=== PATIENT | male | born 1955 | race Caucasian/White ===

== ENCOUNTER 2017-05-16 11:43 | Emergency (ER) | payer MEDICARE, MEDICAID ==
[~2017-05-16] VITALS: Ht 182.9 cm; Wt 77.1 kg
[2017-05-16 12:18] VITALS: BP 145/91
[2017-05-16] MEDS ORDERED: LIDOCAINE 1%/EPI 1:100,000 20 ML VIAL. INJ ONE (12:45)
[2017-05-16] MEDS ORDERED: LIDOCAINE/EPI/TETRACAINE TOPICAL GEL 3 ML. TP ONE (12:45)
[2017-05-16] MEDS ORDERED: HYDROcodone/APAP 5/325MG 1 TAB TABLET PO ONE (14:15)
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
[2017-05-16] MEDS ORDERED: AMOX1TAB61 PO (14:38)
== END 2017-05-16 15:08 | disposition home or self-care (01) ==
LOC: ER 11:43
DX: S01.81XA Laceration without foreign body of other part of head, initial encounter (principal); S01.511A Laceration without foreign body of lip, initial encounter; S01.532A Puncture wound without foreign body of oral cavity, initial encounter; I10 Essential (primary) hypertension; E78.00 Pure hypercholesterolemia, unspecified; W54.0XXA Bitten by dog, initial encounter; Y93.89 Activity, other specified; Y92.89 Other specified places as the place of occurrence of the external cause; Y99.8 Other external cause status
CPT/HCPCS: 12014; 40650; J3490; 99285-25

== ENCOUNTER 2017-05-20 14:46 | Emergency (ER) | payer MEDICARE, MEDICAID ==
[~2017-05-20 14:46] MED LIST: AMOX1TAB61 PO
[2017-05-20 14:52] VITALS: BP 132/78
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
== END 2017-05-20 15:39 | disposition home or self-care (01) ==
LOC: ER 14:46
DX: S01.81XD Laceration without foreign body of other part of head, subsequent encounter (principal); S01.511D Laceration without foreign body of lip, subsequent encounter; I10 Essential (primary) hypertension; E78.00 Pure hypercholesterolemia, unspecified; W54.0XXD Bitten by dog, subsequent encounter
CPT/HCPCS: 99281

== ENCOUNTER 2017-05-23 12:12 | Emergency (ER) | payer MEDICARE, MEDICAID ==
[2017-05-23 13:20] VITALS: BP 115/73
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
== END 2017-05-23 13:57 | disposition home or self-care (01) ==
LOC: ER 12:12
DX: S01.81XD Laceration without foreign body of other part of head, subsequent encounter (principal); S01.511D Laceration without foreign body of lip, subsequent encounter; I10 Essential (primary) hypertension; E78.00 Pure hypercholesterolemia, unspecified; X58.XXXD Exposure to other specified factors, subsequent encounter; Y99.8 Other external cause status; Y92.89 Other specified places as the place of occurrence of the external cause
CPT/HCPCS: 99281

== ENCOUNTER 2021-05-26 17:53 | Inpatient (IN) | payer MEDICARE, MEDICAID ==
[~2021-05-26] VITALS: Ht 182.9 cm; Wt 59.7 kg
[2021-05-26] MEDS ORDERED: IV NORMAL SALINE 1000ML BAG 1,000 ML IV ONE ×2 (18:00→18:45)
[2021-05-26] MEDS ORDERED: ALBUTEROL SULFATE 2.5 MG/3 ML NEBU. NEB ONE (18:30)
[2021-05-26] MEDS ORDERED: methylPREDNISolone SOD SUCC PF 125 MG/2 ML VIAL. IV ONE (18:30)
[2021-05-26 18:44] LABS: BASE EXCESS COOX 5 mmol/L (-3-3); HCO3 COOX 28 mmol/L (21-28); METHEMOGLOBIN 0.3 % (0.0-1.9); OXYHEMOGLOBIN 84.7 %; PCO2 COOX 35 mmHg (35-46); PO2 COOX 51 mmHg (65-108); SAT O2 COOX 87 % (92-99)
[2021-05-26 18:44] LABS: BASO % 0 % (0-3); EOS # 0.1 x10^3/uL (0.0-0.7); EOS % 0 % (0-3); HEMATOCRIT 35.6 % (39.0-53.0); HEMOGLOBIN 12.3 g/dL (13.0-17.5); LYMPH # 0.3 x10^3/uL (1.0-4.8); LYMPH % 2 % (24-48); MEAN CORPUSCULAR HEMOGLOBIN 32 pg (25-35); MEAN CORPUSCULAR HGB CONC 35 g/dL (31-37); MEAN CORPUSCULAR VOLUME 92 fL (79-100); MONO % 0 % (0-9); NEUT # 14.5 x10^3/uL (1.8-7.7); NEUT % 97 % (31-73); PLATELET COUNT 247 x10^3/uL (140-400); RED BLOOD COUNT 3.86 x10^6/uL (4.30-5.70); RED CELL DISTRIBUTION WIDTH 14.2 % (11.5-14.5); WHITE BLOOD COUNT 14.9 x10^3/uL (4.0-11.0)
[2021-05-26] MEDS ORDERED: PIPERACILLIN/TAZOBACTAM 3.375 GM in IV NORMAL SALINE 50ML 50 ML IV ONE (18:45)
--- NOTE | 2021-05-26 18:49 | PHYS DOC ---
Past Medical History Past Medical History: High Cholesterol, Hypertension, Seizure Past Surgical History: Other Additional Past Surgical Histo: LEFT HAND CARPEL TUNNEL, AAA REPAIR Smoking Status: Former Smoker Alcohol Use: None Drug Use: None General Adult EDM: Chief Complaint: FLU SYMPTOM HPI: HPI: Patient is a 65 year old male who presents with 1 week of loss of taste, shortness of air, dizziness, cough, diarrhea. He states about a week ago he fell and was not seen in the hospital for this. He has a right shoulder bruise but no deformity. He states he is very dizzy. Patient appears very frail and disheveled. He states he does not remember last time he took a shower. He is living with a roommate who has been diagnosed with Covid for about 2 weeks now. Patient has a history of AAA, high cholesterol, hypertension, seizure, former smoker. Review of Systems: Review of Systems: Constitutional: + fever or chills. [] Eyes: Denies change in visual acuity. [] HENT: Denies nasal congestion or sore throat. [] Respiratory: + cough or +shortness of breath. [] Cardiovascular: Denies chest pain or edema. [] GI: Denies abdominal pain, nausea, vomiting, bloody stools or+diarrhea. [] : Denies dysuria. [] Musculoskeletal: Denies back pain or joint pain. +Generalized fatigue [] Integument: Denies rash. [] Neurologic: Denies headache, focal weakness or sensory changes. +Dizziness [] Endocrine: Denies polyuria or polydipsia. [] Lymphatic: Denies swollen glands. [] Psychiatric: Denies depression or anxiety. [] Heart Score: C/O Chest Pain: No HEART Score for Chest Pain: HEART Score for Chest Pain Response (Comments) Value History Slighlty/Non-Suspicious 0 ECG Nonspecific Repolarizatio 1 Age > 65 2 Risk Factors 1 or 2 Risk Factors 1 Troponin < Normal Limit 0 Total 4 Risk Factors: Risk Factors: DM, Current or recent (<one month) smoker, HTN, HLP, family history of CAD, obesity. Risk Scores: Score 0 - 3: 2.5% MACE over next 6 weeks - Discharge Home Score 4 - 6: 20.3% MACE over next 6 weeks - Admit for Clinical Observation Score 7 - 10: 72.7% MACE over next 6 weeks - Early Invasive Strategies Current Medications: Current Medications Medications (Trade) Dose Ordered Sig/Natacha Start Time Stop Time Status Last Admin Dose Admin Albuterol Sulfate (Ventolin Neb Soln) 2.5 mg 1X ONCE 05/26/21 18:30 05/26/21 18:31 UNV Methylprednisolone Sodium Succinate (SOLU-Medrol 125MG VIAL) 80 mg 1X ONCE 05/26/21 18:30 05/26/21 18:31 UNV Sodium Chloride 1,000 ml @ 1,000 mls/hr 1X ONCE 05/26/21 18:00 05/26/21 18:59 UNV Allergies: Allergies: Allergies Coded Allergies Type Severity Reaction Last Updated Verified No Known Drug Allergies 05/16/17 No Physical Exam: PE: Constitutional: Well developed, well nourished, no acute distress, non-toxic appearance. [] HENT: Normocephalic, atraumatic, bilateral external ears normal, oropharynx moist, no oral exudates, nose normal. [] Eyes: PERRLA, EOMI, conjunctiva normal, no discharge. [] Neck: Normal range of motion, no tenderness, supple, no stridor. [] Cardiovascular:Heart rate regular tachycardia rhythm, no murmur [] Lungs & Thorax: Bilateral breath sounds diminished to auscultation [] Abdomen: Bowel sounds normal, soft, no tenderness, no masses, no pulsatile masses. [] Skin: Warm, dry, no erythema, no rash. [] Back: No tenderness, no CVA tenderness. [] Extremities: No tenderness, no cyanosis, no clubbing, ROM intact, no edema. [] Neurologic: Alert and oriented X 3, normal motor function, normal sensory function, no focal deficits noted. [] Psychologic: Affect normal, judgement normal, mood normal. [] EKG: EK and read by Dr. Stone as sinus tachycardia and no STEMI. [address] Stone as afib and no STEMI Radiology/Procedures: Radiology/Procedures: [] Impression: [facility] [address] [place], [place] [id number] IMAGING REPORT Signed PATIENT: TOYA VARGAS ACCOUNT: [id number] : 1955 LOCATION: ER AGE: 65 SEX: M EXAM STATUS: REG ER ORD. PHYSICIAN: ALONSO RUST APRN REASON: cough PROCEDURE: PORTABLE CHEST 1V EXAMINATION: XR CHEST 1V CLINICAL HISTORY: Cough, hypoxia EXAM DATE/TIME: 05/26/2021 6:11 PM COMPARISON: None FINDINGS: Lines, Tubes, and Devices: None. Cardiomediastinal Silhouette: Narrowed cardiomediastinal Silhouette with aortic atherosclerotic calcification. Lungs and Pleura: Relative paucity of bronchovascular markings in the mid to upper lung zones with coarse interstitial prominence in the lower lung zones, compatible with COPD/emphysema. Increased interstitial and possible alveolar opacities in the right lower lung zone compared to the left. No evidence of pleural effusion or pneumothorax. Bones and Soft Tissues: Degenerative changes of the thoracic spine. Probable calcified joint bodies projected over the left shoulder. Partially visualized degenerative and/or posttraumatic changes in the right shoulder. IMPRESSION: Chronic changes consistent with COPD/emphysema with asymmetrically prominent interstitial and alveolar opacities in the right lower lung zones, possibly infectious. Correlate clinically. Electronically signed by: Adam Martin DO (05/26/2021 8:03 PM) [facility] DICTATED and SIGNED BY: ADAM MARTIN DO DATE: 05/26/[id number] 0 [facility] [address] [place] [address] IMAGING REPORT Signed PATIENT: TOYA VARGAS ACCOUNT: [id number] : 1955 LOCATION: ER AGE: 65 SEX: M EXAM STATUS: REG ER ORD. PHYSICIAN: ALONSO RUST APRN REASON: hypoxia PROCEDURE: CT CHEST ABDOMEN PELVIS WO Study: CT chest, abdomen and pelvis without contrast INDICATION: Hypoxia. COMPARISON: None. TECHNIQUE: Helical CT imaging performed of the chest, abdomen and pelvis performed without the use of intravenous contrast. Coronal and sagittal reformats were obtained. One or more of the following individualized dose reduction techniques were utilized for this examination: 1. Automated exposure control 2. Adjustment of the mA and/or kV according to patient size 3. Use of iterative reconstruction technique. FINDINGS: Inherently limited study without the use of intravenous contrast. CT Chest: Extensive calcific atherosclerosis to include severe trivessel coronary artery involvement. No aortic aneurysm. Enlarged subcarinal lymph node measuring 1.6 cm short axis. Mildly prominent precarinal lymph node at 1 cm short axis. Severe emphysema. Consolidative opacities mainly at the lower half of the right lung. Less pronounced peripheral opacities on the left lower lobe and a bandlike opacity along the anterior margin of the left major fissure. No axillary adenopathy. Cachectic body habitus. 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 Osteopenia. Advanced discogenic arthrosis at C6-C7 with an incomplet michael characterized disc osteophyte complex with presumed severe neural foraminal stenosis on the right. A few small areas of sclerosis along the vertebral bodies most of which are associated with Schmorl's nodes. CT Abdomen/Pelvis: Multiple hypoattenuating foci scattered throughout the liver which are incompletely characterized. A lobulated cystic focus at the periphery of the rig ht hepatic lobe measuring up to 4.2 cm appears to be septated. No CT manifestations of acute cholecystitis. No overt intrahepatic ductal dilatation. Poorly evaluated pancreas without regional inflammation. Splenic granulomas. The spleen is within normal limits for size. Atrophic adrenal glands without a well delineated mass. No hydronephrosis. Normal bladder wall thickness. Mild enlargement of the prostate. Incompletely assessed gastrointestinal tract without positive oral contrast. The stomach is particularly poorly evaluated due to underdistention. No pathologic dilatation of small bowel. No readily apparent abnormality of the colon. The appendix is difficult to delineate. Tortuous abdominal aorta with aneurysmal dilatation status post infrarenal aortobiiliac endograft repair. Also aneurysmal is the left common iliac artery and proximal left internal iliac artery. The stented aneurysm sac measures up to 5 cm. The aneurysm above the stent measures up to 4.4 x 4.8 cm. The left common iliac artery aneurysm measures up to 4.9 x 4.3 cm which is only partially stented. Background extensive calcific atherosclerosis. Incomplete assessment for stenoses without contrast. No definitive lymphadenopathy by size criteria. No free fluid or pneumoperitoneum. Osteopenia. Probable lumbar Schmorl's nodes. Discogenic arthrosis, endplate sclerosis and cystic change. Degenerative grade 1 anterolisthesis of L5 on S1. Mild stepwise retrolisthesis from L2-L3 through L4-L5. Severe osseous neural foraminal stenosis bilaterally at L5-S1. Lumbar dextroscoliosis with the apex at L3-L4. IMPRESSION: CT Chest: 1. Extensive consolidative opacities mainly at the lower half of the right lung and to a much lesser extent at the far peripheral aspect of the left lower lobe. Background severe emphysema. The imaging appearance is most typical of multifocal pneumonia which could be in part from aspiration given distribution. There are also a few prominent mediastinal lymph nodes which are indeterminate but could be reactive. Follow-up is recommended to confirm resolution. 2. Chronic findings to include extensive calcific atherosclerosis with severe trivessel coronary artery involvement and markedly severe arthrosis of both shoulders. CT Abdomen/Pelvis: 1. Taking into consideration the absence of contrast, no acute abnormality seen throughout the abdomen or pelvis. 2. Numerous incompletely characterized cystic foci scattered throughout the liver the largest within the right hepatic lobe measuring up to 4.2 cm which may be thinly septated. Obtainment of outside imaging would be useful to confirm stability. If none are available, eventual ultrasound follow-up is recommended. 3. Status post infrarenal aortobiiliac endograft repair in the setting of fusiform aneurysmal dilatation of the abdominal aorta in addition to the left common iliac artery. Maximum aneurysm measurements described in the body the report. No findings of rupture. 4. Additional chronic observations described above. Electronically signed by: BEBE WILLIAMSON MD (05/26/2021 9:26 PM) [facility] DICTATED and SIGNED BY: BEBE WILLIAMSON MD DATE: 05/26/21 [id number] [facility] [address] [place] [address] IMAGING REPORT Signed PATIENT: TOYA VARGAS ACCOUNT: [id number] : 1955 LOCATION: ER AGE: 65 SEX: M EXAM STATUS: REG ER ORD. PHYSICIAN: ALONSO RUST APRN REASON: dizziness fall PROCEDURE: CT HEAD AND CERVICAL SPINE WO EXAMINATION: CT HEAD AND C-SPINE WO CLINICAL HISTORY: Dizziness, fall one week ago TECHNIQUE: Serial axial images without IV contrast were obtained from the vertex to the foramen magnum. CT of the cervical spine without IV contrast. Spiral, high resolution axial images were obtained from the skull base to the cervicothoracic junction with sagittal and coronal planar reconstructions. CT Dose Reduction Employed: One or more of the following individualized dose reduction techniques were utilized for this examination: 1. Automated exposure control 2. Adjustment of the mA and/or kV according to patient size 3. Use of iterative reconstruction technique. COMPARISON: None FINDINGS: BRAIN: Acute Change: No evidence of an acute contusion or other acute parenchymal process. Hemorrhage: No evidence of acute parenchymal intracranial hemorrhage. Mass Lesion/Mass Effect: Subtle increased attenuation overlying the right cerebral hemisphere suspicious for a subacute subdural hematoma measuring up to 4 mm in maximum thickness. No associated midline shift. No evidence of intracranial mass or significant mass effect. Chronic Change: Scattered patchy foci of hypoattenuation in the supratentorial white matter, nonspecific but likely represents mild microvascular ischemia. Atherosclerotic calcification of the bilateral carotid siphons. Parenchyma: Mild generalized volume loss. Ventricles: Ventricles within normal limits for age. Paranasal Sinuses and Skull Base: Mild ethmoid secretions. No evidence of acute calvarial fracture. C-SPINE: Alignment: Normal anatomic alignment. Osseous Structures: No evidence of acute fracture. Grade 1 C3-4 anterolisthesis. Deformity of the left lateral mass of C3, possibly related to remote trauma. Degenerative Changes: Moderate to severe multilevel degenerative disc disease. Moderate to severe multilevel neural foraminal narrowing. Mild to moderate multilevel osseous spinal stenosis. Multilevel facet arthropathy. Cervical Soft Tissues: No prevertebral soft tissue swelling. Vascular calcifications. IMPRESSION: BRAIN: Findings suspicious for a small subacute right subdural hematoma. No associated midline shift or significant mass effect. C-SPINE: No evidence of acute osseous abnormality involving the cervical spine. Moderate to severe multilevel degenerative findings as described. Findings discussed with ALONSO RUST APRN at 05/26/2021 9:21 PM. Electronically signed by: Adam Martin DO (05/26/2021 9:26 PM) [facility] DICTATED and SIGNED BY: ADAM MARTIN DO DATE: 05/26/21 [id number] Course & Med Decision Making: Course & Med Decision Making Pertinent Labs and Imaging studies reviewed. (See chart for details) COVID-19 CRITERIA: The patient was evaluated during the global COVID-19 pandemic, and that diagnosis was suspected/considered upon their initial presentation. Their evaluation, treatment and testing was consistent with current guidelines for patients who present with complaints or symptoms that may be related to COVID-19. See HPI. Skin is warm, dry, skin mottled. Hands are cold. Alert and oriented x4. Does speak in full clear sentences. Does have a very large bruise to his right shoulder from a fall that he was not seen for about a week ago. States he is very dizzy and cannot ambulate. Patient is hypotensive. Patient ta chycardic. He is hypoxic and on 4 L of oxygen at 86%. After 800 mL fluid from EMS patient's blood pressure is up in the 90s. He does not wear oxygen daily. Lungs are very diminished throughout. Blood pressures dropped back down in the 70s. ABG shows hypoxia. We are waiting on BiPAP until we get his blood pressure up more. I have asked the patient if he wants CPR and to be intubated if his heart would stop and he states yes. I have ordered Zosyn. I have ordered 2 L of normal saline to be pressured in. 2014: Patient is currently getting his third liter of normal saline. On 4 L he is sitting at 87%. Blood pressures staying in the high 90s. I waiting for nephrology to call me back to get the okay for pressors. He is in kidney failure. Have called Dr. Martínez for admission. I have started Zosyn. We did send a sputum sample. 2037: I have spoken to Dr. Cohen who stated to keep giving him fluids and watch his urine output. Patient does have a Pena catheter in. Patient's blood pressure at this time is 111/59. Pressors have not been started at this time. He is 92% on 4 L. I have consulted with my ER physician Dr. Stone on this patient and care plan. I have asked for a central line but Dr Stone states one is not needed at this time. I have spoken to Dr Ryder concerning this patient. She states to continue with Solumedrol 80mg Q8H. 2153: Radiology called to let me know that the CT of the head shows a small subacute subdural hematoma. This is old. This likely from his fall 1 week ago. I have called Dr. Martínez to let them know. I have consulted Dr. Castro. 2227: Spoke to Deja nurse practitioner of Dr. Castro who states she will have him take a look at the skin. She states she will try ordering MRI for the morning. She states every 2 hours neuro checks. 0: Patient's blood pressure dropped into the 80s. We raised his normal saline to 250 an hour. He is put in Trendelenburg and is 1 pressure has come back up to 93/63. He is alert and oriented. His heart rate however has become irregular going from the 110's up to 145. He is 94% on [address] Stone is notified of this change in vital signs. 0000: Patient's heart rate is staying in 110's with Trendelenburg. Blood pressure is remaining stable. Will Continue to monitor. [] Dragon Disclaimer: Dragon Disclaimer: This electronic medical record was generated, in whole or in part, using a voice recognition dictation system. COVID-19 Patient Risks: Age 65 or older: Yes Sign of co-morbidity: Yes Exp to person + for COVID: Yes Exp to PUI: Yes Travel from affected area: No Lower respiratory symptoms: Yes Fever: No Other: Yes (DIARRHEA) PPE Use: Full PPE with N95 mask or PAPR: Yes Date and Time of Reassessment Date: May 26, 2021 Time: 20:25 Fluid Challenge Is the fluid challenge complet: No IBW Target Volume Used: No BMI > 30: No Vital Signs Vital Signs: Vital Signs Date Time Temp Pulse Resp B/P (MAP) Pulse Ox O2 Delivery O2 Flow Rate FiO2 05/26/21 19:13 100 19 99/55 (70) 96 Nasal Cannula 4.0 05/26/21 17:53 97.7 97.7 Temperature Source: Axillary Respirations Respiratory Effort: Non-Labored, Shortness of breath Respiratory Pattern: Tachypnea Cardiovascular Pulse Rhythm: Regular Heart: Nml S1, S2, no murmurs Lung Sounds Breath Sounds: Diminished Capillary Refil Capillary Refill: Rt Hand < 3 seconds Peripheral Pulse Pulse Location: Radial Pulse Strength: Normal (2+) Pulse Assessment Method: Monitor Integumentary Skin: Cool Skin Moisture: Dry Skin Turgor: Decreased Skin Color: pallor Fingernail Color: WNL Departure Departure Impression: Primary Impression: Septic shock Additional Impressions: Kidney failure, acute Qualified Codes: N17.9 - Acute kidney failure, unspecified Person under investigation for COVID-19 Pneumonia Qualified Codes: J18.9 - Pneumonia, unspecified organism Subacute subdural hematoma Disposition: 09 ADMITTED INPATIENT Admitting Physician: RAMA Condition: GOOD Referrals: MADHURI AREVALO (PCP) ALONSO RUST APRN May 26, 2021 18:48
[2021-05-26 18:53] LABS: CALCIUM 8.9 mg/dL (8.5-10.1); CREATININE 3.7 mg/dL (0.7-1.3); GFR 16.6; POTASSIUM 3.8 mmol/L (3.5-5.1)
[2021-05-26 18:56] LABS: MAGNESIUM 3.3 mg/dL (1.8-2.4); PHOSPHORUS 5.2 mg/dL (2.6-4.7)
[2021-05-26 18:59] LABS: ALBUMIN 1.7 g/dL (3.4-5.0); ALBUMIN/GLOBULIN RATIO 0.4 (1.0-1.7); TOTAL BILIRUBIN 0.5 mg/dL (0.2-1.0); TOTAL PROTEIN 6.2 g/dL (6.4-8.2)
[2021-05-26 19:21] LABS: % BANDS 55 % (0-9); % LYMPHS 4 % (24-48)
[2021-05-26 19:22] LABS: % MONOS 7 % (0-10); % SEGS 34 % (35-66); PLT ESTIMATE ADEQUATE (ADEQUATE); TOXIC GRANULATION SLIGHT
[2021-05-26 19:44] LABS: CALCIUM 8.2 mg/dL (8.5-10.1); CREATININE 3.5 mg/dL (0.7-1.3); GFR 17.7; POTASSIUM 4.2 mmol/L (3.5-5.1)
[2021-05-26 19:52] LABS: ALBUMIN 1.3 g/dL (3.4-5.0); ALBUMIN/GLOBULIN RATIO 0.3 (1.0-1.7); TOTAL BILIRUBIN 0.4 mg/dL (0.2-1.0); TOTAL PROTEIN 5.2 g/dL (6.4-8.2)
--- NOTE | 2021-05-26 20:06 | RAD ---
EXAMINATION: XR CHEST 1V CLINICAL HISTORY: Cough, hypoxia EXAM DATE/TIME: 05/26/2021 6:11 PM COMPARISON: None FINDINGS: Lines, Tubes, and Devices: None. Cardiomediastinal Silhouette: Narrowed cardiomediastinal Silhouette with aortic atherosclerotic calci fication. Lungs and Pleura: Relative paucity of bronchovascular markings in the mid to upper lung zones with co arse interstitial prominence in the lower lung zones, compatible with COPD/emphysema. Increased inter stitial and possible alveolar opacities in the right lower lung zone compared to the left. No evidenc e of pleural effusion or pneumothorax. Bones and Soft Tissues: Degenerative changes of the thoracic spine. Probable calcified joint bodies p rojected over the left shoulder. Partially visualized degenerative and/or posttraumatic changes in th e right shoulder. IMPRESSION: Chronic changes consistent with COPD/emphysema with asymmetrically prominent interstitial and alveola r opacities in the right lower lung zones, possibly infectious. Correlate clinically. Electronically signed by: Adam Gamez DO (05/26/2021 8:03 PM) [facility]
[2021-05-26] MEDS ORDERED: ACETAMINOPHEN 325 MG TABLET. PO PRN (20:15)
[2021-05-26 20:20] LABS: PROTHROMBIN TIME PATIENT 18.9 SEC (11.7-14.0)
[2021-05-26] MEDS: IV NORMAL SALINE 1000ML BAG 1,000 ML IV SCH (20:49)
[2021-05-26 21:01] LABS: BILIRUBIN,URINE MODERATE (NEG); CLARITY,URINE CLOUDY; COLOR,URINE AMBER; NITRITE,URINE NEGATIVE (NEG); PROTEIN,URINE 30 mg/dL (NEG-TRACE); UROBILINOGEN,URINE 0.2 mg/dL (0.2 mg/dL)
[2021-05-26 21:07] LABS: AMORPHOUS SEDIMENT,UR PRESENT /HPF; HYALINE CASTS, URINE MANY /HPF
[2021-05-26 21:11] LABS: BACTERIA,URINE 0 /HPF (0-FEW)
--- NOTE | 2021-05-26 21:11 | RAD ---
EXAMINATION: XR SHOULDER_RIGHT 2+ VIEWS CLINICAL HISTORY: FALL, BRUISING TECHNIQUE: XR SHOULDER_RIGHT 2+ VIEWS Number of Images/Views: 3 COMPARISON: None FINDINGS: Advanced glenohumeral degenerative changes. Prominent corticated ossicle along the inferior glenohume ral joint which may be related to large osteophytes, joint body, or remote posttraumatic changes. Mod erate to severe hypertrophic acromioclavicular degenerative changes with subacromial spurring. No chalo dence of acute fracture. Lobular densities project along the superior humeral head on frontal views, suggestive of rotator cuff calcific tendinosis. Apparent osseous densities projected over the subacro mial space on the scapular Y view of unclear etiology. IMPRESSION: Advanced glenohumeral and moderate to severe acromioclavicular degenerative changes. Additional nonacute findings as described. Electronically signed by: Adam Gamez DO (05/26/2021 9:09 PM) [facility]
[2021-05-26 21:12] LABS: GRANULAR CASTS,URINE FEW /HPF
--- NOTE | 2021-05-26 21:28 | RAD ---
Study: CT chest, abdomen and pelvis without contrast INDICATION: Hypoxia. COMPARISON: None. TECHNIQUE: Helical CT imaging performed of the chest, abdomen and pelvis performed without the use of intravenous contrast. Coronal and sagittal reformats were obtained. One or more of the following individualized dose reduction techniques were utilized for this examinat ion: 1. Automated exposure control 2. Adjustment of the mA and/or kV according to patient size 3. Use of iterative reconstruction technique. FINDINGS: Inherently limited study without the use of intravenous contrast. CT Chest: Extensive calcific atherosclerosis to include severe trivessel coronary artery involvement. No aortic aneurysm. Enlarged subcarinal lymph node measuring 1.6 cm short axis. Mildly prominent precarinal lymph node at 1 cm short axis. Severe emphysema. Consolidative opacities mainly at the lower half of the right lung. Less pronounced peripheral opacities on the left lower lobe and a bandlike opacity along the anterior margin of the left major fissure. No axillary adenopathy. Cachectic body habitus. 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 Osteopenia. Adv anced discogenic arthrosis at C6-C7 with an incompletely characterized disc osteophyte complex with p resumed severe neural foraminal stenosis on the right. A few small areas of sclerosis along the verte bral bodies most of which are associated with Schmorl's nodes. CT Abdomen/Pelvis: Multiple hypoattenuating foci scattered throughout the liver which are incompletely characterized. A lobulated cystic focus at the periphery of the right hepatic lobe measuring up to 4.2 cm appears to b e septated. No CT manifestations of acute cholecystitis. No overt intrahepatic ductal dilatation. Poorly evaluate d pancreas without regional inflammation. Splenic granulomas. The spleen is within normal limits for size. Atrophic adrenal glands without a well delineated mass. No hydronephrosis. Normal bladder wall thickness. Mild enlargement of the prostate. Incompletely assessed gastrointestinal tract without positive oral contrast. The stomach is particula rly poorly evaluated due to underdistention. No pathologic dilatation of small bowel. No readily appa rent abnormality of the colon. The appendix is difficult to delineate. Tortuous abdominal aorta with aneurysmal dilatation status post infrarenal aortobiiliac endograft rep air. Also aneurysmal is the left common iliac artery and proximal left internal iliac artery. The wyatt nted aneurysm sac measures up to 5 cm. The aneurysm above the stent measures up to 4.4 x 4.8 cm. The left common iliac artery aneurysm measures up to 4.9 x 4.3 cm which is only partially stented. Backgr ound extensive calcific atherosclerosis. Incomplete assessment for stenoses without contrast. No definitive lymphadenopathy by size criteria. No free fluid or pneumoperitoneum. Osteopenia. Probable lumbar Schmorl's nodes. Discogenic arthrosis, endplate sclerosis and cystic madrigal ge. Degenerative grade 1 anterolisthesis of L5 on S1. Mild stepwise retrolisthesis from L2-L3 through L4-L5. Severe osseous neural foraminal stenosis bilaterally at L5-S1. Lumbar dextroscoliosis with th e apex at L3-L4. IMPRESSION: CT Chest: 1. Extensive consolidative opacities mainly at the lower half of the right lung and to a much lesser extent at the far peripheral aspect of the left lower lobe. Background severe emphysema. The imaging appearance is most typical of multifocal pneumonia which could be in part from aspiration given dist ribution. There are also a few prominent mediastinal lymph nodes which are indeterminate but could be reactive. Follow-up is recommended to confirm resolution. 2. Chronic findings to include extensive calcific atherosclerosis with severe trivessel coronary art jose alfredo involvement and markedly severe arthrosis of both shoulders. CT Abdomen/Pelvis: 1. Taking into consideration the absence of contrast, no acute abnormality seen throughout the abdom en or pelvis. 2. Numerous incompletely characterized cystic foci scattered throughout the liver the largest within the right hepatic lobe measuring up to 4.2 cm which may be thinly septated. Obtainment of outside im aging would be useful to confirm stability. If none are available, eventual ultrasound follow-up is r ecommended. 3. Status post infrarenal aortobiiliac endograft repair in the setting of fusiform aneurysmal dilata tion of the abdominal aorta in addition to the left common iliac artery. Maximum aneurysm measurement s described in the body the report. No findings of rupture. 4. Additional chronic observations described above. Electronically signed by: BEBE WILLIAMSON MD (05/26/2021 9:26 PM) [facility]
--- NOTE | 2021-05-26 21:29 | RAD ---
EXAMINATION: CT HEAD AND C-SPINE WO CLINICAL HISTORY: Dizziness, fall one week ago TECHNIQUE: Serial axial images without IV contrast were obtained from the vertex to the foramen magnum. CT of the cervical spine without IV contrast. Spiral, high resolution axial images were obtained from the skull base to the cervicothoracic junction with sagittal and coronal planar reconstructions. CT Dose Reduction Employed: One or more of the following individualized dose reduction techniques wer e utilized for this examination: 1. Automated exposure control 2. Adjustment of the mA and/or kV ac cording to patient size 3. Use of iterative reconstruction technique. COMPARISON: None FINDINGS: BRAIN: Acute Change: No evidence of an acute contusion or other acute parenchymal process. Hemorrhage: No evidence of acute parenchymal intracranial hemorrhage. Mass Lesion/Mass Effect: Subtle increased attenuation overlying the right cerebral hemisphere suspici ous for a subacute subdural hematoma measuring up to 4 mm in maximum thickness. No associated midline shift. No evidence of intracranial mass or significant mass effect. Chronic Change: Scattered patchy foci of hypoattenuation in the supratentorial white matter, nonspeci fic but likely represents mild microvascular ischemia. Atherosclerotic calcification of the bilateral carotid siphons. Parenchyma: Mild generalized volume loss. Ventricles: Ventricles within normal limits for age. Paranasal Sinuses and Skull Base: Mild ethmoid secretions. No evidence of acute calvarial fracture. C-SPINE: Alignment: Normal anatomic alignment. Osseous Structures: No evidence of acute fracture. Grade 1 C3-4 anterolisthesis. Deformity of the lef t lateral mass of C3, possibly related to remote trauma. Degenerative Changes: Moderate to severe multilevel degenerative disc disease. Moderate to severe mul tilevel neural foraminal narrowing. Mild to moderate multilevel osseous spinal stenosis. Multilevel f acet arthropathy. Cervical Soft Tissues: No prevertebral soft tissue swelling. Vascular calcifications. IMPRESSION: BRAIN: Findings suspicious for a small subacute right subdural hematoma. No associated midline shift or sign ificant mass effect. C-SPINE: No evidence of acute osseous abnormality involving the cervical spine. Moderate to severe multilevel degenerative findings as described. Findings discussed with ALONSO RUST APRN at 05/26/2021 9:21 PM. Electronically signed by: Adam Gamez DO (05/26/2021 9:26 PM) [facility]
[2021-05-26] MEDS ORDERED: methylPREDNISolone SOD SUCC PF 40 MG/ML VIAL. IV ONE (22:00)
[2021-05-27] MEDS ORDERED: PIPERACILLIN/TAZOBACTAM 3.375 GM in IV NORMAL SALINE 50ML 50 ML IV SCH
--- NOTE | 2021-05-27 00:25 | EKG ---
[facility] [address] [place] [address] Test Date: 2021-05-26 Test Time: 18:03:03 Pat Name: TOYA VARGAS Department: Room: Gender: M [employer]: : 1955 Requested By: ALONSO RUST Order Number: [id number] Reading MD: Measurements Intervals [place] Rate: 112 P: 268 MD: 152 QRS: 71 QRSD: 92 T: 59 QT: 372 QTc: 510 Interpretive Statements SUPRAVENTRICULAR RHYTHM NO SPECIFIC ECG ABNORMALITIES RI6.02 No previous ECG available for comparison
[2021-05-27] MEDS ORDERED: PIPERACILLIN/TAZOBACTAM 2.25 GM in IV NORMAL SALINE 50ML 50 ML IV SCH (06:00)
[2021-05-27] MEDS: IV NORMAL SALINE 1000ML BAG 1,000 ML IV SCH ×2 (07:27→16:06)
[2021-05-27 08:05] LABS: BASO % 0 % (0-3); EOS % 0 % (0-3); HEMATOCRIT 30.3 % (39.0-53.0); HEMOGLOBIN 10.3 g/dL (13.0-17.5); LYMPH # 0.5 x10^3/uL (1.0-4.8); LYMPH % 4 % (24-48); MEAN CORPUSCULAR HEMOGLOBIN 32 pg (25-35); MEAN CORPUSCULAR HGB CONC 34 g/dL (31-37); MEAN CORPUSCULAR VOLUME 93 fL (79-100); MONO # 0.6 x10^3/uL (0.0-1.1); MONO % 5 % (0-9); NEUT # 10.9 x10^3/uL (1.8-7.7); NEUT % 91 % (31-73); PLATELET COUNT 197 x10^3/uL (140-400); RED BLOOD COUNT 3.25 x10^6/uL (4.30-5.70); RED CELL DISTRIBUTION WIDTH 14.3 % (11.5-14.5)
[2021-05-27 08:22] LABS: ALBUMIN/GLOBULIN RATIO 0.3 (1.0-1.7); CREATININE 1.8 mg/dL (0.7-1.3); GFR 38.1; TOTAL BILIRUBIN 0.4 mg/dL (0.2-1.0); TOTAL PROTEIN 4.7 g/dL (6.4-8.2)
--- NOTE | 2021-05-27 10:19 | RAD ---
EXAM: Head CT without contrast. HISTORY: Subdural hematoma. TECHNIQUE: Computed tomographic images of the head were obtained without contrast. *One or more of the following individualized dose reduction techniques were utilized for this examina tion: 1. Automated exposure control. 2. Adjustment of the mA and/or kV according to patient size. 3. Use of iterative reconstruction technique. COMPARISON: 05/26/2021. FINDINGS: There has been no significant change in the size of a subdural hematoma along the right cer ebral convexity. This measures approximately 8 mm in maximum thickness. There is mixed attenuation of blood products within this subdural hematoma, favoring an acute to subacute on chronic subdural mindy cat. There is slight asymmetry in the size of the left greater than right ventricles which is likely physiologic rather than due to mass effect. There is no midline shift. There is an incidental cavum septum pellucidum. There are subtle areas of hypodensity within the cerebral white matter, likely due to chronic small vessel disease. The orbits are unremarkable. The paranasal sinuses are clear. The m astoid air cells are unremarkable. There is no suspicious calvarial lesion. IMPRESSION: 1. No significant change in the size of a suspected acute to subacute subdural hematoma superimposed on a chronic subdural hematoma along the right cerebral convexity. This measures approximately 8 mm i n thickness. 2. Bilateral cerebral white matter changes, likely due to chronic small vessel disease. Electronically signed by: Arabella Ott MD (05/27/2021 10:16 AM) [facility]
--- NOTE | 2021-05-27 12:15 | NUR ---
Patient arrived to room 675 via bed from ER at around 1215. Patient A&OX4. VVS. Patient on 5L oxygen NC. The patient, TOYA VARGAS, 65 y/o, M admitted by EUGENIO ALATORRE MD, was given written information regarding hospital policies, unit procedures and contact persons. Valuables were checked and noted. Patient's sister helped with admission questions over the phone due to patient being short of breath/tired. Will continue to monitor.
--- NOTE | 2021-05-27 12:26 | PDOC2 ---
CONSULT Date of Consult Date of Consult DATE: 05/27/21 TIME: 12:04 Reason for Consult Reason for Consult: OPHELIA Identification/Chief Complaint Chief Complaint Dizziness / SOB / Diarrhea Source Source: Chart review History of Present Illness Reason for Visit: Patient is a 65 year old CM who presents with 1 week of loss of taste, sh ortness of air, dizziness, cough, diarrhea. He states about a week ago he fell and was not seen in the hospital for this. He has a right shoulder bruise but no deformity. He reported in the ER that he was very dizzy. He states he does not remember last time he took a shower. He is living with a roommate who has been diagnosed with Covid for about 2 weeks now. Patient has a history of AAA, hypertension, seizure, former smoker.Denies N/V. No F/C. No CP . Denies any urinary complaints He was hypotensive and tachycardic in the ER . Was hypoxic with O2 sats 86%. on 4 L of oxygen . I was paged by ER provider last night . After IV fluids BP improved some but dropped back down in the 70s. BP's maintained with IVF, no pressors given in the ER Currently BP improved and heart rate improved . Patient asking for water Past Medical History Past Medical History Cardiovascular: HTN, Hyperlipidemia Pulmonary: Asthma, COPD CENTRAL NERVOUS SYSTEM: Seizure Past Surgical History Past Surgical History AAA repair ) Family History Family History Diabetes Social History Social History Smoke: Quit Drugs: None Lives: Roommate Current Problem List Problem List Problems Medical Problems: (1) Kidney failure, acute Status: Acute (2) Person under investigation for COVID-19 Status: Acute (3) Pneumonia Status: Acute (4) Septic shock Status: Acute (5) Subacute subdural hematoma Status: Acute Current Medications Current Medications Current Medications Sodium Chloride 1,000 ml @ 1,000 mls/hr 1X ONCE IV Last administered on 05/26/21at 18:40; Start 05/26/21 at 18:00; Stop 05/26/21 at 18:59; Status DC Methylprednisolone Sodium Succinate (SOLU-Medrol 125MG VIAL) 80 mg 1X ONCE IV Last administered on 05/26/21at 18:42; Start 05/26/21 at 18:30; Stop 05/26/21 at 18:31; Status DC Albuterol Sulfate (Ventolin Neb Soln) 2.5 mg 1X ONCE NEB Last administered on 05/26/21at 18:30; Start 05/26/21 at 18:30; Stop 05/26/21 at 18:31; Status DC Sodium Chloride 1,000 ml @ 1,000 mls/hr 1X ONCE IV Last administered on 05/26/21at 18:45; Start 05/26/21 at 18:45; Stop 05/26/21 at 19:44; Status DC Piperacillin Sod/ Tazobactam Sod 3.375 gm/Sodium Chloride 50 ml @ 100 mls/hr 1X ONCE IV Last administered on 05/26/21at 19:12; Start 05/26/21 at 18:45; Stop 05/26/21 at 19:14; Status DC Sodium Chloride 1,000 ml @ 100 mls/hr Q10H IV Last administered on 05/27/21at 07:27; Start 05/26/21 at 20:15; Stop 05/27/21 at 20:14 Acetaminophen (Tylenol) 650 mg PRN Q4HRS PRN PO FEVER > 100.3'F; Start 05/26/21 at 20:15; Stop 05/27/21 at 20:14 Methylprednisolone Sodium Succinate (SOLU-Medrol 40MG VIAL) 80 mg Q8HRS ONCE IV Last administered on 05/26/21at 22:40; Start 05/26/21 at 22:00; Stop 05/26/21 at 22:01; Status DC Piperacillin Sod/ Tazobactam Sod 3.375 gm/Sodium Chloride 50 ml @ 100 mls/hr Q6HRS IV ; Start 05/27/21 at 00:00; Stop 05/26/21 at 22:59; Status DC Piperacillin Sod/ Tazobactam Sod 2.25 gm/Sodium Chloride 50 ml @ 100 mls/hr Q8HRS IV Last administered on 05/27/21at 05:47; Start 05/27/21 at 06:00 Active Scripts Active Augmentin 875-125 Tablet (Amoxicillin/Potassium Clav) 1 Each Tablet 1 Tab PO BID Allergies Allergies: Coded Allergies: No Known Drug Allergies (Unverified , 05/16/17) ROS Review of System As per HPi, rest of the ROS is negative Physical Exam Physical Exam General- NAD, disheveled , frail HEEN On O2 by NC, OM mildly dry Neck Supple Lungs decreased at bases CV S1S2 Abd Soft, NT Ext No LE edema. large bruise to his right shoulder from a fall about a week ago. No CVA or SP tenderness, Pena + Neuro Grossly normal Skin no rash Vital Signs Vital Signs Date Time Temp Pulse Resp B/P (MAP) Pulse Ox O2 Delivery O2 Flow Rate FiO2 05/27/21 10:54 104 103/55 (71) 95 5.0 05/27/21 07:00 17 05/27/21 05:00 Nasal Cannula 05/26/21 17:53 97.7 97.7 Assessment & Plan OPHELIA - Vasomotor/Dehydration/ Hypotension . baseline Unknown to me .Non oliguric Last night recommended IVF, Pressors if indicated and Pena for strict I/O Renal function Improving with IVF . UA unremarkable, CT scan kidneys and Bladder Unremarkable Supportive care, maintain Hydration, Strict I/O, avoid Nephrotoxins Hypokalemia- Replace K Ac Resp Failure - On o2 by NC ,with COVID PNA, probable aspiration PNA, and underlying COPD Hypotension- Improved with IVF Subacute subdural hematoma - Hx of fall CoVid 19 POsitive - exposure from his roommate Hx of HTN - Hypotensive since presentation to the ER AFIB wtih RVR; new onset Abdominal aortic aneurysm s/p endograft repair Labs Labs Laboratory Tests Test 05/26/21 18:33 05/26/21 18:35 05/26/21 18:49 05/26/21 19:30 White Blood Count 14.9 x10^3/uL (4.0-11.0) Red Blood Count 3.86 x10^6/uL (4.30-5.70) Hemoglobin 12.3 g/dL (13.0-17.5) Hematocrit 35.6 % (39.0-53.0) Mean Corpuscular Volume 92 fL (79-100) Mean Corpuscular Hemoglobin 32 pg (25-35) Mean Corpuscular Hemoglobin Concent 35 g/dL (31-37) Red Cell Distribution Width 14.2 % (11.5-14.5) Platelet Count 247 x10^3/uL (140-400) Neutrophils (%) (Auto) 97 % (31-73) Lymphocytes (%) (Auto) 2 % (24-48) Monocytes (%) (Auto) 0 % (0-9) Eosinophils (%) (Auto) 0 % (0-3) Basophils (%) (Auto) 0 % (0-3) Neutrophils # (Auto) 14.5 x10^3/uL (1.8-7.7) Lymphocytes # (Auto) 0.3 x10^3/uL (1.0-4.8) Monocytes # (Auto) 0.0 x10^3/uL (0.0-1.1) Eosinophils # (Auto) 0.1 x10^3/uL (0.0-0.7) Basophils # (Auto) 0.0 x10^3/uL (0.0-0.2) Segmented Neutrophils % 34 % (35-66) Band Neutrophils % 55 % (0-9) Lymphocytes % 4 % (24-48) Monocytes % 7 % (0-10) Toxic Granulation Slight Dohle Bodies Few Platelet Estimate Adequate (ADEQUATE) Sodium Level 129 mmol/L (136-145) 131 mmol/L (136-145) Potassium Level 3.8 mmol/L (3.5-5.1) 4.2 mmol/L (3.5-5.1) Chloride Level 89 mmol/L (98-107) 93 mmol/L (98-107) Carbon Dioxide Level 30 mmol/L (21-32) 30 mmol/L (21-32) Anion Gap 10 (6-14) 8 (6-14) Blood Urea Nitrogen 105 mg/dL (8-26) 95 mg/dL (8-26) Creatinine 3.7 mg/dL (0.7-1.3) 3.5 mg/dL (0.7-1.3) Estimated GFR (Cockcroft-Gault) 16.6 17.7 BUN/Creatinine Ratio 28 (6-20) 27 (6-20) Glucose Level 96 mg/dL (70-99) 77 mg/dL (70-99) Lactic Acid Level 3.3 mmol/L (0.4-2.0) Calcium Level 8.9 mg/dL (8.5-10.1) 8.2 mg/dL (8.5-10.1) Phosphorus Level 5.2 mg/dL (2.6-4.7) Magnesium Level 3.3 mg/dL (1.8-2.4) Total Bilirubin 0.5 mg/dL (0.2-1.0) 0.4 mg/dL (0.2-1.0) Aspartate Amino Transf (AST/SGOT) 71 U/L (15-37) 46 U/L (15-37) Alanine Aminotransferase (ALT/SGPT) 68 U/L (16-63) 48 U/L (16-63) Alkaline Phosphatase 77 U/L (46-116) 61 U/L (46-116) Troponin I Quantitative < 0.017 ng/mL (0.000-0.055) PQ-Uev-G-Type Natriuretic Peptide 1992 pg/mL (0-124) Total Protein 6.2 g/dL (6.4-8.2) 5.2 g/dL (6.4-8.2) Albumin 1.7 g/dL (3.4-5.0) 1.3 g/dL (3.4-5.0) Albumin/Globulin Ratio 0.4 (1.0-1.7) 0.3 (1.0-1.7) O2 Saturation 87 % (92-99) Arterial Blood pH 7.51 (7.35-7.45) Arterial Blood pCO2 at Patient Temp 35 mmHg (35-46) Arterial Blood pO2 at Patient Temp 51 mmHg (65-108) Arterial Blood HCO3 28 mmol/L (21-28) Arterial Blood Base Excess 5 mmol/L (-3-3) Oxyhemoglobin 84.7 % Methemoglobin 0.3 % (0.0-1.9) Carbon Monoxide, Quantitative 1.9 % (0.0-1.9) FiO2 36 SARS-CoV-2 RNA (KELLIE) Positive (Negative) SARS-CoV-2 Antigen (Rapid) Negative (NEGATIVE) Test 05/26/21 20:02 05/26/21 20:50 05/26/21 22:30 05/27/21 07:45 Prothrombin Time 18.9 SEC (11.7-14.0) Prothromb Time International Ratio 1.6 (0.8-1.1) Activated Partial Thromboplast Time 30 SEC (24-38) Urine Collection Type Unknown Urine Color Erendira Urine Clarity Cloudy Urine pH 5.0 (<5.0-8.0) Urine Specific [place] 1.020 (1.000-1.030) Urine Protein 30 mg/dL (NEG-TRACE) Urine Glucose (UA) Negative mg/dL (NEG) Urine Ketones (Stick) Negative mg/dL (NEG) Urine Blood Small (NEG) Urine Nitrite Negative (NEG) Urine Bilirubin Moderate (NEG) Urine Urobilinogen Dipstick 0.2 mg/dL (0.2 mg/dL) Urine Leukocyte Esterase Negative (NEG) Urine RBC 1-2 /HPF (0-2) Urine WBC 1-4 /HPF (0-4) Urine Transitional Epithelial Cells Few /LPF Urine Amorphous Sediment Present /HPF Urine Bacteria 0 /HPF (0-FEW) Urine Hyaline Casts Many /HPF Urine Granular Casts Few /HPF Urine Mucus Mod /LPF Lactic Acid Level 2.5 mmol/L (0.4-2.0) White Blood Count 12.0 x10^3/uL (4.0-11.0) Red Blood Count 3.25 x10^6/uL (4.30-5.70) Hemoglobin 10.3 g/dL (13.0-17.5) Hematocrit 30.3 % (39.0-53.0) Mean Corpuscular Volume 93 fL (79-100) Mean Corpuscular Hemoglobin 32 pg (25-35) Mean Corpuscular Hemoglobin Concent 34 g/dL (31-37) Red Cell Distribution Width 14.3 % (11.5-14.5) Platelet Count 197 x10^3/uL (140-400) Neutrophils (%) (Auto) 91 % (31-73) Lymphocytes (%) (Auto) 4 % (24-48) Monocytes (%) (Auto) 5 % (0-9) Eosinophils (%) (Auto) 0 % (0-3) Basophils (%) (Auto) 0 % (0-3) Neutrophils # (Auto) 10.9 x10^3/uL (1.8-7.7) Lymphocytes # (Auto) 0.5 x10^3/uL (1.0-4.8) Monocytes # (Auto) 0.6 x10^3/uL (0.0-1.1) Eosinophils # (Auto) 0.0 x10^3/uL (0.0-0.7) Basophils # (Auto) 0.0 x10^3/uL (0.0-0.2) Sodium Level 139 mmol/L (136-145) Potassium Level 3.0 mmol/L (3.5-5.1) Chloride Level 101 mmol/L (98-107) Carbon Dioxide Level 27 mmol/L (21-32) Anion Gap 11 (6-14) Blood Urea Nitrogen 72 mg/dL (8-26) Creatinine 1.8 mg/dL (0.7-1.3) Estimated GFR (Cockcroft-Gault) 38.1 BUN/Creatinine Ratio 40 (6-20) Glucose Level 65 mg/dL (70-99) Calcium Level 7.0 mg/dL (8.5-10.1) Total Bilirubin 0.4 mg/dL (0.2-1.0) Aspartate Amino Transf (AST/SGOT) 55 U/L (15-37) Alanine Aminotransferase (ALT/SGPT) 46 U/L (16-63) Alkaline Phosphatase 53 U/L (46-116) Total Protein 4.7 g/dL (6.4-8.2) Albumin 1.0 g/dL (3.4-5.0) Albumin/Globulin Ratio 0.3 (1.0-1.7) Test 05/27/21 12:00 Glucose (Fingerstick) 72 mg/dL (70-99) Laboratory Tests Test 05/26/21 18:33 05/26/21 18:35 05/26/21 18:49 05/26/21 19:30 White Blood Count 14.9 x10^3/uL (4.0-11.0) Red Blood Count 3.86 x10^6/uL (4.30-5.70) Hemoglobin 12.3 g/dL (13.0-17.5) Hematocrit 35.6 % (39.0-53.0) Mean Corpuscular Volume 92 fL (79-100) Mean Corpuscular Hemoglobin 32 pg (25-35) Mean Corpuscular Hemoglobin Concent 35 g/dL (31-37) Red Cell Distribution Width 14.2 % (11.5-14.5) Platelet Count 247 x10^3/uL (140-400) Neutrophils (%) (Auto) 97 % (31-73) Lymphocytes (%) (Auto) 2 % (24-48) Monocytes (%) (Auto) 0 % (0-9) Eosinophils (%) (Auto) 0 % (0-3) Basophils (%) (Auto) 0 % (0-3) Neutrophils # (Auto) 14.5 x10^3/uL (1.8-7.7) Lymphocytes # (Auto) 0.3 x10^3/uL (1.0-4.8) Monocytes # (Auto) 0.0 x10^3/uL (0.0-1.1) Eosinophils # (Auto) 0.1 x10^3/uL (0.0-0.7) Basophils # (Auto) 0.0 x10^3/uL (0.0-0.2) Segmented Neutrophils % 34 % (35-66) Band Neutrophils % 55 % (0-9) Lymphocytes % 4 % (24-48) Monocytes % 7 % (0-10) Toxic Granulation Slight Dohle Bodies Few Platelet Estimate Adequate (ADEQUATE) Sodium Level 129 mmol/L (136-145) 131 mmol/L (136-145) Potassium Level 3.8 mmol/L (3.5-5.1) 4.2 mmol/L (3.5-5.1) Chloride Level 89 mmol/L (98-107) 93 mmol/L (98-107) Carbon Dioxide Level 30 mmol/L (21-32) 30 mmol/L (21-32) Anion Gap 10 (6-14) 8 (6-14) Blood Urea Nitrogen 105 mg/dL (8-26) 95 mg/dL (8-26) Creatinine 3.7 mg/dL (0.7-1.3) 3.5 mg/dL (0.7-1.3) Estimated GFR (Cockcroft-Gault) 16.6 17.7 BUN/Creatinine Ratio 28 (6-20) 27 (6-20) Glucose Level 96 mg/dL (70-99) 77 mg/dL (70-99) Lactic Acid Level 3.3 mmol/L (0.4-2.0) Calcium Level 8.9 mg/dL (8.5-10.1) 8.2 mg/dL (8.5-10.1) Phosphorus Level 5.2 mg/dL (2.6-4.7) Magnesium Level 3.3 mg/dL (1.8-2.4) Total Bilirubin 0.5 mg/dL (0.2-1.0) 0.4 mg/dL (0.2-1.0) Aspartate Amino Transf (AST/SGOT) 71 U/L (15-37) 46 U/L (15-37) Alanine Aminotransferase (ALT/SGPT) 68 U/L (16-63) 48 U/L (16-63) Alkaline Phosphatase 77 U/L (46-116) 61 U/L (46-116) Troponin I Quantitative < 0.017 ng/mL (0.000-0.055) RA-Egr-M-Type Natriuretic Peptide 1992 pg/mL (0-124) Total Protein 6.2 g/dL (6.4-8.2) 5.2 g/dL (6.4-8.2) Albumin 1.7 g/dL (3.4-5.0) 1.3 g/dL (3.4-5.0) Albumin/Globulin Ratio 0.4 (1.0-1.7) 0.3 (1.0-1.7) O2 Saturation 87 % (92-99) Arterial Blood pH 7.51 (7.35-7.45) Arterial Blood pCO2 at Patient Temp 35 mmHg (35-46) Arterial Blood pO2 at Patient Temp 51 mmHg (65-108) Arterial Blood HCO3 28 mmol/L (21-28) Arterial Blood Base Excess 5 mmol/L (-3-3) Oxyhemoglobin 84.7 % Methemoglobin 0.3 % (0.0-1.9) Carbon Monoxide, Quantitative 1.9 % (0.0-1.9) FiO2 36 SARS-CoV-2 RNA (KELLIE) Positive (Negative) SARS-CoV-2 Antigen (Rapid) Negative (NEGATIVE) Test 05/26/21 20:02 05/26/21 20:50 05/26/21 22:30 05/27/21 07:45 Prothrombin Time 18.9 SEC (11.7-14.0) Prothromb Time International Ratio 1.6 (0.8-1.1) Activated Partial Thromboplast Time 30 SEC (24-38) Urine Collection Type Unknown Urine Color Erendira Urine Clarity Cloudy Urine pH 5.0 (<5.0-8.0) Urine Specific [place] 1.020 (1.000-1.030) Urine Protein 30 mg/dL (NEG-TRACE) Urine Glucose (UA) Negative mg/dL (NEG) Urine Ketones (Stick) Negative mg/dL (NEG) Urine Blood Small (NEG) Urine Nitrite Negative (NEG) Urine Bilirubin Moderate (NEG) Urine Urobilinogen Dipstick 0.2 mg/dL (0.2 mg/dL) Urine Leukocyte Esterase Negative (NEG) Urine RBC 1-2 /HPF (0-2) Urine WBC 1-4 /HPF (0-4) Urine Transitional Epithelial Cells Few /LPF Urine Amorphous Sediment Present /HPF Urine Bacteria 0 /HPF (0-FEW) Urine Hyaline Casts Many /HPF Urine Granular Casts Few /HPF Urine Mucus Mod /LPF Lactic Acid Level 2.5 mmol/L (0.4-2.0) White Blood Count 12.0 x10^3/uL (4.0-11.0) Red Blood Count 3.25 x10^6/uL (4.30-5.70) Hemoglobin 10.3 g/dL (13.0-17.5) Hematocrit 30.3 % (39.0-53.0) Mean Corpuscular Volume 93 fL (79-100) Mean Corpuscular Hemoglobin 32 pg (25-35) Mean Corpuscular Hemoglobin Concent 34 g/dL (31-37) Red Cell Distribution Width 14.3 % (11.5-14.5) Platelet Count 197 x10^3/uL (140-400) Neutrophils (%) (Auto) 91 % (31-73) Lymphocytes (%) (Auto) 4 % (24-48) Monocytes (%) (Auto) 5 % (0-9) Eosinophils (%) (Auto) 0 % (0-3) Basophils (%) (Auto) 0 % (0-3) Neutrophils # (Auto) 10.9 x10^3/uL (1.8-7.7) Lymphocytes # (Auto) 0.5 x10^3/uL (1.0-4.8) Monocytes # (Auto) 0.6 x10^3/uL (0.0-1.1) Eosinophils # (Auto) 0.0 x10^3/uL (0.0-0.7) Basophils # (Auto) 0.0 x10^3/uL (0.0-0.2) Sodium Level 139 mmol/L (136-145) Potassium Level 3.0 mmol/L (3.5-5.1) Chloride Level 101 mmol/L (98-107) Carbon Dioxide Level 27 mmol/L (21-32) Anion Gap 11 (6-14) Blood Urea Nitrogen 72 mg/dL (8-26) Creatinine 1.8 mg/dL (0.7-1.3) Estimated GFR (Cockcroft-Gault) 38.1 BUN/Creatinine Ratio 40 (6-20) Glucose Level 65 mg/dL (70-99) Calcium Level 7.0 mg/dL (8.5-10.1) Total Bilirubin 0.4 mg/dL (0.2-1.0) Aspartate Amino Transf (AST/SGOT) 55 U/L (15-37) Alanine Aminotransferase (ALT/SGPT) 46 U/L (16-63) Alkaline Phosphatase 53 U/L (46-116) Total Protein 4.7 g/dL (6.4-8.2) Albumin 1.0 g/dL (3.4-5.0) Albumin/Globulin Ratio 0.3 (1.0-1.7) Test 05/27/21 12:00 Glucose (Fingerstick) 72 mg/dL (70-99) Review All relevant outside records, renal labs, imaging studies, telemetry/EKG's were reviewed. Images Images EXAMINATION: XR CHEST 1V Lines, Tubes, and Devices: None. Cardiomediastinal Silhouette: Narrowed cardiomediastinal Silhouette with aortic atherosclerotic calcification. Lungs and Pleura: Relative paucity of bronchovascular markings in the mid to upper lung zones with coarse interstitial prominence in the lower lung zones, compatible with COPD/emphysema. Increased interstitial and possible alveolar opacities in the right lower lung zone compared to the left. No evidence of pleural effusion or pneumothorax. Bones and Soft Tissues: Degenerative changes of the thoracic spine. Probable calcified joint bodies projected over the left shoulder. Partially visualized degenerative and/or posttraumatic changes in the right shoulder. IMPRESSION: Chronic changes consistent with COPD/emphysema with asymmetrically prominent interstitial and alveolar opacities in the right lower lung zones, possibly infectious. Correlate clinically. -- PROCEDURE: CT CHEST ABDOMEN PELVIS WO CT Chest: Extensive calcific atherosclerosis to include severe trivessel coronary artery involvement. No aortic aneurysm. Severe emphysema. Consolidative opacities mainly at the lower half of the right lung. Less pronounced peripheral opacities on the left lower lobe and a bandlike opacity along the anterior margin of the left major fissure. No axillary adenopathy. Cachectic body habitus. 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 Osteopenia. Advanced discogenic arthrosis at C6-C7 with an incompletely characterized disc osteophyte complex with presumed severe neural foraminal stenosis on the right. A few small areas of sclerosis along the vertebral bodies most of which are associated with Schmorl's nodes. CT Abdomen/Pelvis: Multiple hypoattenuating foci scattered throughout the liver which are incompletely characterized. A lobulated cystic focus at the periphery of the right hepatic lobe measuring up to 4.2 cm appears to be septated. No CT manifestations of acute cholecystitis. No overt intrahepatic ductal dilatation. Poorly evaluated pancreas without regional inflammation. Splenic granulomas. The spleen is within normal limits for size. Atrophic adrenal glands without a well delineated mass. No hydronephrosis. Normal bladder wall thickness. Mild enlargement of the prostate. Incompletely assessed gastrointestinal tract without positive oral contrast. The stomach is particularly poorly evaluated due to underdistention. No pathologic dilatation of small bowel. No readily apparent abnormality of the colon. The appendix is difficult to delineate. Tortuous abdominal aorta with aneurysmal dilatation status post infrarenal aortobiiliac endograft repair. Also aneurysmal is the left common iliac artery and proximal left internal iliac artery. The stented aneurysm sac measures up to 5 cm. The aneurysm above the stent measures up to 4.4 x 4.8 cm. The left common iliac artery aneurysm measures up to 4.9 x 4.3 cm which is only partially stented. Background extensive calcific atherosclerosis. Incomplete assessment for stenoses without contrast. No definitive lymphadenopathy by size criteria. No free fluid or pneumoperitoneum. Osteopenia. Probable lumbar Schmorl's nodes. Discogenic arthrosis, endplate sclerosis and cystic change. Degenerative grade 1 anterolisthesis of L5 on S1. Mild stepwise retrolisthesis from L2-L3 through L4-L5. Severe osseous neural foraminal stenosis bilaterally at L5-S1. Lumbar dextroscoliosis with the apex at L3-L4. IMPRESSION: CT Chest: 1. Extensive consolidative opacities mainly at the lower half of the right lung and to a much lesser extent at the far peripheral aspect of the left lower lobe. Background severe emphysema. The imaging appearance is most typical of multifocal pneumonia which could be in part from aspiration given distribution. There are also a few prominent mediastinal lymph nodes which are indeterminate but could be reactive. Follow-up is recommended to confirm resolution. 2. Chronic findings to include extensive calcific atherosclerosis with severe trivessel coronary artery involvement and markedly severe arthrosis of both shoulders. CT Abdomen/Pelvis: 1. Taking into consideration the absence of contrast, no acute abnormality seen throughout the abdomen or pelvis. 2. Numerous incompletely characterized cystic foci scattered throughout the liver the largest within the right hepatic lobe measuring up to 4.2 cm which may be thinly septated. Obtainment of outside imaging would be useful to confirm stability. If none are available, eventual ultrasound follow-up is recommended. 3. Status post infrarenal aortobiiliac endograft repair in the setting of fusiform aneurysmal dilatation of the abdominal aorta in addition to the left common iliac artery. Maximum aneurysm measurements described in the body the report. No findings of rupture. 4. Additional chronic observations described above. PROCEDURE: CT HEAD AND CERVICAL SPINE WO IMPRESSION: BRAIN: Findings suspicious for a small subacute right subdural hematoma. No associated midline shift or significant mass effect. C-SPINE: No evidence of acute osseous abnormality involving the cervical spine. Moderate to severe multilevel degenerative findings as described. SIERRA ARAMBULA MD May 27, 2021 12:26
[2021-05-27 12:30] VITALS: BP 135/78
[2021-05-27] MEDS ORDERED: guaiFENesin/CODEINE 100mg/10mg 5 ML LIQUID PO PRN (13:15)
--- NOTE | 2021-05-27 13:16 | HP ---
ADMIT DATE: 05/27/2021 CHIEF COMPLAINT: Weakness, mental status change, flu symptoms. HISTORY OF PRESENT ILLNESS: The patient is a pleasant 65-year-old male who presented to the ER with 1 week of loss of taste, shortness of breath, dizziness, cough, diarrhea, weakness and mental status change. Clinically, he appears to be septic. We were concerned he might have COVID-19. We did check him for COVID-19. He is positive. I discussed the case with ER physician. We are going to admit the patient and consult Nephrology and give him COVID protocol (it should be noted that he had a bump in his creatinine to 3.5. PAST MEDICAL HISTORY: Hyperlipidemia, hypertension, seizures, left carpal tunnel surgery, AAA repair, previous tobacco abuse. ALLERGIES: None. FAMILY HISTORY: Diabetes. SOCIAL HISTORY: Does not drink. He quit smoking. No drugs. MEDICATIONS: Reviewed, please refer to the MRAD. REVIEW OF SYSTEMS: GENERAL: He complains of weakness. SKIN: No bruising, hair changes or rashes. EYES: No blurred, double or loss of vision. NOSE AND THROAT: No history of nosebleeds, hoarseness or sore throat. HEART: No history of palpitations, chest pain or shortness of breath on exertion. LUNGS: Denies cough, hemoptysis, wheezing or shortness of breath. GASTROINTESTINAL: Denies changes in appetite, nausea, vomiting, diarrhea or constipation. GENITOURINARY: No history of frequency, urgency, hesitancy or nocturia. NEUROLOGIC: He complains of weakness. PSYCHIATRIC: He complains of confusion. ENDOCRINE: No history of heat or cold intolerance, polyuria or polydipsia. EXTREMITIES: Denies muscle weakness, joint pain, pain on walking or stiffness. PHYSICAL EXAMINATION: VITALS: Within normal limits and are stable. GENERAL: Pleasantly confused and very weak. He is in reverse Trendelenburg, but we were able to get him back to a level position and keep his blood pressure up. Current blood pressure is 135/78. HEENT: Normal cephalic atraumatic, external auditory canals are patent. EYES: Extraocular muscles are intact, pupils are equally round and reactive to light and accommodation. MUSCULOSKELETAL: Well developed, well nourished, good range of motion. ENDOCRINE: No thyromegaly was palpated. LYMPHATICS: No cervical chain or axillary nodes were noted. HEMATOPOIETIC: No bruising. NECK: Supple, no JVD, no thyromegaly was noted. LUNGS: Clear to auscultation in all lung cason without rhonchi or wheezing. HEART: RRR, S1, S2 present. Peripheral pulses intact, no obvious murmurs were noted. ABDOMEN: Soft, nontender. Positive bowel sounds no organomegaly, normal bowel sounds. EXTREMITIES: Without any cyanosis, clubbing, or edema. Pedal pulses intact, Homans sign is negative. NEUROLOGIC: Pleasantly confused and very weak. PSYCHIATRIC: Pleasantly confused and very weak. SKIN: No ulcerations or rashes, good skin turgor, no jaundice. VASCULAR: Good capillary refill, neurovascular bundle appears to be intact. LABORATORY DATA: Electrolytes: Sodium 131, potassium 4.2, chloride 93, bicarbonate 30, BUN 95, creatinine 3.5, glucose 77. White count 14, hemoglobin 12, platelets 247. ASSESSMENT AND PLAN: COVID-19 with sepsis and renal failure, leukocytosis, hyponatremia, azotemia. The patient has been admitted. We will start COVID protocol including remdesivir, steroids, broad spectrum antibiotics, doxycycline, vitamins and minerals, albuterol, oxygen, codeine cough syrup and aspirin and DVT prophylaxis. Home medications. Full code. Consult Nephrology. IV fluids. Prognosis is guarded. CC time 31 minutes. ZAHRA/DANIELA DR: ZAHRA/mel TID: [id number]
[2021-05-27] MEDS ORDERED: BUTA1CAP57 PO (13:41)
[2021-05-27] MEDS ORDERED: LISI10TA16 PO (13:41)
[2021-05-27] MEDS ORDERED: HYDR12.575 PO (13:41)
[2021-05-27] MEDS ORDERED: PHEN200C3 PO (13:41)
[2021-05-27] MEDS ORDERED: PRAV80TA2 PO (13:41)
--- NOTE | 2021-05-27 13:46 | CONS ---
DATE OF CONSULTATION: 05/27/2021 REASON FOR CONSULTATION: Subdural hematoma. HISTORY OF PRESENT ILLNESS: The patient is a pleasant 65-year-old man who presented to the Emergency Room with one-week history of loss of taste, shortness of breath, dizziness, cough, diarrhea, weakness and mental status change. He was confirmed to have COVID-19 and there is also a history of a fall. PAST MEDICAL HISTORY: Hyperlipidemia, hypertension, seizures, left carpal tunnel surgery, abdominal aortic aneurysm repair. ALLERGIES: None. FAMILY HISTORY: Diabetes. SOCIAL HISTORY: Does not drink. He quit smoking. No drugs. MEDICATIONS: Reviewed and listed on the MRAD. REVIEW OF SYSTEMS: Other than outlined above is negative. PHYSICAL EXAMINATION: GENERAL: He is awake, alert, oriented. HEENT: Normocephalic, atraumatic. Eyes: Extraocular motor function was intact. Pupils were equally round and reactive to light and accommodation. NEUROLOGIC: Motor exam: Strength was 5/5 in upper and lower extremities bilaterally. Sensory testing is intact to light touch in upper and lower extremities bilaterally. He has hypoactive reflexes. DIAGNOSTIC DATA: I reviewed the CT scan of the head x 2, one at time of admission, the second done this morning. On that study, there was a subdural hematoma, which is on the right side over the parietal occipital region. There is no significant shift. It measured at maximum diameter of about 8 mm. It appears chronic to subacute. IMPRESSION AND PLAN: Stable subdural hematoma. The patient is awake and alert. There is no shift. There is no plan for any type of surgical intervention. He will need a followup CT scan at the end of this week or early next week. I appreciate you asking us to see him. MARITZA DR: Fanny TID: [id number] DUY
[2021-05-27] MEDS ORDERED: REMDESIVIR LOAD in IV NORMAL SALINE 250ML TV IV ONE (14:00)
--- NOTE | 2021-05-27 14:10 | PDOC ---
PULMONARY PROGRESS NOTES DATE: 05/27/21 TIME: 14:09 Vitals Vital Signs Date Time Temp Pulse Resp B/P (MAP) Pulse Ox O2 Delivery O2 Flow Rate FiO2 05/27/21 12:30 99.4 104 18 135/78 (97) 91 Nasal Cannula 5.0 99.4 Skin: Cool Labs Laboratory Tests Test 05/26/21 18:33 05/26/21 18:35 05/26/21 18:49 05/26/21 19:30 White Blood Count 14.9 x10^3/uL (4.0-11.0) Red Blood Count 3.86 x10^6/uL (4.30-5.70) Hemoglobin 12.3 g/dL (13.0-17.5) Hematocrit 35.6 % (39.0-53.0) Mean Corpuscular Volume 92 fL (79-100) Mean Corpuscular Hemoglobin 32 pg (25-35) Mean Corpuscular Hemoglobin Concent 35 g/dL (31-37) Red Cell Distribution Width 14.2 % (11.5-14.5) Platelet Count 247 x10^3/uL (140-400) Neutrophils (%) (Auto) 97 % (31-73) Lymphocytes (%) (Auto) 2 % (24-48) Monocytes (%) (Auto) 0 % (0-9) Eosinophils (%) (Auto) 0 % (0-3) Basophils (%) (Auto) 0 % (0-3) Neutrophils # (Auto) 14.5 x10^3/uL (1.8-7.7) Lymphocytes # (Auto) 0.3 x10^3/uL (1.0-4.8) Monocytes # (Auto) 0.0 x10^3/uL (0.0-1.1) Eosinophils # (Auto) 0.1 x10^3/uL (0.0-0.7) Basophils # (Auto) 0.0 x10^3/uL (0.0-0.2) Segmented Neutrophils % 34 % (35-66) Band Neutrophils % 55 % (0-9) Lymphocytes % 4 % (24-48) Monocytes % 7 % (0-10) Toxic Granulation Slight Dohle Bodies Few Platelet Estimate Adequate (ADEQUATE) Sodium Level 129 mmol/L (136-145) 131 mmol/L (136-145) Potassium Level 3.8 mmol/L (3.5-5.1) 4.2 mmol/L (3.5-5.1) Chloride Level 89 mmol/L (98-107) 93 mmol/L (98-107) Carbon Dioxide Level 30 mmol/L (21-32) 30 mmol/L (21-32) Anion Gap 10 (6-14) 8 (6-14) Blood Urea Nitrogen 105 mg/dL (8-26) 95 mg/dL (8-26) Creatinine 3.7 mg/dL (0.7-1.3) 3.5 mg/dL (0.7-1.3) Estimated GFR (Cockcroft-Gault) 16.6 17.7 BUN/Creatinine Ratio 28 (6-20) 27 (6-20) Glucose Level 96 mg/dL (70-99) 77 mg/dL (70-99) Lactic Acid Level 3.3 mmol/L (0.4-2.0) Calcium Level 8.9 mg/dL (8.5-10.1) 8.2 mg/dL (8.5-10.1) Phosphorus Level 5.2 mg/dL (2.6-4.7) Magnesium Level 3.3 mg/dL (1.8-2.4) Total Bilirubin 0.5 mg/dL (0.2-1.0) 0.4 mg/dL (0.2-1.0) Aspartate Amino Transf (AST/SGOT) 71 U/L (15-37) 46 U/L (15-37) Alanine Aminotransferase (ALT/SGPT) 68 U/L (16-63) 48 U/L (16-63) Alkaline Phosphatase 77 U/L (46-116) 61 U/L (46-116) Troponin I Quantitative < 0.017 ng/mL (0.000-0.055) KF-Gfq-G-Type Natriuretic Peptide 1992 pg/mL (0-124) Total Protein 6.2 g/dL (6.4-8.2) 5.2 g/dL (6.4-8.2) Albumin 1.7 g/dL (3.4-5.0) 1.3 g/dL (3.4-5.0) Albumin/Globulin Ratio 0.4 (1.0-1.7) 0.3 (1.0-1.7) O2 Saturation 87 % (92-99) Arterial Blood pH 7.51 (7.35-7.45) Arterial Blood pCO2 at Patient Temp 35 mmHg (35-46) Arterial Blood pO2 at Patient Temp 51 mmHg (65-108) Arterial Blood HCO3 28 mmol/L (21-28) Arterial Blood Base Excess 5 mmol/L (-3-3) Oxyhemoglobin 84.7 % Methemoglobin 0.3 % (0.0-1.9) Carbon Monoxide, Quantitative 1.9 % (0.0-1.9) FiO2 36 SARS-CoV-2 RNA (KELLIE) Positive (Negative) SARS-CoV-2 Antigen (Rapid) Negative (NEGATIVE) Test 05/26/21 20:02 05/26/21 20:50 05/26/21 22:30 05/27/21 07:45 Prothrombin Time 18.9 SEC (11.7-14.0) Prothromb Time International Ratio 1.6 (0.8-1.1) Activated Partial Thromboplast Time 30 SEC (24-38) Urine Collection Type Unknown Urine Color Erendira Urine Clarity Cloudy Urine pH 5.0 (<5.0-8.0) Urine Specific [place] 1.020 (1.000-1.030) Urine Protein 30 mg/dL (NEG-TRACE) Urine Glucose (UA) Negative mg/dL (NEG) Urine Ketones (Stick) Negative mg/dL (NEG) Urine Blood Small (NEG) Urine Nitrite Negative (NEG) Urine Bilirubin Moderate (NEG) Urine Urobilinogen Dipstick 0.2 mg/dL (0.2 mg/dL) Urine Leukocyte Esterase Negative (NEG) Urine RBC 1-2 /HPF (0-2) Urine WBC 1-4 /HPF (0-4) Urine Transitional Epithelial Cells Few /LPF Urine Amorphous Sediment Present /HPF Urine Bacteria 0 /HPF (0-FEW) Urine Hyaline Casts Many /HPF Urine Granular Casts Few /HPF Urine Mucus Mod /LPF Lactic Acid Level 2.5 mmol/L (0.4-2.0) White Blood Count 12.0 x10^3/uL (4.0-11.0) Red Blood Count 3.25 x10^6/uL (4.30-5.70) Hemoglobin 10.3 g/dL (13.0-17.5) Hematocrit 30.3 % (39.0-53.0) Mean Corpuscular Volume 93 fL (79-100) Mean Corpuscular Hemoglobin 32 pg (25-35) Mean Corpuscular Hemoglobin Concent 34 g/dL (31-37) Red Cell Distribution Width 14.3 % (11.5-14.5) Platelet Count 197 x10^3/uL (140-400) Neutrophils (%) (Auto) 91 % (31-73) Lymphocytes (%) (Auto) 4 % (24-48) Monocytes (%) (Auto) 5 % (0-9) Eosinophils (%) (Auto) 0 % (0-3) Basophils (%) (Auto) 0 % (0-3) Neutrophils # (Auto) 10.9 x10^3/uL (1.8-7.7) Lymphocytes # (Auto) 0.5 x10^3/uL (1.0-4.8) Monocytes # (Auto) 0.6 x10^3/uL (0.0-1.1) Eosinophils # (Auto) 0.0 x10^3/uL (0.0-0.7) Basophils # (Auto) 0.0 x10^3/uL (0.0-0.2) Sodium Level 139 mmol/L (136-145) Potassium Level 3.0 mmol/L (3.5-5.1) Chloride Level 101 mmol/L (98-107) Carbon Dioxide Level 27 mmol/L (21-32) Anion Gap 11 (6-14) Blood Urea Nitrogen 72 mg/dL (8-26) Creatinine 1.8 mg/dL (0.7-1.3) Estimated GFR (Cockcroft-Gault) 38.1 BUN/Creatinine Ratio 40 (6-20) Glucose Level 65 mg/dL (70-99) Calcium Level 7.0 mg/dL (8.5-10.1) Total Bilirubin 0.4 mg/dL (0.2-1.0) Aspartate Amino Transf (AST/SGOT) 55 U/L (15-37) Alanine Aminotransferase (ALT/SGPT) 46 U/L (16-63) Alkaline Phosphatase 53 U/L (46-116) Total Protein 4.7 g/dL (6.4-8.2) Albumin 1.0 g/dL (3.4-5.0) Albumin/Globulin Ratio 0.3 (1.0-1.7) Test 05/27/21 12:00 Glucose (Fingerstick) 72 mg/dL (70-99) Laboratory Tests Test 05/26/21 18:33 05/26/21 18:35 05/26/21 18:49 05/26/21 19:30 White Blood Count 14.9 x10^3/uL (4.0-11.0) Red Blood Count 3.86 x10^6/uL (4.30-5.70) Hemoglobin 12.3 g/dL (13.0-17.5) Hematocrit 35.6 % (39.0-53.0) Mean Corpuscular Volume 92 fL (79-100) Mean Corpuscular Hemoglobin 32 pg (25-35) Mean Corpuscular Hemoglobin Concent 35 g/dL (31-37) Red Cell Distribution Width 14.2 % (11.5-14.5) Platelet Count 247 x10^3/uL (140-400) Neutrophils (%) (Auto) 97 % (31-73) Lymphocytes (%) (Auto) 2 % (24-48) Monocytes (%) (Auto) 0 % (0-9) Eosinophils (%) (Auto) 0 % (0-3) Basophils (%) (Auto) 0 % (0-3) Neutrophils # (Auto) 14.5 x10^3/uL (1.8-7.7) Lymphocytes # (Auto) 0.3 x10^3/uL (1.0-4.8) Monocytes # (Auto) 0.0 x10^3/uL (0.0-1.1) Eosinophils # (Auto) 0.1 x10^3/uL (0.0-0.7) Basophils # (Auto) 0.0 x10^3/uL (0.0-0.2) Segmented Neutrophils % 34 % (35-66) Band Neutrophils % 55 % (0-9) Lymphocytes % 4 % (24-48) Monocytes % 7 % (0-10) Toxic Granulation Slight Dohle Bodies Few Platelet Estimate Adequate (ADEQUATE) Sodium Level 129 mmol/L (136-145) 131 mmol/L (136-145) Potassium Level 3.8 mmol/L (3.5-5.1) 4.2 mmol/L (3.5-5.1) Chloride Level 89 mmol/L (98-107) 93 mmol/L (98-107) Carbon Dioxide Level 30 mmol/L (21-32) 30 mmol/L (21-32) Anion Gap 10 (6-14) 8 (6-14) Blood Urea Nitrogen 105 mg/dL (8-26) 95 mg/dL (8-26) Creatinine 3.7 mg/dL (0.7-1.3) 3.5 mg/dL (0.7-1.3) Estimated GFR (Cockcroft-Gault) 16.6 17.7 BUN/Creatinine Ratio 28 (6-20) 27 (6-20) Glucose Level 96 mg/dL (70-99) 77 mg/dL (70-99) Lactic Acid Level 3.3 mmol/L (0.4-2.0) Calcium Level 8.9 mg/dL (8.5-10.1) 8.2 mg/dL (8.5-10.1) Phosphorus Level 5.2 mg/dL (2.6-4.7) Magnesium Level 3.3 mg/dL (1.8-2.4) Total Bilirubin 0.5 mg/dL (0.2-1.0) 0.4 mg/dL (0.2-1.0) Aspartate Amino Transf (AST/SGOT) 71 U/L (15-37) 46 U/L (15-37) Alanine Aminotransferase (ALT/SGPT) 68 U/L (16-63) 48 U/L (16-63) Alkaline Phosphatase 77 U/L (46-116) 61 U/L (46-116) Troponin I Quantitative < 0.017 ng/mL (0.000-0.055) UW-Min-Q-Type Natriuretic Peptide 1992 pg/mL (0-124) Total Protein 6.2 g/dL (6.4-8.2) 5.2 g/dL (6.4-8.2) Albumin 1.7 g/dL (3.4-5.0) 1.3 g/dL (3.4-5.0) Albumin/Globulin Ratio 0.4 (1.0-1.7) 0.3 (1.0-1.7) O2 Saturation 87 % (92-99) Arterial Blood pH 7.51 (7.35-7.45) Arterial Blood pCO2 at Patient Temp 35 mmHg (35-46) Arterial Blood pO2 at Patient Temp 51 mmHg (65-108) Arterial Blood HCO3 28 mmol/L (21-28) Arterial Blood Base Excess 5 mmol/L (-3-3) Oxyhemoglobin 84.7 % Methemoglobin 0.3 % (0.0-1.9) Carbon Monoxide, Quantitative 1.9 % (0.0-1.9) FiO2 36 SARS-CoV-2 RNA (KELLIE) Positive (Negative) SARS-CoV-2 Antigen (Rapid) Negative (NEGATIVE) Test 05/26/21 20:02 05/26/21 20:50 05/26/21 22:30 05/27/21 07:45 Prothrombin Time 18.9 SEC (11.7-14.0) Prothromb Time International Ratio 1.6 (0.8-1.1) Activated Partial Thromboplast Time 30 SEC (24-38) Urine Collection Type Unknown Urine Color Erendira Urine Clarity Cloudy Urine pH 5.0 (<5.0-8.0) Urine Specific [place] 1.020 (1.000-1.030) Urine Protein 30 mg/dL (NEG-TRACE) Urine Glucose (UA) Negative mg/dL (NEG) Urine Ketones (Stick) Negative mg/dL (NEG) Urine Blood Small (NEG) Urine Nitrite Negative (NEG) Urine Bilirubin Moderate (NEG) Urine Urobilinogen Dipstick 0.2 mg/dL (0.2 mg/dL) Urine Leukocyte Esterase Negative (NEG) Urine RBC 1-2 /HPF (0-2) Urine WBC 1-4 /HPF (0-4) Urine Transitional Epithelial Cells Few /LPF Urine Amorphous Sediment Present /HPF Urine Bacteria 0 /HPF (0-FEW) Urine Hyaline Casts Many /HPF Urine Granular Casts Few /HPF Urine Mucus Mod /LPF Lactic Acid Level 2.5 mmol/L (0.4-2.0) White Blood Count 12.0 x10^3/uL (4.0-11.0) Red Blood Count 3.25 x10^6/uL (4.30-5.70) Hemoglobin 10.3 g/dL (13.0-17.5) Hematocrit 30.3 % (39.0-53.0) Mean Corpuscular Volume 93 fL (79-100) Mean Corpuscular Hemoglobin 32 pg (25-35) Mean Corpuscular Hemoglobin Concent 34 g/dL (31-37) Red Cell Distribution Width 14.3 % (11.5-14.5) Platelet Count 197 x10^3/uL (140-400) Neutrophils (%) (Auto) 91 % (31-73) Lymphocytes (%) (Auto) 4 % (24-48) Monocytes (%) (Auto) 5 % (0-9) Eosinophils (%) (Auto) 0 % (0-3) Basophils (%) (Auto) 0 % (0-3) Neutrophils # (Auto) 10.9 x10^3/uL (1.8-7.7) Lymphocytes # (Auto) 0.5 x10^3/uL (1.0-4.8) Monocytes # (Auto) 0.6 x10^3/uL (0.0-1.1) Eosinophils # (Auto) 0.0 x10^3/uL (0.0-0.7) Basophils # (Auto) 0.0 x10^3/uL (0.0-0.2) Sodium Level 139 mmol/L (136-145) Potassium Level 3.0 mmol/L (3.5-5.1) Chloride Level 101 mmol/L (98-107) Carbon Dioxide Level 27 mmol/L (21-32) Anion Gap 11 (6-14) Blood Urea Nitrogen 72 mg/dL (8-26) Creatinine 1.8 mg/dL (0.7-1.3) Estimated GFR (Cockcroft-Gault) 38.1 BUN/Creatinine Ratio 40 (6-20) Glucose Level 65 mg/dL (70-99) Calcium Level 7.0 mg/dL (8.5-10.1) Total Bilirubin 0.4 mg/dL (0.2-1.0) Aspartate Amino Transf (AST/SGOT) 55 U/L (15-37) Alanine Aminotransferase (ALT/SGPT) 46 U/L (16-63) Alkaline Phosphatase 53 U/L (46-116) Total Protein 4.7 g/dL (6.4-8.2) Albumin 1.0 g/dL (3.4-5.0) Albumin/Globulin Ratio 0.3 (1.0-1.7) Test 05/27/21 12:00 Glucose (Fingerstick) 72 mg/dL (70-99) Medications Active Scripts Medications Dose Route/Sig Max Daily Dose Days Date Category Lisinopril 10 Mg Tablet 1 Tab PO DAILY 05/27/21 Reported Hydrochlorothiazide Capsule (Hydrochlorothiazide) 12.5 Mg Capsule 25 Mg PO DAILY 05/27/21 Reported Pravastatin Sodium 80 Mg Tablet 1 Tab PO QHS 05/27/21 Reported Phenytoin Sodium Extended 200 Mg Capsule 2 Cap PO BID 30 05/27/21 Reported Uexysw-Bpmefdnx-Qldr 50-300-40 (Butalb/Acetaminophen/Caffeine) 1 Each Capsule 1 Each PO PRN QID PRN 05/27/21 Reported Augmentin 875-125 Tablet (Amoxicillin/Potassium Clav) 1 Each Tablet 1 Tab PO BID 05/16/17 Rx Impression . Full note dictated Acute hypoxemic respiratory failure multifactorial COVID-19 viral pneumonia Aspiration pneumonia Subdural hematoma Recent fall See orders MARGARET LEDEZMA MD May 27, 2021 14:10
[2021-05-27] MEDS: cefTRIAXone IV Push 1 GM VIAL. IVP SCH (14:22)
[2021-05-27 15:00] VITALS: BP 139/70
[2021-05-27] MEDS ORDERED: POTASSIUM CHLORIDE 20 MEQ TABLET.ER. PO ONE (15:15)
[2021-05-27] MEDS: DOXYCYCLINE HYCLATE 100 MG in IV DEXTROSE 5% 100ML 100 ML IV SCH ×2 (16:07→21:16)
[2021-05-27 19:29] VITALS: BP 126/69
[2021-05-27] MEDS ORDERED: AMOXICILLIN/K CLAV 875/125MG TABLET. PO SCH (21:00)
[2021-05-27] MEDS: ATORVASTATIN CALCIUM 20 MG TABLET PO SCH (21:15)
[2021-05-27] MEDS: PHENYTOIN SODIUM EXTENDED 100 MG CAPSULE PO SCH (21:15)
[2021-05-27] MEDS: methylPREDNISolone SOD SUCC PF 40 MG/ML VIAL. IV SCH (21:15)
[2021-05-27 22:52] VITALS: BP 129/65
[2021-05-28 02:40] VITALS: BP 125/68
[2021-05-28 07:00] VITALS: BP 152/67
[2021-05-28] MEDS: ASPIRIN CHEWABLE 81 MG TABLET. PO SCH (07:56)
[2021-05-28] MEDS: LACTOBACILLUS RHAMNOSUS GG 1 CAPSULE. PO SCH ×2 (07:56→20:24)
[2021-05-28] MEDS: hydroCHLOROthiazide 12.5 MG CAPSULE PO SCH (07:56)
[2021-05-28] MEDS: PHENYTOIN SODIUM EXTENDED 100 MG CAPSULE PO SCH ×2 (07:57→20:24)
[2021-05-28] MEDS: MULTIVITAMIN with MINERAL TABLET. PO SCH (07:57)
[2021-05-28] MEDS: LISINOPRIL 10 MG TABLET PO SCH (07:58)
[2021-05-28] MEDS: methylPREDNISolone SOD SUCC PF 40 MG/ML VIAL. IV SCH ×2 (07:58→20:24)
[2021-05-28] MEDS: DOXYCYCLINE HYCLATE 100 MG in IV DEXTROSE 5% 100ML 100 ML IV SCH ×2 (08:00→20:23)
[2021-05-28] MEDS ORDERED: MORPHINE SULFATE 2 MG/ML INJ. IVP PRN (08:30)
[2021-05-28] MEDS ORDERED: LABETALOL 20 MG/4 ML DISP.SYRIN. IVP ONE (08:30)
[2021-05-28] MEDS ORDERED: METOPROLOL IV PUSH 5 MG/5 ML VIAL. IVP ONE (08:45)
--- NOTE | 2021-05-28 08:45 | NUR ---
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 Dr. Lee notified. Cardiology consulted. IV metoprolol & PO metoprolol administered per cardiology. Will continue to monitor.
--- NOTE | 2021-05-28 08:57 | PDOC2 ---
LOW ALMANZA DRAWER WAXER 05/28/21 0857: CARDIAC CONSULT DATE OF CONSULT Date of Consult DATE: 05/28/21 TIME: 08:39 REASON FOR CONSULT Reason for Consult: AFIB REFERRING PHYSICIAN Referring Physician: Dr. Lee SOURCE Source: Chart review, Patient HISTORY OF PRESENT ILLNESS HISTORY OF PRESENT ILLNESS This is a 65 yo male who presented secondary to shortness of breath, dizziness, cough, and diarrhea. Is limited historian. Has eyes closed and does not offer conversation. Reports symptoms began last week. Roomate tested + for COVID 2 weeks ago. Patient tested positive for COVID here. Had a fall last week. Has had difficulty ambulating due to dizziness. CT head noted with subdural hematoma. Patient went into AFIB with RVR this morning, which prompted this consult. Denies any cardiac history of history of AFIB/arrhythmias. No chest pain, palpitations. PAST MEDICAL HISTORY Cardiovascular: HTN, Hyperlipidemia Pulmonary: Asthma, COPD CENTRAL NERVOUS SYSTEM: Seizure PAST SURGICAL HISTORY Past Surgical History: Other (AAA repair ) FAMILY HISTORY Family History: Heart Disease (father ) SOCIAL HISTORY Smoke: Quit ALCOHOL: none Drugs: None Lives: Roommate CURRENT MEDICATIONS CURRENT MEDICATIONS Current Medications Medications (Trade) Dose Ordered Sig/Natacha Route PRN Reason Start Time Stop Time Status Last Admin Dose Admin Remdesivir 200 mg/ Sodium Chloride 210 ml @ 210 mls/hr 1X ONCE IV 05/27/21 14:00 05/27/21 14:59 DC 05/27/21 14:24 Doxycycline Hyclate 100 mg/ Dextrose 100 ml @ 50 mls/hr Q12HR IV 05/27/21 14:00 05/28/21 08:00 Aspirin (Aspirin Chewable) 81 mg [id number] PO 05/28/21 08:00 05/28/21 07:56 Methylprednisolone Sodium Succinate (SOLU-Medrol 40MG VIAL) 40 mg BID IV 05/27/21 21:00 05/28/21 07:58 Multivitamins (Thera M Plus) 1 tab DAILY PO 05/28/21 09:00 05/28/21 07:57 Ceftriaxone Sodium (Rocephin) 1 gm Q24H IVP 05/27/21 14:00 05/27/21 14:22 Hydrochlorothiazide (Microzide) 25 mg DAILY PO 05/28/21 09:00 05/28/21 07:56 Lisinopril (Prinivil) 10 mg DAILY PO 05/28/21 09:00 05/28/21 07:58 Phenytoin Sodium (Dilantin) 400 mg BID PO 05/27/21 21:00 05/28/21 07:57 Atorvastatin Calcium (Lipitor) 20 mg QHS PO 05/27/21 21:00 05/27/21 21:15 Potassium Chloride (Klor-Con) 40 meq 1X ONCE PO 05/27/21 15:15 05/27/21 15:16 DC 05/27/21 16:06 Lactobacillus Rhamnosus (Culturelle) 1 cap BID PO 05/28/21 09:00 05/28/21 07:56 ALLERGIES ALLERGIES: Coded Allergies: No Known Drug Allergies (Unverified , 05/16/17) ROS Review of System 14 point ROS conducted with pertinent positives noted above in HPI PHYSICAL EXAM General: Alert, Oriented X3, Cooperative, No acute distress HEENT: Atraumatic Lungs: Other (on NC) Abdomen: Soft Extremities: No edema Skin: Other (right shoulder ecchymosis ) Neuro: Normal speech, Sensation intact Psych/Mental Status: Mental status NL, Other (flat affect ) MUSCULOSKELETAL: Osteoarthritic changes both hands VITALS/I&O VITALS/I&O: Vital Signs Date Time Temp Pulse Resp B/P (MAP) Pulse Ox O2 Delivery O2 Flow Rate FiO2 05/28/21 07:58 106 152/67 05/28/21 07:00 97.2 18 97 Nasal Cannula 10.0 97.2 I & O 05/27/21 05/27/21 05/28/21 15:00 23:00 07:00 Intake Total 60 ml 0 ml Output Total 1500 ml Balance 60 ml -1500 ml LABS Lab: Laboratory Tests Test 05/27/21 12:00 Glucose (Fingerstick) 72 mg/dL (70-99) ASSESSMENT/PLAN ASSESSMENT/PLAN 1. Acute respiratory failure secondary; multifactorial with COVID PNA, probable aspiration PNA, and underlying COPD 2. Leukocytosis, lactic acidosis 3. AFIB wtih RVR; new onset in setting of above 4. OPHELIA; improving s/p IVFs 5. Traumatic fall lat week with SDH; repeat CT head stable 6. Hypertension; controlled 7. Hyperlipidemia 8. Hypokalemia; replace 9. Coagulopathy 10. Abdominal aortic aneurysm s/p endograft repair 11. Metabolic encephalopathy Recommendations Metoprolol IVP x1 now Start oral metoprolol for rate control TSH Replace K. Check Mg and replace as warranted No AC or ASA with SDH Outpatient echo when recovered from COVID Ongoing lung optimization, treatment of COVID Supportive care EL OSPINA MD 05/28/21 1726: CARDIAC CONSULT ASSESSMENT/PLAN ASSESSMENT/PLAN Patient seen and evaluated. I agree with our nurse practitioners assessment and plan. Acute respiratory failure secondary; multifactorial with COVID PNA, probable aspiration PNA, and underlying COPD. Continue present treatment. Followed by pulmonary. AFIB wtih RVR; new onset in setting of above. Rate control with beta-blockers. Future echo as per Covid guidelines. OPHELIA; improving s/p IVFs Traumatic fall lat week with SDH; repeat CT head stable Hypertension; controlled Hyperlipidemia Hypokalemia; replacing Abdominal aortic aneurysm s/p endograft repair Metabolic encephalopathy LOW ALMANZA APRN May 28, 2021 08:57 EL OSPINA MD May 28, 2021 17:26
--- NOTE | 2021-05-28 09:04 | PDOC ---
PULMONARY PROGRESS NOTES DATE: 05/28/21 TIME: 09:04 Subjective Patient with no significant respiratory distress, Vitals Vital Signs Date Time Temp Pulse Resp B/P (MAP) Pulse Ox O2 Delivery O2 Flow Rate FiO2 05/28/21 08:38 106 152/67 05/28/21 08:38 Nasal Cannula 10.0 05/28/21 07:00 97.2 18 97 97.2 ROS: No Nausea, No Chest Pain, No Abdominal Pain, No Increase Cough Lungs: Crackles Cardiovascular: S1, S2 Abdomen: Soft Neuro Exam: Alert Extremities: No Edema Skin: Warm, Cool Labs Laboratory Tests Test 05/26/21 18:33 05/26/21 18:35 05/26/21 18:49 05/26/21 19:30 White Blood Count 14.9 x10^3/uL (4.0-11.0) Red Blood Count 3.86 x10^6/uL (4.30-5.70) Hemoglobin 12.3 g/dL (13.0-17.5) Hematocrit 35.6 % (39.0-53.0) Mean Corpuscular Volume 92 fL (79-100) Mean Corpuscular Hemoglobin 32 pg (25-35) Mean Corpuscular Hemoglobin Concent 35 g/dL (31-37) Red Cell Distribution Width 14.2 % (11.5-14.5) Platelet Count 247 x10^3/uL (140-400) Neutrophils (%) (Auto) 97 % (31-73) Lymphocytes (%) (Auto) 2 % (24-48) Monocytes (%) (Auto) 0 % (0-9) Eosinophils (%) (Auto) 0 % (0-3) Basophils (%) (Auto) 0 % (0-3) Neutrophils # (Auto) 14.5 x10^3/uL (1.8-7.7) Lymphocytes # (Auto) 0.3 x10^3/uL (1.0-4.8) Monocytes # (Auto) 0.0 x10^3/uL (0.0-1.1) Eosinophils # (Auto) 0.1 x10^3/uL (0.0-0.7) Basophils # (Auto) 0.0 x10^3/uL (0.0-0.2) Segmented Neutrophils % 34 % (35-66) Band Neutrophils % 55 % (0-9) Lymphocytes % 4 % (24-48) Monocytes % 7 % (0-10) Toxic Granulation Slight Dohle Bodies Few Platelet Estimate Adequate (ADEQUATE) Sodium Level 129 mmol/L (136-145) 131 mmol/L (136-145) Potassium Level 3.8 mmol/L (3.5-5.1) 4.2 mmol/L (3.5-5.1) Chloride Level 89 mmol/L (98-107) 93 mmol/L (98-107) Carbon Dioxide Level 30 mmol/L (21-32) 30 mmol/L (21-32) Anion Gap 10 (6-14) 8 (6-14) Blood Urea Nitrogen 105 mg/dL (8-26) 95 mg/dL (8-26) Creatinine 3.7 mg/dL (0.7-1.3) 3.5 mg/dL (0.7-1.3) Estimated GFR (Cockcroft-Gault) 16.6 17.7 BUN/Creatinine Ratio 28 (6-20) 27 (6-20) Glucose Level 96 mg/dL (70-99) 77 mg/dL (70-99) Lactic Acid Level 3.3 mmol/L (0.4-2.0) Calcium Level 8.9 mg/dL (8.5-10.1) 8.2 mg/dL (8.5-10.1) Phosphorus Level 5.2 mg/dL (2.6-4.7) Magnesium Level 3.3 mg/dL (1.8-2.4) Total Bilirubin 0.5 mg/dL (0.2-1.0) 0.4 mg/dL (0.2-1.0) Aspartate Amino Transf (AST/SGOT) 71 U/L (15-37) 46 U/L (15-37) Alanine Aminotransferase (ALT/SGPT) 68 U/L (16-63) 48 U/L (16-63) Alkaline Phosphatase 77 U/L (46-116) 61 U/L (46-116) Troponin I Quantitative < 0.017 ng/mL (0.000-0.055) AW-Ssq-B-Type Natriuretic Peptide 1992 pg/mL (0-124) Total Protein 6.2 g/dL (6.4-8.2) 5.2 g/dL (6.4-8.2) Albumin 1.7 g/dL (3.4-5.0) 1.3 g/dL (3.4-5.0) Albumin/Globulin Ratio 0.4 (1.0-1.7) 0.3 (1.0-1.7) O2 Saturation 87 % (92-99) Arterial Blood pH 7.51 (7.35-7.45) Arterial Blood pCO2 at Patient Temp 35 mmHg (35-46) Arterial Blood pO2 at Patient Temp 51 mmHg (65-108) Arterial Blood HCO3 28 mmol/L (21-28) Arterial Blood Base Excess 5 mmol/L (-3-3) Oxyhemoglobin 84.7 % Methemoglobin 0.3 % (0.0-1.9) Carbon Monoxide, Quantitative 1.9 % (0.0-1.9) FiO2 36 SARS-CoV-2 RNA (KELLIE) Positive (Negative) SARS-CoV-2 Antigen (Rapid) Negative (NEGATIVE) Test 05/26/21 20:02 05/26/21 20:50 05/26/21 22:30 05/27/21 07:45 Prothrombin Time 18.9 SEC (11.7-14.0) Prothromb Time International Ratio 1.6 (0.8-1.1) Activated Partial Thromboplast Time 30 SEC (24-38) Urine Collection Type Unknown Urine Color Erendira Urine Clarity Cloudy Urine pH 5.0 (<5.0-8.0) Urine Specific [place] 1.020 (1.000-1.030) Urine Protein 30 mg/dL (NEG-TRACE) Urine Glucose (UA) Negative mg/dL (NEG) Urine Ketones (Stick) Negative mg/dL (NEG) Urine Blood Small (NEG) Urine Nitrite Negative (NEG) Urine Bilirubin Moderate (NEG) Urine Urobilinogen Dipstick 0.2 mg/dL (0.2 mg/dL) Urine Leukocyte Esterase Negative (NEG) Urine RBC 1-2 /HPF (0-2) Urine WBC 1-4 /HPF (0-4) Urine Transitional Epithelial Cells Few /LPF Urine Amorphous Sediment Present /HPF Urine Bacteria 0 /HPF (0-FEW) Urine Hyaline Casts Many /HPF Urine Granular Casts Few /HPF Urine Mucus Mod /LPF Lactic Acid Level 2.5 mmol/L (0.4-2.0) White Blood Count 12.0 x10^3/uL (4.0-11.0) Red Blood Count 3.25 x10^6/uL (4.30-5.70) Hemoglobin 10.3 g/dL (13.0-17.5) Hematocrit 30.3 % (39.0-53.0) Mean Corpuscular Volume 93 fL (79-100) Mean Corpuscular Hemoglobin 32 pg (25-35) Mean Corpuscular Hemoglobin Concent 34 g/dL (31-37) Red Cell Distribution Width 14.3 % (11.5-14.5) Platelet Count 197 x10^3/uL (140-400) Neutrophils (%) (Auto) 91 % (31-73) Lymphocytes (%) (Auto) 4 % (24-48) Monocytes (%) (Auto) 5 % (0-9) Eosinophils (%) (Auto) 0 % (0-3) Basophils (%) (Auto) 0 % (0-3) Neutrophils # (Auto) 10.9 x10^3/uL (1.8-7.7) Lymphocytes # (Auto) 0.5 x10^3/uL (1.0-4.8) Monocytes # (Auto) 0.6 x10^3/uL (0.0-1.1) Eosinophils # (Auto) 0.0 x10^3/uL (0.0-0.7) Basophils # (Auto) 0.0 x10^3/uL (0.0-0.2) Sodium Level 139 mmol/L (136-145) Potassium Level 3.0 mmol/L (3.5-5.1) Chloride Level 101 mmol/L (98-107) Carbon Dioxide Level 27 mmol/L (21-32) Anion Gap 11 (6-14) Blood Urea Nitrogen 72 mg/dL (8-26) Creatinine 1.8 mg/dL (0.7-1.3) Estimated GFR (Cockcroft-Gault) 38.1 BUN/Creatinine Ratio 40 (6-20) Glucose Level 65 mg/dL (70-99) Calcium Level 7.0 mg/dL (8.5-10.1) Total Bilirubin 0.4 mg/dL (0.2-1.0) Aspartate Amino Transf (AST/SGOT) 55 U/L (15-37) Alanine Aminotransferase (ALT/SGPT) 46 U/L (16-63) Alkaline Phosphatase 53 U/L (46-116) Total Protein 4.7 g/dL (6.4-8.2) Albumin 1.0 g/dL (3.4-5.0) Albumin/Globulin Ratio 0.3 (1.0-1.7) Test 05/27/21 12:00 Glucose (Fingerstick) 72 mg/dL (70-99) Laboratory Tests Test 05/27/21 12:00 Glucose (Fingerstick) 72 mg/dL (70-99) Medications Active Scripts Medications Dose Route/Sig Max Daily Dose Days Date Category Lisinopril 10 Mg Tablet 1 Tab PO DAILY 05/27/21 Reported Hydrochlorothiazide Capsule (Hydrochlorothiazide) 12.5 Mg Capsule 25 Mg PO DAILY 05/27/21 Reported Pravastatin Sodium 80 Mg Tablet 1 Tab PO QHS 05/27/21 Reported Phenytoin Sodium Extended 200 Mg Capsule 2 Cap PO BID 30 05/27/21 Reported Ywojss-Qzbaliyf-Gesi 50-300-40 (Butalb/Acetaminophen/Caffeine) 1 Each Capsule 1 Each PO PRN QID PRN 05/27/21 Reported Augmentin 875-125 Tablet (Amoxicillin/Potassium Clav) 1 Each Tablet 1 Tab PO BID 05/16/17 Rx Impression . IMPRESSION: 1. Acute hypoxemic respiratory failure, multifactorial. 2. COVID-19 viral pneumonia. 3. Subdural hematoma. 4. Recent fall. 5. CT chest revealing evidence of extensive consolidation opacities, mainly in the lower half of the right lung. 6. Possible aspiration pneumonia. 7. Acute exacerbation of chronic obstructive pulmonary disease. 8. History of AAA repair. 9. Acute renal failure. 10. Leukocytosis. Plan . Updated 05/28 Continue current support Oxygen supplementation requirements have decreased, good sign new, Antibiotics Follow neurosurgery input Steroids IV fluids Follow neuro PLAN: 1. We will continue support with oxygen supplementation. 2. Remdesivir. 3. Steroids. 4. Empiric antibiotics. 5. Follow up with neurosurgery input. 6. Consult nephrology, already performed. 7. IV fluids. 8. Hold off on anticoagulation. 9. Sequential compressive devices for DVT prophylaxis. MARGARET LEDEZMA MD May 28, 2021 09:04
[2021-05-28] MEDS: METOPROLOL TART IMMED RELEASE 25 MG TABLET. PO SCH ×2 (09:41→20:23)
[2021-05-28 09:55] LABS: MAGNESIUM 1.7 mg/dL (1.8-2.4)
[2021-05-28 10:02] LABS: CHOLESTEROL/HDL RATIO 4.4
[2021-05-28 10:36] LABS: CALCIUM 8.1 mg/dL (8.5-10.1); CREATININE 0.9 mg/dL (0.7-1.3); GFR 84.7
--- NOTE | 2021-05-28 10:52 | PDOC ---
DATE OF SERVICE DATE: 05/28/21 TIME: 10:49 SUBJECTIVE ROS On o2 10 lts by [place] OBJECTIVE Vital Signs Vital Signs Date Time Temp Pulse Resp B/P (MAP) Pulse Ox O2 Delivery O2 Flow Rate FiO2 05/28/21 09:41 106 152/67 05/28/21 08:38 Nasal Cannula 10.0 05/28/21 07:00 97.2 18 97 97.2 I & 0 Intake and Output 05/28/21 07:00 Intake Total 60 ml Output Total 1500 ml Balance -1440 ml Intake Oral 60 ml Output Urine Total 1500 ml # Bowel Movements 1 PHYSICAL EXAM Physical Exam General- NAD, disheveled , frail HEEN On O2 by [place], OM mildly dry Neck Supple Lungs decreased at bases CV S1S2 Abd Soft, NT Ext No LE edema. large bruise to his right shoulder from a fall about a week ago. No CVA or SP tenderness, Epna + Neuro Grossly normal Skin no rash DIAGNOSIS/ASSESSMENT Assessment & Plan OPHELIA - Vasomotor/Dehydration/ Hypotension Non oliguric, Resolved Renal function Improving with IVF . UA unremarkable, CT scan kidneys and Bladder Unremarkable Supportive care, maintain Hydration, Strict I/O, avoid Nephrotoxins Hypokalemia- Replace K HypoMg - replace HypoNatremia - Mild , if persistent hold HCTZ Ac Resp Failure - On o2 by [place] Pneumonia Hypotension- Improved with IVF Subacute subdural hematoma CoVid 19 POsitive - exposure from his roommate Hx of HTN - Hypotensive since presentation to the ER COMMENT/RELEVANT DATA Meds Current Medications Medications (Trade) Dose Ordered Sig/Natacha Start Time Stop Time Status Last Admin Dose Admin Acetaminophen (Tylenol) 650 mg PRN Q4HRS PRN 05/26/21 20:15 05/27/21 20:14 DC 05/27/21 16:07 650 MG Acetaminophen/ Butalbital/ Caffeine (Fioricet) 1 tab PRN Q6HRS PRN 05/27/21 15:00 Albuterol Sulfate (Ventolin Neb Soln) 2.5 mg 1X ONCE 05/26/21 18:30 05/26/21 18:31 DC 05/26/21 18:30 2.5 MG Amoxicillin/ Clavulanate Potassium (Augmentin 875/ 125mg) 1 tab BID 05/27/21 21:00 UNV Aspirin (Aspirin Chewable) 81 mg DAILYWBKFT 05/28/21 08:00 05/28/21 07:56 81 MG Atorvastatin Calcium (Lipitor) 20 mg QHS 05/27/21 21:00 05/27/21 21:15 20 MG Ceftriaxone Sodium (Rocephin) 1 gm Q24H 05/27/21 14:00 05/27/21 14:22 1 GM Doxycycline Hyclate 100 mg/ Dextrose 100 ml @ 50 mls/hr Q12HR 05/27/21 14:00 05/28/21 08:00 50 MLS/HR Guaifenesin/ Codeine Phosphate (Robitussin Ac) 5 ml PRN Q6HRS PRN 05/27/21 13:15 Hydrochlorothiazide (Microzide) 25 mg DAILY 05/28/21 09:00 05/28/21 07:56 25 MG Labetalol HCl (Normodyne Iv Push) 5 mg 1X ONCE 05/28/21 08:30 05/28/21 08:33 DC Lactobacillus Rhamnosus (Culturelle) 1 cap BID 05/28/21 09:00 05/28/21 07:56 1 CAP Lisinopril (Prinivil) 10 mg DAILY 05/28/21 09:00 05/28/21 07:58 10 MG Methylprednisolone Sodium Succinate (SOLU-Medrol 40MG VIAL) 40 mg BID 05/27/21 21:00 05/28/21 07:58 40 MG Methylprednisolone Sodium Succinate (SOLU-Medrol 125MG VIAL) 80 mg 1X ONCE 05/26/21 18:30 05/26/21 18:31 DC 05/26/21 18:42 80 MG Metoprolol Tartrate (Lopressor Vial) 5 mg 1X ONCE 05/28/21 08:45 05/28/21 08:48 DC 05/28/21 08:38 5 MG Metoprolol Tartrate (Lopressor) 25 mg BID 05/28/21 09:00 05/28/21 09:41 25 MG Morphine Sulfate (Morphine Sulfate) 2 mg PRN Q2HR PRN 05/28/21 08:30 05/28/21 08:38 2 MG Multivitamins (Thera M Plus) 1 tab DAILY 05/28/21 09:00 05/28/21 07:57 1 TAB Phenytoin Sodium (Dilantin) 400 mg BID 05/27/21 21:00 05/28/21 07:57 400 MG Piperacillin Sod/ Tazobactam Sod 2.25 gm/Sodium Chloride 50 ml @ 100 mls/hr Q8HRS 05/27/21 06:00 05/27/21 13:13 DC 05/27/21 05:47 100 MLS/HR Piperacillin Sod/ Tazobactam Sod 3.375 gm/Sodium Chloride 50 ml @ 100 mls/hr Q6HRS 05/27/21 00:00 05/26/21 22:59 DC Potassium Chloride (Klor-Con) 40 meq 1X ONCE 05/27/21 15:15 05/27/21 15:16 DC 05/27/21 16:06 40 MEQ Remdesivir 100 mg/ Sodium Chloride 230 ml @ 460 mls/hr Q24H 05/28/21 14:00 05/31/21 14:29 Remdesivir 200 mg/ Sodium Chloride 210 ml @ 210 mls/hr 1X ONCE 05/27/21 14:00 05/27/21 14:59 DC 05/27/21 14:24 210 MLS/HR Sodium Chloride 1,000 ml @ 100 mls/hr Q10H 05/26/21 20:15 05/27/21 20:14 DC 05/27/21 16:06 100 MLS/HR Lab Laboratory Tests Test 05/27/21 12:00 05/28/21 09:05 Glucose (Fingerstick) 72 mg/dL (70-99) Sodium Level 133 mmol/L (136-145) Potassium Level 3.0 mmol/L (3.5-5.1) Chloride Level 95 mmol/L (98-107) Carbon Dioxide Level 29 mmol/L (21-32) Anion Gap 9 (6-14) Blood Urea Nitrogen 42 mg/dL (8-26) Creatinine 0.9 mg/dL (0.7-1.3) Estimated GFR (Cockcroft-Gault) 84.7 Glucose Level 124 mg/dL (70-99) Calcium Level 8.1 mg/dL (8.5-10.1) Magnesium Level 1.7 mg/dL (1.8-2.4) Triglycerides Level 80 mg/dL (0-150) Cholesterol Level 70 mg/dL (0-200) LDL Cholesterol, Calculated 38 mg/dL (0-100) VLDL Cholesterol, Calculated 16 mg/dL (0-40) Non-HDL Cholesterol Calculated 54 mg/dL (0-129) HDL Cholesterol 16 mg/dL (40-60) Cholesterol/HDL Ratio 4.4 Thyroid Stimulating Hormone (TSH) 2.697 uIU/mL (0.358-3.74) Results All relevant outside records, renal labs, imaging studies, telemetry/EKG's were reviewed. Justicifation of Admission Dx: Justifications for Admission: Justification of Admission Dx: Yes Acute Renal Failure: 3-Fold Rise in Serum SIERRA Clemens MD May 28, 2021 10:52
[2021-05-28 10:56] VITALS: BP 119/61
[2021-05-28] MEDS ORDERED: POTASSIUM CHLORIDE 20 MEQ TABLET.ER. PO ONE ×2 (11:15→14:15)
[2021-05-28] MEDS ORDERED: MAGNESIUM SULFATE 2GM 50 ML IV ONE (12:00)
--- NOTE | 2021-05-28 12:22 | NUR ---
SS following for discharge planning. SS reviewed pt chart and discussed with pt RN. Pt is from home and is currently requiring oxygen at ten liters nasal canula. Pt has no home oxygen. COVID19 positive. Pt on IV Rocephin, IV Doxycycline, IV Remdesivir, and IV Solu-Medrol. SS will continue to follow for discharge planning.
--- NOTE | 2021-05-28 12:42 | PDOC ---
[employer] PROGRESS NOTE Date of Service DOS: DATE: 05/28/21 TIME: 12:28 Chief Complaint Chief Complaint Weakness Mental status change Flu symptoms Hyperlipidemia Hypertension Seizures Left carpal tunnel surgery AAA repair Previous tobacco abuse. History of Present Illness History of Present Illness 05/28/2021 Patient seen and examined. Discussed with RN. Chart reviewed. Patient is weak but responsive. Resting, NAD. Patient has a bruise on the right shoulder. Currently receiving doxycycline. Patient is on 10L oxygen via [place] (humidified). Developed Afib with RVR. Vitals/I&O Vitals/I&O: Vital Signs Date Time Temp Pulse Resp B/P (MAP) Pulse Ox O2 Delivery O2 Flow Rate FiO2 05/28/21 10:56 97.2 108 18 119/61 (80) 91 Nasal Cannula 10.0 97.2 I & O 05/27/21 05/27/21 05/28/21 15:00 23:00 07:00 Intake Total 60 ml 0 ml Output Total 1500 ml Balance 60 ml -1500 ml Physical Exam General: Oriented X3, Cooperative, No acute distress Abdomen: Soft Extremities: No edema Skin: Other (right shoulder ecchymosis, lesion on the center of chest.) Labs Labs: Laboratory Tests Test 05/28/21 09:05 Sodium Level 133 mmol/L (136-145) Potassium Level 3.0 mmol/L (3.5-5.1) Chloride Level 95 mmol/L (98-107) Carbon Dioxide Level 29 mmol/L (21-32) Anion Gap 9 (6-14) Blood Urea Nitrogen 42 mg/dL (8-26) Creatinine 0.9 mg/dL (0.7-1.3) Estimated GFR (Cockcroft-Gault) 84.7 Glucose Level 124 mg/dL (70-99) Calcium Level 8.1 mg/dL (8.5-10.1) Magnesium Level 1.7 mg/dL (1.8-2.4) Triglycerides Level 80 mg/dL (0-150) Cholesterol Level 70 mg/dL (0-200) LDL Cholesterol, Calculated 38 mg/dL (0-100) VLDL Cholesterol, Calculated 16 mg/dL (0-40) Non-HDL Cholesterol Calculated 54 mg/dL (0-129) HDL Cholesterol 16 mg/dL (40-60) Cholesterol/HDL Ratio 4.4 Thyroid Stimulating Hormone (TSH) 2.697 uIU/mL (0.358-3.74) Assessment and Plan Assessmemt and Plan Problems Medical Problems: (1) Kidney failure, acute Status: Acute (2) Person under investigation for COVID-19 Status: Acute (3) Pneumonia Status: Acute (4) Septic shock Status: Acute (5) Subacute subdural hematoma Status: Acute Weakness Mental status change Flu symptoms Hyperlipidemia Hypertension Seizures Left carpal tunnel surgery AAA repair Previous tobacco abuse. Plan: Covid protocol Ordered 1 dose of IV metoprolol pvc monitor O2 [place] Consult cardiology Home meds DVT prophylaxis Full code. Comment Review of Relevant I have reviewed the following items farhat (where applicable) has been applied. Medications: Current Medications Medications (Trade) Dose Ordered Sig/Natacha Route PRN Reason Start Time Stop Time Status Last Admin Dose Admin Remdesivir 200 mg/ Sodium Chloride 210 ml @ 210 mls/hr 1X ONCE IV 05/27/21 14:00 05/27/21 14:59 DC 05/27/21 14:24 Doxycycline Hyclate 100 mg/ Dextrose 100 ml @ 50 mls/hr Q12HR IV 05/27/21 14:00 05/28/21 08:00 Aspirin (Aspirin Chewable) 81 mg DAILYWBKFT PO 05/28/21 08:00 05/28/21 07:56 Methylprednisolone Sodium Succinate (SOLU-Medrol 40MG VIAL) 40 mg BID IV 05/27/21 21:00 05/28/21 07:58 Multivitamins (Thera M Plus) 1 tab DAILY PO 05/28/21 09:00 05/28/21 07:57 Ceftriaxone Sodium (Rocephin) 1 gm Q24H IVP 05/27/21 14:00 05/27/21 14:22 Hydrochlorothiazide (Microzide) 25 mg DAILY PO 05/28/21 09:00 05/28/21 07:56 Lisinopril (Prinivil) 10 mg DAILY PO 05/28/21 09:00 05/28/21 07:58 Phenytoin Sodium (Dilantin) 400 mg BID PO 05/27/21 21:00 05/28/21 07:57 Atorvastatin Calcium (Lipitor) 20 mg QHS PO 05/27/21 21:00 05/27/21 21:15 Potassium Chloride (Klor-Con) 40 meq 1X ONCE PO 05/27/21 15:15 05/27/21 15:16 DC 05/27/21 16:06 Lactobacillus Rhamnosus (Culturelle) 1 cap BID PO 05/28/21 09:00 05/28/21 07:56 Morphine Sulfate (Morphine Sulfate) 2 mg PRN Q2HR PRN IVP PAIN 05/28/21 08:30 05/28/21 08:38 Metoprolol Tartrate (Lopressor Vial) 5 mg 1X ONCE IVP 05/28/21 08:45 05/28/21 08:48 DC 05/28/21 08:38 Metoprolol Tartrate (Lopressor) 25 mg BID PO 05/28/21 09:00 05/28/21 09:41 Potassium Chloride (Klor-Con) 40 meq 1X ONCE PO 05/28/21 11:15 05/28/21 11:16 DC 05/28/21 11:32 Magnesium Sulfate 50 ml @ 25 mls/hr 1X ONCE IV 05/28/21 12:00 05/28/21 13:59 05/28/21 11:34 Justifications for Admission Other Justification CLAYTON PHILIP III DO May 28, 2021 12:42
--- NOTE | 2021-05-28 13:59 | CONS ---
DATE OF CONSULTATION: 05/27/2021 ATTENDING PHYSICIAN: Terrell Lee DO CONSULTING PHYSICIAN: Arthur Anderson MD REASON FOR CONSULTATION: The patient is seen in pulmonary consultation at the request of Dr. Lee for positive SARS-CoV-2. Arterial blood gas revealing a PaO2 of 51 on 36% FiO2. HISTORY OF PRESENT ILLNESS: The patient is a 65-year-old that presented with a history of 1 week loss of taste, shortness of breath, dizziness, cough, diarrhea. He also states a week ago he fell, was not seen at any hospital. He comes in today with right shoulder bruise, he felt slightly dizzy. He was evaluated and found to have COVID-19 positivity. He was also hypoxic. He lives with a roommate. He has been diagnosed with COVID-19. He also had some imaging studies of the head, which revealed subdural hematoma. Neurosurgery has been consulted. No surgery is planned at this time. CT angiogram revealed extensive consolidation, opacities in both lungs. There is background of severe emphysema. PAST MEDICAL HISTORY: Remarkable for hyperlipidemia, hypertension, seizure disorder. PAST SURGICAL HISTORY: AAA repair. ALLERGIES: No known drug allergies. REVIEW OF SYSTEMS: As indicated above, otherwise other systems were reviewed and negative. CURRENT MEDICATIONS: List was reviewed. PHYSICAL EXAMINATION: GENERAL: The patient was in no respiratory distress. He was on 5 liters of oxygen supplementation. He appeared to be disheveled and malnourished. LUNGS: Clear. No wheezes. CARDIOVASCULAR: Regular rate and rhythm with S1, S2, no S3. ABDOMEN: Soft. EXTREMITIES: No clubbing, cyanosis, minimal edema. LABORATORY DATA: Reviewed. Arterial blood gas; pH of 7.51, pCO2 of 35, pO2 of 51. White count was elevated. Electrolytes were deranged. BUN and creatinine are elevated. Serology for SARS-CoV-2 was positive. INR was 1.6. CT head revealed subdural hematoma. IMPRESSION: 1. Acute hypoxemic respiratory failure, multifactorial. 2. COVID-19 viral pneumonia. 3. Subdural hematoma. 4. Recent fall. 5. CT chest revealing evidence of extensive consolidation opacities, mainly in the lower half of the right lung. 6. Possible aspiration pneumonia. 7. Acute exacerbation of chronic obstructive pulmonary disease. 8. History of AAA repair. 9. Acute renal failure. 10. Leukocytosis. PLAN: 1. We will continue support with oxygen supplementation. 2. Remdesivir. 3. Steroids. 4. Empiric antibiotics. 5. Follow up with neurosurgery input. 6. Consult nephrology, already performed. 7. IV fluids. 8. Hold off on anticoagulation. 9. Sequential compressive devices for DVT prophylaxis. 10. Acute exacerbation. 11. Hypoxemic respiratory failure, multifactorial. 12. COVID-19 viral pneumonia. 13. Aspiration ____. 14. Subdural hematoma. 15. Recent fall. 16. See orders. 17. The patient continues to require 100% FiO2, 40 liters of flow. 18. ____. 19. ____. PEEWEE/ZULEIKA DR: Geetha TID: [id number]
[2021-05-28 15:00] VITALS: BP 136/77
[2021-05-28] MEDS: cefTRIAXone IV Push 1 GM VIAL. IVP SCH (15:01)
[2021-05-28] MEDS: REMDESIVIR 100mg in NORMAL SALINE 250ML X 4 DAYS IV SCH (15:03)
[2021-05-28] MEDS: ACETAMINOPHEN 325 MG TABLET. PO PRN (15:46)
[2021-05-28 19:00] VITALS: BP 119/70
[2021-05-28] MEDS: ATORVASTATIN CALCIUM 20 MG TABLET PO SCH (20:23)
[2021-05-28 23:20] VITALS: BP 126/60
[2021-05-29 02:40] VITALS: BP 132/88
[2021-05-29 04:48] LABS: CALCIUM 8.7 mg/dL (8.5-10.1); CREATININE 0.7 mg/dL (0.7-1.3); GFR 113.2; MAGNESIUM 1.5 mg/dL (1.8-2.4); POTASSIUM 3.7 mmol/L (3.5-5.1)
[2021-05-29 07:00] VITALS: BP 148/70
--- NOTE | 2021-05-29 08:38 | PDOC ---
[employer] PROGRESS NOTE Date of Service DOS: DATE: 05/29/21 TIME: 08:35 Chief Complaint Chief Complaint Weakness Mental status change Flu symptoms Hyperlipidemia Hypertension Seizures Left carpal tunnel surgery AAA repair Previous tobacco abuse. History of Present Illness History of Present Illness 05/29/2021 Patient seen and examined. Chart reviewed. Discussed with RN. Patient is awake and making eye contact. Bruise on the right shoulder is still present. Currently receiving doxycycline. Patient is back on 5L oxygen via [place]. 05/28/2021 Patient seen and examined. Discussed with RN. Chart reviewed. Patient is weak but responsive. Resting, NAD. Patient has a bruise on the right shoulder. Currently receiving doxycycline. Patient is on 10L oxygen via [place] (humidified). Developed Afib with RVR. Vitals/I&O Vitals/I&O: Vital Signs Date Time Temp Pulse Resp B/P (MAP) Pulse Ox O2 Delivery O2 Flow Rate FiO2 05/29/21 07:00 96.4 98 18 148/70 (96) 91 Nasal Cannula 5.0 96.4 I & O 05/28/21 05/28/21 05/29/21 15:00 23:00 07:00 Intake Total 200 ml 420 ml 300 ml Output Total 2200 ml Balance 200 ml 420 ml -1900 ml Physical Exam General: Oriented X3, Cooperative, No acute distress Lungs: Crackles Abdomen: Soft Extremities: No edema Skin: Other (right shoulder ecchymosis, lesion on the center of chest.) Labs Labs: Laboratory Tests Test 05/28/21 09:05 05/29/21 04:10 Sodium Level 133 mmol/L (136-145) 135 mmol/L (136-145) Potassium Level 3.0 mmol/L (3.5-5.1) 3.7 mmol/L (3.5-5.1) Chloride Level 95 mmol/L (98-107) 98 mmol/L (98-107) Carbon Dioxide Level 29 mmol/L (21-32) 29 mmol/L (21-32) Anion Gap 9 (6-14) 8 (6-14) Blood Urea Nitrogen 42 mg/dL (8-26) 30 mg/dL (8-26) Creatinine 0.9 mg/dL (0.7-1.3) 0.7 mg/dL (0.7-1.3) Estimated GFR (Cockcroft-Gault) 84.7 113.2 Glucose Level 124 mg/dL (70-99) 100 mg/dL (70-99) Calcium Level 8.1 mg/dL (8.5-10.1) 8.7 mg/dL (8.5-10.1) Magnesium Level 1.7 mg/dL (1.8-2.4) 1.5 mg/dL (1.8-2.4) Triglycerides Level 80 mg/dL (0-150) Cholesterol Level 70 mg/dL (0-200) LDL Cholesterol, Calculated 38 mg/dL (0-100) VLDL Cholesterol, Calculated 16 mg/dL (0-40) Non-HDL Cholesterol Calculated 54 mg/dL (0-129) HDL Cholesterol 16 mg/dL (40-60) Cholesterol/HDL Ratio 4.4 Thyroid Stimulating Hormone (TSH) 2.697 uIU/mL (0.358-3.74) Assessment and Plan Assessmemt and Plan Problems Medical Problems: (1) Kidney failure, acute Status: Acute (2) Person under investigation for COVID-19 Status: Acute (3) Pneumonia Status: Acute (4) Septic shock Status: Acute (5) Subacute subdural hematoma Status: Acute Weakness Mental status change Flu symptoms Hyperlipidemia Hypertension Seizures Left carpal tunnel surgery AAA repair Previous tobacco abuse. 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 Comment Review of Relevant I have reviewed the following items farhat (where applicable) has been applied. Medications: Current Medications Medications (Trade) Dose Ordered Sig/Natacha Route PRN Reason Start Time Stop Time Status Last Admin Dose Admin Remdesivir 100 mg/ Sodium Chloride 230 ml @ 460 mls/hr Q24H IV 05/28/21 14:00 05/31/21 14:29 05/28/21 15:03 Multivitamins (Thera M Plus) 1 tab DAILY PO 05/28/21 09:00 05/28/21 07:57 Hydrochlorothiazide (Microzide) 25 mg DAILY PO 05/28/21 09:00 05/28/21 07:56 Lisinopril (Prinivil) 10 mg DAILY PO 05/28/21 09:00 05/28/21 07:58 Lactobacillus Rhamnosus (Culturelle) 1 cap BID PO 05/28/21 09:00 05/28/21 20:24 Metoprolol Tartrate (Lopressor Vial) 5 mg 1X ONCE IVP 05/28/21 08:45 05/28/21 08:48 DC 05/28/21 08:38 Metoprolol Tartrate (Lopressor) 25 mg BID PO 05/28/21 09:00 05/28/21 20:23 Acetaminophen (Tylenol) 650 mg PRN Q6HRS PRN PO MILD PAIN / TEMP > 100.3'F 05/28/21 11:00 05/28/21 15:46 Potassium Chloride (Klor-Con) 40 meq 1X ONCE PO 05/28/21 11:15 05/28/21 11:16 DC 05/28/21 11:32 Potassium Chloride (Klor-Con) 40 meq 1X ONCE PO 05/28/21 14:15 05/28/21 14:16 DC 05/28/21 14:59 Magnesium Sulfate 50 ml @ 25 mls/hr 1X ONCE IV 05/28/21 12:00 05/28/21 13:59 DC 05/28/21 11:34 Justifications for Admission Other Justification CLAYTON PHILIP III DO May 29, 2021 08:38
[2021-05-29] MEDS ORDERED: MAGNESIUM SULFATE 2GM 50 ML IV ONE ×2 (08:45→09:30)
--- NOTE | 2021-05-29 08:48 | PDOC ---
CARDIO Progress Notes Date and Time Date of Service 05/29/21 Time of Evaluation 1115 Subjective Subjective: No Chest Pain, No shortness of breath Vitals Vitals Vital Signs Date Time Temp Pulse Resp B/P (MAP) Pulse Ox O2 Delivery O2 Flow Rate FiO2 05/29/21 07:00 96.4 98 18 148/70 (96) 91 Nasal Cannula 5.0 96.4 Weight Weight [ ] Input and Output Intake and Output Intake and Output 05/29/21 07:00 Intake Total 920 ml Output Total 2200 ml Balance -1280 ml Intake Oral 920 ml Output Urine Total 2200 ml # Bowel Movements 2 Laboratory Labs Laboratory Tests Test 05/28/21 09:05 05/29/21 04:10 Sodium Level 133 mmol/L (136-145) 135 mmol/L (136-145) Potassium Level 3.0 mmol/L (3.5-5.1) 3.7 mmol/L (3.5-5.1) Chloride Level 95 mmol/L (98-107) 98 mmol/L (98-107) Carbon Dioxide Level 29 mmol/L (21-32) 29 mmol/L (21-32) Anion Gap 9 (6-14) 8 (6-14) Blood Urea Nitrogen 42 mg/dL (8-26) 30 mg/dL (8-26) Creatinine 0.9 mg/dL (0.7-1.3) 0.7 mg/dL (0.7-1.3) Estimated GFR (Cockcroft-Gault) 84.7 113.2 Glucose Level 124 mg/dL (70-99) 100 mg/dL (70-99) Calcium Level 8.1 mg/dL (8.5-10.1) 8.7 mg/dL (8.5-10.1) Magnesium Level 1.7 mg/dL (1.8-2.4) 1.5 mg/dL (1.8-2.4) Triglycerides Level 80 mg/dL (0-150) Cholesterol Level 70 mg/dL (0-200) LDL Cholesterol, Calculated 38 mg/dL (0-100) VLDL Cholesterol, Calculated 16 mg/dL (0-40) Non-HDL Cholesterol Calculated 54 mg/dL (0-129) HDL Cholesterol 16 mg/dL (40-60) Cholesterol/HDL Ratio 4.4 Thyroid Stimulating Hormone (TSH) 2.697 uIU/mL (0.358-3.74) Microbiology Micro Microbiology 05/26/21 Blood Culture - Preliminary, Resulted NO GROWTH AFTER 2 DAYS 05/26/21 Gram Stain Evaluation - Final, Resulted 05/26/21 Respiratory Culture - Preliminary, Resulted Physical Exam HEENT: Neck Supple W Full Motion Chest: Symmetric LUNGS: Other (on NC) Heart: RRR Abdomen: Soft N/T Extremities: No Edema Neurology: alert, follow commands Assessment Assessment 1. Acute respiratory failure secondary; multifactorial with COVID PNA, probable aspiration PNA, and underlying COPD 2. Leukocytosis, lactic acidosis 3. AFIB wtih RVR; new onset in setting of above. converted back to SR 4. OPHELIA; improving s/p IVFs 5. Traumatic fall lat week with SDH; repeat CT head stable 6. Hypertension; controlled 7. Hyperlipidemia 8. Hypomagnesemia 9. Coagulopathy 10. Abdominal aortic aneurysm s/p endograft repair 11. Metabolic encephalopathy Recommendations Metoprolol for rate control; will increase for better control Replace Mg No AC or ASA with SDH Outpatient echo when recovered from COVID Ongoing lung optimization, treatment of COVID Supportive care Justicifation of Admission Dx: Justifications for Admission: Justification of Admission Dx: Yes Acute Renal Failure: 3-Fold Rise in Serum Crea LOW ALMANZA APRN May 29, 2021 08:48
[2021-05-29] MEDS: DOXYCYCLINE HYCLATE 100 MG in IV DEXTROSE 5% 100ML 100 ML IV SCH ×2 (09:18→20:41)
[2021-05-29] MEDS: PHENYTOIN SODIUM EXTENDED 100 MG CAPSULE PO SCH ×2 (09:18→20:41)
[2021-05-29] MEDS: METOPROLOL TART IMMED RELEASE 25 MG TABLET. PO SCH (09:19)
[2021-05-29] MEDS: hydroCHLOROthiazide 12.5 MG CAPSULE PO SCH (09:19)
[2021-05-29] MEDS: LACTOBACILLUS RHAMNOSUS GG 1 CAPSULE. PO SCH ×2 (09:19→20:40)
[2021-05-29] MEDS: ASPIRIN CHEWABLE 81 MG TABLET. PO SCH (09:19)
[2021-05-29] MEDS: LISINOPRIL 10 MG TABLET PO SCH (09:20)
[2021-05-29] MEDS: MULTIVITAMIN with MINERAL TABLET. PO SCH (09:20)
[2021-05-29] MEDS: methylPREDNISolone SOD SUCC PF 40 MG/ML VIAL. IV SCH ×2 (09:20→20:40)
--- NOTE | 2021-05-29 10:06 | PDOC ---
DATE OF SERVICE DATE: 05/29/21 TIME: 10:06 SUBJECTIVE ROS On o2 5 lts by [place] Stable OBJECTIVE Vital Signs Vital Signs Date Time Temp Pulse Resp B/P (MAP) Pulse Ox O2 Delivery O2 Flow Rate FiO2 05/29/21 09:20 98 148/70 05/29/21 07:00 96.4 18 91 Nasal Cannula 5.0 96.4 I & 0 Intake and Output 05/29/21 07:00 Intake Total 920 ml Output Total 2200 ml Balance -1280 ml Intake Oral 920 ml Output Urine Total 2200 ml # Bowel Movements 2 PHYSICAL EXAM Physical Exam General- NAD, disheveled , frail HEEN On O2 by NC, OM mildly dry Neck Supple Lungs decreased at bases CV S1S2 Abd Soft, NT Ext No LE edema. large bruise to his right shoulder from a fall about a week ago. No CVA or SP tenderness, Pena + Neuro Grossly normal Skin no rash DIAGNOSIS/ASSESSMENT Assessment & Plan OPHELIA - Vasomotor/Dehydration/ Hypotension Non oliguric, Resolved with IVF . UA unremarkable, CT scan kidneys and Bladder Unremarkable Supportive care, maintain Hydration, Strict I/O, avoid Nephrotoxins Hypokalemia- resolved HypoMg - replace as needed HypoNatremia - Mild improving , if persistent hold HCTZ Ac Resp Failure - oxygen supplementation, Remdesivir, Steroids, Empiric antibiotics. Hypotension- Improved with IVF Subacute subdural hematoma No intervention per NS CoVid 19 POsitive - exposure from his roommate Hx of HTN - Hypotensive since presentation to the ER COMMENT/RELEVANT DATA Meds Current Medications Medications (Trade) Dose Ordered Sig/Natacha Start Time Stop Time Status Last Admin Dose Admin Acetaminophen (Tylenol) 650 mg PRN Q6HRS PRN 05/28/21 11:00 05/28/21 15:46 650 MG Acetaminophen/ Butalbital/ Caffeine (Fioricet) 1 tab PRN Q6HRS PRN 05/27/21 15:00 Albuterol Sulfate (Ventolin Neb Soln) 2.5 mg 1X ONCE 05/26/21 18:30 05/26/21 18:31 DC 05/26/21 18:30 2.5 MG Amoxicillin/ Clavulanate Potassium (Augmentin 875/ 125mg) 1 tab BID 05/27/21 21:00 UNV Aspirin (Aspirin Chewable) 81 mg DAILYWBKFT 05/28/21 08:00 05/29/21 09:19 81 MG Atorvastatin Calcium (Lipitor) 20 mg QHS 05/27/21 21:00 05/28/21 20:23 20 MG Ceftriaxone Sodium (Rocephin) 1 gm Q24H 05/27/21 14:00 05/28/21 15:01 1 GM Doxycycline Hyclate 100 mg/ Dextrose 100 ml @ 50 mls/hr Q12HR 05/27/21 14:00 05/29/21 09:18 50 MLS/HR Guaifenesin/ Codeine Phosphate (Robitussin Ac) 5 ml PRN Q6HRS PRN 05/27/21 13:15 Hydrochlorothiazide (Microzide) 25 mg DAILY 05/28/21 09:00 05/29/21 09:19 25 MG Labetalol HCl (Normodyne Iv Push) 5 mg 1X ONCE 05/28/21 08:30 05/28/21 08:33 DC Lactobacillus Rhamnosus (Culturelle) 1 cap BID 05/28/21 09:00 05/29/21 09:19 1 CAP Lisinopril (Prinivil) 10 mg DAILY 05/28/21 09:00 05/29/21 09:20 10 MG Magnesium Sulfate 50 ml @ 25 mls/hr 1X ONCE 05/29/21 09:30 05/29/21 11:29 05/29/21 09:17 25 MLS/HR Methylprednisolone Sodium Succinate (SOLU-Medrol 40MG VIAL) 40 mg BID 05/27/21 21:00 05/29/21 09:20 40 MG Methylprednisolone Sodium Succinate (SOLU-Medrol 125MG VIAL) 80 mg 1X ONCE 05/26/21 18:30 05/26/21 18:31 DC 05/26/21 18:42 80 MG Metoprolol Tartrate (Lopressor Vial) 5 mg 1X ONCE 05/28/21 08:45 05/28/21 08:48 DC 05/28/21 08:38 5 MG Metoprolol Tartrate (Lopressor) 25 mg BID 05/28/21 09:00 05/29/21 09:19 25 MG Morphine Sulfate (Morphine Sulfate) 2 mg PRN Q2HR PRN 05/28/21 08:30 05/28/21 08:38 2 MG Multivitamins (Thera M Plus) 1 tab DAILY 05/28/21 09:00 05/29/21 09:20 1 TAB Phenytoin Sodium (Dilantin) 400 mg BID 05/27/21 21:00 05/29/21 09:18 400 MG Piperacillin Sod/ Tazobactam Sod 2.25 gm/Sodium Chloride 50 ml @ 100 mls/hr Q8HRS 05/27/21 06:00 05/27/21 13:13 DC 05/27/21 05:47 100 MLS/HR Piperacillin Sod/ Tazobactam Sod 3.375 gm/Sodium Chloride 50 ml @ 100 mls/hr Q6HRS 05/27/21 00:00 05/26/21 22:59 DC Potassium Chloride (Klor-Con) 40 meq 1X ONCE 05/28/21 14:15 05/28/21 14:16 DC 05/28/21 14:59 40 MEQ Remdesivir 100 mg/ Sodium Chloride 230 ml @ 460 mls/hr Q24H 05/28/21 14:00 05/31/21 14:29 05/28/21 15:03 460 MLS/HR Remdesivir 200 mg/ Sodium Chloride 210 ml @ 210 mls/hr 1X ONCE 05/27/21 14:00 05/27/21 14:59 DC 05/27/21 14:24 210 MLS/HR Sodium Chloride 1,000 ml @ 100 mls/hr Q10H 05/26/21 20:15 05/27/21 20:14 DC 05/27/21 16:06 100 MLS/HR Lab Laboratory Tests Test 05/29/21 04:10 Sodium Level 135 mmol/L (136-145) Potassium Level 3.7 mmol/L (3.5-5.1) Chloride Level 98 mmol/L (98-107) Carbon Dioxide Level 29 mmol/L (21-32) Anion Gap 8 (6-14) Blood Urea Nitrogen 30 mg/dL (8-26) Creatinine 0.7 mg/dL (0.7-1.3) Estimated GFR (Cockcroft-Gault) 113.2 Glucose Level 100 mg/dL (70-99) Calcium Level 8.7 mg/dL (8.5-10.1) Magnesium Level 1.5 mg/dL (1.8-2.4) Results All relevant outside records, renal labs, imaging studies, telemetry/EKG's were reviewed. Justicifation of Admission Dx: Justifications for Admission: Justification of Admission Dx: Yes Acute Renal Failure: 3-Fold Rise in Serum Crea SIERRA ARAMBULA MD May 29, 2021 10:06
[2021-05-29 11:00] VITALS: BP 133/70
[2021-05-29] MEDS: cefTRIAXone IV Push 1 GM VIAL. IVP SCH (14:14)
[2021-05-29] MEDS: REMDESIVIR 100mg in NORMAL SALINE 250ML X 4 DAYS IV SCH (14:14)
[2021-05-29] MEDS: ACETAMINOPHEN 325 MG TABLET. PO PRN (14:25)
[2021-05-29] MEDS ORDERED: METOPROLOL TART IMMED RELEASE 25 MG TABLET. PO ONE (14:30)
[2021-05-29 15:00] VITALS: BP 140/75
--- NOTE | 2021-05-29 15:03 | PDOC ---
PULMONARY PROGRESS NOTES DATE: 05/29/21 TIME: 15:02 Subjective Patient with mild headache, now more short of air. No chest pain up Vitals Vital Signs Date Time Temp Pulse Resp B/P (MAP) Pulse Ox O2 Delivery O2 Flow Rate FiO2 05/29/21 14:14 103 133/70 05/29/21 11:00 97.1 16 93 Nasal Cannula 5.0 97.1 ROS: No Nausea, No Chest Pain, No Abdominal Pain, No Increase Cough Lungs: Crackles Cardiovascular: S1, S2 Abdomen: Soft Neuro Exam: Alert Extremities: No Edema Skin: Warm, Cool Labs Laboratory Tests Test 05/28/21 09:05 05/29/21 04:10 Sodium Level 133 mmol/L (136-145) 135 mmol/L (136-145) Potassium Level 3.0 mmol/L (3.5-5.1) 3.7 mmol/L (3.5-5.1) Chloride Level 95 mmol/L (98-107) 98 mmol/L (98-107) Carbon Dioxide Level 29 mmol/L (21-32) 29 mmol/L (21-32) Anion Gap 9 (6-14) 8 (6-14) Blood Urea Nitrogen 42 mg/dL (8-26) 30 mg/dL (8-26) Creatinine 0.9 mg/dL (0.7-1.3) 0.7 mg/dL (0.7-1.3) Estimated GFR (Cockcroft-Gault) 84.7 113.2 Glucose Level 124 mg/dL (70-99) 100 mg/dL (70-99) Calcium Level 8.1 mg/dL (8.5-10.1) 8.7 mg/dL (8.5-10.1) Magnesium Level 1.7 mg/dL (1.8-2.4) 1.5 mg/dL (1.8-2.4) Triglycerides Level 80 mg/dL (0-150) Cholesterol Level 70 mg/dL (0-200) LDL Cholesterol, Calculated 38 mg/dL (0-100) VLDL Cholesterol, Calculated 16 mg/dL (0-40) Non-HDL Cholesterol Calculated 54 mg/dL (0-129) HDL Cholesterol 16 mg/dL (40-60) Cholesterol/HDL Ratio 4.4 Thyroid Stimulating Hormone (TSH) 2.697 uIU/mL (0.358-3.74) Laboratory Tests Test 05/29/21 04:10 Sodium Level 135 mmol/L (136-145) Potassium Level 3.7 mmol/L (3.5-5.1) Chloride Level 98 mmol/L (98-107) Carbon Dioxide Level 29 mmol/L (21-32) Anion Gap 8 (6-14) Blood Urea Nitrogen 30 mg/dL (8-26) Creatinine 0.7 mg/dL (0.7-1.3) Estimated GFR (Cockcroft-Gault) 113.2 Glucose Level 100 mg/dL (70-99) Calcium Level 8.7 mg/dL (8.5-10.1) Magnesium Level 1.5 mg/dL (1.8-2.4) Medications Active Scripts Medications Dose Route/Sig Max Daily Dose Days Date Category Lisinopril 10 Mg Tablet 1 Tab PO DAILY 05/27/21 Reported Hydrochlorothiazide Capsule (Hydrochlorothiazide) 12.5 Mg Capsule 25 Mg PO DAILY 05/27/21 Reported Pravastatin Sodium 80 Mg Tablet 1 Tab PO QHS 05/27/21 Reported Phenytoin Sodium Extended 200 Mg Capsule 2 Cap PO BID 30 05/27/21 Reported Wqswba-Fqmwkjko-Cmbd 50-300-40 (Butalb/Acetaminophen/Caffeine) 1 Each Capsule 1 Each PO PRN QID PRN 05/27/21 Reported Augmentin 875-125 Tablet (Amoxicillin/Potassium Clav) 1 Each Tablet 1 Tab PO BID 05/16/17 Rx Impression . IMPRESSION: 1. Acute hypoxemic respiratory failure, multifactorial. 2. COVID-19 viral pneumonia. 3. Subdural hematoma. 4. Recent fall. 5. CT chest revealing evidence of extensive consolidation opacities, mainly in the lower half of the right lung. 6. Possible aspiration pneumonia. 7. Acute exacerbation of chronic obstructive pulmonary disease. 8. History of AAA repair. 9. Acute renal failure. 10. Leukocytosis. Plan . Updated 05/29 Continue current support As needed Tylenol for headaches Repeat CT chest from 920 no significant change Follow n neurosurgery input Steroids Antibiotics Updated 05/28 Continue current support Oxygen supplementation requirements have decreased, good sign new, Antibiotics Follow neurosurgery input Steroids IV fluids Follow neuro MARGARET LEDEZMA MD May 29, 2021 15:03
[2021-05-29 19:00] VITALS: BP 106/60
[2021-05-29] MEDS: ATORVASTATIN CALCIUM 20 MG TABLET PO SCH (20:40)
[2021-05-29] MEDS: METOPROLOL TART IMMED RELEASE 50 MG TABLET. PO SCH (20:40)
[2021-05-29 22:40] VITALS: BP 126/80
[2021-05-30 02:53] VITALS: BP 128/69
[2021-05-30 04:36] LABS: CALCIUM 8.4 mg/dL (8.5-10.1); CREATININE 0.7 mg/dL (0.7-1.3); GFR 113.2; POTASSIUM 3.2 mmol/L (3.5-5.1)
[2021-05-30 07:00] VITALS: BP 141/72
--- NOTE | 2021-05-30 08:35 | PDOC ---
PULMONARY PROGRESS NOTES DATE: 05/30/21 TIME: 08:35 Subjective Patient not more short of air. Headache is better Vitals Vital Signs Date Time Temp Pulse Resp B/P (MAP) Pulse Ox O2 Delivery O2 Flow Rate FiO2 05/30/21 07:00 97.6 95 18 141/72 (95) 96 Nasal Cannula 5.0 97.6 ROS: No Nausea, No Chest Pain, No Abdominal Pain, No Increase Cough Lungs: Crackles Cardiovascular: S1, S2 Abdomen: Soft Neuro Exam: Alert Extremities: No Edema Skin: Warm, Cool Labs Laboratory Tests Test 05/28/21 09:05 05/29/21 04:10 05/30/21 04:00 Sodium Level 133 mmol/L (136-145) 135 mmol/L (136-145) 131 mmol/L (136-145) Potassium Level 3.0 mmol/L (3.5-5.1) 3.7 mmol/L (3.5-5.1) 3.2 mmol/L (3.5-5.1) Chloride Level 95 mmol/L (98-107) 98 mmol/L (98-107) 95 mmol/L (98-107) Carbon Dioxide Level 29 mmol/L (21-32) 29 mmol/L (21-32) 33 mmol/L (21-32) Anion Gap 9 (6-14) 8 (6-14) 3 (6-14) Blood Urea Nitrogen 42 mg/dL (8-26) 30 mg/dL (8-26) 22 mg/dL (8-26) Creatinine 0.9 mg/dL (0.7-1.3) 0.7 mg/dL (0.7-1.3) 0.7 mg/dL (0.7-1.3) Estimated GFR (Cockcroft-Gault) 84.7 113.2 113.2 Glucose Level 124 mg/dL (70-99) 100 mg/dL (70-99) 95 mg/dL (70-99) Calcium Level 8.1 mg/dL (8.5-10.1) 8.7 mg/dL (8.5-10.1) 8.4 mg/dL (8.5-10.1) Magnesium Level 1.7 mg/dL (1.8-2.4) 1.5 mg/dL (1.8-2.4) Triglycerides Level 80 mg/dL (0-150) Cholesterol Level 70 mg/dL (0-200) LDL Cholesterol, Calculated 38 mg/dL (0-100) VLDL Cholesterol, Calculated 16 mg/dL (0-40) Non-HDL Cholesterol Calculated 54 mg/dL (0-129) HDL Cholesterol 16 mg/dL (40-60) Cholesterol/HDL Ratio 4.4 Thyroid Stimulating Hormone (TSH) 2.697 uIU/mL (0.358-3.74) Laboratory Tests Test 05/30/21 04:00 Sodium Level 131 mmol/L (136-145) Potassium Level 3.2 mmol/L (3.5-5.1) Chloride Level 95 mmol/L (98-107) Carbon Dioxide Level 33 mmol/L (21-32) Anion Gap 3 (6-14) Blood Urea Nitrogen 22 mg/dL (8-26) Creatinine 0.7 mg/dL (0.7-1.3) Estimated GFR (Cockcroft-Gault) 113.2 Glucose Level 95 mg/dL (70-99) Calcium Level 8.4 mg/dL (8.5-10.1) Medications Active Scripts Medications Dose Route/Sig Max Daily Dose Days Date Category Lisinopril 10 Mg Tablet 1 Tab PO DAILY 05/27/21 Reported Hydrochlorothiazide Capsule (Hydrochlorothiazide) 12.5 Mg Capsule 25 Mg PO DAILY 05/27/21 Reported Pravastatin Sodium 80 Mg Tablet 1 Tab PO QHS 05/27/21 Reported Phenytoin Sodium Extended 200 Mg Capsule 2 Cap PO BID 30 05/27/21 Reported Eycomw-Jwjrwfix-Gsyh 50-300-40 (Butalb/Acetaminophen/Caffeine) 1 Each Capsule 1 Each PO PRN QID PRN 05/27/21 Reported Augmentin 875-125 Tablet (Amoxicillin/Potassium Clav) 1 Each Tablet 1 Tab PO BID 05/16/17 Rx Impression . IMPRESSION: 1. Acute hypoxemic respiratory failure, multifactorial. 2. COVID-19 viral pneumonia. 3. Subdural hematoma. 4. Recent fall. 5. CT chest revealing evidence of extensive consolidation opacities, mainly in the lower half of the right lung. 6. Possible aspiration pneumonia. 7. Acute exacerbation of chronic obstructive pulmonary disease. 8. History of AAA repair. 9. Acute renal failure. 10. Leukocytosis. Plan . Updated 923 Patient continues to slowly improve Continue oxygen supplementation Follow neurosurgery input Steroids Updated 05/29 Continue current support As needed Tylenol for headaches Repeat CT chest from 920 no significant change Follow n neurosurgery input Steroids Antibiotics Updated 05/28 Continue current support Oxygen supplementation requirements have decreased, good sign new, Antibiotics Follow neurosurgery input Steroids IV fluids Follow neuro MARGARET LEDEZMA MD May 30, 2021 08:35
[2021-05-30] MEDS: DOXYCYCLINE HYCLATE 100 MG in IV DEXTROSE 5% 100ML 100 ML IV SCH ×2 (09:45→22:32)
[2021-05-30] MEDS: LACTOBACILLUS RHAMNOSUS GG 1 CAPSULE. PO SCH ×2 (09:46→22:28)
[2021-05-30] MEDS: ASPIRIN CHEWABLE 81 MG TABLET. PO SCH (09:46)
[2021-05-30] MEDS: LISINOPRIL 10 MG TABLET PO SCH (09:46)
[2021-05-30] MEDS: METOPROLOL TART IMMED RELEASE 50 MG TABLET. PO SCH ×2 (09:46→22:28)
[2021-05-30] MEDS: PHENYTOIN SODIUM EXTENDED 100 MG CAPSULE PO SCH ×2 (09:47→22:27)
[2021-05-30] MEDS: MULTIVITAMIN with MINERAL TABLET. PO SCH (09:47)
[2021-05-30] MEDS: hydroCHLOROthiazide 12.5 MG CAPSULE PO SCH (09:47)
[2021-05-30 10:42] VITALS: BP 138/70
--- NOTE | 2021-05-30 11:07 | PDOC ---
DATE OF SERVICE DATE: 05/30/21 TIME: 11:02 SUBJECTIVE ROS On o2 5 lts by [place] Stable OBJECTIVE Vital Signs Vital Signs Date Time Temp Pulse Resp B/P (MAP) Pulse Ox O2 Delivery O2 Flow Rate FiO2 05/30/21 10:42 97.6 105 20 138/70 (92) 96 Nasal Cannula 5.0 97.6 I & 0 Intake and Output 05/30/21 07:00 Intake Total 2560 ml Output Total 3700 ml Balance -1140 ml Intake Oral 2560 ml Output Urine Total 3700 ml PHYSICAL EXAM Physical Exam General- NAD, disheveled , frail HEEN On O2 by [place], OM mildly dry Neck Supple Lungs decreased at bases CV S1S2 Abd Soft, NT Ext No LE edema. large bruise to his right shoulder from a fall about a week ago. No CVA or SP tenderness, Pena + Neuro Grossly normal Skin no rash DIAGNOSIS/ASSESSMENT Assessment & Plan OPHELIA - Vasomotor/Dehydration/ Hypotension Non oliguric, Resolved with IVF . UA unremarkable, CT scan kidneys and Bladder Unremarkable Supportive care, maintain Hydration, Strict I/O, avoid Nephrotoxins Hypokalemia- Replace IV HypoMg - replace IV HypoNatremia was improving , lower today , hold HCTZ Ac Resp Failure - oxygen supplementation, Remdesivir, Steroids, Empiric antibiotics. Hypotension- Improved with IVF Subacute subdural hematoma No intervention per NS CoVid 19 POsitive - exposure from his roommate Hx of HTN - Hypotensive since presentation to the ER COMMENT/RELEVANT DATA Meds Current Medications Medications (Trade) Dose Ordered Sig/Natacha Start Time Stop Time Status Last Admin Dose Admin Acetaminophen (Tylenol) 650 mg PRN Q6HRS PRN 05/28/21 11:00 05/29/21 14:25 650 MG Acetaminophen/ Butalbital/ Caffeine (Fioricet) 1 tab PRN Q6HRS PRN 05/27/21 15:00 Albuterol Sulfate (Ventolin Neb Soln) 2.5 mg 1X ONCE 05/26/21 18:30 05/26/21 18:31 DC 05/26/21 18:30 2.5 MG Amoxicillin/ Clavulanate Potassium (Augmentin 875/ 125mg) 1 tab BID 05/27/21 21:00 UNV Aspirin (Aspirin Chewable) 81 mg DAILYWBKFT 05/28/21 08:00 05/30/21 09:46 81 MG Atorvastatin Calcium (Lipitor) 20 mg QHS 05/27/21 21:00 05/29/21 20:40 20 MG Ceftriaxone Sodium (Rocephin) 1 gm Q24H 05/27/21 14:00 05/29/21 14:14 1 GM Doxycycline Hyclate 100 mg/ Dextrose 100 ml @ 50 mls/hr Q12HR 05/27/21 14:00 05/30/21 09:45 50 MLS/HR Guaifenesin/ Codeine Phosphate (Robitussin Ac) 5 ml PRN Q6HRS PRN 05/27/21 13:15 Hydrochlorothiazide (Microzide) 25 mg DAILY 05/28/21 09:00 05/30/21 09:47 25 MG Labetalol HCl (Normodyne Iv Push) 5 mg 1X ONCE 05/28/21 08:30 05/28/21 08:33 DC Lactobacillus Rhamnosus (Culturelle) 1 cap BID 05/28/21 09:00 05/30/21 09:46 1 CAP Lisinopril (Prinivil) 10 mg DAILY 05/28/21 09:00 05/30/21 09:46 10 MG Magnesium Sulfate 50 ml @ 25 mls/hr 1X ONCE 05/29/21 09:30 05/29/21 11:29 DC 05/29/21 09:17 25 MLS/HR Methylprednisolone Sodium Succinate (SOLU-Medrol 40MG VIAL) 40 mg BID 05/27/21 21:00 05/29/21 20:40 40 MG Methylprednisolone Sodium Succinate (SOLU-Medrol 125MG VIAL) 80 mg 1X ONCE 05/26/21 18:30 05/26/21 18:31 DC 05/26/21 18:42 80 MG Metoprolol Tartrate (Lopressor Vial) 5 mg 1X ONCE 05/28/21 08:45 05/28/21 08:48 DC 05/28/21 08:38 5 MG Metoprolol Tartrate (Lopressor) 25 mg 1X ONCE 05/29/21 14:30 05/29/21 14:31 DC 05/29/21 14:14 25 MG Morphine Sulfate (Morphine Sulfate) 2 mg PRN Q2HR PRN 05/28/21 08:30 05/28/21 08:38 2 MG Multivitamins (Thera M Plus) 1 tab DAILY 05/28/21 09:00 05/30/21 09:47 1 TAB Phenytoin Sodium (Dilantin) 400 mg BID 05/27/21 21:00 05/30/21 09:47 400 MG Piperacillin Sod/ Tazobactam Sod 2.25 gm/Sodium Chloride 50 ml @ 100 mls/hr Q8HRS 05/27/21 06:00 05/27/21 13:13 DC 05/27/21 05:47 100 MLS/HR Piperacillin Sod/ Tazobactam Sod 3.375 gm/Sodium Chloride 50 ml @ 100 mls/hr Q6HRS 05/27/21 00:00 05/26/21 22:59 DC Potassium Chloride (Klor-Con) 40 meq 1X ONCE 05/28/21 14:15 05/28/21 14:16 DC 05/28/21 14:59 40 MEQ Remdesivir 100 mg/ Sodium Chloride 230 ml @ 460 mls/hr Q24H 05/28/21 14:00 05/31/21 14:29 05/29/21 14:14 460 MLS/HR Remdesivir 200 mg/ Sodium Chloride 210 ml @ 210 mls/hr 1X ONCE 05/27/21 14:00 05/27/21 14:59 DC 05/27/21 14:24 210 MLS/HR Sodium Chloride 1,000 ml @ 100 mls/hr Q10H 05/26/21 20:15 05/27/21 20:14 DC 05/27/21 16:06 100 MLS/HR Lab Laboratory Tests Test 05/30/21 04:00 Sodium Level 131 mmol/L (136-145) Potassium Level 3.2 mmol/L (3.5-5.1) Chloride Level 95 mmol/L (98-107) Carbon Dioxide Level 33 mmol/L (21-32) Anion Gap 3 (6-14) Blood Urea Nitrogen 22 mg/dL (8-26) Creatinine 0.7 mg/dL (0.7-1.3) Estimated GFR (Cockcroft-Gault) 113.2 Glucose Level 95 mg/dL (70-99) Calcium Level 8.4 mg/dL (8.5-10.1) Magnesium Level 1.3 mg/dL (1.8-2.4) Results All relevant outside records, renal labs, imaging studies, telemetry/EKG's were reviewed. Justicifation of Admission Dx: Justifications for Admission: Justification of Admission Dx: Yes Acute Renal Failure: 3-Fold Rise in Serum Crea SIERRA ARAMBULA MD May 30, 2021 11:07
--- NOTE | 2021-05-30 11:08 | PDOC ---
CARDIO Progress Notes Date and Time Date of Service 05/30/21 Time of Evaluation 1108 Subjective Subjective: No Chest Pain, No shortness of breath, No Palpitations, Other (feels tired, weak ) Vitals Vitals Vital Signs Date Time Temp Pulse Resp B/P (MAP) Pulse Ox O2 Delivery O2 Flow Rate FiO2 05/30/21 10:42 97.6 105 20 138/70 (92) 96 Nasal Cannula 5.0 97.6 Weight Weight [ ] Input and Output Intake and Output Intake and Output 05/30/21 07:00 Intake Total 2560 ml Output Total 3700 ml Balance -1140 ml Intake Oral 2560 ml Output Urine Total 3700 ml Laboratory Labs Laboratory Tests Test 05/30/21 04:00 Sodium Level 131 mmol/L (136-145) Potassium Level 3.2 mmol/L (3.5-5.1) Chloride Level 95 mmol/L (98-107) Carbon Dioxide Level 33 mmol/L (21-32) Anion Gap 3 (6-14) Blood Urea Nitrogen 22 mg/dL (8-26) Creatinine 0.7 mg/dL (0.7-1.3) Estimated GFR (Cockcroft-Gault) 113.2 Glucose Level 95 mg/dL (70-99) Calcium Level 8.4 mg/dL (8.5-10.1) Magnesium Level 1.3 mg/dL (1.8-2.4) Microbiology Micro Microbiology 05/26/21 Blood Culture - Preliminary, Resulted NO GROWTH AFTER 3 DAYS 05/26/21 Gram Stain Evaluation - Final, Complete 05/26/21 Respiratory Culture - Final, Complete 05/26/21 Antimicrobic Susceptibility - Final, Complete Physical Exam HEENT: Neck Supple W Full Motion Chest: Symmetric LUNGS: Other (on NC) Heart: RRR (SR) Abdomen: Soft N/T Extremities: No Edema Neurology: alert, oriented, follow commands Assessment Assessment 1. Acute respiratory failure secondary; multifactorial with COVID PNA, probable aspiration PNA, and underlying COPD 2. Leukocytosis, lactic acidosis 3. AFIB wtih RVR; new onset in setting of above. converted back to SR and is maintaining 4. OPHELIA; improving s/p IVFs 5. Traumatic fall lat week with SDH; repeat CT head stable 6. Hypertension; controlled 7. Hyperlipidemia; LDL 38 8. Hypomagnesemia hypokalemia 9. Coagulopathy 10. Abdominal aortic aneurysm s/p endograft repair 11. Metabolic encephalopathy Recommendations Continue Metoprolol for rate control Replace electrolytes as warranted No AC or ASA with SDH Would recommend ASA when okay from a neurosurgery standpoint Outpatient echo when recovered from COVID Ongoing lung optimization, treatment of COVID Outpatient event monitor to guide therapy Supportive care Follow up in our office with Dr. Sanchez has been arranged. Justicifation of Admission Dx: Justifications for Admission: Justification of Admission Dx: Yes Acute Renal Failure: 3-Fold Rise in Serum Crea LOW ALMANZA APRN May 30, 2021 11:08
[2021-05-30] MEDS ORDERED: POTASSIUM CHLORIDE 10MEQ 100 ML IV SCH (11:30)
[2021-05-30] MEDS ORDERED: MAGNESIUM SULFATE 2GM 50 ML IV ONE ×3 (11:30→12:15)
[2021-05-30] MEDS: methylPREDNISolone SOD SUCC PF 40 MG/ML VIAL. IV SCH ×2 (11:45→22:29)
--- NOTE | 2021-05-30 12:11 | PDOC ---
[employer] PROGRESS NOTE Date of Service DOS: DATE: 05/30/21 TIME: 12:02 Chief Complaint Chief Complaint Weakness Mental status change Flu symptoms Hyperlipidemia Hypertension Seizures Left carpal tunnel surgery AAA repair Previous tobacco abuse. History of Present Illness History of Present Illness 05/30/2021 Patient seen and examined. Discussed with RN. Chart Reviewed. Patient is resting with NAD. Has Pena bedside drainage. Bruise on the right shoulder. Currently on 5L oxygen via NC. 05/29/2021 Patient seen and examined. Chart reviewed. Discussed with RN. Patient is awake and making eye contact. Bruise on the right shoulder is still present. Currently receiving doxycycline. Patient is back on 5L oxygen via NC. 05/28/2021 Patient seen and examined. Discussed with RN. Chart reviewed. Patient is weak but responsive. Resting, NAD. Patient has a bruise on the right shoulder. Currently receiving doxycycline. Patient is on 10L oxygen via NC (humidified). Developed Afib with RVR. Vitals/I&O Vitals/I&O: Vital Signs Date Time Temp Pulse Resp B/P (MAP) Pulse Ox O2 Delivery O2 Flow Rate FiO2 05/30/21 10:42 97.6 105 20 138/70 (92) 96 Nasal Cannula 5.0 97.6 I & O 05/29/21 05/29/21 05/30/21 15:00 23:00 07:00 Intake Total 700 ml 310 ml 1550 ml Output Total 1300 ml 2400 ml Balance 700 ml -990 ml -850 ml Physical Exam General: Oriented X3, Cooperative, No acute distress Lungs: Crackles Abdomen: Soft Extremities: No edema Skin: Other (right shoulder ecchymosis, lesion on the center of chest.) Labs Labs: Laboratory Tests Test 05/30/21 04:00 Sodium Level 131 mmol/L (136-145) Potassium Level 3.2 mmol/L (3.5-5.1) Chloride Level 95 mmol/L (98-107) Carbon Dioxide Level 33 mmol/L (21-32) Anion Gap 3 (6-14) Blood Urea Nitrogen 22 mg/dL (8-26) Creatinine 0.7 mg/dL (0.7-1.3) Estimated GFR (Cockcroft-Gault) 113.2 Glucose Level 95 mg/dL (70-99) Calcium Level 8.4 mg/dL (8.5-10.1) Magnesium Level 1.3 mg/dL (1.8-2.4) Assessment and Plan Assessmemt and Plan Problems Medical Problems: (1) Kidney failure, acute Status: Acute (2) Person under investigation for COVID-19 Status: Acute (3) Pneumonia Status: Acute (4) Septic shock Status: Acute (5) Subacute subdural hematoma Status: Acute Weakness Mental status change Flu symptoms Hyperlipidemia Hypertension Seizures Left carpal tunnel surgery AAA repair Previous tobacco abuse. Plan: Covid protocol (Redemsivir, solumedrol, multi-vitamin, antibiotics, albuterol, O2, codeine cough syrup, aspirin) senior attorney Ordered two doses of 2mg of MgSO4 Trend labs Encourage PO intake DVT prophylaxis Full Code Appreciate subspecialty input (Neurology, Renal, Pulmonary, Cardiology) Comment Review of Relevant I have reviewed the following items farhat (where applicable) has been applied. Medications: Current Medications Medications (Trade) Dose Ordered Sig/Natacha Route PRN Reason Start Time Stop Time Status Last Admin Dose Admin Metoprolol Tartrate (Lopressor) 50 mg BID PO 05/29/21 21:00 05/30/21 09:46 Metoprolol Tartrate (Lopressor) 25 mg 1X ONCE PO 05/29/21 14:30 05/29/21 14:31 DC 05/29/21 14:14 Magnesium Sulfate 50 ml @ 25 mls/hr 1X ONCE IV 05/30/21 11:30 05/30/21 13:29 05/30/21 11:44 Potassium Chloride/Water 100 ml @ 100 mls/hr Q1H IV 05/30/21 11:30 05/30/21 15:29 05/30/21 11:45 Justifications for Admission Other Justification CLAYTON PHILIP III DO May 30, 2021 12:11
[2021-05-30] MEDS ORDERED: MAGNESIUM SULFATE 4GM 100 ML IV ONE (12:30)
--- NOTE | 2021-05-30 12:47 | PDOC ---
Provider Note Date of Service: DATE: 05/30/21 TIME: 12:46 Provider Note OK for patient to dc to rehab from Neurosurgery standpoint will arrange for CT head next week and follow up as OP call with questions Justifications for Admission Other Justification VICKI PEARSON MD May 30, 2021 12:47
[2021-05-30] MEDS ORDERED: POTASSIUM CHLORIDE 20 MEQ TABLET.ER. PO ONE ×2 (13:45→17:00)
[2021-05-30 15:03] VITALS: BP 123/59
--- NOTE | 2021-05-30 16:14 | NUR ---
SS following up with discharge planning. SS reviewed pt chart and discussed with pt RN. Pt is currently requiring oxygen at five liters nasal canula. Pt has no home oxygen. COVID19 positive. Pt on IV Rocephin, IV Doxycycline, IV Remdesivir, and IV Solu-Medrol. PT/OT ordered. Acute rehabilitation recommended. Pt requesting retirement unit with no preference of company. [facility] reported that they have closed there COVID19 unit as of today. [facility] still taking COVID19 admissions. SS phoned and faxed referral to [facility], ; fax [phone]. Pt agreeable. Pt's RN notified. SS will continue to follow for discharge planning.
[2021-05-30] MEDS: cefTRIAXone IV Push 1 GM VIAL. IVP SCH (17:00)
[2021-05-30] MEDS: REMDESIVIR 100mg in NORMAL SALINE 250ML X 4 DAYS IV SCH (17:00)
[2021-05-30 19:00] VITALS: BP 116/57
[2021-05-30] MEDS: ACETAMINOPHEN 325 MG TABLET. PO PRN (22:28)
[2021-05-30] MEDS: ATORVASTATIN CALCIUM 20 MG TABLET PO SCH (22:28)
[2021-05-30 22:56] VITALS: BP 90/55
[2021-05-31 03:00] VITALS: BP 94/57
[2021-05-31 05:44] LABS: BASO % 0 % (0-3); EOS % 0 % (0-3); HEMATOCRIT 32.2 % (39.0-53.0); HEMOGLOBIN 10.9 g/dL (13.0-17.5); LYMPH % 11 % (24-48); MEAN CORPUSCULAR HEMOGLOBIN 32 pg (25-35); MEAN CORPUSCULAR HGB CONC 34 g/dL (31-37); MEAN CORPUSCULAR VOLUME 93 fL (79-100); MONO # 0.8 x10^3/uL (0.0-1.1); MONO % 8 % (0-9); NEUT # 7.9 x10^3/uL (1.8-7.7); NEUT % 81 % (31-73); PLATELET COUNT 140 x10^3/uL (140-400); RED BLOOD COUNT 3.47 x10^6/uL (4.30-5.70); RED CELL DISTRIBUTION WIDTH 14.6 % (11.5-14.5); WHITE BLOOD COUNT 9.8 x10^3/uL (4.0-11.0)
[2021-05-31 05:48] LABS: CALCIUM 8.4 mg/dL (8.5-10.1); CREATININE 0.7 mg/dL (0.7-1.3); GFR 113.2; MAGNESIUM 1.6 mg/dL (1.8-2.4); POTASSIUM 3.8 mmol/L (3.5-5.1)
[2021-05-31 07:45] VITALS: BP 108/64
--- NOTE | 2021-05-31 08:55 | PDOC ---
PULMONARY PROGRESS NOTES DATE: 05/31/21 TIME: 08:55 Subjective Patient more awake alert not more short of air Vitals Vital Signs Date Time Temp Pulse Resp B/P (MAP) Pulse Ox O2 Delivery O2 Flow Rate FiO2 05/31/21 07:45 98.0 91 16 108/64 (79) 90 Nasal Cannula 5.0 98.0 ROS: No Nausea, No Chest Pain, No Abdominal Pain, No Increase Cough Lungs: Crackles Cardiovascular: S1, S2 Abdomen: Soft Neuro Exam: Alert Extremities: No Edema Skin: Warm, Cool Labs Laboratory Tests Test 05/30/21 04:00 05/31/21 04:45 05/31/21 07:52 Sodium Level 131 mmol/L (136-145) 132 mmol/L (136-145) Potassium Level 3.2 mmol/L (3.5-5.1) 3.8 mmol/L (3.5-5.1) Chloride Level 95 mmol/L (98-107) 97 mmol/L (98-107) Carbon Dioxide Level 33 mmol/L (21-32) 30 mmol/L (21-32) Anion Gap 3 (6-14) 5 (6-14) Blood Urea Nitrogen 22 mg/dL (8-26) 21 mg/dL (8-26) Creatinine 0.7 mg/dL (0.7-1.3) 0.7 mg/dL (0.7-1.3) Estimated GFR (Cockcroft-Gault) 113.2 113.2 Glucose Level 95 mg/dL (70-99) 92 mg/dL (70-99) Calcium Level 8.4 mg/dL (8.5-10.1) 8.4 mg/dL (8.5-10.1) Magnesium Level 1.3 mg/dL (1.8-2.4) 1.6 mg/dL (1.8-2.4) White Blood Count 9.8 x10^3/uL (4.0-11.0) Red Blood Count 3.47 x10^6/uL (4.30-5.70) Hemoglobin 10.9 g/dL (13.0-17.5) Hematocrit 32.2 % (39.0-53.0) Mean Corpuscular Volume 93 fL (79-100) Mean Corpuscular Hemoglobin 32 pg (25-35) Mean Corpuscular Hemoglobin Concent 34 g/dL (31-37) Red Cell Distribution Width 14.6 % (11.5-14.5) Platelet Count 140 x10^3/uL (140-400) Neutrophils (%) (Auto) 81 % (31-73) Lymphocytes (%) (Auto) 11 % (24-48) Monocytes (%) (Auto) 8 % (0-9) Eosinophils (%) (Auto) 0 % (0-3) Basophils (%) (Auto) 0 % (0-3) Neutrophils # (Auto) 7.9 x10^3/uL (1.8-7.7) Lymphocytes # (Auto) 1.0 x10^3/uL (1.0-4.8) Monocytes # (Auto) 0.8 x10^3/uL (0.0-1.1) Eosinophils # (Auto) 0.0 x10^3/uL (0.0-0.7) Basophils # (Auto) 0.0 x10^3/uL (0.0-0.2) Glucose (Fingerstick) 80 mg/dL (70-99) Laboratory Tests Test 05/31/21 04:45 05/31/21 07:52 White Blood Count 9.8 x10^3/uL (4.0-11.0) Red Blood Count 3.47 x10^6/uL (4.30-5.70) Hemoglobin 10.9 g/dL (13.0-17.5) Hematocrit 32.2 % (39.0-53.0) Mean Corpuscular Volume 93 fL (79-100) Mean Corpuscular Hemoglobin 32 pg (25-35) Mean Corpuscular Hemoglobin Concent 34 g/dL (31-37) Red Cell Distribution Width 14.6 % (11.5-14.5) Platelet Count 140 x10^3/uL (140-400) Neutrophils (%) (Auto) 81 % (31-73) Lymphocytes (%) (Auto) 11 % (24-48) Monocytes (%) (Auto) 8 % (0-9) Eosinophils (%) (Auto) 0 % (0-3) Basophils (%) (Auto) 0 % (0-3) Neutrophils # (Auto) 7.9 x10^3/uL (1.8-7.7) Lymphocytes # (Auto) 1.0 x10^3/uL (1.0-4.8) Monocytes # (Auto) 0.8 x10^3/uL (0.0-1.1) Eosinophils # (Auto) 0.0 x10^3/uL (0.0-0.7) Basophils # (Auto) 0.0 x10^3/uL (0.0-0.2) Sodium Level 132 mmol/L (136-145) Potassium Level 3.8 mmol/L (3.5-5.1) Chloride Level 97 mmol/L (98-107) Carbon Dioxide Level 30 mmol/L (21-32) Anion Gap 5 (6-14) Blood Urea Nitrogen 21 mg/dL (8-26) Creatinine 0.7 mg/dL (0.7-1.3) Estimated GFR (Cockcroft-Gault) 113.2 Glucose Level 92 mg/dL (70-99) Calcium Level 8.4 mg/dL (8.5-10.1) Magnesium Level 1.6 mg/dL (1.8-2.4) Glucose (Fingerstick) 80 mg/dL (70-99) Medications Active Scripts Medications Dose Route/Sig Max Daily Dose Days Date Category Lisinopril 10 Mg Tablet 1 Tab PO DAILY 05/27/21 Reported Hydrochlorothiazide Capsule (Hydrochlorothiazide) 12.5 Mg Capsule 25 Mg PO DAILY 05/27/21 Reported Pravastatin Sodium 80 Mg Tablet 1 Tab PO QHS 05/27/21 Reported Phenytoin Sodium Extended 200 Mg Capsule 2 Cap PO BID 30 05/27/21 Reported [id number] 50-300-40 (Butalb/Acetaminophen/Caffeine) 1 Each Capsule 1 Each PO PRN QID PRN 05/27/21 Reported Augmentin 875-125 Tablet (Amoxicillin/Potassium Clav) 1 Each Tablet 1 Tab PO BID 05/16/17 Rx Impression . IMPRESSION: 1. Acute hypoxemic respiratory failure, multifactorial. 2. COVID-19 viral pneumonia. 3. Subdural hematoma. 4. Recent fall. 5. CT chest revealing evidence of extensive consolidation opacities, mainly in the lower half of the right lung. 6. Possible aspiration pneumonia. 7. Acute exacerbation of chronic obstructive pulmonary disease. 8. History of AAA repair. 9. Acute renal failure. 10. Leukocytosis. Plan . Updated 05/31 KATHE Pena Discussed with RN Continue oxygen supplementation Subdural hematoma per neurosurgery updated 923 Patient continues to slowly improve Continue oxygen supplementation Follow neurosurgery input Steroids MARGARET LEDZEMA MD May 31, 2021 08:55
[2021-05-31] MEDS: ASPIRIN CHEWABLE 81 MG TABLET. PO SCH (09:22)
[2021-05-31] MEDS: PHENYTOIN SODIUM EXTENDED 100 MG CAPSULE PO SCH ×2 (09:23→19:57)
[2021-05-31] MEDS: methylPREDNISolone SOD SUCC PF 40 MG/ML VIAL. IV SCH ×2 (09:23→19:56)
[2021-05-31] MEDS: LACTOBACILLUS RHAMNOSUS GG 1 CAPSULE. PO SCH ×2 (09:23→19:57)
[2021-05-31] MEDS: MULTIVITAMIN with MINERAL TABLET. PO SCH (09:23)
[2021-05-31] MEDS: METOPROLOL TART IMMED RELEASE 50 MG TABLET. PO SCH ×2 (09:24→19:57)
[2021-05-31] MEDS: LISINOPRIL 10 MG TABLET PO SCH (09:24)
[2021-05-31] MEDS: DOXYCYCLINE HYCLATE 100 MG in IV DEXTROSE 5% 100ML 100 ML IV SCH ×2 (09:25→19:58)
--- NOTE | 2021-05-31 10:32 | PDOC ---
DATE OF SERVICE DATE: 05/31/21 TIME: 10:28 SUBJECTIVE ROS No overnight concerns voiced by nursing OBJECTIVE Vital Signs Vital Signs Date Time Temp Pulse Resp B/P (MAP) Pulse Ox O2 Delivery O2 Flow Rate FiO2 05/31/21 09:24 91 108/64 05/31/21 08:00 Nasal Cannula 8.0 05/31/21 07:45 98.0 16 90 98.0 I & 0 Intake and Output 05/31/21 07:00 Intake Total 1365 ml Output Total 3600 ml Balance -2235 ml Intake Oral 1240 ml IV Total 125 ml Output Urine Total 3600 ml # Bowel Movements 3 PHYSICAL EXAM Physical Exam General- NAD, HEEN On O2 by NC, Neck Supple Lungs decreased at bases CV S1S2 Abd Soft, NT Ext No LE edema. large bruise to his right shoulder from a fall about a week ago. No CVA or SP tenderness, Pena + Neuro Grossly normal Skin no rash DIAGNOSIS/ASSESSMENT Assessment & Plan OPHELIA - Vasomotor/Dehydration/ Hypotension Non oliguric, Resolved with IVF . UA unremarkable, CT scan kidneys and Bladder Unremarkable Supportive care, maintain Hydration, Strict I/O, avoid Nephrotoxins Hypokalemia- Replaced, Normal K HypoMg - replace IV HypoNatremia was improving , lower today , held HCTZ Ac Resp Failure - oxygen supplementation, Remdesivir, Steroids, Empiric antibiotics. Hypotension- Improved with IVF Subacute subdural hematoma No intervention per NS CoVid 19 POsitive - exposure from his roommate Hx of HTN - Hypotensive since presentation to the ER COMMENT/RELEVANT DATA Meds Current Medications Medications (Trade) Dose Ordered Sig/Natacha Start Time Stop Time Status Last Admin Dose Admin Acetaminophen (Tylenol) 650 mg PRN Q6HRS PRN 05/28/21 11:00 05/30/21 22:28 650 MG Acetaminophen/ Butalbital/ Caffeine (Fioricet) 1 tab PRN Q6HRS PRN 05/27/21 15:00 Albuterol Sulfate (Ventolin Neb Soln) 2.5 mg 1X ONCE 05/26/21 18:30 05/26/21 18:31 DC 05/26/21 18:30 2.5 MG Amoxicillin/ Clavulanate Potassium (Augmentin 875/ 125mg) 1 tab BID 05/27/21 21:00 UNV Aspirin (Aspirin Chewable) 81 mg [id number] 05/28/21 08:00 05/31/21 09:22 81 MG Atorvastatin Calcium (Lipitor) 20 mg QHS 05/27/21 21:00 05/30/21 22:28 20 MG Ceftriaxone Sodium (Rocephin) 1 gm Q24H 05/27/21 14:00 05/30/21 17:00 1 GM Doxycycline Hyclate 100 mg/ Dextrose 100 ml @ 50 mls/hr Q12HR 05/27/21 14:00 05/31/21 09:25 50 MLS/HR Guaifenesin/ Codeine Phosphate (Robitussin Ac) 5 ml PRN Q6HRS PRN 05/27/21 13:15 Hydrochlorothiazide (Microzide) 25 mg DAILY 05/28/21 09:00 05/30/21 11:04 DC 05/30/21 09:47 25 MG Labetalol HCl (Normodyne Iv Push) 5 mg 1X ONCE 05/28/21 08:30 05/28/21 08:33 DC Lactobacillus Rhamnosus (Culturelle) 1 cap BID 05/28/21 09:00 05/31/21 09:23 1 CAP Lisinopril (Prinivil) 10 mg DAILY 05/28/21 09:00 05/31/21 09:24 10 MG Magnesium Sulfate 100 ml @ 25 mls/hr 1X ONCE 05/30/21 12:30 05/30/21 16:29 Cancel Methylprednisolone Sodium Succinate (SOLU-Medrol 40MG VIAL) 40 mg BID 05/27/21 21:00 05/31/21 09:23 40 MG Methylprednisolone Sodium Succinate (SOLU-Medrol 125MG VIAL) 80 mg 1X ONCE 05/26/21 18:30 05/26/21 18:31 DC 05/26/21 18:42 80 MG Metoprolol Tartrate (Lopressor Vial) 5 mg 1X ONCE 05/28/21 08:45 05/28/21 08:48 DC 05/28/21 08:38 5 MG Metoprolol Tartrate (Lopressor) 25 mg 1X ONCE 05/29/21 14:30 05/29/21 14:31 DC 05/29/21 14:14 25 MG Morphine Sulfate (Morphine Sulfate) 2 mg PRN Q2HR PRN 05/28/21 08:30 05/28/21 08:38 2 MG Multivitamins (Thera M Plus) 1 tab DAILY 05/28/21 09:00 05/31/21 09:23 1 TAB Phenytoin Sodium (Dilantin) 400 mg BID 05/27/21 21:00 05/31/21 09:23 400 MG Piperacillin Sod/ Tazobactam Sod 2.25 gm/Sodium Chloride 50 ml @ 100 mls/hr Q8HRS 05/27/21 06:00 05/27/21 13:13 DC 05/27/21 05:47 100 MLS/HR Piperacillin Sod/ Tazobactam Sod 3.375 gm/Sodium Chloride 50 ml @ 100 mls/hr Q6HRS 05/27/21 00:00 05/26/21 22:59 DC Potassium Chloride/Water 100 ml @ 100 mls/hr Q1H 05/30/21 11:30 05/30/21 14:17 DC 05/30/21 11:45 100 MLS/HR Potassium Chloride (Klor-Con) 20 meq 1X ONCE 05/30/21 17:00 05/30/21 17:01 DC 05/30/21 17:02 20 MEQ Remdesivir 100 mg/ Sodium Chloride 230 ml @ 460 mls/hr Q24H 05/28/21 14:00 05/31/21 14:29 05/30/21 17:00 460 MLS/HR Remdesivir 200 mg/ Sodium Chloride 210 ml @ 210 mls/hr 1X ONCE 05/27/21 14:00 05/27/21 14:59 DC 05/27/21 14:24 210 MLS/HR Sodium Chloride 1,000 ml @ 100 mls/hr Q10H 05/26/21 20:15 05/27/21 20:14 DC 05/27/21 16:06 100 MLS/HR Lab Laboratory Tests Test 05/31/21 04:45 05/31/21 07:52 White Blood Count 9.8 x10^3/uL (4.0-11.0) Red Blood Count 3.47 x10^6/uL (4.30-5.70) Hemoglobin 10.9 g/dL (13.0-17.5) Hematocrit 32.2 % (39.0-53.0) Mean Corpuscular Volume 93 fL (79-100) Mean Corpuscular Hemoglobin 32 pg (25-35) Mean Corpuscular Hemoglobin Concent 34 g/dL (31-37) Red Cell Distribution Width 14.6 % (11.5-14.5) Platelet Count 140 x10^3/uL (140-400) Neutrophils (%) (Auto) 81 % (31-73) Lymphocytes (%) (Auto) 11 % (24-48) Monocytes (%) (Auto) 8 % (0-9) Eosinophils (%) (Auto) 0 % (0-3) Basophils (%) (Auto) 0 % (0-3) Neutrophils # (Auto) 7.9 x10^3/uL (1.8-7.7) Lymphocytes # (Auto) 1.0 x10^3/uL (1.0-4.8) Monocytes # (Auto) 0.8 x10^3/uL (0.0-1.1) Eosinophils # (Auto) 0.0 x10^3/uL (0.0-0.7) Basophils # (Auto) 0.0 x10^3/uL (0.0-0.2) Sodium Level 132 mmol/L (136-145) Potassium Level 3.8 mmol/L (3.5-5.1) Chloride Level 97 mmol/L (98-107) Carbon Dioxide Level 30 mmol/L (21-32) Anion Gap 5 (6-14) Blood Urea Nitrogen 21 mg/dL (8-26) Creatinine 0.7 mg/dL (0.7-1.3) Estimated GFR (Cockcroft-Gault) 113.2 Glucose Level 92 mg/dL (70-99) Calcium Level 8.4 mg/dL (8.5-10.1) Magnesium Level 1.6 mg/dL (1.8-2.4) Glucose (Fingerstick) 80 mg/dL (70-99) Results All relevant outside records, renal labs, imaging studies, telemetry/EKG's were reviewed. Justicifation of Admission Dx: Justifications for Admission: Justification of Admission Dx: Yes Acute Renal Failure: 3-Fold Rise in Serum SIERRA Clemens MD May 31, 2021 10:32
[2021-05-31 11:06] VITALS: BP 105/56
[2021-05-31] MEDS ORDERED: MAGNESIUM SULFATE 2GM 50 ML IV ONE ×2 (11:30→12:45)
[2021-05-31] MEDS ORDERED: POTASSIUM CHLORIDE 20 MEQ TABLET.ER. PO ONE (11:30)
--- NOTE | 2021-05-31 12:32 | PDOC ---
[employer] PROGRESS NOTE Date of Service DOS: DATE: 05/31/21 TIME: 12:28 Chief Complaint Chief Complaint Weakness Mental status change Flu symptoms Hyperlipidemia Hypertension Seizures Left carpal tunnel surgery AAA repair Previous tobacco abuse. History of Present Illness History of Present Illness 05/31/2021 Patient seen and examined. Chart reviewed. Discussed with RN. Patient is awake with eyes open and alert. NAD. Patient is feeling a little better with more energy. Currently on 5L oxygen via NC. Bruise on the right shoulder. 05/30/2021 Patient seen and examined. Discussed with RN. Chart Reviewed. Patient is resting with NAD. Has Pena bedside drainage. Bruise on the right shoulder. Currently on 5L oxygen via NC. 05/29/2021 Patient seen and examined. Chart reviewed. Discussed with RN. Patient is awake and making eye contact. Bruise on the right shoulder is still present. Currently receiving doxycycline. Patient is back on 5L oxygen via NC. 05/28/2021 Patient seen and examined. Discussed with RN. Chart reviewed. Patient is weak but responsive. Resting, NAD. Patient has a bruise on the right shoulder. Currently receiving doxycycline. Patient is on 10L oxygen via NC (humidified). Developed Afib with RVR. Vitals/I&O Vitals/I&O: Vital Signs Date Time Temp Pulse Resp B/P (MAP) Pulse Ox O2 Delivery O2 Flow Rate FiO2 05/31/21 11:06 97.7 100 18 105/56 (72) 91 Nasal Cannula 5.0 97.7 I & O 05/30/21 05/30/21 05/31/21 15:00 23:00 07:00 Intake Total 945 ml 320 ml 100 ml Output Total 3600 ml Balance 945 ml 320 ml -3500 ml Physical Exam General: Oriented X3, Cooperative, No acute distress Lungs: Crackles Abdomen: Soft Extremities: No edema Skin: Other (right shoulder ecchymosis, lesion on the center of chest.) Labs Labs: Laboratory Tests Test 05/31/21 04:45 05/31/21 07:52 White Blood Count 9.8 x10^3/uL (4.0-11.0) Red Blood Count 3.47 x10^6/uL (4.30-5.70) Hemoglobin 10.9 g/dL (13.0-17.5) Hematocrit 32.2 % (39.0-53.0) Mean Corpuscular Volume 93 fL (79-100) Mean Corpuscular Hemoglobin 32 pg (25-35) Mean Corpuscular Hemoglobin Concent 34 g/dL (31-37) Red Cell Distribution Width 14.6 % (11.5-14.5) Platelet Count 140 x10^3/uL (140-400) Neutrophils (%) (Auto) 81 % (31-73) Lymphocytes (%) (Auto) 11 % (24-48) Monocytes (%) (Auto) 8 % (0-9) Eosinophils (%) (Auto) 0 % (0-3) Basophils (%) (Auto) 0 % (0-3) Neutrophils # (Auto) 7.9 x10^3/uL (1.8-7.7) Lymphocytes # (Auto) 1.0 x10^3/uL (1.0-4.8) Monocytes # (Auto) 0.8 x10^3/uL (0.0-1.1) Eosinophils # (Auto) 0.0 x10^3/uL (0.0-0.7) Basophils # (Auto) 0.0 x10^3/uL (0.0-0.2) Sodium Level 132 mmol/L (136-145) Potassium Level 3.8 mmol/L (3.5-5.1) Chloride Level 97 mmol/L (98-107) Carbon Dioxide Level 30 mmol/L (21-32) Anion Gap 5 (6-14) Blood Urea Nitrogen 21 mg/dL (8-26) Creatinine 0.7 mg/dL (0.7-1.3) Estimated GFR (Cockcroft-Gault) 113.2 Glucose Level 92 mg/dL (70-99) Calcium Level 8.4 mg/dL (8.5-10.1) Magnesium Level 1.6 mg/dL (1.8-2.4) Glucose (Fingerstick) 80 mg/dL (70-99) Assessment and Plan Assessmemt and Plan Problems Medical Problems: (1) Kidney failure, acute Status: Acute (2) Person under investigation for COVID-19 Status: Acute (3) Pneumonia Status: Acute (4) Septic shock Status: Acute (5) Subacute subdural hematoma Status: Acute Weakness Mental status change Flu symptoms Hyperlipidemia Hypertension Seizures Left carpal tunnel surgery AAA repair Previous tobacco abuse. Plan: Covid protocol (Redemsivir, solumedrol, multi-vitamin, antibiotics, albuterol, O2, codeine cough syrup, aspirin) library monitor Try to titrate O2 down to 2L Change to PO meds Work with PT/OT to get patient up and walking Ordered one dosage of 2mg of MgSO4 Trend labs Encourage PO intake DVT prophylaxis Full Code Probable discharge to [facility] Appreciate subspecialty input (Neurology, Renal, Pulmonary, Cardiology) Comment Review of Relevant I have reviewed the following items farhat (where applicable) has been applied. Medications: Current Medications Medications (Trade) Dose Ordered Sig/Natacha Route PRN Reason Start Time Stop Time Status Last Admin Dose Admin Potassium Chloride (Klor-Con) 40 meq 1X ONCE PO 05/30/21 13:45 05/30/21 14:20 DC 05/30/21 14:56 Potassium Chloride (Klor-Con) 20 meq 1X ONCE PO 05/30/21 17:00 05/30/21 17:01 DC 05/30/21 17:02 Potassium Chloride (Klor-Con) 20 meq 1X ONCE PO 05/31/21 11:30 05/31/21 11:31 DC 05/31/21 11:55 Magnesium Sulfate 50 ml @ 25 mls/hr 1X ONCE IV 05/31/21 11:30 05/31/21 13:29 05/31/21 11:55 Justifications for Admission Other Justification CLAYTON PHILIP III DO May 31, 2021 12:32
--- NOTE | 2021-05-31 14:21 | PDOC ---
PROGRESS NOTES Date of Service DATE: 05/31/21 TIME: 14:18 Subjective Subjective Patient seen and evaluated Objective Objective Vital Signs Date Time Temp Pulse Resp B/P (MAP) Pulse Ox O2 Delivery O2 Flow Rate FiO2 05/31/21 11:06 97.7 100 18 105/56 (72) 91 Nasal Cannula 5.0 97.7 Intake and Output 05/31/21 07:00 Intake Total 1365 ml Output Total 3600 ml Balance -2235 ml Intake Oral 1240 ml IV Total 125 ml Output Urine Total 3600 ml # Bowel Movements 3 Physical Exam Physical Exam Visual examination as per Covid guidelines. Assessment Assessment Problems Medical Problems: (1) Kidney failure, acute Status: Acute (2) Person under investigation for COVID-19 Status: Acute (3) Pneumonia Status: Acute (4) Septic shock Status: Acute (5) Subacute subdural hematoma Status: Acute Assessment Acute respiratory failure secondary; multifactorial with COVID PNA, probable aspiration PNA, and underlying COPD. Continues slow improvement. AFIB wtih RVR; new onset in setting of above. converted back to SR and is maintaining. Continue beta-blockers. Outpatient echo and follow-up. OPHELIA; improving s/p IVFs. Followed by renal. Traumatic fall lat week with SDH; repeat CT head stable. Seen by neurosurgery. Hypertension; controlled Hyperlipidemia; LDL 38 Hypomagnesemia Coagulopathy Abdominal aortic aneurysm s/p endograft repair Comment Review of Relevant I have reviewed the following items farhat (where applicable) has been applied. Labs Laboratory Tests Test 05/30/21 04:00 05/31/21 04:45 05/31/21 07:52 Sodium Level 131 mmol/L (136-145) 132 mmol/L (136-145) Potassium Level 3.2 mmol/L (3.5-5.1) 3.8 mmol/L (3.5-5.1) Chloride Level 95 mmol/L (98-107) 97 mmol/L (98-107) Carbon Dioxide Level 33 mmol/L (21-32) 30 mmol/L (21-32) Anion Gap 3 (6-14) 5 (6-14) Blood Urea Nitrogen 22 mg/dL (8-26) 21 mg/dL (8-26) Creatinine 0.7 mg/dL (0.7-1.3) 0.7 mg/dL (0.7-1.3) Estimated GFR (Cockcroft-Gault) 113.2 113.2 Glucose Level 95 mg/dL (70-99) 92 mg/dL (70-99) Calcium Level 8.4 mg/dL (8.5-10.1) 8.4 mg/dL (8.5-10.1) Magnesium Level 1.3 mg/dL (1.8-2.4) 1.6 mg/dL (1.8-2.4) White Blood Count 9.8 x10^3/uL (4.0-11.0) Red Blood Count 3.47 x10^6/uL (4.30-5.70) Hemoglobin 10.9 g/dL (13.0-17.5) Hematocrit 32.2 % (39.0-53.0) Mean Corpuscular Volume 93 fL (79-100) Mean Corpuscular Hemoglobin 32 pg (25-35) Mean Corpuscular Hemoglobin Concent 34 g/dL (31-37) Red Cell Distribution Width 14.6 % (11.5-14.5) Platelet Count 140 x10^3/uL (140-400) Neutrophils (%) (Auto) 81 % (31-73) Lymphocytes (%) (Auto) 11 % (24-48) Monocytes (%) (Auto) 8 % (0-9) Eosinophils (%) (Auto) 0 % (0-3) Basophils (%) (Auto) 0 % (0-3) Neutrophils # (Auto) 7.9 x10^3/uL (1.8-7.7) Lymphocytes # (Auto) 1.0 x10^3/uL (1.0-4.8) Monocytes # (Auto) 0.8 x10^3/uL (0.0-1.1) Eosinophils # (Auto) 0.0 x10^3/uL (0.0-0.7) Basophils # (Auto) 0.0 x10^3/uL (0.0-0.2) Glucose (Fingerstick) 80 mg/dL (70-99) Laboratory Tests Test 05/31/21 04:45 05/31/21 07:52 White Blood Count 9.8 x10^3/uL (4.0-11.0) Red Blood Count 3.47 x10^6/uL (4.30-5.70) Hemoglobin 10.9 g/dL (13.0-17.5) Hematocrit 32.2 % (39.0-53.0) Mean Corpuscular Volume 93 fL (79-100) Mean Corpuscular Hemoglobin 32 pg (25-35) Mean Corpuscular Hemoglobin Concent 34 g/dL (31-37) Red Cell Distribution Width 14.6 % (11.5-14.5) Platelet Count 140 x10^3/uL (140-400) Neutrophils (%) (Auto) 81 % (31-73) Lymphocytes (%) (Auto) 11 % (24-48) Monocytes (%) (Auto) 8 % (0-9) Eosinophils (%) (Auto) 0 % (0-3) Basophils (%) (Auto) 0 % (0-3) Neutrophils # (Auto) 7.9 x10^3/uL (1.8-7.7) Lymphocytes # (Auto) 1.0 x10^3/uL (1.0-4.8) Monocytes # (Auto) 0.8 x10^3/uL (0.0-1.1) Eosinophils # (Auto) 0.0 x10^3/uL (0.0-0.7) Basophils # (Auto) 0.0 x10^3/uL (0.0-0.2) Sodium Level 132 mmol/L (136-145) Potassium Level 3.8 mmol/L (3.5-5.1) Chloride Level 97 mmol/L (98-107) Carbon Dioxide Level 30 mmol/L (21-32) Anion Gap 5 (6-14) Blood Urea Nitrogen 21 mg/dL (8-26) Creatinine 0.7 mg/dL (0.7-1.3) Estimated GFR (Cockcroft-Gault) 113.2 Glucose Level 92 mg/dL (70-99) Calcium Level 8.4 mg/dL (8.5-10.1) Magnesium Level 1.6 mg/dL (1.8-2.4) Glucose (Fingerstick) 80 mg/dL (70-99) Microbiology 05/26/21 Blood Culture - Preliminary, Resulted NO GROWTH AFTER 4 DAYS 05/26/21 Gram Stain Evaluation - Final, Complete 05/26/21 Respiratory Culture - Final, Complete 05/26/21 Antimicrobic Susceptibility - Final, Complete Medications Current Medications Sodium Chloride 1,000 ml @ 1,000 mls/hr 1X ONCE IV Last administered on 05/26/21at 18:40; Start 05/26/21 at 18:00; Stop 05/26/21 at 18:59; Status DC Methylprednisolone Sodium Succinate (SOLU-Medrol 125MG VIAL) 80 mg 1X ONCE IV Last administered on 05/26/21at 18:42; Start 05/26/21 at 18:30; Stop 05/26/21 at 18:31; Status DC Albuterol Sulfate (Ventolin Neb Soln) 2.5 mg 1X ONCE NEB Last administered on 05/26/21at 18:30; Start 05/26/21 at 18:30; Stop 05/26/21 at 18:31; Status DC Sodium Chloride 1,000 ml @ 1,000 mls/hr 1X ONCE IV Last administered on 05/26/21at 18:45; Start 05/26/21 at 18:45; Stop 05/26/21 at 19:44; Status DC Piperacillin Sod/ Tazobactam Sod 3.375 gm/Sodium Chloride 50 ml @ 100 mls/hr 1X ONCE IV Last administered on 05/26/21at 19:12; Start 05/26/21 at 18:45; Stop 05/26/21 at 19:14; Status DC Sodium Chloride 1,000 ml @ 100 mls/hr Q10H IV Last administered on 05/27/21at 16:06; Start 05/26/21 at 20:15; Stop 05/27/21 at 20:14; Status DC Acetaminophen (Tylenol) 650 mg PRN Q4HRS PRN PO FEVER > 100.3'F Last administered on 05/27/21at 16:07; Start 05/26/21 at 20:15; Stop 05/27/21 at 20:14; Status DC Methylprednisolone Sodium Succinate (SOLU-Medrol 40MG VIAL) 80 mg Q8HRS ONCE IV Last administered on 05/26/21at 22:40; Start 05/26/21 at 22:00; Stop 05/26/21 at 22:01; Status DC Piperacillin Sod/ Tazobactam Sod 3.375 gm/Sodium Chloride 50 ml @ 100 mls/hr Q6HRS IV ; Start 05/27/21 at 00:00; Stop 05/26/21 at 22:59; Status DC Piperacillin Sod/ Tazobactam Sod 2.25 gm/Sodium Chloride 50 ml @ 100 mls/hr Q8HRS IV Last administered on 05/27/21at 05:47; Start 05/27/21 at 06:00; Stop 05/27/21 at 13:13; Status DC Remdesivir 200 mg/ Sodium Chloride 210 ml @ 210 mls/hr 1X ONCE IV Last administered on 05/27/21at 14:24; Start 05/27/21 at 14:00; Stop 05/27/21 at 14:59; Status DC Remdesivir 100 mg/ Sodium Chloride 230 ml @ 460 mls/hr Q24H IV Last administered on 05/30/21at 17:00; Start 05/28/21 at 14:00; Stop 05/31/21 at 14:29 Doxycycline Hyclate 100 mg/ Dextrose 100 ml @ 50 mls/hr Q12HR IV Last administered on 05/31/21at 09:25; Start 05/27/21 at 14:00 Aspirin (Aspirin Chewable) 81 mg [id number] PO Last administered on 05/31/21at 09:22; Start 05/28/21 at 08:00 Guaifenesin/ Codeine Phosphate (Robitussin Ac) 5 ml PRN Q6HRS PRN PO COUGH; Start 05/27/21 at 13:15 Methylprednisolone Sodium Succinate (SOLU-Medrol 40MG VIAL) 40 mg BID IV Last administered on 05/31/21at 09:23; Start 05/27/21 at 21:00 Multivitamins (Thera M Plus) 1 tab DAILY PO Last administered on 05/31/21at 09:23; Start 05/28/21 at 09:00 Ceftriaxone Sodium (Rocephin) 1 gm Q24H IVP Last administered on 05/30/21at 17:0 0; Start 05/27/21 at 14:00 Amoxicillin/ Clavulanate Potassium (Augmentin 875/ 125mg) 1 tab BID PO ; Start 05/27/21 at 21:00; Status UNV Hydrochlorothiazide (Microzide) 25 mg DAILY PO Last administered on 05/30/21at 09:47; Start 05/28/21 at 09:00; Stop 05/30/21 at 11:04; Status DC Lisinopril (Prinivil) 10 mg DAILY PO Last administered on 05/31/21at 09:24; Start 05/28/21 at 09:00 Acetaminophen/ Butalbital/ Caffeine (Fioricet) 1 tab PRN Q6HRS PRN PO MIGRAINE HEADACHE; Start 05/27/21 at 15:00 Phenytoin Sodium (Dilantin) 400 mg BID PO Last administered on 05/31/21at 09:23; Start 05/27/21 at 21:00 Atorvastatin Calcium (Lipitor) 20 mg QHS PO Last administered on 05/30/21at 22:28; Start 05/27/21 at 21:00 Potassium Chloride (Klor-Con) 40 meq 1X ONCE PO Last administered on 05/27/21at 16:06; Start 05/27/21 at 15:15; Stop 05/27/21 at 15:16; Status DC Lactobacillus Rhamnosus (Culturelle) 1 cap BID PO Last administered on 05/31/21at 09:23; Start 05/28/21 at 09:00 Labetalol HCl (Normodyne Iv Push) 5 mg 1X ONCE IVP ; Start 05/28/21 at 08:30; Stop 05/28/21 at 08:33; Status DC Morphine Sulfate (Morphine Sulfate) 2 mg PRN Q2HR PRN IVP PAIN Last administered on 05/28/21at 08:38; Start 05/28/21 at 08:30 Metoprolol Tartrate (Lopressor Vial) 5 mg 1X ONCE IVP Last administered on 05/28/21at 08:38; Start 05/28/21 at 08:45; Stop 05/28/21 at 08:48; Status DC Metoprolol Tartrate (Lopressor) 25 mg BID PO Last administered on 05/29/21at 09:19; Start 05/28/21 at 09:00; Stop 05/29/21 at 13:56; Status DC Acetaminophen (Tylenol) 650 mg PRN Q6HRS PRN PO MILD PAIN / TEMP > 100.3'F Last administered on 05/30/21at 22:28; Start 05/28/21 at 11:00 Potassium Chloride (Klor-Con) 40 meq 1X ONCE PO Last administered on 05/28/21at 11:32; Start 05/28/21 at 11:15; Stop 05/28/21 at 11:16; Status DC Potassium Chloride (Klor-Con) 40 meq 1X ONCE PO Last administered on 05/28/21at 14:59; Start 05/28/21 at 14:15; Stop 05/28/21 at 14:16; Status DC Magnesium Sulfate 50 ml @ 25 mls/hr 1X ONCE IV Last administered on 05/28/21at 11:34; Start 05/28/21 at 12:00; Stop 05/28/21 at 13:59; Status DC Magnesium Sulfate 50 ml @ 25 mls/hr 1X ONCE IV ; Start 05/29/21 at 08:45; Stop 05/29/21 at 10:44; Status UNV Magnesium Sulfate 50 ml @ 25 mls/hr 1X ONCE IV Last administered on 05/29/21at 09:17; Start 05/29/21 at 09:30; Stop 05/29/21 at 11:29; Status DC Metoprolol Tartrate (Lopressor) 50 mg BID PO Last administered on 05/31/21at 09:24; Start 05/29/21 at 21:00 Metoprolol Tartrate (Lopressor) 25 mg 1X ONCE PO Last administered on 05/29/21at 14:14; Start 05/29/21 at 14:30; Stop 05/29/21 at 14:31; Status DC Magnesium Sulfate 50 ml @ 25 mls/hr 1X ONCE IV Last administered on 05/30/21at 11:44; Start 05/30/21 at 11:30; Stop 05/30/21 at 13:29; Status DC Potassium Chloride/Water 100 ml @ 100 mls/hr Q1H IV Last administered on 05/30/21at 11:45; Start 05/30/21 at 11:30; Stop 05/30/21 at 14:17; Status DC Magnesium Sulfate 50 ml @ 25 mls/hr 1X ONCE IV ; Start 05/30/21 at 12:15; Stop 05/30/21 at 14:14; Status UNV Magnesium Sulfate 50 ml @ 25 mls/hr 1X ONCE IV ; Start 05/30/21 at 12:15; Stop 05/30/21 at 14:14; Status UNV Magnesium Sulfate 100 ml @ 25 mls/hr 1X ONCE IV ; Start 05/30/21 at 12:30; Stop 05/30/21 at 16:29; Status Cancel Potassium Chloride (Klor-Con) 40 meq 1X ONCE PO Last administered on 05/30/21at 14:56; Start 05/30/21 at 13:45; Stop 05/30/21 at 14:20; Status DC Potassium Chloride (Klor-Con) 20 meq 1X ONCE PO Last administered on 05/30/21at 17:02; Start 05/30/21 at 17:00; Stop 05/30/21 at 17:01; Status DC Potassium Chloride (Klor-Con) 20 meq 1X ONCE PO Last administered on 05/31/21at 11:55; Start 05/31/21 at 11:30; Stop 05/31/21 at 11:31; Status DC Magnesium Sulfate 50 ml @ 25 mls/hr 1X ONCE IV Last administered on 05/31/21at 11:55; Start 05/31/21 at 11:30; Stop 05/31/21 at 13:29; Status DC Magnesium Sulfate 50 ml @ 25 mls/hr 1X ONCE IV ; Start 05/31/21 at 12:45; Stop 05/31/21 at 14:44; Status UNV Active Scripts Active Reported Lisinopril 10 Mg Tablet 1 Tab PO DAILY Hydrochlorothiazide Capsule (Hydrochlorothiazide) 12.5 Mg Capsule 25 Mg PO DAILY Pravastatin Sodium 80 Mg Tablet 1 Tab PO QHS Phenytoin Sodium Extended 200 Mg Capsule 2 Cap PO BID 30 Days Xugxec-Icpysrjm-Aeni 50-300-40 (Butalb/Acetaminophen/Caffeine) 1 Each Capsule 1 Each PO PRN QID PRN Vitals/I & O Vital Sign - Last 24 Hours 05/30/21 05/30/21 05/30/21 05/30/21 15:03 19:00 20:00 22:28 Temp 96.7 98.4 96.7 98.4 Pulse 107 111 111 Resp 22 19 B/P (MAP) 123/59 (80) 116/57 (76) 116/57 Pulse Ox 90 91 O2 Delivery Nasal Cannula Nasal Cannula Nasal Cannula O2 Flow Rate 5.0 5.0 5.0 05/30/21 05/31/21 05/31/21 05/31/21 22:56 03:00 07:45 08:00 Temp 98.6 97.9 98.0 98.6 97.9 98.0 Pulse 99 97 91 Resp 16 16 16 B/P (MAP) 90/55 (67) 94/57 (69) 108/64 (79) Pulse Ox 92 92 90 O2 Delivery Nasal Cannula Nasal Cannula Nasal Cannula Nasal Cannula O2 Flow Rate 5.0 5.0 5.0 8.0 05/31/21 05/31/21 05/31/21 09:24 09:24 11:06 Temp 97.7 97.7 Pulse 91 91 100 Resp 18 B/P (MAP) 108/64 108/64 105/56 (72) Pulse Ox 91 O2 Delivery Nasal Cannula O2 Flow Rate 5.0 Intake and Output 05/30/21 05/30/21 05/31/21 15:00 23:00 07:00 Intake Total 945 ml 320 ml 100 ml Output Total 3600 ml Balance 945 ml 320 ml -3500 ml Justifications for Admission Other Justification Nutrition Consultation Dietary Evaluation: Recommendations by RD: Dietary education by RD, Increase Calorie Intake, Protein supplementation Comments: ensure enlive tid Expected Outcomes/Goals: to meet >75% est nutr needs Malnutrition Findings: Food and Nutrition Intake (Sev: <50% est energy req 5days Weight Status: Underweight EL OSPINA MD May 31, 2021 14:21
[2021-05-31] MEDS: REMDESIVIR 100mg in NORMAL SALINE 250ML X 4 DAYS IV SCH (14:52)
[2021-05-31] MEDS: cefTRIAXone IV Push 1 GM VIAL. IVP SCH (14:52)
[2021-05-31 15:00] VITALS: BP 99/62
[2021-05-31] MEDS ORDERED: MAGNESIUM SULFATE 2GM 50 ML IV PRN (17:15)
[2021-05-31 19:45] VITALS: BP 124/62
[2021-05-31] MEDS: ATORVASTATIN CALCIUM 20 MG TABLET PO SCH (19:57)
[2021-05-31 23:40] VITALS: BP 106/62
[2021-06-01 03:55] VITALS: BP 120/59
[2021-06-01 04:44] LABS: BASO % 0 % (0-3); EOS # 0.1 x10^3/uL (0.0-0.7); EOS % 1 % (0-3); HEMOGLOBIN 10.4 g/dL (13.0-17.5); LYMPH # 1.2 x10^3/uL (1.0-4.8); LYMPH % 10 % (24-48); MEAN CORPUSCULAR HEMOGLOBIN 31 pg (25-35); MEAN CORPUSCULAR HGB CONC 34 g/dL (31-37); MEAN CORPUSCULAR VOLUME 93 fL (79-100); MONO # 0.9 x10^3/uL (0.0-1.1); MONO % 8 % (0-9); NEUT # 9.3 x10^3/uL (1.8-7.7); NEUT % 81 % (31-73); PLATELET COUNT 143 x10^3/uL (140-400); RED BLOOD COUNT 3.33 x10^6/uL (4.30-5.70); RED CELL DISTRIBUTION WIDTH 14.4 % (11.5-14.5); WHITE BLOOD COUNT 11.5 x10^3/uL (4.0-11.0)
[2021-06-01 04:56] LABS: CALCIUM 7.8 mg/dL (8.5-10.1); CREATININE 0.6 mg/dL (0.7-1.3); GFR 135.2
[2021-06-01 07:03] VITALS: BP 123/62
[2021-06-01] MEDS: DOXYCYCLINE HYCLATE 100 MG in IV DEXTROSE 5% 100ML 100 ML IV SCH ×2 (09:38→19:50)
[2021-06-01] MEDS: LISINOPRIL 10 MG TABLET PO SCH (09:39)
[2021-06-01] MEDS: ASPIRIN CHEWABLE 81 MG TABLET. PO SCH (09:39)
[2021-06-01] MEDS: MULTIVITAMIN with MINERAL TABLET. PO SCH (09:39)
[2021-06-01] MEDS: LACTOBACILLUS RHAMNOSUS GG 1 CAPSULE. PO SCH ×2 (09:39→19:49)
[2021-06-01] MEDS: METOPROLOL TART IMMED RELEASE 50 MG TABLET. PO SCH ×2 (09:39→19:49)
[2021-06-01] MEDS: PHENYTOIN SODIUM EXTENDED 100 MG CAPSULE PO SCH ×2 (09:40→19:49)
[2021-06-01] MEDS: methylPREDNISolone SOD SUCC PF 40 MG/ML VIAL. IV SCH ×2 (09:40→19:49)
--- NOTE | 2021-06-01 09:41 | PDOC ---
PULMONARY PROGRESS NOTES DATE: 06/01/21 TIME: 09:34 Subjective feels better on 02 Vitals Vital Signs Date Time Temp Pulse Resp B/P (MAP) Pulse Ox O2 Delivery O2 Flow Rate FiO2 06/01/21 07:03 97.9 86 19 123/62 (82) 87 Nasal Cannula 8.0 97.9 ROS: No Increase Cough Lungs: Other (no accessory muscle use ) Cardiovascular: S1, S2 Neuro Exam: Alert Extremities: No Edema Skin: No Rashes Labs Laboratory Tests Test 05/31/21 04:45 05/31/21 07:52 06/01/21 04:30 White Blood Count 9.8 x10^3/uL (4.0-11.0) 11.5 x10^3/uL (4.0-11.0) Red Blood Count 3.47 x10^6/uL (4.30-5.70) 3.33 x10^6/uL (4.30-5.70) Hemoglobin 10.9 g/dL (13.0-17.5) 10.4 g/dL (13.0-17.5) Hematocrit 32.2 % (39.0-53.0) 31.0 % (39.0-53.0) Mean Corpuscular Volume 93 fL (79-100) 93 fL (79-100) Mean Corpuscular Hemoglobin 32 pg (25-35) 31 pg (25-35) Mean Corpuscular Hemoglobin Concent 34 g/dL (31-37) 34 g/dL (31-37) Red Cell Distribution Width 14.6 % (11.5-14.5) 14.4 % (11.5-14.5) Platelet Count 140 x10^3/uL (140-400) 143 x10^3/uL (140-400) Neutrophils (%) (Auto) 81 % (31-73) 81 % (31-73) Lymphocytes (%) (Auto) 11 % (24-48) 10 % (24-48) Monocytes (%) (Auto) 8 % (0-9) 8 % (0-9) Eosinophils (%) (Auto) 0 % (0-3) 1 % (0-3) Basophils (%) (Auto) 0 % (0-3) 0 % (0-3) Neutrophils # (Auto) 7.9 x10^3/uL (1.8-7.7) 9.3 x10^3/uL (1.8-7.7) Lymphocytes # (Auto) 1.0 x10^3/uL (1.0-4.8) 1.2 x10^3/uL (1.0-4.8) Monocytes # (Auto) 0.8 x10^3/uL (0.0-1.1) 0.9 x10^3/uL (0.0-1.1) Eosinophils # (Auto) 0.0 x10^3/uL (0.0-0.7) 0.1 x10^3/uL (0.0-0.7) Basophils # (Auto) 0.0 x10^3/uL (0.0-0.2) 0.0 x10^3/uL (0.0-0.2) Sodium Level 132 mmol/L (136-145) 132 mmol/L (136-145) Potassium Level 3.8 mmol/L (3.5-5.1) 4.0 mmol/L (3.5-5.1) Chloride Level 97 mmol/L (98-107) 98 mmol/L (98-107) Carbon Dioxide Level 30 mmol/L (21-32) 32 mmol/L (21-32) Anion Gap 5 (6-14) 2 (6-14) Blood Urea Nitrogen 21 mg/dL (8-26) 22 mg/dL (8-26) Creatinine 0.7 mg/dL (0.7-1.3) 0.6 mg/dL (0.7-1.3) Estimated GFR (Cockcroft-Gault) 113.2 135.2 Glucose Level 92 mg/dL (70-99) 90 mg/dL (70-99) Calcium Level 8.4 mg/dL (8.5-10.1) 7.8 mg/dL (8.5-10.1) Magnesium Level 1.6 mg/dL (1.8-2.4) 1.5 mg/dL (1.8-2.4) Glucose (Fingerstick) 80 mg/dL (70-99) Laboratory Tests Test 06/01/21 04:30 White Blood Count 11.5 x10^3/uL (4.0-11.0) Red Blood Count 3.33 x10^6/uL (4.30-5.70) Hemoglobin 10.4 g/dL (13.0-17.5) Hematocrit 31.0 % (39.0-53.0) Mean Corpuscular Volume 93 fL (79-100) Mean Corpuscular Hemoglobin 31 pg (25-35) Mean Corpuscular Hemoglobin Concent 34 g/dL (31-37) Red Cell Distribution Width 14.4 % (11.5-14.5) Platelet Count 143 x10^3/uL (140-400) Neutrophils (%) (Auto) 81 % (31-73) Lymphocytes (%) (Auto) 10 % (24-48) Monocytes (%) (Auto) 8 % (0-9) Eosinophils (%) (Auto) 1 % (0-3) Basophils (%) (Auto) 0 % (0-3) Neutrophils # (Auto) 9.3 x10^3/uL (1.8-7.7) Lymphocytes # (Auto) 1.2 x10^3/uL (1.0-4.8) Monocytes # (Auto) 0.9 x10^3/uL (0.0-1.1) Eosinophils # (Auto) 0.1 x10^3/uL (0.0-0.7) Basophils # (Auto) 0.0 x10^3/uL (0.0-0.2) Sodium Level 132 mmol/L (136-145) Potassium Level 4.0 mmol/L (3.5-5.1) Chloride Level 98 mmol/L (98-107) Carbon Dioxide Level 32 mmol/L (21-32) Anion Gap 2 (6-14) Blood Urea Nitrogen 22 mg/dL (8-26) Creatinine 0.6 mg/dL (0.7-1.3) Estimated GFR (Cockcroft-Gault) 135.2 Glucose Level 90 mg/dL (70-99) Calcium Level 7.8 mg/dL (8.5-10.1) Magnesium Level 1.5 mg/dL (1.8-2.4) Medications Active Scripts Medications Dose Route/Sig Max Daily Dose Days Date Category Lisinopril 10 Mg Tablet 1 Tab PO DAILY 05/27/21 Reported Hydrochlorothiazide Capsule (Hydrochlorothiazide) 12.5 Mg Capsule 25 Mg PO DAILY 05/27/21 Reported Pravastatin Sodium 80 Mg Tablet 1 Tab PO QHS 05/27/21 Reported Phenytoin Sodium Extended 200 Mg Capsule 2 Cap PO BID 30 05/27/21 Reported Okmpcm-Qqnfjbky-Ecgf 50-300-40 (Butalb/Acetaminophen/Caffeine) 1 Each Capsule 1 Each PO PRN QID PRN 05/27/21 Reported Augmentin 875-125 Tablet (Amoxicillin/Potassium Clav) 1 Each Tablet 1 Tab PO BID 05/16/17 Rx Impression . IMPRESSION: 1. Acute hypoxemic respiratory failure, multifactorial. 2. COVID-19 viral pneumonia. 3. Subdural hematoma. 4. Recent fall. 5. CT chest revealing evidence of extensive consolidation opacities, mainly in the lower half of the right lung. 6. Possible aspiration pneumonia. 7. Acute exacerbation of chronic obstructive pulmonary disease. 8. History of AAA repair. 9. Acute renal failure. 10. Leukocytosis. Plan . Updated 06/01 titrate fio2 to keep sat 90% abx solumdrol 40 bid Continue oxygen supplementation Subdural hematoma per neurosurgery Updated 05/31 KATHE Pena Discussed with RN Continue oxygen supplementation Subdural hematoma per neurosurgery updated 923 Patient continues to slowly improve Continue oxygen supplementation Follow neurosurgery input Steroids SAWYER MARTINEZ MD Jun 01, 2021 09:41
--- NOTE | 2021-06-01 10:45 | PDOC ---
[employer] PROGRESS NOTE Date of Service DOS: DATE: 06/01/21 TIME: 10:39 Chief Complaint Chief Complaint Weakness Mental status change Flu symptoms Hyperlipidemia Hypertension Seizures Left carpal tunnel surgery AAA repair Previous tobacco abuse. History of Present Illness History of Present Illness 06/01/2021 Patient seen and examined. Discussed with RN. Chart reviewed. Patient is awake with eyes open and alert. NAD. Patient is responsive and asking questions. Pena catheter has been taken out. Patient expresses feeling better and would like to go home. Patient is receiving doxycycline. FiO2 increased to 8L via NC since yesterday afternoon, previously was at 5L. Oxygen saturation at 7:00 this morning was around 87-89% on 8L NC. 05/31/2021 Patient seen and examined. Chart reviewed. Discussed with RN. Patient is awake with eyes open and alert. NAD. Patient is feeling a little better with more energy. Currently on 5L oxygen via NC. Bruise on the right shoulder. 05/30/2021 Patient seen and examined. Discussed with RN. Chart Reviewed. Patient is resting with NAD. Has Pena bedside drainage. Bruise on the right shoulder. Currently on 5L oxygen via NC. 05/29/2021 Patient seen and examined. Chart reviewed. Discussed with RN. Patient is awake and making eye contact. Bruise on the right shoulder is still present. Currently receiving doxycycline. Patient is back on 5L oxygen via NC. 05/28/2021 Patient seen and examined. Discussed with RN. Chart reviewed. Patient is weak but responsive. Resting, NAD. Patient has a bruise on the right shoulder. Currently receiving doxycycline. Patient is on 10L oxygen via NC (humidified). Developed Afib with RVR. Vitals/I&O Vitals/I&O: Vital Signs Date Time Temp Pulse Resp B/P (MAP) Pulse Ox O2 Delivery O2 Flow Rate FiO2 06/01/21 09:39 86 123/62 06/01/21 07:03 97.9 19 87 Nasal Cannula 8.0 97.9 I & O 05/31/21 05/31/21 06/01/21 15:00 23:00 07:00 Intake Total 640 ml 780 ml 300 ml Output Total 1250 ml 850 ml Balance 640 ml -470 ml -550 ml Physical Exam General: Alert, Oriented X3, Cooperative, No acute distress Heart: Normal S1, Normal S2 Lungs: Other (no accessory muscle use ) Abdomen: Soft, No tenderness Extremities: No edema Skin: Other (right shoulder ecchymosis, lesion on the center of chest.) Labs Labs: Laboratory Tests Test 06/01/21 04:30 White Blood Count 11.5 x10^3/uL (4.0-11.0) Red Blood Count 3.33 x10^6/uL (4.30-5.70) Hemoglobin 10.4 g/dL (13.0-17.5) Hematocrit 31.0 % (39.0-53.0) Mean Corpuscular Volume 93 fL (79-100) Mean Corpuscular Hemoglobin 31 pg (25-35) Mean Corpuscular Hemoglobin Concent 34 g/dL (31-37) Red Cell Distribution Width 14.4 % (11.5-14.5) Platelet Count 143 x10^3/uL (140-400) Neutrophils (%) (Auto) 81 % (31-73) Lymphocytes (%) (Auto) 10 % (24-48) Monocytes (%) (Auto) 8 % (0-9) Eosinophils (%) (Auto) 1 % (0-3) Basophils (%) (Auto) 0 % (0-3) Neutrophils # (Auto) 9.3 x10^3/uL (1.8-7.7) Lymphocytes # (Auto) 1.2 x10^3/uL (1.0-4.8) Monocytes # (Auto) 0.9 x10^3/uL (0.0-1.1) Eosinophils # (Auto) 0.1 x10^3/uL (0.0-0.7) Basophils # (Auto) 0.0 x10^3/uL (0.0-0.2) Sodium Level 132 mmol/L (136-145) Potassium Level 4.0 mmol/L (3.5-5.1) Chloride Level 98 mmol/L (98-107) Carbon Dioxide Level 32 mmol/L (21-32) Anion Gap 2 (6-14) Blood Urea Nitrogen 22 mg/dL (8-26) Creatinine 0.6 mg/dL (0.7-1.3) Estimated GFR (Cockcroft-Gault) 135.2 Glucose Level 90 mg/dL (70-99) Calcium Level 7.8 mg/dL (8.5-10.1) Magnesium Level 1.5 mg/dL (1.8-2.4) Assessment and Plan Assessmemt and Plan Problems Medical Problems: (1) Kidney failure, acute Status: Acute (2) Person under investigation for COVID-19 Status: Acute (3) Pneumonia Status: Acute (4) Septic shock Status: Acute (5) Subacute subdural hematoma Status: Acute Weakness Mental status change Flu symptoms Hyperlipidemia Hypertension Seizures Left carpal tunnel surgery AAA repair Previous tobacco abuse. Plan: Discontinued Redemsivir since patient already received 4 dosages. Covid protocol (solumedrol, multi-vitamin, antibiotics, albuterol, O2, codeine cough syrup, aspirin) court recording monitor Try to titrate O2 down to 2L Change to PO meds Work with PT/OT to get patient up and walking Ordered one dosage of 2mg IV of MgSO4 Ordered one dosage of 325mg PO of MgOxide Trend labs Encourage PO intake DVT prophylaxis Full Code [facility]able discharge to [facility] Appreciate subspecialty input (Neurology, Renal, Pulmonary, Cardiology) Comment Review of Relevant I have reviewed the following items farhat (where applicable) has been applied. Medications: Current Medications Medications (Trade) Dose Ordered Sig/Natacha Route PRN Reason Start Time Stop Time Status Last Admin Dose Admin Potassium Chloride (Klor-Con) 20 meq 1X ONCE PO 05/31/21 11:30 05/31/21 11:31 DC 05/31/21 11:55 Magnesium Sulfate 50 ml @ 25 mls/hr 1X ONCE IV 05/31/21 11:30 05/31/21 13:29 DC 05/31/21 11:55 Justifications for Admission Other Justification CLAYTON PHILIP III DO Jun 01, 2021 10:45
[2021-06-01] MEDS ORDERED: MAGNESIUM SULFATE 2GM 50 ML IV ONE (11:00)
[2021-06-01 11:30] VITALS: BP 129/63
--- NOTE | 2021-06-01 14:53 | PDOC ---
PROGRESS NOTES Date of Service DATE: 06/01/21 TIME: 14:51 Subjective Subjective Follow-up for hyponatremia patient remains in Covid isolation at this time Physical exam in patient care reviewed with patient's nurse . Full bedside exam was not performed due to COVID-19 isolation restrictions Hyponatremia appears to have been corrected for now Low magnesium: Replacement as ordered Objective Objective Vital Signs Date Time Temp Pulse Resp B/P (MAP) Pulse Ox O2 Delivery O2 Flow Rate FiO2 06/01/21 11:30 97.5 93 20 129/63 (85) 92 Nasal Cannula 8.0 97.5 Intake and Output 06/01/21 07:00 Intake Total 1720 ml Output Total 2100 ml Balance -380 ml Intake Oral 1240 ml IV Total 480 ml Output Urine Total 2100 ml # Bowel Movements 5 Assessment Assessment Problems Medical Problems: (1) Kidney failure, acute Status: Acute (2) Person under investigation for COVID-19 Status: Acute (3) Pneumonia Status: Acute (4) Septic shock Status: Acute (5) Subacute subdural hematoma Status: Acute Comment Review of Relevant I have reviewed the following items farhat (where applicable) has been applied. Labs Laboratory Tests Test 05/31/21 04:45 05/31/21 07:52 06/01/21 04:30 White Blood Count 9.8 x10^3/uL (4.0-11.0) 11.5 x10^3/uL (4.0-11.0) Red Blood Count 3.47 x10^6/uL (4.30-5.70) 3.33 x10^6/uL (4.30-5.70) Hemoglobin 10.9 g/dL (13.0-17.5) 10.4 g/dL (13.0-17.5) Hematocrit 32.2 % (39.0-53.0) 31.0 % (39.0-53.0) Mean Corpuscular Volume 93 fL (79-100) 93 fL (79-100) Mean Corpuscular Hemoglobin 32 pg (25-35) 31 pg (25-35) Mean Corpuscular Hemoglobin Concent 34 g/dL (31-37) 34 g/dL (31-37) Red Cell Distribution Width 14.6 % (11.5-14.5) 14.4 % (11.5-14.5) Platelet Count 140 x10^3/uL (140-400) 143 x10^3/uL (140-400) Neutrophils (%) (Auto) 81 % (31-73) 81 % (31-73) Lymphocytes (%) (Auto) 11 % (24-48) 10 % (24-48) Monocytes (%) (Auto) 8 % (0-9) 8 % (0-9) Eosinophils (%) (Auto) 0 % (0-3) 1 % (0-3) Basophils (%) (Auto) 0 % (0-3) 0 % (0-3) Neutrophils # (Auto) 7.9 x10^3/uL (1.8-7.7) 9.3 x10^3/uL (1.8-7.7) Lymphocytes # (Auto) 1.0 x10^3/uL (1.0-4.8) 1.2 x10^3/uL (1.0-4.8) Monocytes # (Auto) 0.8 x10^3/uL (0.0-1.1) 0.9 x10^3/uL (0.0-1.1) Eosinophils # (Auto) 0.0 x10^3/uL (0.0-0.7) 0.1 x10^3/uL (0.0-0.7) Basophils # (Auto) 0.0 x10^3/uL (0.0-0.2) 0.0 x10^3/uL (0.0-0.2) Sodium Level 132 mmol/L (136-145) 132 mmol/L (136-145) Potassium Level 3.8 mmol/L (3.5-5.1) 4.0 mmol/L (3.5-5.1) Chloride Level 97 mmol/L (98-107) 98 mmol/L (98-107) Carbon Dioxide Level 30 mmol/L (21-32) 32 mmol/L (21-32) Anion Gap 5 (6-14) 2 (6-14) Blood Urea Nitrogen 21 mg/dL (8-26) 22 mg/dL (8-26) Creatinine 0.7 mg/dL (0.7-1.3) 0.6 mg/dL (0.7-1.3) Estimated GFR (Cockcroft-Gault) 113.2 135.2 Glucose Level 92 mg/dL (70-99) 90 mg/dL (70-99) Calcium Level 8.4 mg/dL (8.5-10.1) 7.8 mg/dL (8.5-10.1) Magnesium Level 1.6 mg/dL (1.8-2.4) 1.5 mg/dL (1.8-2.4) Glucose (Fingerstick) 80 mg/dL (70-99) Laboratory Tests Test 06/01/21 04:30 White Blood Count 11.5 x10^3/uL (4.0-11.0) Red Blood Count 3.33 x10^6/uL (4.30-5.70) Hemoglobin 10.4 g/dL (13.0-17.5) Hematocrit 31.0 % (39.0-53.0) Mean Corpuscular Volume 93 fL (79-100) Mean Corpuscular Hemoglobin 31 pg (25-35) Mean Corpuscular Hemoglobin Concent 34 g/dL (31-37) Red Cell Distribution Width 14.4 % (11.5-14.5) Platelet Count 143 x10^3/uL (140-400) Neutrophils (%) (Auto) 81 % (31-73) Lymphocytes (%) (Auto) 10 % (24-48) Monocytes (%) (Auto) 8 % (0-9) Eosinophils (%) (Auto) 1 % (0-3) Basophils (%) (Auto) 0 % (0-3) Neutrophils # (Auto) 9.3 x10^3/uL (1.8-7.7) Lymphocytes # (Auto) 1.2 x10^3/uL (1.0-4.8) Monocytes # (Auto) 0.9 x10^3/uL (0.0-1.1) Eosinophils # (Auto) 0.1 x10^3/uL (0.0-0.7) Basophils # (Auto) 0.0 x10^3/uL (0.0-0.2) Sodium Level 132 mmol/L (136-145) Potassium Level 4.0 mmol/L (3.5-5.1) Chloride Level 98 mmol/L (98-107) Carbon Dioxide Level 32 mmol/L (21-32) Anion Gap 2 (6-14) Blood Urea Nitrogen 22 mg/dL (8-26) Creatinine 0.6 mg/dL (0.7-1.3) Estimated GFR (Cockcroft-Gault) 135.2 Glucose Level 90 mg/dL (70-99) Calcium Level 7.8 mg/dL (8.5-10.1) Magnesium Level 1.5 mg/dL (1.8-2.4) Microbiology 05/26/21 Blood Culture - Final, Complete NO GROWTH AFTER 5 DAYS 05/26/21 Gram Stain Evaluation - Final, Complete 05/26/21 Respiratory Culture - Final, Complete 05/26/21 Antimicrobic Susceptibility - Final, Complete Medications Current Medications Sodium Chloride 1,000 ml @ 1,000 mls/hr 1X ONCE IV Last administered on 05/26/21at 18:40; Start 05/26/21 at 18:00; Stop 05/26/21 at 18:59; Status DC Methylprednisolone Sodium Succinate (SOLU-Medrol 125MG VIAL) 80 mg 1X ONCE IV Last administered on 05/26/21at 18:42; Start 05/26/21 at 18:30; Stop 05/26/21 at 18:31; Status DC Albuterol Sulfate (Ventolin Neb Soln) 2.5 mg 1X ONCE NEB Last administered on 05/26/21at 18:30; Start 05/26/21 at 18:30; Stop 05/26/21 at 18:31; Status DC Sodium Chloride 1,000 ml @ 1,000 mls/hr 1X ONCE IV Last administered on 05/26/21at 18:45; Start 05/26/21 at 18:45; Stop 05/26/21 at 19:44; Status DC Piperacillin Sod/ Tazobactam Sod 3.375 gm/Sodium Chloride 50 ml @ 100 mls/hr 1X ONCE IV Last administered on 05/26/21at 19:12; Start 05/26/21 at 18:45; Stop 05/26/21 at 19:14; Status DC Sodium Chloride 1,000 ml @ 100 mls/hr Q10H IV Last administered on 05/27/21at 16:06; Start 05/26/21 at 20:15; Stop 05/27/21 at 20:14; Status DC Acetaminophen (Tylenol) 650 mg PRN Q4HRS PRN PO FEVER > 100.3'F Last administered on 05/27/21at 16:07; Start 05/26/21 at 20:15; Stop 05/27/21 at 20:14; Status DC Methylprednisolone Sodium Succinate (SOLU-Medrol 40MG VIAL) 80 mg Q8HRS ONCE IV Last administered on 05/26/21at 22:40; Start 05/26/21 at 22:00; Stop 05/26/21 at 22:01; Status DC Piperacillin Sod/ Tazobactam Sod 3.375 gm/Sodium Chloride 50 ml @ 100 mls/hr Q6HRS IV ; Start 05/27/21 at 00:00; Stop 05/26/21 at 22:59; Status DC Piperacillin Sod/ Tazobactam Sod 2.25 gm/Sodium Chloride 50 ml @ 100 mls/hr Q8HRS IV Last administered on 05/27/21at 05:47; Start 05/27/21 at 06:00; Stop 05/27/21 at 13:13; Status DC Remdesivir 200 mg/ Sodium Chloride 210 ml @ 210 mls/hr 1X ONCE IV Last administered on 05/27/21at 14:24; Start 05/27/21 at 14:00; Stop 05/27/21 at 14:59; Status DC Remdesivir 100 mg/ Sodium Chloride 230 ml @ 460 mls/hr Q24H IV Last administered on 05/31/21at 14:52; Start 05/28/21 at 14:00; Stop 05/31/21 at 14:29; Status DC Doxycycline Hyclate 100 mg/ Dextrose 100 ml @ 50 mls/hr Q12HR IV Last administered on 06/01/21at 09:38; Start 05/27/21 at 14:00 Aspirin (Aspirin Chewable) 81 mg DAILYWBKFT PO Last administered on 06/01/21at 09:39; Start 05/28/21 at 08:00 Guaifenesin/ Codeine Phosphate (Robitussin Ac) 5 ml PRN Q6HRS PRN PO COUGH; Start 05/27/21 at 13:15 Methylprednisolone Sodium Succinate (SOLU-Medrol 40MG VIAL) 40 mg BID IV Last administered on 06/01/21at 09:40; Start 05/27/21 at 21:00 Multivitamins (Thera M Plus) 1 tab DAILY PO Last administered on 06/01/21 09:39; Start 05/28/21 at 09:00 Ceftriaxone Sodium (Rocephin) 1 gm Q24H IVP Last administered on 05/31/21at 14:52; Start 05/27/21 at 14:00 Amoxicillin/ Clavulanate Potassium (Augmentin 875/ 125mg) 1 tab BID PO ; Start 05/27/21 at 21:00; Status UNV Hydrochlorothiazide (Microzide) 25 mg DAILY PO Last administered on 05/30/21at 09:47; Start 05/28/21 at 09:00; Stop 05/30/21 at 11:04; Status DC Lisinopril (Prinivil) 10 mg DAILY PO Last administered on 06/01/21 09:39; Start 05/28/21 at 09:00 Acetaminophen/ Butalbital/ Caffeine (Fioricet) 1 tab PRN Q6HRS PRN PO MIGRAINE HEADACHE; Start 05/27/21 at 15:00 Phenytoin Sodium (Dilantin) 400 mg BID PO Last administered on 06/01/21at 09:40; Start 05/27/21 at 21:00 Atorvastatin Calcium (Lipitor) 20 mg QHS PO Last administered on 05/31/21 19:57; Start 05/27/21 at 21:00 Potassium Chloride (Klor-Con) 40 meq 1X ONCE PO Last administered on 05/27/21at 16:06; Start 05/27/21 at 15:15; Stop 05/27/21 at 15:16; Status DC Lactobacillus Rhamnosus (Culturelle) 1 cap BID PO Last administered on 05/09 01/25at 09:39; Start 05/28/21 at 09:00 Labetalol HCl (Normodyne Iv Push) 5 mg 1X ONCE IVP ; Start 05/28/21 at 08:30; Stop 05/28/21 at 08:33; Status DC Morphine Sulfate (Morphine Sulfate) 2 mg PRN Q2HR PRN IVP PAIN Last administered on 05/28/21at 08:38; Start 05/28/21 at 08:30 Metoprolol Tartrate (Lopressor Vial) 5 mg 1X ONCE IVP Last administered on 05/28/21at 08:38; Start 05/28/21 at 08:45; Stop 05/28/21 at 08:48; Status DC Metoprolol Tartrate (Lopressor) 25 mg BID PO Last administered on 05/29/21at 09: 19; Start 05/28/21 at 09:00; Stop 05/29/21 at 13:56; Status DC Acetaminophen (Tylenol) 650 mg PRN Q6HRS PRN PO MILD PAIN / TEMP > 100.3'F Last administered on 05/30/21at 22:28; Start 05/28/21 at 11:00 Potassium Chloride (Klor-Con) 40 meq 1X ONCE PO Last administered on 05/28/21at 11:32; Start 05/28/21 at 11:15; Stop 05/28/21 at 11:16; Status DC Potassium Chloride (Klor-Con) 40 meq 1X ONCE PO Last administered on 05/28/21at 14:59; Start 05/28/21 at 14:15; Stop 05/28/21 at 14:16; Status DC Magnesium Sulfate 50 ml @ 25 mls/hr 1X ONCE IV Last administered on 05/28/21at 11:34; Start 05/28/21 at 12:00; Stop 05/28/21 at 13:59; Status DC Magnesium Sulfate 50 ml @ 25 mls/hr 1X ONCE IV ; Start 05/29/21 at 08:45; Stop 05/29/21 at 10:44; Status UNV Magnesium Sulfate 50 ml @ 25 mls/hr 1X ONCE IV Last administered on 05/29/21at 09:17; Start 05/29/21 at 09:30; Stop 05/29/21 at 11:29; Status DC Metoprolol Tartrate (Lopressor) 50 mg BID PO Last administered on 06/01/21at 09:39; Start 05/29/21 at 21:00 Metoprolol Tartrate (Lopressor) 25 mg 1X ONCE PO Last administered on 05/29/21at 14:14; Start 05/29/21 at 14:30; Stop 05/29/21 at 14:31; Status DC Magnesium Sulfate 50 ml @ 25 mls/hr 1X ONCE IV Last administered on 05/30/21at 11:44; Start 05/30/21 at 11:30; Stop 05/30/21 at 13:29; Status DC Potassium Chloride/Water 100 ml @ 100 mls/hr Q1H IV Last administered on 05/30/21at 11:45; Start 05/30/21 at 11:30; Stop 05/30/21 at 14:17; Status DC Magnesium Sulfate 50 ml @ 25 mls/hr 1X ONCE IV ; Start 05/30/21 at 12:15; Stop 05/30/21 at 14:14; Status UNV Magnesium Sulfate 50 ml @ 25 mls/hr 1X ONCE IV ; Start 05/30/21 at 12:15; Stop 05/30/21 at 14:14; Status UNV Magnesium Sulfate 100 ml @ 25 mls/hr 1X ONCE IV ; Start 05/30/21 at 12:30; Stop 05/30/21 at 16:29; Status Cancel Potassium Chloride (Klor-Con) 40 meq 1X ONCE PO Last administered on 05/30/21at 14:56; Start 05/30/21 at 13:45; Stop 05/30/21 at 14:20; Status DC Potassium Chloride (Klor-Con) 20 meq 1X ONCE PO Last administered on 05/30/21at 17:02; Start 05/30/21 at 17:00; Stop 05/30/21 at 17:01; Status DC Potassium Chloride (Klor-Con) 20 meq 1X ONCE PO Last administered on 05/31/21at 11:55; Start 05/31/21 at 11:30; Stop 05/31/21 at 11:31; Status DC Magnesium Sulfate 50 ml @ 25 mls/hr 1X ONCE IV Last administered on 05/31/21at 11:55; Start 05/31/21 at 11:30; Stop 05/31/21 at 13:29; Status DC Magnesium Sulfate 50 ml @ 25 mls/hr 1X ONCE IV ; Start 05/31/21 at 12:45; Stop 05/31/21 at 14:44; Status UNV Magnesium Sulfate 50 ml @ 25 mls/hr PRN DAILY PRN IV for Mag < 1.7 on am labs; Start 05/31/21 at 17:15 Magnesium Oxide (Magnesium Oxide) 400 mg DAILY PO ; Start 06/02/21 at 09:00 Magnesium Sulfate 50 ml @ 25 mls/hr 1X ONCE IV Last administered on 06/01/21at 12:07; Start 06/01/21 at 11:00; Stop 06/01/21 at 12:59; Status DC Active Scripts Active Reported Lisinopril 10 Mg Tablet 1 Tab PO DAILY Hydrochlorothiazide Capsule (Hydrochlorothiazide) 12.5 Mg Capsule 25 Mg PO DAILY Pravastatin Sodium 80 Mg Tablet 1 Tab PO QHS Phenytoin Sodium Extended 200 Mg Capsule 2 Cap PO BID 30 Days Fcokbd-Qmropppn-Nemz 50-300-40 (Butalb/Acetaminophen/Caffeine) 1 Each Capsule 1 Each PO PRN QID PRN Vitals/I & O Vital Sign - Last 24 Hours 05/31/21 05/31/21 05/31/21 05/31/21 15:00 19:45 19:57 20:00 Temp 97.8 98.2 97.8 98.2 Pulse 98 98 98 Resp 18 23 B/P (MAP) 99/62 (74) 124/62 (82) 99/62 Pulse Ox 91 92 O2 Delivery Nasal Cannula Nasal Cannula Nasal Cannula O2 Flow Rate 8.0 8.0 05/31/21 06/01/21 06/01/21 06/01/21 23:40 03:55 07:03 09:39 Temp 98.0 97.9 97.9 98.0 97.9 97.9 Pulse 76 80 86 86 Resp 18 21 19 B/P (MAP) 106/62 (77) 120/59 (79) 123/62 (82) 123/62 Pulse Ox 98 89 87 O2 Delivery Nasal Cannula Nasal Cannula Nasal Cannula O2 Flow Rate 8.0 8.0 06/01/21 06/01/21 09:39 11:30 Temp 97.5 97.5 Pulse 86 93 Resp 20 B/P (MAP) 123/62 129/63 (85) Pulse Ox 92 O2 Delivery Nasal Cannula O2 Flow Rate 8.0 Intake and Output 05/31/21 05/31/21 06/01/21 15:00 23:00 07:00 Intake Total 640 ml 780 ml 300 ml Output Total 1250 ml 850 ml Balance 640 ml -470 ml -550 ml Justifications for Admission Other Justification Nutrition Consultation Dietary Evaluation: Recommendations by RD: Dietary education by RD, Increase Calorie Intake, Protein supplementation Comments: ensure enlive tid Expected Outcomes/Goals: to meet >75% est nutr needs Malnutrition Findings: Food and Nutrition Intake (Sev: <50% est energy req 5days Weight Status: Underweight MENDEZ ALEXANDER MD Jun 01, 2021 14:53
[2021-06-01] MEDS ORDERED: MAGNESIUM SULFATE 2GM 50 ML IV PRN (15:00)
[2021-06-01] MEDS: cefTRIAXone IV Push 1 GM VIAL. IVP SCH (15:08)
[2021-06-01 15:19] VITALS: BP 127/73
[2021-06-01 19:00] VITALS: BP 125/59
[2021-06-01] MEDS: ATORVASTATIN CALCIUM 20 MG TABLET PO SCH (19:49)
[2021-06-01 23:00] VITALS: BP 165/120
[2021-06-02 02:43] VITALS: BP 119/89
[2021-06-02 04:50] LABS: BASO % 0 % (0-3); EOS # 0.1 x10^3/uL (0.0-0.7); EOS % 1 % (0-3); HEMOGLOBIN 10.7 g/dL (13.0-17.5); LYMPH # 1.2 x10^3/uL (1.0-4.8); LYMPH % 13 % (24-48); MEAN CORPUSCULAR HEMOGLOBIN 32 pg (25-35); MEAN CORPUSCULAR HGB CONC 35 g/dL (31-37); MEAN CORPUSCULAR VOLUME 93 fL (79-100); MONO # 0.7 x10^3/uL (0.0-1.1); MONO % 8 % (0-9); NEUT # 7.6 x10^3/uL (1.8-7.7); NEUT % 78 % (31-73); PLATELET COUNT 169 x10^3/uL (140-400); RED BLOOD COUNT 3.34 x10^6/uL (4.30-5.70); RED CELL DISTRIBUTION WIDTH 14.7 % (11.5-14.5); WHITE BLOOD COUNT 9.8 x10^3/uL (4.0-11.0)
[2021-06-02 05:15] LABS: CALCIUM 8.2 mg/dL (8.5-10.1); CREATININE 0.6 mg/dL (0.7-1.3); GFR 135.2; MAGNESIUM 1.7 mg/dL (1.8-2.4); POTASSIUM 4.2 mmol/L (3.5-5.1)
[2021-06-02 07:00] VITALS: BP 138/68
[2021-06-02] MEDS: LACTOBACILLUS RHAMNOSUS GG 1 CAPSULE. PO SCH ×2 (08:51→20:29)
[2021-06-02] MEDS: METOPROLOL TART IMMED RELEASE 50 MG TABLET. PO SCH ×2 (08:52→20:31)
[2021-06-02] MEDS: LISINOPRIL 10 MG TABLET PO SCH (08:52)
[2021-06-02] MEDS: MAGNESIUM OXIDE 400 MG TABLET PO SCH (08:52)
[2021-06-02] MEDS: PHENYTOIN SODIUM EXTENDED 100 MG CAPSULE PO SCH ×2 (08:53→20:29)
[2021-06-02] MEDS: MULTIVITAMIN with MINERAL TABLET. PO SCH (08:53)
[2021-06-02] MEDS: ASPIRIN CHEWABLE 81 MG TABLET. PO SCH (08:53)
[2021-06-02] MEDS: methylPREDNISolone SOD SUCC PF 40 MG/ML VIAL. IV SCH (08:54)
[2021-06-02] MEDS: DOXYCYCLINE HYCLATE 100 MG in IV DEXTROSE 5% 100ML 100 ML IV SCH ×2 (08:54→20:32)
--- NOTE | 2021-06-02 09:39 | PDOC ---
PULMONARY PROGRESS NOTES DATE: 06/02/21 TIME: 09:37 Subjective is weak feels better on 02 8 lpm Vitals Vital Signs Date Time Temp Pulse Resp B/P (MAP) Pulse Ox O2 Delivery O2 Flow Rate FiO2 06/02/21 08:52 86 138/68 06/02/21 07:00 97.3 22 94 Nasal Cannula 8.0 97.3 ROS: No Increase Cough Lungs: Other (no accessory muscle use ) Cardiovascular: S1, S2 Neuro Exam: Alert Extremities: No Edema Skin: No Rashes Labs Laboratory Tests Test 06/01/21 04:30 06/02/21 04:30 White Blood Count 11.5 x10^3/uL (4.0-11.0) 9.8 x10^3/uL (4.0-11.0) Red Blood Count 3.33 x10^6/uL (4.30-5.70) 3.34 x10^6/uL (4.30-5.70) Hemoglobin 10.4 g/dL (13.0-17.5) 10.7 g/dL (13.0-17.5) Hematocrit 31.0 % (39.0-53.0) 31.0 % (39.0-53.0) Mean Corpuscular Volume 93 fL (79-100) 93 fL (79-100) Mean Corpuscular Hemoglobin 31 pg (25-35) 32 pg (25-35) Mean Corpuscular Hemoglobin Concent 34 g/dL (31-37) 35 g/dL (31-37) Red Cell Distribution Width 14.4 % (11.5-14.5) 14.7 % (11.5-14.5) Platelet Count 143 x10^3/uL (140-400) 169 x10^3/uL (140-400) Neutrophils (%) (Auto) 81 % (31-73) 78 % (31-73) Lymphocytes (%) (Auto) 10 % (24-48) 13 % (24-48) Monocytes (%) (Auto) 8 % (0-9) 8 % (0-9) Eosinophils (%) (Auto) 1 % (0-3) 1 % (0-3) Basophils (%) (Auto) 0 % (0-3) 0 % (0-3) Neutrophils # (Auto) 9.3 x10^3/uL (1.8-7.7) 7.6 x10^3/uL (1.8-7.7) Lymphocytes # (Auto) 1.2 x10^3/uL (1.0-4.8) 1.2 x10^3/uL (1.0-4.8) Monocytes # (Auto) 0.9 x10^3/uL (0.0-1.1) 0.7 x10^3/uL (0.0-1.1) Eosinophils # (Auto) 0.1 x10^3/uL (0.0-0.7) 0.1 x10^3/uL (0.0-0.7) Basophils # (Auto) 0.0 x10^3/uL (0.0-0.2) 0.0 x10^3/uL (0.0-0.2) Sodium Level 132 mmol/L (136-145) 133 mmol/L (136-145) Potassium Level 4.0 mmol/L (3.5-5.1) 4.2 mmol/L (3.5-5.1) Chloride Level 98 mmol/L (98-107) 98 mmol/L (98-107) Carbon Dioxide Level 32 mmol/L (21-32) 30 mmol/L (21-32) Anion Gap 2 (6-14) 5 (6-14) Blood Urea Nitrogen 22 mg/dL (8-26) 16 mg/dL (8-26) Creatinine 0.6 mg/dL (0.7-1.3) 0.6 mg/dL (0.7-1.3) Estimated GFR (Cockcroft-Gault) 135.2 135.2 Glucose Level 90 mg/dL (70-99) 87 mg/dL (70-99) Calcium Level 7.8 mg/dL (8.5-10.1) 8.2 mg/dL (8.5-10.1) Magnesium Level 1.5 mg/dL (1.8-2.4) 1.7 mg/dL (1.8-2.4) Laboratory Tests Test 06/02/21 04:30 White Blood Count 9.8 x10^3/uL (4.0-11.0) Red Blood Count 3.34 x10^6/uL (4.30-5.70) Hemoglobin 10.7 g/dL (13.0-17.5) Hematocrit 31.0 % (39.0-53.0) Mean Corpuscular Volume 93 fL (79-100) Mean Corpuscular Hemoglobin 32 pg (25-35) Mean Corpuscular Hemoglobin Concent 35 g/dL (31-37) Red Cell Distribution Width 14.7 % (11.5-14.5) Platelet Count 169 x10^3/uL (140-400) Neutrophils (%) (Auto) 78 % (31-73) Lymphocytes (%) (Auto) 13 % (24-48) Monocytes (%) (Auto) 8 % (0-9) Eosinophils (%) (Auto) 1 % (0-3) Basophils (%) (Auto) 0 % (0-3) Neutrophils # (Auto) 7.6 x10^3/uL (1.8-7.7) Lymphocytes # (Auto) 1.2 x10^3/uL (1.0-4.8) Monocytes # (Auto) 0.7 x10^3/uL (0.0-1.1) Eosinophils # (Auto) 0.1 x10^3/uL (0.0-0.7) Basophils # (Auto) 0.0 x10^3/uL (0.0-0.2) Sodium Level 133 mmol/L (136-145) Potassium Level 4.2 mmol/L (3.5-5.1) Chloride Level 98 mmol/L (98-107) Carbon Dioxide Level 30 mmol/L (21-32) Anion Gap 5 (6-14) Blood Urea Nitrogen 16 mg/dL (8-26) Creatinine 0.6 mg/dL (0.7-1.3) Estimated GFR (Cockcroft-Gault) 135.2 Glucose Level 87 mg/dL (70-99) Calcium Level 8.2 mg/dL (8.5-10.1) Magnesium Level 1.7 mg/dL (1.8-2.4) Medications Active Scripts Medications Dose Route/Sig Max Daily Dose Days Date Category Lisinopril 10 Mg Tablet 1 Tab PO DAILY 05/27/21 Reported Hydrochlorothiazide Capsule (Hydrochlorothiazide) 12.5 Mg Capsule 25 Mg PO DAILY 05/27/21 Reported Pravastatin Sodium 80 Mg Tablet 1 Tab PO QHS 05/27/21 Reported Phenytoin Sodium Extended 200 Mg Capsule 2 Cap PO BID 30 05/27/21 Reported Fevduf-Opguasce-Hwhv 50-300-40 (Butalb/Acetaminophen/Caffeine) 1 Each Capsule 1 Each PO PRN QID PRN 05/27/21 Reported Augmentin 875-125 Tablet (Amoxicillin/Potassium Clav) 1 Each Tablet 1 Tab PO BID 05/16/17 Rx Impression . IMPRESSION: 1. Acute hypoxemic respiratory failure, multifactorial. 2. COVID-19 viral pneumonia. 3. Subdural hematoma. 4. Recent fall. 5. CT chest revealing evidence of extensive consolidation opacities, mainly in the lower half of the right lung. 6. Possible aspiration pneumonia. 7. Acute exacerbation of chronic obstructive pulmonary disease. 8. History of AAA repair. 9. Acute renal failure. 10. Leukocytosis. Plan . Updated 06/02 titrate fio2 to keep sat 90% abx change solumdrol to pred 40 daily w taper Continue oxygen supplementation Subdural hematoma per neurosurgery discussed w rt Updated 06/01 titrate fio2 to keep sat 90% abx solumdrol 40 bid Continue oxygen supplementation Subdural hematoma per neurosurgery Updated 05/31 KATHE Pena Discussed with RN Continue oxygen supplementation Subdural hematoma per neurosurgery updated 923 Patient continues to slowly improve Continue oxygen supplementation Follow neurosurgery input Steroids SAWYER MARTINEZ MD Jun 02, 2021 09:39
[2021-06-02] MEDS: ACETAMINOPHEN 325 MG TABLET. PO PRN (10:22)
[2021-06-02 10:35] VITALS: BP 109/56
--- NOTE | 2021-06-02 12:03 | PDOC ---
[facility] PROGRESS NOTE Date of Service DOS: DATE: 06/02/21 TIME: 11:56 Chief Complaint Chief Complaint Weakness Mental status change Flu symptoms Hyperlipidemia Hypertension Seizures Left carpal tunnel surgery AAA repair Previous tobacco abuse. History of Present Illness History of Present Illness 06/02/2021 Patient seen and examined. Chart reviewed. Discussed with RN. Patient is awake and alert. NAD. Patient is responsive. Patient relates that he is feeling better. Bruise on the right shoulder is still present. He said physical therapy came by and worked with him 2 days ago. He is on 8L 02 via NC with an oxygen saturation at 93% at rest, and drops down to 88-89 when talking. 06/01/2021 Patient seen and examined. Discussed with RN. Chart reviewed. Patient is awake with eyes open and alert. NAD. Patient is responsive and asking questions. Pena catheter has been taken out. Patient expresses feeling better and would like to go home. Patient is receiving doxycycline. FiO2 increased to 8L via NC since yesterday afternoon, previously was at 5L. Oxygen saturation at 7:00 this morning was around 87-89% on 8L NC. 05/31/2021 Patient seen and examined. Chart reviewed. Discussed with RN. Patient is awake with eyes open and alert. NAD. Patient is feeling a little better with more ener gy. Currently on 5L oxygen via NC. Bruise on the right shoulder. 05/30/2021 Patient seen and examined. Discussed with RN. Chart Reviewed. Patient is resting with NAD. Has Pena bedside drainage. Bruise on the right shoulder. Currently on 5L oxygen via NC. 05/29/2021 Patient seen and examined. Chart reviewed. Discussed with RN. Patient is awake and making eye contact. Bruise on the right shoulder is still present. Currently receiving doxycycline. Patient is back on 5L oxygen via NC. 05/28/2021 Patient seen and examined. Discussed with RN. Chart reviewed. Patient is weak but responsive. Resting, NAD. Patient has a bruise on the right shoulder. Currently receiving doxycycline. Patient is on 10L oxygen via NC (humidified). Developed Afib with RVR. Vitals/I&O Vitals/I&O: Vital Signs Date Time Temp Pulse Resp B/P (MAP) Pulse Ox O2 Delivery O2 Flow Rate FiO2 06/02/21 10:35 96.4 81 20 109/56 (73) 91 Nasal Cannula 8.0 96.4 I & O 06/01/21 06/01/21 06/02/21 15:00 23:00 07:00 Intake Total 900 ml 1110 ml 1100 ml Output Total 1500 ml 1500 ml 400 ml Balance -600 ml -390 ml 700 ml Physical Exam General: Alert, Oriented X3, Cooperative, No acute distress Heart: Normal S1, Normal S2 Lungs: Other (no accessory muscle use ) Abdomen: Soft, No tenderness Extremities: No edema Skin: Other (right shoulder ecchymosis, lesion on the center of chest.) Labs Labs: Laboratory Tests Test 06/02/21 04:30 White Blood Count 9.8 x10^3/uL (4.0-11.0) Red Blood Count 3.34 x10^6/uL (4.30-5.70) Hemoglobin 10.7 g/dL (13.0-17.5) Hematocrit 31.0 % (39.0-53.0) Mean Corpuscular Volume 93 fL (79-100) Mean Corpuscular Hemoglobin 32 pg (25-35) Mean Corpuscular Hemoglobin Concent 35 g/dL (31-37) Red Cell Distribution Width 14.7 % (11.5-14.5) Platelet Count 169 x10^3/uL (140-400) Neutrophils (%) (Auto) 78 % (31-73) Lymphocytes (%) (Auto) 13 % (24-48) Monocytes (%) (Auto) 8 % (0-9) Eosinophils (%) (Auto) 1 % (0-3) Basophils (%) (Auto) 0 % (0-3) Neutrophils # (Auto) 7.6 x10^3/uL (1.8-7.7) Lymphocytes # (Auto) 1.2 x10^3/uL (1.0-4.8) Monocytes # (Auto) 0.7 x10^3/uL (0.0-1.1) Eosinophils # (Auto) 0.1 x10^3/uL (0.0-0.7) Basophils # (Auto) 0.0 x10^3/uL (0.0-0.2) Sodium Level 133 mmol/L (136-145) Potassium Level 4.2 mmol/L (3.5-5.1) Chloride Level 98 mmol/L (98-107) Carbon Dioxide Level 30 mmol/L (21-32) Anion Gap 5 (6-14) Blood Urea Nitrogen 16 mg/dL (8-26) Creatinine 0.6 mg/dL (0.7-1.3) Estimated GFR (Cockcroft-Gault) 135.2 Glucose Level 87 mg/dL (70-99) Calcium Level 8.2 mg/dL (8.5-10.1) Magnesium Level 1.7 mg/dL (1.8-2.4) Assessment and Plan Assessmemt and Plan Problems Medical Problems: (1) Kidney failure, acute Status: Acute (2) Person under investigation for COVID-19 Status: Acute (3) Pneumonia Status: Acute (4) Septic shock Status: Acute (5) Subacute subdural hematoma Status: Acut COVID-19 respiratory failure Weakness Mental status change Flu symptoms Hyperlipidemia Hypertension Seizures Left carpal tunnel surgery AAA repair Previous tobacco abuse. 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 Medications: Current Medications Medications (Trade) Dose Ordered Sig/Natacha Route PRN Reason Start Time Stop Time Status Last Admin Dose Admin Magnesium Oxide (Magnesium Oxide) 400 mg DAILY PO 06/02/21 09:00 06/02/21 08:52 Justifications for Admission Other Justification CLAYTON PHILIP III DO Jun 02, 2021 12:03
[2021-06-02] MEDS ORDERED: MAGNESIUM SULFATE 2GM 50 ML IV ONE (13:00)
--- NOTE | 2021-06-02 13:28 | PDOC ---
PROGRESS NOTES Date of Service DATE: 06/02/21 TIME: 13:26 Subjective Subjective Patient seen and evaluated. Objective Objective Vital Signs Date Time Temp Pulse Resp B/P (MAP) Pulse Ox O2 Delivery O2 Flow Rate FiO2 06/02/21 10:35 96.4 81 20 109/56 (73) 91 Nasal Cannula 8.0 96.4 Intake and Output 06/02/21 07:00 Intake Total 3110 ml Output Total 3400 ml Balance -290 ml Intake Oral 3010 ml IV Total 100 ml Output Urine Total 3400 ml # Voids 1 Physical Exam Physical Exam Visual examination secondary to Covid status. Assessment Assessment Problems Medical Problems: (1) Kidney failure, acute Status: Acute (2) Person under investigation for COVID-19 Status: Acute (3) Pneumonia Status: Acute (4) Septic shock Status: Acute (5) Subacute subdural hematoma Status: Acute Acute respiratory failure; multifactorial with COVID PNA, probable aspiration PNA, and underlying COPD. Continues slow improvement. AFIB wtih RVR; new onset in setting of above. converted back to SR. Continue beta-blockers. Outpatient echo and follow-up. OPHELIA; improving s/p IVFs. Followed by renal. Traumatic fall lat week with SDH; repeat CT head stable. Seen by neurosurgery. Hypertension; controlled Hyperlipidemia; LDL 38 Hypomagnesemia. Replacing. Abdominal aortic aneurysm s/p endograft repair Comment Review of Relevant I have reviewed the following items farhat (where applicable) has been applied. Labs Laboratory Tests Test 06/01/21 04:30 06/02/21 04:30 White Blood Count 11.5 x10^3/uL (4.0-11.0) 9.8 x10^3/uL (4.0-11.0) Red Blood Count 3.33 x10^6/uL (4.30-5.70) 3.34 x10^6/uL (4.30-5.70) Hemoglobin 10.4 g/dL (13.0-17.5) 10.7 g/dL (13.0-17.5) Hematocrit 31.0 % (39.0-53.0) 31.0 % (39.0-53.0) Mean Corpuscular Volume 93 fL (79-100) 93 fL (79-100) Mean Corpuscular Hemoglobin 31 pg (25-35) 32 pg (25-35) Mean Corpuscular Hemoglobin Concent 34 g/dL (31-37) 35 g/dL (31-37) Red Cell Distribution Width 14.4 % (11.5-14.5) 14.7 % (11.5-14.5) Platelet Count 143 x10^3/uL (140-400) 169 x10^3/uL (140-400) Neutrophils (%) (Auto) 81 % (31-73) 78 % (31-73) Lymphocytes (%) (Auto) 10 % (24-48) 13 % (24-48) Monocytes (%) (Auto) 8 % (0-9) 8 % (0-9) Eosinophils (%) (Auto) 1 % (0-3) 1 % (0-3) Basophils (%) (Auto) 0 % (0-3) 0 % (0-3) Neutrophils # (Auto) 9.3 x10^3/uL (1.8-7.7) 7.6 x10^3/uL (1.8-7.7) Lymphocytes # (Auto) 1.2 x10^3/uL (1.0-4.8) 1.2 x10^3/uL (1.0-4.8) Monocytes # (Auto) 0.9 x10^3/uL (0.0-1.1) 0.7 x10^3/uL (0.0-1.1) Eosinophils # (Auto) 0.1 x10^3/uL (0.0-0.7) 0.1 x10^3/uL (0.0-0.7) Basophils # (Auto) 0.0 x10^3/uL (0.0-0.2) 0.0 x10^3/uL (0.0-0.2) Sodium Level 132 mmol/L (136-145) 133 mmol/L (136-145) Potassium Level 4.0 mmol/L (3.5-5.1) 4.2 mmol/L (3.5-5.1) Chloride Level 98 mmol/L (98-107) 98 mmol/L (98-107) Carbon Dioxide Level 32 mmol/L (21-32) 30 mmol/L (21-32) Anion Gap 2 (6-14) 5 (6-14) Blood Urea Nitrogen 22 mg/dL (8-26) 16 mg/dL (8-26) Creatinine 0.6 mg/dL (0.7-1.3) 0.6 mg/dL (0.7-1.3) Estimated GFR (Cockcroft-Gault) 135.2 135.2 Glucose Level 90 mg/dL (70-99) 87 mg/dL (70-99) Calcium Level 7.8 mg/dL (8.5-10.1) 8.2 mg/dL (8.5-10.1) Magnesium Level 1.5 mg/dL (1.8-2.4) 1.7 mg/dL (1.8-2.4) Laboratory Tests Test 06/02/21 04:30 White Blood Count 9.8 x10^3/uL (4.0-11.0) Red Blood Count 3.34 x10^6/uL (4.30-5.70) Hemoglobin 10.7 g/dL (13.0-17.5) Hematocrit 31.0 % (39.0-53.0) Mean Corpuscular Volume 93 fL (79-100) Mean Corpuscular Hemoglobin 32 pg (25-35) Mean Corpuscular Hemoglobin Concent 35 g/dL (31-37) Red Cell Distribution Width 14.7 % (11.5-14.5) Platelet Count 169 x10^3/uL (140-400) Neutrophils (%) (Auto) 78 % (31-73) Lymphocytes (%) (Auto) 13 % (24-48) Monocytes (%) (Auto) 8 % (0-9) Eosinophils (%) (Auto) 1 % (0-3) Basophils (%) (Auto) 0 % (0-3) Neutrophils # (Auto) 7.6 x10^3/uL (1.8-7.7) Lymphocytes # (Auto) 1.2 x10^3/uL (1.0-4.8) Monocytes # (Auto) 0.7 x10^3/uL (0.0-1.1) Eosinophils # (Auto) 0.1 x10^3/uL (0.0-0.7) Basophils # (Auto) 0.0 x10^3/uL (0.0-0.2) Sodium Level 133 mmol/L (136-145) Potassium Level 4.2 mmol/L (3.5-5.1) Chloride Level 98 mmol/L (98-107) Carbon Dioxide Level 30 mmol/L (21-32) Anion Gap 5 (6-14) Blood Urea Nitrogen 16 mg/dL (8-26) Creatinine 0.6 mg/dL (0.7-1.3) Estimated GFR (Cockcroft-Gault) 135.2 Glucose Level 87 mg/dL (70-99) Calcium Level 8.2 mg/dL (8.5-10.1) Magnesium Level 1.7 mg/dL (1.8-2.4) Microbiology 05/26/21 Blood Culture - Final, Complete NO GROWTH AFTER 5 DAYS 05/26/21 Gram Stain Evaluation - Final, Complete 05/26/21 Respiratory Culture - Final, Complete 05/26/21 Antimicrobic Susceptibility - Final, Complete Medications Current Medications Sodium Chloride 1,000 ml @ 1,000 mls/hr 1X ONCE IV Last administered on 05/26/21at 18:40; Start 05/26/21 at 18:00; Stop 05/26/21 at 18:59; Status DC Methylprednisolone Sodium Succinate (SOLU-Medrol 125MG VIAL) 80 mg 1X ONCE IV Last administered on 05/26/21at 18:42; Start 05/26/21 at 18:30; Stop 05/26/21 at 18:31; Status DC Albuterol Sulfate (Ventolin Neb Soln) 2.5 mg 1X ONCE NEB Last administered on 05/26/21at 18:30; Start 05/26/21 at 18:30; Stop 05/26/21 at 18:31; Status DC Sodium Chloride 1,000 ml @ 1,000 mls/hr 1X ONCE IV Last administered on 05/26/21at 18:45; Start 05/26/21 at 18:45; Stop 05/26/21 at 19:44; Status DC Piperacillin Sod/ Tazobactam Sod 3.375 gm/Sodium Chloride 50 ml @ 100 mls/hr 1X ONCE IV Last administered on 05/26/21at 19:12; Start 05/26/21 at 18:45; Stop 05/26/21 at 19:14; Status DC Sodium Chloride 1,000 ml @ 100 mls/hr Q10H IV Last administered on 05/27/21at 16:06; Start 05/26/21 at 20:15; Stop 05/27/21 at 20:14; Status DC Acetaminophen (Tylenol) 650 mg PRN Q4HRS PRN PO FEVER > 100.3'F Last administered on 05/27/21at 16:07; Start 05/26/21 at 20:15; Stop 05/27/21 at 20:14; Status DC Methylprednisolone Sodium Succinate (SOLU-Medrol 40MG VIAL) 80 mg Q8HRS ONCE IV Last administered on 05/26/21at 22:40; Start 05/26/21 at 22:00; Stop 05/26/21 at 22:01; Status DC Piperacillin Sod/ Tazobactam Sod 3.375 gm/Sodium Chloride 50 ml @ 100 mls/hr Q6HRS IV ; Start 05/27/21 at 00:00; Stop 05/26/21 at 22:59; Status DC Piperacillin Sod/ Tazobactam Sod 2.25 gm/Sodium Chloride 50 ml @ 100 mls/hr Q8HRS IV Last administered on 05/27/21at 05:47; Start 05/27/21 at 06:00; Stop 05/27/21 at 13:13; Status DC Remdesivir 200 mg/ Sodium Chloride 210 ml @ 210 mls/hr 1X ONCE IV Last administered on 05/27/21at 14:24; Start 05/27/21 at 14:00; Stop 05/27/21 at 14:59; Status DC Remdesivir 100 mg/ Sodium Chloride 230 ml @ 460 mls/hr Q24H IV Last administered on 05/31/21at 14:52; Start 05/28/21 at 14:00; Stop 05/31/21 at 14:29; Status DC Doxycycline Hyclate 100 mg/ Dextrose 100 ml @ 50 mls/hr Q12HR IV Last administered on 06/02/21at 08:54; Start 05/27/21 at 14:00 Aspirin (Aspirin Chewable) 81 mg DAILYWBKFT PO Last administered on 06/02/21at 08:53; Start 05/28/21 at 08:00 Guaifenesin/ Codeine Phosphate (Robitussin Ac) 5 ml PRN Q6HRS PRN PO COUGH; Start 05/27/21 at 13:15 Methylprednisolone Sodium Succinate (SOLU-Medrol 40MG VIAL) 40 mg BID IV Last administered on 06/02/21at 08:54; Start 05/27/21 at 21:00; Stop 06/02/21 at 09:40; Status DC Multivitamins (Thera M Plus) 1 tab DAILY PO Last administered on 06/02/21at 08:53; Start 05/28/21 at 09:00 Ceftriaxone Sodium (Rocephin) 1 gm Q24H IVP Last administered on 06/01/21at 15:08; Start 05/27/21 at 14:00 Amoxicillin/ Clavulanate Potassium (Augmentin 875/ 125mg) 1 tab BID PO ; Start 05/27/21 at 21:00; Status UNV Hydrochlorothiazide (Microzide) 25 mg DAILY PO Last administered on 05/30/21at 09:47; Start 05/28/21 at 09:00; Stop 05/30/21 at 11:04; Status DC Lisinopril (Prinivil) 10 mg DAILY PO Last administered on 06/02/21at 08:52; Start 05/28/21 at 09:00 Acetaminophen/ Butalbital/ Caffeine (Fioricet) 1 tab PRN Q6HRS PRN PO MIGRAINE HEADACHE; Start 05/27/21 at 15:00 Phenytoin Sodium (Dilantin) 400 mg BID PO Last administered on 06/02/21at 08:53; Start 05/27/21 at 21:00 Atorvastatin Calcium (Lipitor) 20 mg QHS PO Last administered on 06/01/21at 19:49; Start 05/27/21 at 21:00 Potassium Chloride (Klor-Con) 40 meq 1X ONCE PO Last administered on 05/27/21at 16:06; Start 05/27/21 at 15:15; Stop 05/27/21 at 15:16; Status DC Lactobacillus Rhamnosus (Culturelle) 1 cap BID PO Last administered on 06/02/21at 08:51; Start 05/28/21 at 09:00 Labetalol HCl (Normodyne Iv Push) 5 mg 1X ONCE IVP ; Start 05/28/21 at 08:30; Stop 05/28/21 at 08:33; Status DC Morphine Sulfate (Morphine Sulfate) 2 mg PRN Q2HR PRN IVP PAIN Last administered on 05/28/21at 08:38; Start 05/28/21 at 08:30 Metoprolol Tartrate (Lopressor Vial) 5 mg 1X ONCE IVP Last administered on 05/28/21at 08:38; Start 05/28/21 at 08:45; Stop 05/28/21 at 08:48; Status DC Metoprolol Tartrate (Lopressor) 25 mg BID PO Last administered on 05/29/21at 09:19; Start 05/28/21 at 09:00; Stop 05/29/21 at 13:56; Status DC Acetaminophen (Tylenol) 650 mg PRN Q6HRS PRN PO MILD PAIN / TEMP > 100.3'F Last administered on 06/02/21at 10:22; Start 05/28/21 at 11:00 Potassium Chloride (Klor-Con) 40 meq 1X ONCE PO Last administered on 05/28/21at 11:32; Start 05/28/21 at 11:15; Stop 05/28/21 at 11:16; Status DC Potassium Chloride (Klor-Con) 40 meq 1X ONCE PO Last administered on 05/28/21at 14:59; Start 05/28/21 at 14:15; Stop 05/28/21 at 14:16; Status DC Magnesium Sulfate 50 ml @ 25 mls/hr 1X ONCE IV Last administered on 05/28/21at 11:34; Start 05/28/21 at 12:00; Stop 05/28/21 at 13:59; Status DC Magnesium Sulfate 50 ml @ 25 mls/hr 1X ONCE IV ; Start 05/29/21 at 08:45; Stop 05/29/21 at 10:44; Status UNV Magnesium Sulfate 50 ml @ 25 mls/hr 1X ONCE IV Last administered on 05/29/21at 09:17; Start 05/29/21 at 09:30; Stop 05/29/21 at 11:29; Status DC Metoprolol Tartrate (Lopressor) 50 mg BID PO Last administered on 06/02/21at 08:52; Start 05/29/21 at 21:00 Metoprolol Tartrate (Lopressor) 25 mg 1X ONCE PO Last administered on 05/29/21at 14:14; Start 05/29/21 at 14:30; Stop 05/29/21 at 14:31; Status DC Magnesium Sulfate 50 ml @ 25 mls/hr 1X ONCE IV Last administered on 05/30/21at 11:44; Start 05/30/21 at 11:30; Stop 05/30/21 at 13:29; Status DC Potassium Chloride/Water 100 ml @ 100 mls/hr Q1H IV Last administered on 05/30/21at 11:45; Start 05/30/21 at 11:30; Stop 05/30/21 at 14:17; Status DC Magnesium Sulfate 50 ml @ 25 mls/hr 1X ONCE IV ; Start 05/30/21 at 12:15; Stop 05/30/21 at 14:14; Status UNV Magnesium Sulfate 50 ml @ 25 mls/hr 1X ONCE IV ; Start 05/30/21 at 12:15; Stop 05/30/21 at 14:14; Status UNV Magnesium Sulfate 100 ml @ 25 mls/hr 1X ONCE IV ; Start 05/30/21 at 12:30; Stop 05/30/21 at 16:29; Status Cancel Potassium Chloride (Klor-Con) 40 meq 1X ONCE PO Last administered on 05/30/21at 14:56; Start 05/30/21 at 13:45; Stop 05/30/21 at 14:20; Status DC Potassium Chloride (Klor-Con) 20 meq 1X ONCE PO Last administered on 05/30/21at 17:02; Start 05/30/21 at 17:00; Stop 05/30/21 at 17:01; Status DC Potassium Chloride (Klor-Con) 20 meq 1X ONCE PO Last administered on 05/31/21at 11:55; Start 05/31/21 at 11:30; Stop 05/31/21 at 11:31; Status DC Magnesium Sulfate 50 ml @ 25 mls/hr 1X ONCE IV Last administered on 05/31/21at 11:55; Start 05/31/21 at 11:30; Stop 05/31/21 at 13:29; Status DC Magnesium Sulfate 50 ml @ 25 mls/hr 1X ONCE IV ; Start 05/31/21 at 12:45; Stop 05/31/21 at 14:44; Status UNV Magnesium Sulfate 50 ml @ 25 mls/hr PRN DAILY PRN IV for Mag < 1.7 on am labs Last administered on 06/02/21at 11:50; Start 05/31/21 at 17:15 Magnesium Oxide (Magnesium Oxide) 400 mg DAILY PO Last administered on 06/02/21at 08:52; Start 06/02/21 at 09:00 Magnesium Sulfate 50 ml @ 25 mls/hr 1X ONCE IV Last administered on 06/01/21at 12:07; Start 06/01/21 at 11:00; Stop 06/02/21 at 12:26; Status DC Magnesium Sulfate 50 ml @ 25 mls/hr PRN DAILY PRN IV for mag < 1.7; Start 06/01/21 at 15:00 Prednisone (Prednisone) 40 mg DAILY PO ; Start 06/03/21 at 09:00 Magnesium Sulfate 50 ml @ 25 mls/hr 1X ONCE IV ; Start 06/02/21 at 13:00; Stop 06/02/21 at 14:59; Status Cancel Active Scripts Active Reported Lisinopril 10 Mg Tablet 1 Tab PO DAILY Hydrochlorothiazide Capsule (Hydrochlorothiazide) 12.5 Mg Capsule 25 Mg PO DAILY Pravastatin Sodium 80 Mg Tablet 1 Tab PO QHS Phenytoin Sodium Extended 200 Mg Capsule 2 Cap PO BID 30 Days Soqxak-Soqptvej-Tdei 50-300-40 (Butalb/Acetaminophen/Caffeine) 1 Each Capsule 1 Each PO PRN QID PRN Vitals/I & O Vital Sign - Last 24 Hours 06/01/21 06/01/21 06/01/21 06/01/21 15:19 19:00 19:49 20:00 Temp 96.5 98.1 96.5 98.1 Pulse 82 95 82 Resp 18 20 B/P (MAP) 127/73 (91) 125/59 (81) 127/73 Pulse Ox 93 93 O2 Delivery Nasal Cannula Nasal Cannula Nasal Cannula O2 Flow Rate 8.0 8.0 8.0 06/01/21 06/02/21 06/02/21 06/02/21 23:00 02:43 07:00 08:00 Temp 98.1 98.3 97.3 98.1 98.3 97.3 Pulse 75 97 86 Resp 20 19 22 B/P (MAP) 165/120 (135) 119/89 (99) 138/68 (91) Pulse Ox 93 97 94 O2 Delivery Nasal Cannula Nasal Cannula Nasal Cannula Nasal Cannula O2 Flow Rate 8.0 8.0 8.0 8.0 06/02/21 06/02/21 06/02/21 08:52 08:52 10:35 Temp 96.4 96.4 Pulse 86 86 81 Resp 20 B/P (MAP) 138/68 138/68 109/56 (73) Pulse Ox 91 O2 Delivery Nasal Cannula O2 Flow Rate 8.0 Intake and Output 06/01/21 06/01/21 06/02/21 15:00 23:00 07:00 Intake Total 900 ml 1110 ml 1100 ml Output Total 1500 ml 1500 ml 400 ml Balance -600 ml -390 ml 700 ml Justifications for Admission Other Justification Nutrition Consultation Dietary Evaluation: Recommendations by RD: Dietary education by RD, Increase Calorie Intake, Protein supplementation Comments: ensure enlive tid Expected Outcomes/Goals: to meet >75% est nutr needs Malnutrition Findings: Food and Nutrition Intake (Sev: <50% est energy req 5days Weight Status: Underweight EL OSPINA MD Jun 02, 2021 13:28
[2021-06-02] MEDS: cefTRIAXone IV Push 1 GM VIAL. IVP SCH (14:16)
[2021-06-02 15:00] VITALS: BP 108/62
[2021-06-02 19:40] VITALS: BP 110/63
[2021-06-02] MEDS: ATORVASTATIN CALCIUM 20 MG TABLET PO SCH (20:30)
[2021-06-02 23:05] VITALS: BP 94/55
[2021-06-03] MEDS: BUTALB/APAP/CAFEIN 50/325/40MG TABLET. PO PRN ×2 (02:21→20:27)
[2021-06-03 03:15] VITALS: BP 108/62
[2021-06-03 05:01] LABS: BASO # 0.1 x10^3/uL (0.0-0.2); BASO % 1 % (0-3); EOS # 0.2 x10^3/uL (0.0-0.7); EOS % 2 % (0-3); HEMATOCRIT 30.2 % (39.0-53.0); HEMOGLOBIN 10.3 g/dL (13.0-17.5); LYMPH # 1.2 x10^3/uL (1.0-4.8); LYMPH % 10 % (24-48); MEAN CORPUSCULAR HEMOGLOBIN 32 pg (25-35); MEAN CORPUSCULAR HGB CONC 34 g/dL (31-37); MEAN CORPUSCULAR VOLUME 94 fL (79-100); MONO # 0.8 x10^3/uL (0.0-1.1); MONO % 7 % (0-9); NEUT # 9.7 x10^3/uL (1.8-7.7); NEUT % 82 % (31-73); PLATELET COUNT 189 x10^3/uL (140-400); RED BLOOD COUNT 3.23 x10^6/uL (4.30-5.70); RED CELL DISTRIBUTION WIDTH 14.7 % (11.5-14.5); WHITE BLOOD COUNT 11.8 x10^3/uL (4.0-11.0)
[2021-06-03 05:14] LABS: CALCIUM 8.1 mg/dL (8.5-10.1); CREATININE 0.6 mg/dL (0.7-1.3); GFR 135.2
[2021-06-03 07:00] VITALS: BP 114/59
[2021-06-03] MEDS ORDERED: MAGNESIUM SULFATE 2GM 50 ML IV ONE (08:00)
--- NOTE | 2021-06-03 08:43 | PDOC ---
PULMONARY PROGRESS NOTES DATE: 06/03/21 TIME: 08:43 Subjective Not more short of air Vitals Vital Signs Date Time Temp Pulse Resp B/P (MAP) Pulse Ox O2 Delivery O2 Flow Rate FiO2 06/03/21 03:15 97.1 87 22 108/62 (77) 94 Nasal Cannula 8.0 97.1 ROS: No Nausea, No Chest Pain, No Abdominal Pain, No Increase Cough Lungs: Other (no accessory muscle use ) Cardiovascular: S1, S2 Neuro Exam: Alert Extremities: No Edema Skin: No Rashes Labs Laboratory Tests Test 06/02/21 04:30 06/03/21 04:40 White Blood Count 9.8 x10^3/uL (4.0-11.0) 11.8 x10^3/uL (4.0-11.0) Red Blood Count 3.34 x10^6/uL (4.30-5.70) 3.23 x10^6/uL (4.30-5.70) Hemoglobin 10.7 g/dL (13.0-17.5) 10.3 g/dL (13.0-17.5) Hematocrit 31.0 % (39.0-53.0) 30.2 % (39.0-53.0) Mean Corpuscular Volume 93 fL (79-100) 94 fL (79-100) Mean Corpuscular Hemoglobin 32 pg (25-35) 32 pg (25-35) Mean Corpuscular Hemoglobin Concent 35 g/dL (31-37) 34 g/dL (31-37) Red Cell Distribution Width 14.7 % (11.5-14.5) 14.7 % (11.5-14.5) Platelet Count 169 x10^3/uL (140-400) 189 x10^3/uL (140-400) Neutrophils (%) (Auto) 78 % (31-73) 82 % (31-73) Lymphocytes (%) (Auto) 13 % (24-48) 10 % (24-48) Monocytes (%) (Auto) 8 % (0-9) 7 % (0-9) Eosinophils (%) (Auto) 1 % (0-3) 2 % (0-3) Basophils (%) (Auto) 0 % (0-3) 1 % (0-3) Neutrophils # (Auto) 7.6 x10^3/uL (1.8-7.7) 9.7 x10^3/uL (1.8-7.7) Lymphocytes # (Auto) 1.2 x10^3/uL (1.0-4.8) 1.2 x10^3/uL (1.0-4.8) Monocytes # (Auto) 0.7 x10^3/uL (0.0-1.1) 0.8 x10^3/uL (0.0-1.1) Eosinophils # (Auto) 0.1 x10^3/uL (0.0-0.7) 0.2 x10^3/uL (0.0-0.7) Basophils # (Auto) 0.0 x10^3/uL (0.0-0.2) 0.1 x10^3/uL (0.0-0.2) Sodium Level 133 mmol/L (136-145) 132 mmol/L (136-145) Potassium Level 4.2 mmol/L (3.5-5.1) 4.0 mmol/L (3.5-5.1) Chloride Level 98 mmol/L (98-107) 98 mmol/L (98-107) Carbon Dioxide Level 30 mmol/L (21-32) 31 mmol/L (21-32) Anion Gap 5 (6-14) 3 (6-14) Blood Urea Nitrogen 16 mg/dL (8-26) 19 mg/dL (8-26) Creatinine 0.6 mg/dL (0.7-1.3) 0.6 mg/dL (0.7-1.3) Estimated GFR (Cockcroft-Gault) 135.2 135.2 Glucose Level 87 mg/dL (70-99) 87 mg/dL (70-99) Calcium Level 8.2 mg/dL (8.5-10.1) 8.1 mg/dL (8.5-10.1) Magnesium Level 1.7 mg/dL (1.8-2.4) 1.6 mg/dL (1.8-2.4) Laboratory Tests Test 06/03/21 04:40 White Blood Count 11.8 x10^3/uL (4.0-11.0) Red Blood Count 3.23 x10^6/uL (4.30-5.70) Hemoglobin 10.3 g/dL (13.0-17.5) Hematocrit 30.2 % (39.0-53.0) Mean Corpuscular Volume 94 fL (79-100) Mean Corpuscular Hemoglobin 32 pg (25-35) Mean Corpuscular Hemoglobin Concent 34 g/dL (31-37) Red Cell Distribution Width 14.7 % (11.5-14.5) Platelet Count 189 x10^3/uL (140-400) Neutrophils (%) (Auto) 82 % (31-73) Lymphocytes (%) (Auto) 10 % (24-48) Monocytes (%) (Auto) 7 % (0-9) Eosinophils (%) (Auto) 2 % (0-3) Basophils (%) (Auto) 1 % (0-3) Neutrophils # (Auto) 9.7 x10^3/uL (1.8-7.7) Lymphocytes # (Auto) 1.2 x10^3/uL (1.0-4.8) Monocytes # (Auto) 0.8 x10^3/uL (0.0-1.1) Eosinophils # (Auto) 0.2 x10^3/uL (0.0-0.7) Basophils # (Auto) 0.1 x10^3/uL (0.0-0.2) Sodium Level 132 mmol/L (136-145) Potassium Level 4.0 mmol/L (3.5-5.1) Chloride Level 98 mmol/L (98-107) Carbon Dioxide Level 31 mmol/L (21-32) Anion Gap 3 (6-14) Blood Urea Nitrogen 19 mg/dL (8-26) Creatinine 0.6 mg/dL (0.7-1.3) Estimated GFR (Cockcroft-Gault) 135.2 Glucose Level 87 mg/dL (70-99) Calcium Level 8.1 mg/dL (8.5-10.1) Magnesium Level 1.6 mg/dL (1.8-2.4) Medications Active Scripts Medications Dose Route/Sig Max Daily Dose Days Date Category Lisinopril 10 Mg Tablet 1 Tab PO DAILY 05/27/21 Reported Hydrochlorothiazide Capsule (Hydrochlorothiazide) 12.5 Mg Capsule 25 Mg PO DAILY 05/27/21 Reported Pravastatin Sodium 80 Mg Tablet 1 Tab PO QHS 05/27/21 Reported Phenytoin Sodium Extended 200 Mg Capsule 2 Cap PO BID 30 05/27/21 Reported Uhgkrs-Ssuwtgqf-Bqkd 50-300-40 (Butalb/Acetaminophen/Caffeine) 1 Each Capsule 1 Each PO PRN QID PRN 05/27/21 Reported Augmentin 875-125 Tablet (Amoxicillin/Potassium Clav) 1 Each Tablet 1 Tab PO BID 05/16/17 Rx Impression . IMPRESSION: 1. Acute hypoxemic respiratory failure, multifactorial. 2. COVID-19 viral pneumonia. 3. Subdural hematoma. 4. Recent fall. 5. CT chest revealing evidence of extensive consolidation opacities, mainly in the lower half of the right lung. 6. Possible aspiration pneumonia. 7. Acute exacerbation of chronic obstructive pulmonary disease. 8. History of AAA repair. 9. Acute renal failure. 10. Leukocytosis. Plan . Updated 05/09 27 Continue current support Solu-Medrol Oxygen supplementation Follow neuro surgery input, for subdural hematoma updated 06/02 titrate fio2 to keep sat 90% abx change solumdrol to pred 40 daily w taper Continue oxygen supplementation Subdural hematoma per neurosurgery discussed w rt Updated 06/01 titrate fio2 to keep sat 90% abx solumdrol 40 bid Continue oxygen supplementation Subdural hematoma per neurosurgery MARGARET LEDEZMA MD Jun 03, 2021 08:43
[2021-06-03] MEDS: MAGNESIUM OXIDE 400 MG TABLET PO SCH (09:48)
[2021-06-03] MEDS: PHENYTOIN SODIUM EXTENDED 100 MG CAPSULE PO SCH ×2 (09:48→20:29)
[2021-06-03] MEDS: MULTIVITAMIN with MINERAL TABLET. PO SCH (09:48)
[2021-06-03] MEDS: ASPIRIN CHEWABLE 81 MG TABLET. PO SCH (09:49)
[2021-06-03] MEDS: LACTOBACILLUS RHAMNOSUS GG 1 CAPSULE. PO SCH ×2 (09:49→20:27)
[2021-06-03] MEDS: predniSONE 20 MG TABLET PO SCH (09:49)
[2021-06-03] MEDS: LISINOPRIL 10 MG TABLET PO SCH (09:49)
[2021-06-03] MEDS: METOPROLOL TART IMMED RELEASE 50 MG TABLET. PO SCH ×2 (09:50→20:27)
[2021-06-03] MEDS: DOXYCYCLINE HYCLATE 100 MG in IV DEXTROSE 5% 100ML 100 ML IV SCH ×2 (09:50→20:31)
[2021-06-03 11:00] VITALS: BP 102/59
--- NOTE | 2021-06-03 11:22 | PDOC ---
[facility] PROGRESS NOTE Date of Service DOS: DATE: 06/03/21 TIME: 11:21 Chief Complaint Chief Complaint A/P: Acute respiratory failure with hypoxia - due to COVID 19 - oxygen supplementation, Remdesivir, Steroids, Empiric antibiotics. COVID 19 pneumonia Weakness Mental status change Flu symptoms Hyperlipidemia Hypertension - hypotensive on admit Seizures OPHELIA - Vasomotor nephropathy/Dehydration/ Hypotension Non oliguric, Resolved with IVF . UA unremarkable, CT scan kidneys and Bladder Unremarkable. Supportive care Hypokalemia- Normal K ; replace as indicated HypoMg - replace IV HypoNatremia - held HCTZ , stable , mildly low Subacute subdural hematoma No intervention per NS AFIB wtih RVR - new onset in setting of above. converted back to SR. Continue beta-blockers. Outpatient echo and follow-up. h/o Left carpal tunnel surgery h/o AAA repair Previous tobacco abuse. History of Present Illness History of Present Illness Afebrile. Seen bedside on 8 L NC O2 with O2 saturations 92% but with movement desaturates to 86%. His appetite is improved a little bit. Magnesium 1.6. NA 134. K 4. 06/02/2021 Patient seen and examined. Chart reviewed. Discussed with RN. Patient is awake and alert. NAD. Patient is responsive. Patient relates that he is feeling better. Bruise on the right shoulder is still present. He said physical therapy came by and worked with him 2 days ago. He is on 8L 02 via NC with an oxygen saturation at 93% at rest, and drops down to 88-89 when talking. 06/01/2021 Patient seen and examined. Discussed with RN. Chart reviewed. Patient is awake with eyes open and alert. NAD. Patient is responsive and asking questions. Pena catheter has been taken out. Patient expresses feeling better and would like to go home. Patient is receiving doxycycline. FiO2 increased to 8L via NC since yesterday afternoon, previously was at 5L. Oxygen saturation at 7:00 this morning was around 87-89% on 8L NC. 05/31/2021 Patient seen and examined. Chart reviewed. Discussed with RN. Patient is awake with eyes open and alert. NAD. Patient is feeling a little better with more energy. Currently on 5L oxygen via NC. Bruise on the right shoulder. 05/30/2021 Patient seen and examined. Discussed with RN. Chart Reviewed. Patient is resting with NAD. Has Pena bedside drainage. Bruise on the right shoulder. Currently on 5L oxygen via NC. 05/29/2021 Patient seen and examined. Chart reviewed. Discussed with RN. Patient is awake and making eye contact. Bruise on the right shoulder is still present. Currently receiving doxycycline. Patient is back on 5L oxygen via NC. 05/28/2021 Patient seen and examined. Discussed with RN. Chart reviewed. Patient is weak but responsive. Resting, NAD. Patient has a bruise on the right shoulder. Currently receiving doxycycline. Patient is on 10L oxygen via NC (humidified). Developed Afib with RVR. Vitals/I&O Vitals/I&O: Vital Signs Date Time Temp Pulse Resp B/P (MAP) Pulse Ox O2 Delivery O2 Flow Rate FiO2 06/03/21 09:50 90 06/03/21 07:00 96.7 18 114/59 (77) 91 Nasal Cannula 10.0 96.7 I & O 06/02/21 06/02/21 06/03/21 15:00 23:00 07:00 Intake Total 1300 ml 320 ml 100 ml Output Total 900 ml 500 ml 450 ml Balance 400 ml -180 ml -350 ml Physical Exam General: Alert, Oriented X3, Cooperative, No acute distress Heart: Normal S1, Normal S2 Lungs: Other (no accessory muscle use ) Abdomen: Soft, No tenderness Extremities: No edema Skin: Other (right shoulder ecchymosis, lesion on the center of chest.) Labs Labs: Laboratory Tests Test 06/03/21 04:40 White Blood Count 11.8 x10^3/uL (4.0-11.0) Red Blood Count 3.23 x10^6/uL (4.30-5.70) Hemoglobin 10.3 g/dL (13.0-17.5) Hematocrit 30.2 % (39.0-53.0) Mean Corpuscular Volume 94 fL (79-100) Mean Corpuscular Hemoglobin 32 pg (25-35) Mean Corpuscular Hemoglobin Concent 34 g/dL (31-37) Red Cell Distribution Width 14.7 % (11.5-14.5) Platelet Count 189 x10^3/uL (140-400) Neutrophils (%) (Auto) 82 % (31-73) Lymphocytes (%) (Auto) 10 % (24-48) Monocytes (%) (Auto) 7 % (0-9) Eosinophils (%) (Auto) 2 % (0-3) Basophils (%) (Auto) 1 % (0-3) Neutrophils # (Auto) 9.7 x10^3/uL (1.8-7.7) Lymphocytes # (Auto) 1.2 x10^3/uL (1.0-4.8) Monocytes # (Auto) 0.8 x10^3/uL (0.0-1.1) Eosinophils # (Auto) 0.2 x10^3/uL (0.0-0.7) Basophils # (Auto) 0.1 x10^3/uL (0.0-0.2) Sodium Level 132 mmol/L (136-145) Potassium Level 4.0 mmol/L (3.5-5.1) Chloride Level 98 mmol/L (98-107) Carbon Dioxide Level 31 mmol/L (21-32) Anion Gap 3 (6-14) Blood Urea Nitrogen 19 mg/dL (8-26) Creatinine 0.6 mg/dL (0.7-1.3) Estimated GFR (Cockcroft-Gault) 135.2 Glucose Level 87 mg/dL (70-99) Calcium Level 8.1 mg/dL (8.5-10.1) Magnesium Level 1.6 mg/dL (1.8-2.4) Assessment and Plan Assessmemt and Plan Problems Medical Problems: (1) Kidney failure, acute Status: Acute (2) Person under investigation for COVID-19 Status: Acute (3) Pneumonia Status: Acute (4) Septic shock Status: Acute (5) Subacute subdural hematoma Status: Acute Comment Review of Relevant I have reviewed the following items farhat (where applicable) has been applied. Medications: Current Medications Medications (Trade) Dose Ordered Sig/Natacha Route PRN Reason Start Time Stop Time Status Last Admin Dose Admin Prednisone (Prednisone) 40 mg DAILY PO 06/03/21 09:00 06/03/21 09:49 Magnesium Sulfate 50 ml @ 25 mls/hr 1X ONCE IV 06/03/21 08:00 06/03/21 09:59 DC 06/03/21 09:52 Justifications for Admission Other Justification REGAN UNGER MD Jun 03, 2021 11:22
--- NOTE | 2021-06-03 12:38 | PDOC ---
CARDIO Progress Notes Date and Time Date of Service 06/03/21 Time of Evaluation 1230 Subjective Subjective: No Chest Pain, No shortness of breath, No Palpitations, Other (wanting to go home ) Vitals Vitals Vital Signs Date Time Temp Pulse Resp B/P (MAP) Pulse Ox O2 Delivery O2 Flow Rate FiO2 06/03/21 11:00 98.6 88 18 102/59 (73) 94 Nasal Cannula 10.0 98.6 Weight Weight [ ] Input and Output Intake and Output Intake and Output 06/03/21 07:00 Intake Total 1720 ml Output Total 1850 ml Balance -130 ml Intake Oral 1720 ml Output Urine Total 1850 ml Laboratory Labs Laboratory Tests Test 06/03/21 04:40 White Blood Count 11.8 x10^3/uL (4.0-11.0) Red Blood Count 3.23 x10^6/uL (4.30-5.70) Hemoglobin 10.3 g/dL (13.0-17.5) Hematocrit 30.2 % (39.0-53.0) Mean Corpuscular Volume 94 fL (79-100) Mean Corpuscular Hemoglobin 32 pg (25-35) Mean Corpuscular Hemoglobin Concent 34 g/dL (31-37) Red Cell Distribution Width 14.7 % (11.5-14.5) Platelet Count 189 x10^3/uL (140-400) Neutrophils (%) (Auto) 82 % (31-73) Lymphocytes (%) (Auto) 10 % (24-48) Monocytes (%) (Auto) 7 % (0-9) Eosinophils (%) (Auto) 2 % (0-3) Basophils (%) (Auto) 1 % (0-3) Neutrophils # (Auto) 9.7 x10^3/uL (1.8-7.7) Lymphocytes # (Auto) 1.2 x10^3/uL (1.0-4.8) Monocytes # (Auto) 0.8 x10^3/uL (0.0-1.1) Eosinophils # (Auto) 0.2 x10^3/uL (0.0-0.7) Basophils # (Auto) 0.1 x10^3/uL (0.0-0.2) Sodium Level 132 mmol/L (136-145) Potassium Level 4.0 mmol/L (3.5-5.1) Chloride Level 98 mmol/L (98-107) Carbon Dioxide Level 31 mmol/L (21-32) Anion Gap 3 (6-14) Blood Urea Nitrogen 19 mg/dL (8-26) Creatinine 0.6 mg/dL (0.7-1.3) Estimated GFR (Cockcroft-Gault) 135.2 Glucose Level 87 mg/dL (70-99) Calcium Level 8.1 mg/dL (8.5-10.1) Magnesium Level 1.6 mg/dL (1.8-2.4) Microbiology Micro Microbiology 05/26/21 Blood Culture - Final, Complete NO GROWTH AFTER 5 DAYS 05/26/21 Gram Stain Evaluation - Final, Complete 05/26/21 Respiratory Culture - Final, Complete 05/26/21 Antimicrobic Susceptibility - Final, Complete Physical Exam HEENT: Neck Supple W Full Motion Chest: Symmetric LUNGS: Other (on NC) Heart: RRR (SR) Abdomen: Soft N/T Extremities: No Edema Neurology: alert, oriented, follow commands Assessment Assessment 1. Acute respiratory failure secondary; multifactorial with COVID PNA, probable aspiration PNA, and underlying COPD 2. Leukocytosis, lactic acidosis 3. AFIB wtih RVR; new onset in setting of above. converted back to SR and is maintaining 4. OPHELIA; improved 5. Traumatic fall lat week with SDH; repeat CT head stable 6. Hypertension; controlled 7. Hyperlipidemia; LDL 38 8. Hypomagnesemia 9. Abdominal aortic aneurysm s/p endograft repair 10. Metabolic encephalopathy; improved. Patient has poor insight into condition Recommendations Continue Metoprolol for rate control Replace electrolytes as warranted ASA for stroke prophylaxis No OAC with SDH Outpatient echo when recovered from COVID Ongoing lung optimization, treatment of COVID Outpatient event monitor to guide therapy Supportive care Follow up in our office with Dr. Sanchez has been arranged. Justicifation of Admission Dx: Justifications for Admission: Justification of Admission Dx: Yes Acute Renal Failure: 3-Fold Rise in Serum Crea LOW ALMANZA APRN Jun 03, 2021 12:38
[2021-06-03] MEDS: cefTRIAXone IV Push 1 GM VIAL. IVP SCH (13:12)
--- NOTE | 2021-06-03 14:39 | PDOC ---
DATE OF SERVICE DATE: 06/03/21 TIME: 14:37 SUBJECTIVE ROS No overnight concerns voiced by nursing OBJECTIVE Vital Signs Vital Signs Date Time Temp Pulse Resp B/P (MAP) Pulse Ox O2 Delivery O2 Flow Rate FiO2 06/03/21 11:00 98.6 88 18 102/59 (73) 94 Nasal Cannula 10.0 98.6 I & 0 Intake and Output 06/03/21 07:00 Intake Total 1720 ml Output Total 1850 ml Balance -130 ml Intake Oral 1720 ml Output Urine Total 1850 ml PHYSICAL EXAM Physical Exam General- NAD, HEEN On O2 by NC, Neck Supple Lungs decreased at bases CV S1S2 Abd Soft, NT Ext No LE edema. large bruise to his right shoulder from a fall about a week ago. No CVA or SP tenderness, Pena + Neuro Grossly normal Skin no rash DIAGNOSIS/ASSESSMENT Assessment & Plan OPHELIA - Vasomotor/Dehydration/ Hypotension Non oliguric, Resolved with IVF . UA unremarkable, CT scan kidneys and Bladder Unremarkable Supportive care, maintain Hydration, Strict I/O, avoid Nephrotoxins Hypokalemia- Normal K ; replace as indicated HypoMg - replace IV HypoNatremia held HCTZ , stable , mildly low Ac Resp Failure - oxygen supplementation, Remdesivir, Steroids, Empiric antibiotics. Hypotension- Improved with IVF Subacute subdural hematoma No intervention per NS CoVid 19 POsitive - exposure from his roommate Hx of HTN - Hypotensive since presentation to the ER Will sign off COMMENT/RELEVANT DATA Meds Current Medications Medications (Trade) Dose Ordered Sig/Natacha Start Time Stop Time Status Last Admin Dose Admin Acetaminophen (Tylenol) 650 mg PRN Q6HRS PRN 05/28/21 11:00 06/02/21 10:22 650 MG Acetaminophen/ Butalbital/ Caffeine (Fioricet) 1 tab PRN Q6HRS PRN 05/27/21 15:00 06/03/21 02:21 1 TAB Albuterol Sulfate (Ventolin Neb Soln) 2.5 mg 1X ONCE 05/26/21 18:30 05/26/21 18:31 DC 05/26/21 18:30 2.5 MG Amoxicillin/ Clavulanate Potassium (Augmentin 875/ 125mg) 1 tab BID 05/27/21 21:00 UNV Aspirin (Aspirin Chewable) 81 mg [id number] 05/28/21 08:00 06/03/21 09:49 81 MG Atorvastatin Calcium (Lipitor) 20 mg QHS 05/27/21 21:00 06/02/21 20:30 20 MG Ceftriaxone Sodium (Rocephin) 1 gm Q24H 05/27/21 14:00 06/03/21 13:12 1 GM Doxycycline Hyclate 100 mg/ Dextrose 100 ml @ 50 mls/hr Q12HR 05/27/21 14:00 06/03/21 09:50 50 MLS/HR Guaifenesin/ Codeine Phosphate (Robitussin Ac) 5 ml PRN Q6HRS PRN 05/27/21 13:15 Hydrochlorothiazide (Microzide) 25 mg DAILY 05/28/21 09:00 05/30/21 11:04 DC 05/30/21 09:47 25 MG Labetalol HCl (Normodyne Iv Push) 5 mg 1X ONCE 05/28/21 08:30 05/28/21 08:33 DC Lactobacillus Rhamnosus (Culturelle) 1 cap BID 05/28/21 09:00 06/03/21 09:49 1 CAP Lisinopril (Prinivil) 10 mg DAILY 05/28/21 09:00 06/03/21 09:49 10 MG Magnesium Oxide (Magnesium Oxide) 400 mg DAILY 06/02/21 09:00 06/03/21 09:48 400 MG Magnesium Sulfate 50 ml @ 25 mls/hr 1X ONCE 06/03/21 08:00 06/03/21 09:59 DC 06/03/21 09:52 25 MLS/HR Methylprednisolone Sodium Succinate (SOLU-Medrol 40MG VIAL) 40 mg BID 05/27/21 21:00 06/02/21 09:40 DC 06/02/21 08:54 40 MG Methylprednisolone Sodium Succinate (SOLU-Medrol 125MG VIAL) 80 mg 1X ONCE 05/26/21 18:30 05/26/21 18:31 DC 05/26/21 18:42 80 MG Metoprolol Tartrate (Lopressor Vial) 5 mg 1X ONCE 05/28/21 08:45 05/28/21 08:48 DC 05/28/21 08:38 5 MG Metoprolol Tartrate (Lopressor) 25 mg 1X ONCE 05/29/21 14:30 05/29/21 14:31 DC 05/29/21 14:14 25 MG Morphine Sulfate (Morphine Sulfate) 2 mg PRN Q2HR PRN 05/28/21 08:30 05/28/21 08:38 2 MG Multivitamins (Thera M Plus) 1 tab DAILY 05/28/21 09:00 06/03/21 09:48 1 TAB Phenytoin Sodium (Dilantin) 400 mg BID 05/27/21 21:00 06/03/21 09:48 400 MG Piperacillin Sod/ Tazobactam Sod 2.25 gm/Sodium Chloride 50 ml @ 100 mls/hr Q8HRS 05/27/21 06:00 05/27/21 13:13 DC 05/27/21 05:47 100 MLS/HR Piperacillin Sod/ Tazobactam Sod 3.375 gm/Sodium Chloride 50 ml @ 100 mls/hr Q6HRS 05/27/21 00:00 05/26/21 22:59 DC Potassium Chloride/Water 100 ml @ 100 mls/hr Q1H 05/30/21 11:30 05/30/21 14:17 DC 05/30/21 11:45 100 MLS/HR Potassium Chloride (Klor-Con) 20 meq 1X ONCE 05/31/21 11:30 05/31/21 11:31 DC 05/31/21 11:55 20 MEQ Prednisone (Prednisone) 40 mg DAILY 06/03/21 09:00 06/03/21 09:49 40 MG Remdesivir 100 mg/ Sodium Chloride 230 ml @ 460 mls/hr Q24H 05/28/21 14:00 05/31/21 14:29 DC 05/31/21 14:52 460 MLS/HR Remdesivir 200 mg/ Sodium Chloride 210 ml @ 210 mls/hr 1X ONCE 05/27/21 14:00 05/27/21 14:59 DC 05/27/21 14:24 210 MLS/HR Sodium Chloride 1,000 ml @ 100 mls/hr Q10H 05/26/21 20:15 05/27/21 20:14 DC 05/27/21 16:06 100 MLS/HR Lab Laboratory Tests Test 06/03/21 04:40 White Blood Count 11.8 x10^3/uL (4.0-11.0) Red Blood Count 3.23 x10^6/uL (4.30-5.70) Hemoglobin 10.3 g/dL (13.0-17.5) Hematocrit 30.2 % (39.0-53.0) Mean Corpuscular Volume 94 fL (79-100) Mean Corpuscular Hemoglobin 32 pg (25-35) Mean Corpuscular Hemoglobin Concent 34 g/dL (31-37) Red Cell Distribution Width 14.7 % (11.5-14.5) Platelet Count 189 x10^3/uL (140-400) Neutrophils (%) (Auto) 82 % (31-73) Lymphocytes (%) (Auto) 10 % (24-48) Monocytes (%) (Auto) 7 % (0-9) Eosinophils (%) (Auto) 2 % (0-3) Basophils (%) (Auto) 1 % (0-3) Neutrophils # (Auto) 9.7 x10^3/uL (1.8-7.7) Lymphocytes # (Auto) 1.2 x10^3/uL (1.0-4.8) Monocytes # (Auto) 0.8 x10^3/uL (0.0-1.1) Eosinophils # (Auto) 0.2 x10^3/uL (0.0-0.7) Basophils # (Auto) 0.1 x10^3/uL (0.0-0.2) Sodium Level 132 mmol/L (136-145) Potassium Level 4.0 mmol/L (3.5-5.1) Chloride Level 98 mmol/L (98-107) Carbon Dioxide Level 31 mmol/L (21-32) Anion Gap 3 (6-14) Blood Urea Nitrogen 19 mg/dL (8-26) Creatinine 0.6 mg/dL (0.7-1.3) Estimated GFR (Cockcroft-Gault) 135.2 Glucose Level 87 mg/dL (70-99) Calcium Level 8.1 mg/dL (8.5-10.1) Magnesium Level 1.6 mg/dL (1.8-2.4) Results All relevant outside records, renal labs, imaging studies, telemetry/EKG's were reviewed. Justicifation of Admission Dx: Justifications for Admission: Justification of Admission Dx: Yes Acute Renal Failure: 3-Fold Rise in Serum Crea SIERRA ARAMBULA MD Jun 03, 2021 14:39
[2021-06-03 15:00] VITALS: BP 97/55
[2021-06-03 19:00] VITALS: BP 119/61
[2021-06-03] MEDS: ATORVASTATIN CALCIUM 20 MG TABLET PO SCH (20:27)
[2021-06-03 23:00] VITALS: BP 91/58
[2021-06-04 03:00] VITALS: BP 109/60
[2021-06-04 04:00] LABS: BASO # 0.1 x10^3/uL (0.0-0.2); BASO % 1 % (0-3); EOS # 0.2 x10^3/uL (0.0-0.7); EOS % 1 % (0-3); HEMATOCRIT 31.2 % (39.0-53.0); HEMOGLOBIN 10.5 g/dL (13.0-17.5); LYMPH # 1.2 x10^3/uL (1.0-4.8); LYMPH % 11 % (24-48); MEAN CORPUSCULAR HEMOGLOBIN 31 pg (25-35); MEAN CORPUSCULAR HGB CONC 34 g/dL (31-37); MEAN CORPUSCULAR VOLUME 94 fL (79-100); MONO # 0.8 x10^3/uL (0.0-1.1); MONO % 7 % (0-9); NEUT % 80 % (31-73); PLATELET COUNT 215 x10^3/uL (140-400); RED BLOOD COUNT 3.33 x10^6/uL (4.30-5.70); RED CELL DISTRIBUTION WIDTH 15.1 % (11.5-14.5); WHITE BLOOD COUNT 11.4 x10^3/uL (4.0-11.0)
[2021-06-04 06:04] LABS: % ATYL 1 % (0-0); % BANDS 4 % (0-9); % LYMPHS 7 % (24-48); % METAS 1 % (0-0); % MONOS 7 % (0-10); % MYELOS 3 % (0-0); % SEGS 77 % (35-66); PLT ESTIMATE ADEQUATE (ADEQUATE)
--- NOTE | 2021-06-04 06:56 | PDOC ---
[employer] PROGRESS NOTE Date of Service DOS: DATE: 06/04/21 TIME: 06:55 Chief Complaint Chief Complaint A/P: Acute respiratory failure with hypoxia - due to COVID 19 - oxygen supplementation, Remdesivir, Steroids, Empiric antibiotics. COVID 19 pneumonia Weakness Mental status change Flu symptoms Hyperlipidemia Hypertension - hypotensive on admit Seizures OPHELIA - Vasomotor nephropathy/Dehydration/ Hypotension Non oliguric, Resolved with IVF . UA unremarkable, CT scan kidneys and Bladder Unremarkable. Supportive care Hypokalemia- Normal K ; replace as indicated HypoMg - replace IV HypoNatremia - held HCTZ , stable , mildly low Subacute subdural hematoma No intervention per NS AFIB wtih RVR - new onset in setting of above. converted back to SR. Continue beta-blockers. Outpatient echo and follow-up. h/o Left carpal tunnel surgery h/o AAA repair Previous tobacco abuse. History of Present Illness History of Present Illness Afebrile. On 10 L nasal cannula. O2 saturations 93%. With significant desaturations with movement. Repeat CT head unchanged from prior with neurosurgery order for repeat in 1 week. Magnesium 1.8. Still very weak. 06/03: Afebrile. Seen bedside on 8 L NC O2 with O2 saturations 92% but with movement desaturates to 86%. His appetite is improved a little bit. Magnesium 1.6. NA 134. K 4. 06/02/2021 Patient seen and examined. Chart reviewed. Discussed with RN. Patient is awake and alert. NAD. Patient is responsive. Patient relates that he is feeling better. Bruise on the right shoulder is still present. He said physical therapy came by and worked with him 2 days ago. He is on 8L 02 via NC with an oxygen saturation at 93% at rest, and drops down to 88-89 when talking. 06/01/2021 Patient seen and examined. Discussed with RN. Chart reviewed. Patient is awake with eyes open and alert. NAD. Patient is responsive and asking questions. Pena catheter has been taken out. Patient expresses feeling better and would like to go home. Patient is receiving doxycycline. FiO2 increased to 8L via NC since yesterday afternoon, previously was at 5L. Oxygen saturation at 7:00 this morning was around 87-89% on 8L NC. 05/31/2021 Patient seen and examined. Chart reviewed. Discussed with RN. Patient is awake with eyes open and alert. NAD. Patient is feeling a little better with more energy. Currently on 5L oxygen via NC. Bruise on the right shoulder. 05/30/2021 Patient seen and examined. Discussed with RN. Chart Reviewed. Patient is resting with NAD. Has Pena bedside drainage. Bruise on the right shoulder. Currently on 5L oxygen via NC. 05/29/2021 Patient seen and examined. Chart reviewed. Discussed with RN. Patient is awake and making eye contact. Bruise on the right shoulder is still present. Currently receiving doxycycline. Patient is back on 5L oxygen via NC. 05/28/2021 Patient seen and examined. Discussed with RN. Chart reviewed. Patient is weak but responsive. Resting, NAD. Patient has a bruise on the right shoulder. Currently receiving doxycycline. Patient is on 10L oxygen via NC (humidified). Developed Afib with RVR. Vitals/I&O Vitals/I&O: Vital Signs Date Time Temp Pulse Resp B/P (MAP) Pulse Ox O2 Delivery O2 Flow Rate FiO2 06/04/21 03:00 97.2 79 16 109/60 (76) 92 Nasal Cannula 10.0 97.2 I & O 06/03/21 06/03/21 06/04/21 15:00 23:00 07:00 Intake Total 280 ml 325 ml 450 ml Output Total 200 ml 600 ml Balance 80 ml 325 ml -150 ml Physical Exam General: Alert, Oriented X3, Cooperative, No acute distress Heart: Normal S1, Normal S2 Lungs: Other (no accessory muscle use ) Abdomen: Soft, No tenderness Extremities: No edema Skin: Other (right shoulder ecchymosis, lesion on the center of chest.) Labs Labs: Laboratory Tests Test 06/04/21 03:45 White Blood Count 11.4 x10^3/uL (4.0-11.0) Red Blood Count 3.33 x10^6/uL (4.30-5.70) Hemoglobin 10.5 g/dL (13.0-17.5) Hematocrit 31.2 % (39.0-53.0) Mean Corpuscular Volume 94 fL (79-100) Mean Corpuscular Hemoglobin 31 pg (25-35) Mean Corpuscular Hemoglobin Concent 34 g/dL (31-37) Red Cell Distribution Width 15.1 % (11.5-14.5) Platelet Count 215 x10^3/uL (140-400) Neutrophils (%) (Auto) 80 % (31-73) Lymphocytes (%) (Auto) 11 % (24-48) Monocytes (%) (Auto) 7 % (0-9) Eosinophils (%) (Auto) 1 % (0-3) Basophils (%) (Auto) 1 % (0-3) Neutrophils # (Auto) 9.0 x10^3/uL (1.8-7.7) Lymphocytes # (Auto) 1.2 x10^3/uL (1.0-4.8) Monocytes # (Auto) 0.8 x10^3/uL (0.0-1.1) Eosinophils # (Auto) 0.2 x10^3/uL (0.0-0.7) Basophils # (Auto) 0.1 x10^3/uL (0.0-0.2) Segmented Neutrophils % 77 % (35-66) Band Neutrophils % 4 % (0-9) Lymphocytes % 7 % (24-48) Atypical Lymphocytes % (Manual) 1 % (0-0) Monocytes % 7 % (0-10) Metamyelocytes % 1 % (0-0) Myelocytes % 3 % (0-0) Platelet Estimate Adequate (ADEQUATE) Magnesium Level 1.8 mg/dL (1.8-2.4) Assessment and Plan Assessmemt and Plan Problems Medical Problems: (1) Kidney failure, acute Status: Acute (2) Person under investigation for COVID-19 Status: Acute (3) Pneumonia Status: Acute (4) Septic shock Status: Acute (5) Subacute subdural hematoma Status: Acute Comment Review of Relevant I have reviewed the following items farhat (where applicable) has been applied. Medications: Current Medications Medications (Trade) Dose Ordered Sig/Natacha Route PRN Reason Start Time Stop Time Status Last Admin Dose Admin Prednisone (Prednisone) 40 mg DAILY PO 06/03/21 09:00 06/03/21 09:49 Magnesium Sulfate 50 ml @ 25 mls/hr 1X ONCE IV 06/03/21 08:00 06/03/21 09:59 DC 06/03/21 09:52 Justifications for Admission Other Justification REGAN UNGER MD Jun 04, 2021 06:55
[2021-06-04 07:00] VITALS: BP 96/51
[2021-06-04] MEDS: ACETAMINOPHEN 325 MG TABLET. PO PRN ×2 (07:25→20:07)
[2021-06-04] MEDS ORDERED: MAGNESIUM SULFATE 2GM 50 ML IV ONE (07:30)
[2021-06-04] MEDS: DOXYCYCLINE HYCLATE 100 MG in IV DEXTROSE 5% 100ML 100 ML IV SCH ×2 (09:01→20:10)
[2021-06-04] MEDS: PHENYTOIN SODIUM EXTENDED 100 MG CAPSULE PO SCH ×2 (09:01→20:07)
[2021-06-04] MEDS: MAGNESIUM OXIDE 400 MG TABLET PO SCH (09:01)
[2021-06-04] MEDS: LISINOPRIL 10 MG TABLET PO SCH (09:02)
[2021-06-04] MEDS: MULTIVITAMIN with MINERAL TABLET. PO SCH (09:02)
[2021-06-04] MEDS: ASPIRIN CHEWABLE 81 MG TABLET. PO SCH (09:02)
[2021-06-04] MEDS: predniSONE 20 MG TABLET PO SCH (09:02)
[2021-06-04] MEDS: LACTOBACILLUS RHAMNOSUS GG 1 CAPSULE. PO SCH ×2 (09:02→20:07)
[2021-06-04] MEDS: BUTALB/APAP/CAFEIN 50/325/40MG TABLET. PO PRN (09:03)
[2021-06-04] MEDS: METOPROLOL TART IMMED RELEASE 50 MG TABLET. PO SCH ×2 (09:04→20:08)
[2021-06-04 11:00] VITALS: BP 104/58
--- NOTE | 2021-06-04 11:19 | RAD ---
INDICATION: Reason: f/u SDH, COVID+ / Spl. Instructions: / History: . COMPARISON: May 27, 2021 TECHNIQUE: Axial CT images obtained through the head. One or more of the following individualized dose reduction techniques were utilized for this examinat ion: 1. Automated exposure control; 2. Adjustment of the mA and/or kV according to patient size; 3 . Use of iterative reconstruction technique. FINDINGS: Repeat demonstration of subdural fluid collection on the right with a portion of it appearing low den sity and a portion high density with slight decrease in the high density component. This measures up to about 8 mm in thickness. No significant midline shift. Diffuse prominence of ventricles and sulci which can be seen with age-related volume loss. Calcific atherosclerosis. Scattered foci of low density within the white matter is again seen. Debris in the bilateral external auditory canal. IMPRESSION: * Repeat demonstration of mixed density fluid within the right subdural region which could be second agustin to acute or subacute on chronic subdural hematoma with interval evolution with decrease in the hi gh density component. The overall size is not significantly changed from prior. Electronically signed by: Huseyin Batista MD (06/04/2021 11:17 AM) [id number]
--- NOTE | 2021-06-04 14:14 | PDOC ---
CARDIO Progress Notes Date and Time Date of Service 06/04/21 Time of Evaluation 1400 Subjective Subjective: No Chest Pain, No shortness of breath, No Palpitations, Other (wanting to go home ) Vitals Vitals Vital Signs Date Time Temp Pulse Resp B/P (MAP) Pulse Ox O2 Delivery O2 Flow Rate FiO2 06/04/21 11:00 95.4 76 18 104/58 (73) 95 Nasal Cannula 10.0 95.4 Weight Weight [ ] Input and Output Intake and Output Intake and Output 06/04/21 07:00 Intake Total 1055 ml Output Total 800 ml Balance 255 ml Intake Oral 1055 ml Output Urine Total 800 ml # Voids 2 # Bowel Movements 1 Laboratory Labs Laboratory Tests Test 06/04/21 03:45 White Blood Count 11.4 x10^3/uL (4.0-11.0) Red Blood Count 3.33 x10^6/uL (4.30-5.70) Hemoglobin 10.5 g/dL (13.0-17.5) Hematocrit 31.2 % (39.0-53.0) Mean Corpuscular Volume 94 fL (79-100) Mean Corpuscular Hemoglobin 31 pg (25-35) Mean Corpuscular Hemoglobin Concent 34 g/dL (31-37) Red Cell Distribution Width 15.1 % (11.5-14.5) Platelet Count 215 x10^3/uL (140-400) Neutrophils (%) (Auto) 80 % (31-73) Lymphocytes (%) (Auto) 11 % (24-48) Monocytes (%) (Auto) 7 % (0-9) Eosinophils (%) (Auto) 1 % (0-3) Basophils (%) (Auto) 1 % (0-3) Neutrophils # (Auto) 9.0 x10^3/uL (1.8-7.7) Lymphocytes # (Auto) 1.2 x10^3/uL (1.0-4.8) Monocytes # (Auto) 0.8 x10^3/uL (0.0-1.1) Eosinophils # (Auto) 0.2 x10^3/uL (0.0-0.7) Basophils # (Auto) 0.1 x10^3/uL (0.0-0.2) Segmented Neutrophils % 77 % (35-66) Band Neutrophils % 4 % (0-9) Lymphocytes % 7 % (24-48) Atypical Lymphocytes % (Manual) 1 % (0-0) Monocytes % 7 % (0-10) Metamyelocytes % 1 % (0-0) Myelocytes % 3 % (0-0) Platelet Estimate Adequate (ADEQUATE) Magnesium Level 1.8 mg/dL (1.8-2.4) Microbiology Micro Microbiology 05/26/21 Blood Culture - Final, Complete NO GROWTH AFTER 5 DAYS 05/26/21 Gram Stain Evaluation - Final, Complete 05/26/21 Respiratory Culture - Final, Complete 05/26/21 Antimicrobic Susceptibility - Final, Complete Physical Exam HEENT: Neck Supple W Full Motion Chest: Symmetric LUNGS: Other (on NC) Heart: RRR (SR) Abdomen: Soft N/T Extremities: No Edema Neurology: alert, oriented, follow commands Assessment Assessment 1. Acute respiratory failure secondary; multifactorial with COVID PNA, probable aspiration PNA, and underlying COPD 2. Leukocytosis, lactic acidosis 3. AFIB wtih RVR; new onset in setting of above. converted back to SR and is maintaining 4. OPHELIA; improved 5. Traumatic fall lat week with SDH; repeat CT head stable 6. Hypertension; controlled 7. Hyperlipidemia; LDL 38 8. Hypomagnesemia 9. Abdominal aortic aneurysm s/p endograft repair 10. Metabolic encephalopathy; improved. Patient has poor insight into condition Recommendations Continue Metoprolol for rate control Replace electrolytes as warranted ASA for stroke prophylaxis No OAC with SDH Outpatient echo when recovered from COVID Ongoing lung optimization, treatment of COVID Outpatient event monitor to guide therapy Supportive care Follow up in our office with Dr. Sanchez has been arranged. Justicifation of Admission Dx: Justifications for Admission: Justification of Admission Dx: Yes Acute Renal Failure: 3-Fold Rise in Serum Crea LOW ALMANZA APRN Jun 04, 2021 14:14
[2021-06-04] MEDS: cefTRIAXone IV Push 1 GM VIAL. IVP SCH (14:42)
[2021-06-04 15:00] VITALS: BP 94/57
--- NOTE | 2021-06-04 15:25 | PDOC ---
Provider Note Date of Service: DATE: 06/04/21 TIME: 15:24 Provider Note Reviewed follow up CT head, stable will repeat study in a week call with questions Justifications for Admission Other Justification VICKI PEARSON MD Jun 04, 2021 15:25
[2021-06-04 19:40] VITALS: BP 111/62
[2021-06-04] MEDS: ATORVASTATIN CALCIUM 20 MG TABLET PO SCH (20:07)
[2021-06-04 23:15] VITALS: BP 104/58
[2021-06-05 03:45] VITALS: BP 107/55
[2021-06-05 04:06] LABS: BASO # 0.1 x10^3/uL (0.0-0.2); BASO % 1 % (0-3); EOS # 0.1 x10^3/uL (0.0-0.7); EOS % 2 % (0-3); HEMATOCRIT 29.4 % (39.0-53.0); HEMOGLOBIN 10.2 g/dL (13.0-17.5); LYMPH # 1.4 x10^3/uL (1.0-4.8); LYMPH % 16 % (24-48); MEAN CORPUSCULAR HEMOGLOBIN 32 pg (25-35); MEAN CORPUSCULAR HGB CONC 35 g/dL (31-37); MEAN CORPUSCULAR VOLUME 93 fL (79-100); MONO # 0.7 x10^3/uL (0.0-1.1); MONO % 8 % (0-9); NEUT # 6.8 x10^3/uL (1.8-7.7); NEUT % 74 % (31-73); PLATELET COUNT 243 x10^3/uL (140-400); RED BLOOD COUNT 3.16 x10^6/uL (4.30-5.70); RED CELL DISTRIBUTION WIDTH 15.3 % (11.5-14.5); WHITE BLOOD COUNT 9.2 x10^3/uL (4.0-11.0)
[2021-06-05 04:35] LABS: CREATININE 0.7 mg/dL (0.7-1.3); GFR 113.2; POTASSIUM 4.1 mmol/L (3.5-5.1)
[2021-06-05 07:00] VITALS: BP 116/56
[2021-06-05] MEDS: LACTOBACILLUS RHAMNOSUS GG 1 CAPSULE. PO SCH ×2 (09:05→20:00)
[2021-06-05] MEDS: MAGNESIUM OXIDE 400 MG TABLET PO SCH (09:05)
[2021-06-05] MEDS: MULTIVITAMIN with MINERAL TABLET. PO SCH (09:05)
[2021-06-05] MEDS: predniSONE 20 MG TABLET PO SCH (09:05)
[2021-06-05] MEDS: ASPIRIN CHEWABLE 81 MG TABLET. PO SCH (09:05)
[2021-06-05] MEDS: ACETAMINOPHEN 325 MG TABLET. PO PRN (09:06)
[2021-06-05] MEDS: PHENYTOIN SODIUM EXTENDED 100 MG CAPSULE PO SCH ×2 (09:06→20:01)
[2021-06-05] MEDS: LISINOPRIL 10 MG TABLET PO SCH (09:06)
[2021-06-05] MEDS: METOPROLOL TART IMMED RELEASE 50 MG TABLET. PO SCH ×2 (09:06→20:00)
[2021-06-05] MEDS: DOXYCYCLINE HYCLATE 100 MG in IV DEXTROSE 5% 100ML 100 ML IV SCH (09:08)
--- NOTE | 2021-06-05 10:40 | PDOC ---
PULMONARY PROGRESS NOTES DATE: 06/05/21 TIME: 10:39 Subjective Remains on high flow cannula 10 L. Appears weak. Vitals Vital Signs Date Time Temp Pulse Resp B/P (MAP) Pulse Ox O2 Delivery O2 Flow Rate FiO2 06/05/21 09:06 86 116/56 06/05/21 07:00 97.5 20 93 Nasal Cannula 10.0 97.5 ROS: No Nausea, No Chest Pain, No Abdominal Pain, No Increase Cough Lungs: Other (no accessory muscle use ) Cardiovascular: S1, S2 Neuro Exam: Alert Extremities: No Edema Skin: No Rashes Labs Laboratory Tests Test 06/04/21 03:45 06/05/21 03:40 White Blood Count 11.4 x10^3/uL (4.0-11.0) 9.2 x10^3/uL (4.0-11.0) Red Blood Count 3.33 x10^6/uL (4.30-5.70) 3.16 x10^6/uL (4.30-5.70) Hemoglobin 10.5 g/dL (13.0-17.5) 10.2 g/dL (13.0-17.5) Hematocrit 31.2 % (39.0-53.0) 29.4 % (39.0-53.0) Mean Corpuscular Volume 94 fL (79-100) 93 fL (79-100) Mean Corpuscular Hemoglobin 31 pg (25-35) 32 pg (25-35) Mean Corpuscular Hemoglobin Concent 34 g/dL (31-37) 35 g/dL (31-37) Red Cell Distribution Width 15.1 % (11.5-14.5) 15.3 % (11.5-14.5) Platelet Count 215 x10^3/uL (140-400) 243 x10^3/uL (140-400) Neutrophils (%) (Auto) 80 % (31-73) 74 % (31-73) Lymphocytes (%) (Auto) 11 % (24-48) 16 % (24-48) Monocytes (%) (Auto) 7 % (0-9) 8 % (0-9) Eosinophils (%) (Auto) 1 % (0-3) 2 % (0-3) Basophils (%) (Auto) 1 % (0-3) 1 % (0-3) Neutrophils # (Auto) 9.0 x10^3/uL (1.8-7.7) 6.8 x10^3/uL (1.8-7.7) Lymphocytes # (Auto) 1.2 x10^3/uL (1.0-4.8) 1.4 x10^3/uL (1.0-4.8) Monocytes # (Auto) 0.8 x10^3/uL (0.0-1.1) 0.7 x10^3/uL (0.0-1.1) Eosinophils # (Auto) 0.2 x10^3/uL (0.0-0.7) 0.1 x10^3/uL (0.0-0.7) Basophils # (Auto) 0.1 x10^3/uL (0.0-0.2) 0.1 x10^3/uL (0.0-0.2) Segmented Neutrophils % 77 % (35-66) Band Neutrophils % 4 % (0-9) Lymphocytes % 7 % (24-48) Atypical Lymphocytes % (Manual) 1 % (0-0) Monocytes % 7 % (0-10) Metamyelocytes % 1 % (0-0) Myelocytes % 3 % (0-0) Platelet Estimate Adequate (ADEQUATE) Magnesium Level 1.8 mg/dL (1.8-2.4) 1.5 mg/dL (1.8-2.4) Sodium Level 133 mmol/L (136-145) Potassium Level 4.1 mmol/L (3.5-5.1) Chloride Level 99 mmol/L (98-107) Carbon Dioxide Level 32 mmol/L (21-32) Anion Gap 2 (6-14) Blood Urea Nitrogen 20 mg/dL (8-26) Creatinine 0.7 mg/dL (0.7-1.3) Estimated GFR (Cockcroft-Gault) 113.2 Glucose Level 78 mg/dL (70-99) Calcium Level 8.0 mg/dL (8.5-10.1) Laboratory Tests Test 06/05/21 03:40 White Blood Count 9.2 x10^3/uL (4.0-11.0) Red Blood Count 3.16 x10^6/uL (4.30-5.70) Hemoglobin 10.2 g/dL (13.0-17.5) Hematocrit 29.4 % (39.0-53.0) Mean Corpuscular Volume 93 fL (79-100) Mean Corpuscular Hemoglobin 32 pg (25-35) Mean Corpuscular Hemoglobin Concent 35 g/dL (31-37) Red Cell Distribution Width 15.3 % (11.5-14.5) Platelet Count 243 x10^3/uL (140-400) Neutrophils (%) (Auto) 74 % (31-73) Lymphocytes (%) (Auto) 16 % (24-48) Monocytes (%) (Auto) 8 % (0-9) Eosinophils (%) (Auto) 2 % (0-3) Basophils (%) (Auto) 1 % (0-3) Neutrophils # (Auto) 6.8 x10^3/uL (1.8-7.7) Lymphocytes # (Auto) 1.4 x10^3/uL (1.0-4.8) Monocytes # (Auto) 0.7 x10^3/uL (0.0-1.1) Eosinophils # (Auto) 0.1 x10^3/uL (0.0-0.7) Basophils # (Auto) 0.1 x10^3/uL (0.0-0.2) Sodium Level 133 mmol/L (136-145) Potassium Level 4.1 mmol/L (3.5-5.1) Chloride Level 99 mmol/L (98-107) Carbon Dioxide Level 32 mmol/L (21-32) Anion Gap 2 (6-14) Blood Urea Nitrogen 20 mg/dL (8-26) Creatinine 0.7 mg/dL (0.7-1.3) Estimated GFR (Cockcroft-Gault) 113.2 Glucose Level 78 mg/dL (70-99) Calcium Level 8.0 mg/dL (8.5-10.1) Magnesium Level 1.5 mg/dL (1.8-2.4) Medications Active Scripts Medications Dose Route/Sig Max Daily Dose Days Date Category Lisinopril 10 Mg Tablet 1 Tab PO DAILY 05/27/21 Reported Hydrochlorothiazide Capsule (Hydrochlorothiazide) 12.5 Mg Capsule 25 Mg PO DAILY 05/27/21 Reported Pravastatin Sodium 80 Mg Tablet 1 Tab PO QHS 05/27/21 Reported Phenytoin Sodium Extended 200 Mg Capsule 2 Cap PO BID 30 05/27/21 Reported Xdulxn-Embdbcff-Rnso 50-300-40 (Butalb/Acetaminophen/Caffeine) 1 Each Capsule 1 Each PO PRN QID PRN 05/27/21 Reported Augmentin 875-125 Tablet (Amoxicillin/Potassium Clav) 1 Each Tablet 1 Tab PO BID 05/16/17 Rx Impression . IMPRESSION: 1. Acute hypoxemic respiratory failure, multifactorial. 2. COVID-19 viral pneumonia. 3. Subdural hematoma. 4. Recent fall. 5. CT chest revealing evidence of extensive consolidation opacities, mainly in the lower half of the right lung. 6. Possible aspiration pneumonia. 7. Acute exacerbation of chronic obstructive pulmonary disease. 8. History of AAA repair. 9. Acute renal failure. 10. Leukocytosis. Plan . Updated 06/05/2021. Continue current support Oral prednisone with taper. Discontinue antibiotics. Oxygen supplementation Follow neuro surgery input, for subdural hematoma updated 06/02 titrate fio2 to keep sat 90% abx change solumdrol to pred 40 daily w taper Continue oxygen supplementation Subdural hematoma per neurosurgery discussed w rt Updated 06/01 titrate fio2 to keep sat 90% abx solumdrol 40 bid Continue oxygen supplementation Subdural hematoma per neurosurgery EVANS RUFFIN MD Jun 05, 2021 10:40
[2021-06-05 11:14] VITALS: BP 109/61
--- NOTE | 2021-06-05 11:15 | PDOC ---
[facility] PROGRESS NOTE Date of Service DOS: DATE: 06/05/21 TIME: 11:12 Chief Complaint Chief Complaint A/P: Acute respiratory failure with hypoxia - due to COVID 19 - oxygen supplementation, Remdesivir, Steroids, Empiric antibiotics. COVID 19 pneumonia Weakness Mental status change Flu symptoms Hyperlipidemia Hypertension - hypotensive on admit Seizures OPHELIA - Vasomotor nephropathy/Dehydration/ Hypotension Non oliguric, Resolved with IVF . UA unremarkable, CT scan kidneys and Bladder Unremarkable. Supportive care Hypokalemia- Normal K ; replace as indicated HypoMg - replace IV HypoNatremia - held HCTZ , stable , mildly low Subacute subdural hematoma No intervention per NS AFIB wtih RVR - new onset in setting of above. converted back to SR. Continue beta-blockers. Outpatient echo and follow-up. h/o Left carpal tunnel surgery h/o AAA repair Previous tobacco abuse. History of Present Illness History of Present Illness Afebrile. Still on 10 L nasal cannula with O2 saturation 93%. Desaturate significantly when get up to the commode and required assistance to commode today. He just wants to go home and see his dog. Still with cough, but non productive. WBC 9.2, NA 133, magnesium 1.5. Off antibiotics today 06/04: Afebrile. On 10 L nasal cannula. O2 saturations 93%. With significant desaturations with movement. Repeat CT head unchanged from prior with neurosurgery order for repeat in 1 week. Magnesium 1.8. Still very weak. 06/03: Afebrile. Seen bedside on 8 L NC O2 with O2 saturations 92% but with movement desaturates to 86%. His appetite is improved a little bit. Magnesium 1.6. NA 134. K 4. 06/02/2021 Patient seen and examined. Chart reviewed. Discussed with RN. Patient is awake and alert. NAD. Patient is responsive. Patient relates that he is feeling better. Bruise on the right shoulder is still present. He said physical therapy came by and worked with him 2 days ago. He is on 8L 02 via NC with an oxygen saturation at 93% at rest, and drops down to 88-89 when talking. 06/01/2021 Patient seen and examined. Discussed with RN. Chart reviewed. Patient is awake with eyes open and alert. NAD. Patient is responsive and asking questions. Pena catheter has been taken out. Patient expresses feeling better and would like to go home. Patient is receiving doxycycline. FiO2 increased to 8L via NC since yesterday afternoon, previously was at 5L. Oxygen saturation at 7:00 this morning was around 87-89% on 8L NC. 05/31/2021 Patient seen and examined. Chart reviewed. Discussed with RN. Patient is awake with eyes open and alert. NAD. Patient is feeling a little better with more energy. Currently on 5L oxygen via NC. Bruise on the right shoulder. 05/30/2021 Patient seen and examined. Discussed with RN. Chart Reviewed. Patient is resting with NAD. Has Pena bedside drainage. Bruise on the right shoulder. Currently on 5L oxygen via NC. 05/29/2021 Patient seen and examined. Chart reviewed. Discussed with RN. Patient is awake and making eye contact. Bruise on the right shoulder is still present. Currently receiving doxycycline. Patient is back on 5L oxygen via NC. 05/28/2021 Patient seen and examined. Discussed with RN. Chart reviewed. Patient is weak but responsive. Resting, NAD. Patient has a bruise on the right shoulder. Currently receiving doxycycline. Patient is on 10L oxygen via NC (humidified). Developed Afib with RVR. Vitals/I&O Vitals/I&O: Vital Signs Date Time Temp Pulse Resp B/P (MAP) Pulse Ox O2 Delivery O2 Flow Rate FiO2 06/05/21 09:06 86 116/56 06/05/21 07:00 97.5 20 93 Nasal Cannula 10.0 97.5 I & O 06/04/21 06/04/21 06/05/21 15:00 23:00 07:00 Intake Total 240 ml 100 ml 0 ml Output Total 400 ml 600 ml Balance -160 ml 100 ml -600 ml Physical Exam General: Alert, Oriented X3, Cooperative, No acute distress Heart: Normal S1, Normal S2 Lungs: Other (no accessory muscle use ) Abdomen: Soft, No tenderness Extremities: No edema Skin: Other (right shoulder ecchymosis, lesion on the center of chest.) Labs Labs: Laboratory Tests Test 06/05/21 03:40 White Blood Count 9.2 x10^3/uL (4.0-11.0) Red Blood Count 3.16 x10^6/uL (4.30-5.70) Hemoglobin 10.2 g/dL (13.0-17.5) Hematocrit 29.4 % (39.0-53.0) Mean Corpuscular Volume 93 fL (79-100) Mean Corpuscular Hemoglobin 32 pg (25-35) Mean Corpuscular Hemoglobin Concent 35 g/dL (31-37) Red Cell Distribution Width 15.3 % (11.5-14.5) Platelet Count 243 x10^3/uL (140-400) Neutrophils (%) (Auto) 74 % (31-73) Lymphocytes (%) (Auto) 16 % (24-48) Monocytes (%) (Auto) 8 % (0-9) Eosinophils (%) (Auto) 2 % (0-3) Basophils (%) (Auto) 1 % (0-3) Neutrophils # (Auto) 6.8 x10^3/uL (1.8-7.7) Lymphocytes # (Auto) 1.4 x10^3/uL (1.0-4.8) Monocytes # (Auto) 0.7 x10^3/uL (0.0-1.1) Eosinophils # (Auto) 0.1 x10^3/uL (0.0-0.7) Basophils # (Auto) 0.1 x10^3/uL (0.0-0.2) Sodium Level 133 mmol/L (136-145) Potassium Level 4.1 mmol/L (3.5-5.1) Chloride Level 99 mmol/L (98-107) Carbon Dioxide Level 32 mmol/L (21-32) Anion Gap 2 (6-14) Blood Urea Nitrogen 20 mg/dL (8-26) Creatinine 0.7 mg/dL (0.7-1.3) Estimated GFR (Cockcroft-Gault) 113.2 Glucose Level 78 mg/dL (70-99) Calcium Level 8.0 mg/dL (8.5-10.1) Magnesium Level 1.5 mg/dL (1.8-2.4) Assessment and Plan Assessmemt and Plan Problems Medical Problems: (1) Kidney failure, acute Status: Acute (2) Person under investigation for COVID-19 Status: Acute (3) Pneumonia Status: Acute (4) Septic shock Status: Acute (5) Subacute subdural hematoma Status: Acute Comment Review of Relevant I have reviewed the following items farhat (where applicable) has been applied. Justifications for Admission Other Justification REGAN UNGER MD Jun 05, 2021 11:14
--- NOTE | 2021-06-05 11:29 | PDOC ---
CARD[facility] Progress Notes Date and Time Date of Service 06/05/21 Time of Evaluation 1120 Subjective Subjective: No Chest Pain, No shortness of breath, No Palpitations, Other (not more SOA) Vitals Vitals Vital Signs Date Time Temp Pulse Resp B/P (MAP) Pulse Ox O2 Delivery O2 Flow Rate FiO2 06/05/21 11:14 97.4 88 20 109/61 (77) 97 Nasal Cannula 10.0 97.4 Weight Weight [ ] Input and Output Intake and Output Intake and Output 06/05/21 07:00 Intake Total 340 ml Output Total 1000 ml Balance -660 ml Intake Oral 340 ml Output Urine Total 1000 ml Laboratory Labs Laboratory Tests Test 06/05/21 03:40 White Blood Count 9.2 x10^3/uL (4.0-11.0) Red Blood Count 3.16 x10^6/uL (4.30-5.70) Hemoglobin 10.2 g/dL (13.0-17.5) Hematocrit 29.4 % (39.0-53.0) Mean Corpuscular Volume 93 fL (79-100) Mean Corpuscular Hemoglobin 32 pg (25-35) Mean Corpuscular Hemoglobin Concent 35 g/dL (31-37) Red Cell Distribution Width 15.3 % (11.5-14.5) Platelet Count 243 x10^3/uL (140-400) Neutrophils (%) (Auto) 74 % (31-73) Lymphocytes (%) (Auto) 16 % (24-48) Monocytes (%) (Auto) 8 % (0-9) Eosinophils (%) (Auto) 2 % (0-3) Basophils (%) (Auto) 1 % (0-3) Neutrophils # (Auto) 6.8 x10^3/uL (1.8-7.7) Lymphocytes # (Auto) 1.4 x10^3/uL (1.0-4.8) Monocytes # (Auto) 0.7 x10^3/uL (0.0-1.1) Eosinophils # (Auto) 0.1 x10^3/uL (0.0-0.7) Basophils # (Auto) 0.1 x10^3/uL (0.0-0.2) Sodium Level 133 mmol/L (136-145) Potassium Level 4.1 mmol/L (3.5-5.1) Chloride Level 99 mmol/L (98-107) Carbon Dioxide Level 32 mmol/L (21-32) Anion Gap 2 (6-14) Blood Urea Nitrogen 20 mg/dL (8-26) Creatinine 0.7 mg/dL (0.7-1.3) Estimated GFR (Cockcroft-Gault) 113.2 Glucose Level 78 mg/dL (70-99) Calcium Level 8.0 mg/dL (8.5-10.1) Magnesium Level 1.5 mg/dL (1.8-2.4) Microbiology Micro Microbiology 05/26/21 Blood Culture - Final, Complete NO GROWTH AFTER 5 DAYS 05/26/21 Gram Stain Evaluation - Final, Complete 05/26/21 Respiratory Culture - Final, Complete 05/26/21 Antimicrobic Susceptibility - Final, Complete Physical Exam HEENT: Neck Supple W Full Motion Chest: Symmetric LUNGS: Other (on 10L NC) Heart: RRR (SR) Abdomen: Soft N/T Extremities: No Edema Neurology: alert, oriented, follow commands Assessment Assessment 1. Acute respiratory failure secondary; multifactorial with COVID PNA, probable aspiration PNA, and underlying COPD 2. Leukocytosis, lactic acidosis 3. AFIB wtih RVR; new onset in setting of above. converted back to SR and is maintaining 4. OPHELIA; improved 5. Traumatic fall lat week with SDH; repeat CT head stable 6. Hypertension; controlled 7. Hyperlipidemia; LDL 38 8. Hypomagnesemia 9. Abdominal aortic aneurysm s/p endograft repair 10. Metabolic encephalopathy; improved. Patient has poor insight into condition Recommendations Continue Metoprolol for rate control Replace electrolytes as warranted ASA for stroke prophylaxis Outpatient echo when recovered from COVID Ongoing lung optimization, treatment of COVID Outpatient event monitor to guide therapy Supportive care Follow up in our office with Dr. Sanchez has been arranged. Justicifation of Admission Dx: Justifications for Admission: Justification of Admission Dx: Yes Acute Renal Failure: 3-Fold Rise in Serum Crea LOW ALMANZA APRN Jun 05, 2021 11:29
[2021-06-05] MEDS ORDERED: MAGNESIUM SULFATE 4GM 100 ML IV ONE (12:00)
[2021-06-05 15:00] VITALS: BP 93/56
[2021-06-05 19:59] VITALS: BP 91/57
[2021-06-05] MEDS: ATORVASTATIN CALCIUM 20 MG TABLET PO SCH (20:01)
[2021-06-05 23:41] VITALS: BP 101/57
[2021-06-06 02:39] VITALS: BP 106/61
[2021-06-06 04:08] LABS: BASO # 0.1 x10^3/uL (0.0-0.2); BASO % 1 % (0-3); EOS # 0.1 x10^3/uL (0.0-0.7); EOS % 1 % (0-3); HEMATOCRIT 28.8 % (39.0-53.0); LYMPH # 1.3 x10^3/uL (1.0-4.8); LYMPH % 12 % (24-48); MEAN CORPUSCULAR HEMOGLOBIN 33 pg (25-35); MEAN CORPUSCULAR HGB CONC 35 g/dL (31-37); MEAN CORPUSCULAR VOLUME 93 fL (79-100); MONO # 0.7 x10^3/uL (0.0-1.1); MONO % 7 % (0-9); NEUT # 8.1 x10^3/uL (1.8-7.7); NEUT % 79 % (31-73); PLATELET COUNT 276 x10^3/uL (140-400); RED BLOOD COUNT 3.09 x10^6/uL (4.30-5.70); RED CELL DISTRIBUTION WIDTH 15.6 % (11.5-14.5); WHITE BLOOD COUNT 10.3 x10^3/uL (4.0-11.0)
[2021-06-06 06:36] VITALS: BP 101/59
[2021-06-06] MEDS: LACTOBACILLUS RHAMNOSUS GG 1 CAPSULE. PO SCH ×2 (10:18→19:58)
[2021-06-06] MEDS: MAGNESIUM OXIDE 400 MG TABLET PO SCH (10:18)
[2021-06-06] MEDS: ASPIRIN CHEWABLE 81 MG TABLET. PO SCH (10:19)
[2021-06-06] MEDS: predniSONE 20 MG TABLET PO SCH (10:19)
[2021-06-06] MEDS: LISINOPRIL 10 MG TABLET PO SCH (10:19)
[2021-06-06] MEDS: MULTIVITAMIN with MINERAL TABLET. PO SCH (10:19)
[2021-06-06] MEDS: METOPROLOL TART IMMED RELEASE 50 MG TABLET. PO SCH ×2 (10:19→19:58)
[2021-06-06] MEDS: PHENYTOIN SODIUM EXTENDED 100 MG CAPSULE PO SCH ×2 (10:20→19:58)
[2021-06-06 10:47] VITALS: BP 112/62
--- NOTE | 2021-06-06 14:05 | PDOC ---
PULMONARY PROGRESS NOTES DATE: 06/06/21 TIME: 14:05 Subjective Remains on high flow cannula 10 L. Appears weak. Vitals Vital Signs Date Time Temp Pulse Resp B/P (MAP) Pulse Ox O2 Delivery O2 Flow Rate FiO2 06/06/21 10:47 97.9 79 16 112/62 (79) 96 Nasal Cannula 10.0 97.9 ROS: No Nausea, No Chest Pain, No Abdominal Pain, No Increase Cough Lungs: Other (no accessory muscle use ) Cardiovascular: S1, S2 Neuro Exam: Alert Extremities: No Edema Skin: No Rashes Labs Laboratory Tests Test 06/05/21 03:40 06/06/21 03:30 White Blood Count 9.2 x10^3/uL (4.0-11.0) 10.3 x10^3/uL (4.0-11.0) Red Blood Count 3.16 x10^6/uL (4.30-5.70) 3.09 x10^6/uL (4.30-5.70) Hemoglobin 10.2 g/dL (13.0-17.5) 10.0 g/dL (13.0-17.5) Hematocrit 29.4 % (39.0-53.0) 28.8 % (39.0-53.0) Mean Corpuscular Volume 93 fL (79-100) 93 fL (79-100) Mean Corpuscular Hemoglobin 32 pg (25-35) 33 pg (25-35) Mean Corpuscular Hemoglobin Concent 35 g/dL (31-37) 35 g/dL (31-37) Red Cell Distribution Width 15.3 % (11.5-14.5) 15.6 % (11.5-14.5) Platelet Count 243 x10^3/uL (140-400) 276 x10^3/uL (140-400) Neutrophils (%) (Auto) 74 % (31-73) 79 % (31-73) Lymphocytes (%) (Auto) 16 % (24-48) 12 % (24-48) Monocytes (%) (Auto) 8 % (0-9) 7 % (0-9) Eosinophils (%) (Auto) 2 % (0-3) 1 % (0-3) Basophils (%) (Auto) 1 % (0-3) 1 % (0-3) Neutrophils # (Auto) 6.8 x10^3/uL (1.8-7.7) 8.1 x10^3/uL (1.8-7.7) Lymphocytes # (Auto) 1.4 x10^3/uL (1.0-4.8) 1.3 x10^3/uL (1.0-4.8) Monocytes # (Auto) 0.7 x10^3/uL (0.0-1.1) 0.7 x10^3/uL (0.0-1.1) Eosinophils # (Auto) 0.1 x10^3/uL (0.0-0.7) 0.1 x10^3/uL (0.0-0.7) Basophils # (Auto) 0.1 x10^3/uL (0.0-0.2) 0.1 x10^3/uL (0.0-0.2) Sodium Level 133 mmol/L (136-145) Potassium Level 4.1 mmol/L (3.5-5.1) Chloride Level 99 mmol/L (98-107) Carbon Dioxide Level 32 mmol/L (21-32) Anion Gap 2 (6-14) Blood Urea Nitrogen 20 mg/dL (8-26) Creatinine 0.7 mg/dL (0.7-1.3) Estimated GFR (Cockcroft-Gault) 113.2 Glucose Level 78 mg/dL (70-99) Calcium Level 8.0 mg/dL (8.5-10.1) Magnesium Level 1.5 mg/dL (1.8-2.4) Laboratory Tests Test 06/06/21 03:30 White Blood Count 10.3 x10^3/uL (4.0-11.0) Red Blood Count 3.09 x10^6/uL (4.30-5.70) Hemoglobin 10.0 g/dL (13.0-17.5) Hematocrit 28.8 % (39.0-53.0) Mean Corpuscular Volume 93 fL (79-100) Mean Corpuscular Hemoglobin 33 pg (25-35) Mean Corpuscular Hemoglobin Concent 35 g/dL (31-37) Red Cell Distribution Width 15.6 % (11.5-14.5) Platelet Count 276 x10^3/uL (140-400) Neutrophils (%) (Auto) 79 % (31-73) Lymphocytes (%) (Auto) 12 % (24-48) Monocytes (%) (Auto) 7 % (0-9) Eosinophils (%) (Auto) 1 % (0-3) Basophils (%) (Auto) 1 % (0-3) Neutrophils # (Auto) 8.1 x10^3/uL (1.8-7.7) Lymphocytes # (Auto) 1.3 x10^3/uL (1.0-4.8) Monocytes # (Auto) 0.7 x10^3/uL (0.0-1.1) Eosinophils # (Auto) 0.1 x10^3/uL (0.0-0.7) Basophils # (Auto) 0.1 x10^3/uL (0.0-0.2) Medications Active Scripts Medications Dose Route/Sig Max Daily Dose Days Date Category Lisinopril 10 Mg Tablet 1 Tab PO DAILY 05/27/21 Reported Hydrochlorothiazide Capsule (Hydrochlorothiazide) 12.5 Mg Capsule 25 Mg PO DAILY 05/27/21 Reported Pravastatin Sodium 80 Mg Tablet 1 Tab PO QHS 05/27/21 Reported Phenytoin Sodium Extended 200 Mg Capsule 2 Cap PO BID 30 05/27/21 Reported Tjunho-Vqdicgit-Mczh 50-300-40 (Butalb/Acetaminophen/Caffeine) 1 Each Capsule 1 Each PO PRN QID PRN 05/27/21 Reported Augmentin 875-125 Tablet (Amoxicillin/Potassium Clav) 1 Each Tablet 1 Tab PO BID 05/16/17 Rx Impression . IMPRESSION: 1. Acute hypoxemic respiratory failure, multifactorial. 2. COVID-19 viral pneumonia. 3. Subdural hematoma. 4. Recent fall. 5. CT chest revealing evidence of extensive consolidation opacities, mainly in the lower half of the right lung. 6. Possible aspiration pneumonia. 7. Acute exacerbation of chronic obstructive pulmonary disease. 8. History of AAA repair. 9. Acute renal failure. 10. Leukocytosis. Plan . Updated 06/06/2021. Continue current support Oral prednisone with taper. off antibiotics. Oxygen supplementation Follow neuro surgery input, for subdural hematoma ? hospice eval d/w EVANS PETERSEN MD Jun 06, 2021 14:05
[2021-06-06 14:07] VITALS: BP 97/55
--- NOTE | 2021-06-06 15:58 | PDOC ---
[facility] PROGRESS NOTE Date of Service DOS: DATE: 06/06/21 TIME: 15:15 Chief Complaint Chief Complaint A/P: Acute respiratory failure with hypoxia - due to COVID 19 - oxygen supplementation, Remdesivir, Steroids, Empiric antibiotics. COVID 19 pneumonia Weakness Mental status change Flu symptoms Hyperlipidemia Hypertension - hypotensive on admit Seizures OPHELIA - Vasomotor nephropathy/Dehydration/ Hypotension Non oliguric, Resolved with IVF . UA unremarkable, CT scan kidneys and Bladder Unremarkable. Supportive care Hypokalemia- Normal K; replace as indicated HypoMg - replace IV HypoNatremia - held HCTZ , stable , mildly low Subacute subdural hematoma No intervention per NS AFIB wtih RVR - new onset in setting of above. converted back to SR. Continue beta-blockers. Outpatient echo and follow-up. h/o Left carpal tunnel surgery h/o AAA repair - stable. Previously repaired in [place], [place] Previous tobacco abuse. FEN - Cardiac PPX - lovenox FULL CODE DIspo - inpatient History of Present Illness History of Present Illness Afebrile. Still requiring 8 to 10 L nasal cannula O2 saturations 91 to 93%. Desaturations significant with movement. He is very frustrated asking to go home to be with his dog. He is given permission to discuss with his sister Ila who was the one who called [address] she notes that he was found covered in feces and urine crawling around trying to feed his dog also covered in fleas. He notes he wants to go home no matter what and would be interested in hospice. Ila states she would like to discuss with him. I am okay with visitors discussed with pulmonology. Would like her to wear full PPE. 06/05: Afebrile. Still on 10 L nasal cannula with O2 saturation 93%. Desaturate significantly when get up to the commode and required assistance to commode today. He just wants to go home and see his dog. Still with cough, but non productive. WBC 9.2, NA 133, magnesium 1.5. Off antibiotics today 06/04: Afebrile. On 10 L nasal cannula. O2 saturations 93%. With significant desaturations with movement. Repeat CT head unchanged from prior with neurosurgery order for repeat in 1 week. Magnesium 1.8. Still very weak. 06/03: Afebrile. Seen bedside on 8 L NC O2 with O2 saturations 92% but with movement desaturates to 86%. His appetite is improved a little bit. Magnesium 1.6. NA 134. K 4. 06/02: Patient seen and examined. Chart reviewed. Discussed with RN. Patient is awake and alert. NAD. Patient is responsive. Patient relates that he is feeling better. Bruise on the right shoulder is still present. He said physical therapy came by and worked with him 2 days ago. He is on 8L 02 via NC with an oxygen saturation at 93% at rest, and drops down to 88-89 when talking. 06/01: Patient is awake with eyes open and alert. NAD. Patient is responsive and asking questions. Pena catheter has been taken out. Patient expresses feeling better and would like to go home. Patient is receiving doxycycline. FiO2 increased to 8L via NC since yesterday afternoon, previously was at 5L. Oxygen saturation at 7:00 this morning was around 87-89% on 8L NC. 05/31: Patient is awake with eyes open and alert. NAD. Patient is feeling a little better with more energy. Currently on 5L oxygen via NC. Bruise on the right shoulder. 05/30: Patient is resting with NAD. Has Pena bedside drainage. Bruise on the right shoulder. Currently on 5L oxygen via NC. 05/29: Patient is awake and making eye contact. Bruise on the right shoulder is still present. Currently receiving doxycycline. Patient is back on 5L oxygen via NC. 05/28: Patient is weak but responsive. Resting, NAD. Currently receiving doxycycline. Patient is on 10L oxygen via NC (humidified). Developed Afib with RVR. Vitals/I&O Vitals/I&O: Vital Signs Date Time Temp Pulse Resp B/P (MAP) Pulse Ox O2 Delivery O2 Flow Rate FiO2 06/06/21 14:07 98.1 84 18 97/55 (69) 96 Nasal Cannula 10.0 98.1 I & O 06/05/21 06/05/21 06/06/21 15:00 23:00 07:00 Intake Total 1080 ml 350 ml 200 ml Output Total 275 ml 550 ml Balance 1080 ml 75 ml -350 ml Physical Exam General: Alert, Oriented X3, Cooperative, No acute distress Heart: Normal S1, Normal S2 Lungs: Other (no accessory muscle use ) Abdomen: Soft, No tenderness Extremities: No edema Skin: Other (right shoulder ecchymosis, lesion on the center of chest.) Labs Labs: Laboratory Tests Test 06/06/21 03:30 White Blood Count 10.3 x10^3/uL (4.0-11.0) Red Blood Count 3.09 x10^6/uL (4.30-5.70) Hemoglobin 10.0 g/dL (13.0-17.5) Hematocrit 28.8 % (39.0-53.0) Mean Corpuscular Volume 93 fL (79-100) Mean Corpuscular Hemoglobin 33 pg (25-35) Mean Corpuscular Hemoglobin Concent 35 g/dL (31-37) Red Cell Distribution Width 15.6 % (11.5-14.5) Platelet Count 276 x10^3/uL (140-400) Neutrophils (%) (Auto) 79 % (31-73) Lymphocytes (%) (Auto) 12 % (24-48) Monocytes (%) (Auto) 7 % (0-9) Eosinophils (%) (Auto) 1 % (0-3) Basophils (%) (Auto) 1 % (0-3) Neutrophils # (Auto) 8.1 x10^3/uL (1.8-7.7) Lymphocytes # (Auto) 1.3 x10^3/uL (1.0-4.8) Monocytes # (Auto) 0.7 x10^3/uL (0.0-1.1) Eosinophils # (Auto) 0.1 x10^3/uL (0.0-0.7) Basophils # (Auto) 0.1 x10^3/uL (0.0-0.2) Assessment and Plan Assessmemt and Plan Problems Medical Problems: (1) Kidney failure, acute Status: Acute (2) Person under investigation for COVID-19 Status: Acute (3) Pneumonia Status: Acute (4) Septic shock Status: Acute (5) Subacute subdural hematoma Status: Acute Comment Review of Relevant I have reviewed the following items farhat (where applicable) has been applied. Justifications for Admission Other Justification REGAN UNGER MD Jun 06, 2021 15:58
[2021-06-06] MEDS: ATORVASTATIN CALCIUM 20 MG TABLET PO SCH (19:58)
[2021-06-06 19:59] VITALS: BP 118/59
[2021-06-06] MEDS: KETOROLAC 30 MG/ML VIAL. IVP PRN (20:11)
[2021-06-06 23:11] VITALS: BP 91/53
[2021-06-07 02:52] VITALS: BP 100/55
[2021-06-07] MEDS: KETOROLAC 30 MG/ML VIAL. IVP PRN ×2 (03:10→23:39)
[2021-06-07 05:10] LABS: ALBUMIN 1.3 g/dL (3.4-5.0); ALBUMIN/GLOBULIN RATIO 0.3 (1.0-1.7); CALCIUM 8.4 mg/dL (8.5-10.1); CREATININE 0.6 mg/dL (0.7-1.3); GFR 135.2; MAGNESIUM 1.7 mg/dL (1.8-2.4); POTASSIUM 4.2 mmol/L (3.5-5.1); TOTAL BILIRUBIN 0.3 mg/dL (0.2-1.0); TOTAL PROTEIN 5.6 g/dL (6.4-8.2)
[2021-06-07 06:34] VITALS: BP 100/57
[2021-06-07] MEDS: ASPIRIN CHEWABLE 81 MG TABLET. PO SCH (08:34)
[2021-06-07] MEDS: MAGNESIUM OXIDE 400 MG TABLET PO SCH (08:34)
[2021-06-07] MEDS: METOPROLOL TART IMMED RELEASE 50 MG TABLET. PO SCH ×2 (08:35→19:48)
[2021-06-07] MEDS: LACTOBACILLUS RHAMNOSUS GG 1 CAPSULE. PO SCH ×2 (08:35→19:49)
[2021-06-07] MEDS: LISINOPRIL 10 MG TABLET PO SCH (08:35)
[2021-06-07] MEDS: MULTIVITAMIN with MINERAL TABLET. PO SCH (08:35)
[2021-06-07] MEDS: ACETAMINOPHEN 325 MG TABLET. PO PRN ×2 (08:35→19:49)
[2021-06-07] MEDS: predniSONE 20 MG TABLET PO SCH (08:36)
[2021-06-07] MEDS: PHENYTOIN SODIUM EXTENDED 100 MG CAPSULE PO SCH ×2 (08:47→19:49)
[2021-06-07 10:41] VITALS: BP 87/52
--- NOTE | 2021-06-07 12:06 | PDOC ---
[facility] PROGRESS NOTE Date of Service DOS: DATE: 06/07/21 TIME: 11:53 Chief Complaint Chief Complaint A/P: Acute respiratory failure with hypoxia - due to COVID 19 - oxygen supplementation, Remdesivir, Steroids, Empiric antibiotics. COVID 19 pneumonia Weakness Mental status change Flu symptoms Hyperlipidemia Hypertension - hypotensive on admit Seizures OPHELIA - Vasomotor nephropathy/Dehydration/ Hypotension Non oliguric, Resolved with IVF . UA unremarkable, CT scan kidneys and Bladder Unremarkable. Supportive care Hypokalemia- Normal K; replace as indicated HypoMg - replace IV HypoNatremia - held HCTZ , stable , mildly low Subacute subdural hematoma No intervention per NS AFIB wtih RVR - new onset in setting of above. converted back to SR. Continue beta-blockers. Outpatient echo and follow-up. h/o Left carpal tunnel surgery h/o AAA repair - stable. Previously repaired in [place], [place] Previous tobacco abuse. FEN - Cardiac PPX - lovenox FULL CODE DIspo - inpatient History of Present Illness History of Present Illness Afebrile. Still requiring 2 L nasal cannula oxygen saturations 93%. Desaturations with movement. Magnesium still low despite replacement 1.7. Discussed with sister rehab options LTACH would be more appropriate given his needs O2 monitoring daily IV infusions. 06/06: Afebrile. Still requiring 8 to 10 L nasal cannula O2 saturations 91 to 93%. Desaturations significant with movement. He is very frustrated asking to go home to be with his dog. He is given permission to discuss with his sister Ila who was the one who called [address] she notes that he was found covered in feces and urine crawling around trying to feed his dog also covered in fleas. He notes he wants to go home no matter what and would be interested in hospice. Ila states she would like to discuss with him. I am okay with visitors discussed with pulmonology. Would like her to wear full PPE. 06/05: Afebrile. Still on 10 L nasal cannula with O2 saturation 93%. Desaturate significantly when get up to the commode and required assistance to commode today. He just wants to go home and see his dog. Still with cough, but non productive. WBC 9.2, NA 133, magnesium 1.5. Off antibiotics today 06/04: Afebrile. On 10 L nasal cannula. O2 saturations 93%. With significant desaturations with movement. Repeat CT head unchanged from prior with neurosurgery order for repeat in 1 week. Magnesium 1.8. Still very weak. 06/03: Afebrile. Seen bedside on 8 L NC O2 with O2 saturations 92% but with movement desaturates to 86%. His appetite is improved a little bit. Magnesium 1.6. NA 134. K 4. 06/02: Patient seen and examined. Chart reviewed. Discussed with RN. Patient is awake and alert. NAD. Patient is responsive. Patient relates that he is feeling better. Bruise on the right shoulder is still present. He said physical therapy came by and worked with him 2 days ago. He is on 8L 02 via NC with an oxygen saturation at 93% at rest, and drops down to 88-89 when talking. 06/01: Patient is awake with eyes open and alert. NAD. Patient is responsive and asking questions. Pena catheter has been taken out. Patient expresses feeling better and would like to go home. Patient is receiving doxycycline. FiO2 increased to 8L via NC since yesterday afternoon, previously was at 5L. Oxygen saturation at 7:00 this morning was around 87-89% on 8L NC. 05/31: Patient is awake with eyes open and alert. NAD. Patient is feeling a little better with more energy. Currently on 5L oxygen via NC. Bruise on the right shoulder. 05/30: Patient is resting with NAD. Has Pena bedside drainage. Bruise on the right shoulder. Currently on 5L oxygen via NC. 05/29: Patient is awake and making eye contact. Bruise on the right shoulder is still present. Currently receiving doxycycline. Patient is back on 5L oxygen via NC. 05/28: Patient is weak but responsive. Resting, NAD. Currently receiving doxycycline. Patient is on 10L oxygen via NC (humidified). Developed Afib with RVR. Vitals/I&O Vitals/I&O: Vital Signs Date Time Temp Pulse Resp B/P (MAP) Pulse Ox O2 Delivery O2 Flow Rate FiO2 06/07/21 10:41 99.0 89 20 87/52 (64) 98 Nasal Cannula 10.0 99.0 I & O 06/06/21 06/06/21 06/07/21 15:00 23:00 07:00 Intake Total 780 ml 720 ml 300 ml Output Total 300 ml 300 ml Balance 780 ml 420 ml 0 ml Physical Exam General: Alert, Oriented X3, Cooperative, No acute distress Heart: Normal S1, Normal S2 Lungs: Other (no accessory muscle use ) Abdomen: Soft, No tenderness Extremities: No edema Skin: Other (right shoulder ecchymosis, lesion on the center of chest.) Labs Labs: Laboratory Tests Test 06/07/21 04:15 Sodium Level 132 mmol/L (136-145) Potassium Level 4.2 mmol/L (3.5-5.1) Chloride Level 96 mmol/L (98-107) Carbon Dioxide Level 32 mmol/L (21-32) Anion Gap 4 (6-14) Blood Urea Nitrogen 23 mg/dL (8-26) Creatinine 0.6 mg/dL (0.7-1.3) Estimated GFR (Cockcroft-Gault) 135.2 BUN/Creatinine Ratio 38 (6-20) Glucose Level 78 mg/dL (70-99) Calcium Level 8.4 mg/dL (8.5-10.1) Phosphorus Level 3.0 mg/dL (2.6-4.7) Magnesium Level 1.7 mg/dL (1.8-2.4) Total Bilirubin 0.3 mg/dL (0.2-1.0) Aspartate Amino Transf (AST/SGOT) 41 U/L (15-37) Alanine Aminotransferase (ALT/SGPT) 63 U/L (16-63) Alkaline Phosphatase 78 U/L (46-116) Total Protein 5.6 g/dL (6.4-8.2) Albumin 1.3 g/dL (3.4-5.0) Albumin/Globulin Ratio 0.3 (1.0-1.7) Assessment and Plan Assessmemt and Plan Problems Medical Problems: (1) Kidney failure, acute Status: Acute (2) Person under investigation for COVID-19 Status: Acute (3) Pneumonia Status: Acute (4) Septic shock Status: Acute (5) Subacute subdural hematoma Status: Acute Comment Review of Relevant I have reviewed the following items farhat (where applicable) has been applied. Justifications for Admission Other Justification REGAN UNGER MD Jun 07, 2021 12:05
[2021-06-07] MEDS ORDERED: MAGNESIUM SULFATE 2GM 50 ML IV ONE (12:30)
[2021-06-07] MEDS: AA 4.25 %/CALCIUM/LYTES/D5W 1,000 ML IV SCH (12:42)
[2021-06-07 15:13] VITALS: BP 94/61
[2021-06-07 19:45] VITALS: BP 112/56
[2021-06-07] MEDS: ATORVASTATIN CALCIUM 20 MG TABLET PO SCH (19:49)
[2021-06-07 23:34] VITALS: BP 109/60
[2021-06-08] MEDS: AA 4.25 %/CALCIUM/LYTES/D5W 1,000 ML IV SCH ×2 (01:12→14:58)
[2021-06-08 03:50] VITALS: BP 113/61
[2021-06-08 07:00] VITALS: BP 108/63
--- NOTE | 2021-06-08 07:42 | PDOC ---
[facility] PROGRESS NOTE Date of Service DOS: DATE: 06/08/21 TIME: 07:39 Chief Complaint Chief Complaint A/P: Acute respiratory failure with hypoxia - due to COVID 19 - oxygen supplementation, Remdesivir, Steroids, Empiric antibiotics. COVID 19 pneumonia Weakness Mental status change Flu symptoms Hyperlipidemia Hypertension - hypotensive on admit Seizures OPHELIA - Vasomotor nephropathy/Dehydration/ Hypotension Non oliguric, Resolved with IVF . UA unremarkable, CT scan kidneys and Bladder Unremarkable. Supportive care Hypokalemia- Normal K; replace as indicated HypoMg - replace IV HypoNatremia - held HCTZ , stable , mildly low Subacute subdural hematoma No intervention per NS AFIB wtih RVR - new onset in setting of above. converted back to SR. Continue beta-blockers. Outpatient echo and follow-up. h/o Left carpal tunnel surgery h/o AAA repair - stable. Previously repaired in [place], [place] Previous tobacco abuse. FEN - Cardiac PPX - lovenox FULL CODE DIspo - inpatient History of Present Illness History of Present Illness Afebrile. Profoundly weak. Still requiring 10 L/min nasal cannula with O2 saturations 91 to 93% with desaturations into the 80s with movement. 06/07: Afebrile. Still requiring 10 L nasal cannula oxygen saturations 93%. Desaturations with movement. Magnesium still low despite replacement 1.7. Discussed with sister rehab options LTACH would be more appropriate given his needs O2 monitoring daily IV infusions. 06/06: Afebrile. Still requiring 8 to 10 L nasal cannula O2 saturations 91 to 93%. Desaturations significant with movement. He is very frustrated asking to go home to be with his dog. He is given permission to discuss with his sister Ila who was the one who called [address] she notes that he was found covered in feces and urine crawling around trying to feed his dog also covered in fleas. He notes he wants to go home no matter what and would be interested in hospice. Ila states she would like to discuss with him. I am okay with visitors discussed with pulmonology. Would like her to wear full PPE. 06/05: Afebrile. Still on 10 L nasal cannula with O2 saturation 93%. Desaturate significantly when get up to the commode and required assistance to commode today. He just wants to go home and see his dog. Still with cough, but non productive. WBC 9.2, NA 133, magnesium 1.5. Off antibiotics today 06/04: Afebrile. On 10 L nasal cannula. O2 saturations 93%. With significant desaturations with movement. Repeat CT head unchanged from prior with neurosurgery order for repeat in 1 week. Magnesium 1.8. Still very weak. 06/03: Afebrile. Seen bedside on 8 L NC O2 with O2 saturations 92% but with movement desaturates to 86%. His appetite is improved a little bit. Magnesium 1.6. NA 134. K 4. 06/02: Patient seen and examined. Chart reviewed. Discussed with RN. Patient is awake and alert. NAD. Patient is responsive. Patient relates that he is feeling better. Bruise on the right shoulder is still present. He said physical therapy came by and worked with him 2 days ago. He is on 8L 02 via NC with an oxygen saturation at 93% at rest, and drops down to 88-89 when talking. 06/01: Patient is awake with eyes open and alert. NAD. Patient is responsive and asking questions. Pena catheter has been taken out. Patient expresses feeling better and would like to go home. Patient is receiving doxycycline. FiO2 increased to 8L via NC since yesterday afternoon, previously was at 5L. Oxygen saturation at 7:00 this morning was around 87-89% on 8L NC. 05/31: Patient is awake with eyes open and alert. NAD. Patient is feeling a little better with more energy. Currently on 5L oxygen via NC. Bruise on the right shoulder. 05/30: Patient is resting with NAD. Has Pena bedside drainage. Bruise on the right shoulder. Currently on 5L oxygen via NC. 05/29: Patient is awake and making eye contact. Bruise on the right shoulder is still present. Currently receiving doxycycline. Patient is back on 5L oxygen via NC. 05/28: Patient is weak but responsive. Resting, NAD. Currently receiving doxycycline. Patient is on 10L oxygen via NC (humidified). Developed Afib with RVR. Vitals/I&O Vitals/I&O: Vital Signs Date Time Temp Pulse Resp B/P (MAP) Pulse Ox O2 Delivery O2 Flow Rate FiO2 06/08/21 03:50 97.6 77 22 113/61 (78) 93 Nasal Cannula 8.0 97.6 I & O 06/07/21 06/07/21 06/08/21 15:00 23:00 07:00 Intake Total 480 ml 360 ml 200 ml Output Total 300 ml 700 ml 750 ml Balance 180 ml -340 ml -550 ml Physical Exam General: Alert, Oriented X3, Cooperative, No acute distress Heart: Normal S1, Normal S2 Lungs: Other (no accessory muscle use ) Abdomen: Soft, No tenderness Extremities: No edema Skin: Other (right shoulder ecchymosis, lesion on the center of chest.) Assessment and Plan Assessmemt and Plan Problems Medical Problems: (1) Kidney failure, acute Status: Acute (2) Person under investigation for COVID-19 Status: Acute (3) Pneumonia Status: Acute (4) Septic shock Status: Acute (5) Subacute subdural hematoma Status: Acute Comment Review of Relevant I have reviewed the following items farhat (where applicable) has been applied. Medications: Current Medications Medications (Trade) Dose Ordered Sig/Natacha Route PRN Reason Start Time Stop Time Status Last Admin Dose Admin Magnesium Sulfate 50 ml @ 25 mls/hr 1X ONCE IV 06/07/21 12:30 06/07/21 14:29 DC 06/07/21 12:42 Amino Acids/ Electrolytes/ Dextrose 1,000 ml @ 80 mls/hr [id number] IV 06/07/21 12:15 06/08/21 01:12 Justifications for Admission Other Justification REGAN UNGER MD Jun 08, 2021 07:42
[2021-06-08] MEDS: METOPROLOL TART IMMED RELEASE 50 MG TABLET. PO SCH ×2 (09:59→20:27)
[2021-06-08] MEDS: MULTIVITAMIN with MINERAL TABLET. PO SCH (09:59)
[2021-06-08] MEDS: predniSONE 20 MG TABLET PO SCH (09:59)
[2021-06-08] MEDS: MAGNESIUM OXIDE 400 MG TABLET PO SCH (09:59)
[2021-06-08] MEDS: LACTOBACILLUS RHAMNOSUS GG 1 CAPSULE. PO SCH ×2 (10:00→20:26)
[2021-06-08] MEDS: PHENYTOIN SODIUM EXTENDED 100 MG CAPSULE PO SCH ×2 (10:00→20:27)
[2021-06-08] MEDS: LISINOPRIL 10 MG TABLET PO SCH (10:00)
[2021-06-08] MEDS: ASPIRIN CHEWABLE 81 MG TABLET. PO SCH (10:01)
--- NOTE | 2021-06-08 10:24 | PDOC ---
PULMONARY PROGRESS NOTES DATE: 06/08/21 TIME: 10:23 Subjective Looks better. Oxygen requirement improving. Vitals Vital Signs Date Time Temp Pulse Resp B/P (MAP) Pulse Ox O2 Delivery O2 Flow Rate FiO2 06/08/21 10:00 77 113/61 06/08/21 07:55 Nasal Cannula 8.0 06/08/21 03:50 97.6 22 93 97.6 ROS: No Nausea, No Chest Pain, No Abdominal Pain, No Increase Cough Lungs: Other (no accessory muscle use ) Cardiovascular: S1, S2 Neuro Exam: Alert Extremities: No Edema Skin: No Rashes Labs Laboratory Tests Test 06/07/21 04:15 Sodium Level 132 mmol/L (136-145) Potassium Level 4.2 mmol/L (3.5-5.1) Chloride Level 96 mmol/L (98-107) Carbon Dioxide Level 32 mmol/L (21-32) Anion Gap 4 (6-14) Blood Urea Nitrogen 23 mg/dL (8-26) Creatinine 0.6 mg/dL (0.7-1.3) Estimated GFR (Cockcroft-Gault) 135.2 BUN/Creatinine Ratio 38 (6-20) Glucose Level 78 mg/dL (70-99) Calcium Level 8.4 mg/dL (8.5-10.1) Phosphorus Level 3.0 mg/dL (2.6-4.7) Magnesium Level 1.7 mg/dL (1.8-2.4) Total Bilirubin 0.3 mg/dL (0.2-1.0) Aspartate Amino Transf (AST/SGOT) 41 U/L (15-37) Alanine Aminotransferase (ALT/SGPT) 63 U/L (16-63) Alkaline Phosphatase 78 U/L (46-116) Total Protein 5.6 g/dL (6.4-8.2) Albumin 1.3 g/dL (3.4-5.0) Albumin/Globulin Ratio 0.3 (1.0-1.7) Medications Active Scripts Medications Dose Route/Sig Max Daily Dose Days Date Category Lisinopril 10 Mg Tablet 1 Tab PO DAILY 05/27/21 Reported Hydrochlorothiazide Capsule (Hydrochlorothiazide) 12.5 Mg Capsule 25 Mg PO DAILY 05/27/21 Reported Pravastatin Sodium 80 Mg Tablet 1 Tab PO QHS 9/20/21 Reported Phenytoin Sodium Extended 200 Mg Capsule 2 Cap PO BID 30 05/27/21 Reported [id number]-Qcazqtqm-Umpq 50-300-40 (Butalb/Acetaminophen/Caffeine) 1 Each Capsule 1 Each PO PRN QID PRN 05/27/21 Reported Augmentin 875-125 Tablet (Amoxicillin/Potassium Clav) 1 Each Tablet 1 Tab PO BID 05/16/17 Rx Impression . IMPRESSION: 1. Acute hypoxemic respiratory failure, multifactorial. 2. COVID-19 viral pneumonia. 3. Subdural hematoma. 4. Recent fall. 5. CT chest revealing evidence of extensive consolidation opacities, mainly in the lower half of the right lung. 6. Possible aspiration pneumonia. 7. Acute exacerbation of chronic obstructive pulmonary disease. 8. History of AAA repair. 9. Acute renal failure. 10. Leukocytosis. Plan . Clinically improving with improvement in oxygen requirement. Continue current support Oral prednisone with taper. off antibiotics. Oxygen supplementation Follow neuro surgery input, for subdural hematoma EVANS RUFFIN MD Jun 08, 2021 10:24
[2021-06-08 11:00] VITALS: BP 109/64
[2021-06-08 14:44] VITALS: BP 97/56
[2021-06-08 19:59] VITALS: BP 110/66
[2021-06-08] MEDS: ATORVASTATIN CALCIUM 20 MG TABLET PO SCH (20:26)
[2021-06-08] MEDS: ACETAMINOPHEN 325 MG TABLET. PO PRN (20:29)
[2021-06-08 22:29] VITALS: BP 128/59
[2021-06-09 02:37] VITALS: BP 105/58
[2021-06-09] MEDS: AA 4.25 %/CALCIUM/LYTES/D5W 1,000 ML IV SCH ×2 (03:36→17:50)
[2021-06-09 05:21] LABS: CALCIUM 8.4 mg/dL (8.5-10.1); CREATININE 0.6 mg/dL (0.7-1.3); GFR 135.2; MAGNESIUM 1.8 mg/dL (1.8-2.4); POTASSIUM 3.9 mmol/L (3.5-5.1)
[2021-06-09 07:00] VITALS: BP 103/60
--- NOTE | 2021-06-09 07:44 | PDOC ---
[facility] PROGRESS NOTE Date of Service DOS: DATE: 06/09/21 TIME: 07:43 Chief Complaint Chief Complaint A/P: Acute respiratory failure with hypoxia - due to COVID 19 - oxygen supplementation, Remdesivir, Steroids, Empiric antibiotics. COVID 19 pneumonia Weakness Mental status change Flu symptoms Hyperlipidemia Hypertension - hypotensive on admit Seizures OPHELIA - Vasomotor nephropathy/Dehydration/ Hypotension Non oliguric, Resolved with IVF . UA unremarkable, CT scan kidneys and Bladder Unremarkable. Supportive care Hypokalemia- Normal K; replace as indicated HypoMg - replace IV HypoNatremia - held HCTZ , stable , mildly low Subacute subdural hematoma No intervention per NS AFIB wtih RVR - new onset in setting of above. converted back to SR. Continue beta-blockers. Outpatient echo and follow-up. h/o Left carpal tunnel surgery h/o AAA repair - stable. Previously repaired in [place], [place] Previous tobacco abuse. FEN - Cardiac PPX - lovenox FULL CODE DIspo - inpatient History of Present Illness History of Present Illness T-max 100.2 F overnight. Still weak. Mag 1.8. Headache today. No confusion. He notes he did not sleep last night. Still requires 10l/min O2 to maintain sats 91%. D/w pulm 06/08: Afebrile. Profoundly weak. Still requiring 10 L/min nasal cannula with O2 saturations 91 to 93% with desaturations into the 80s with movement. 06/07: Afebrile. Still requiring 10 L nasal cannula oxygen saturations 93%. Desaturations with movement. Magnesium still low despite replacement 1.7. Discussed with sister rehab options LTACH would be more appropriate given his needs O2 monitoring daily IV infusions. 06/06: Afebrile. Still requiring 8 to 10 L nasal cannula O2 saturations 91 to 93%. Desaturations significant with movement. He is very frustrated asking to go home to be with his dog. He is given permission to discuss with his sister Ila who was the one who called [address] she notes that he was found covered in feces and urine crawling around trying to feed his dog also covered in fleas. He notes he wants to go home no matter what and would be interested in hospice. Ila states she would like to discuss with him. I am okay with visitors discussed with pulmonology. Would like her to wear full PPE. 9/29: Afebrile. Still on 10 L nasal cannula with O2 saturation 93%. Desaturate significantly when get up to the commode and required assistance to commode today. He just wants to go home and see his dog. Still with cough, but non productive. WBC 9.2, NA 133, magnesium 1.5. Off antibiotics today 06/04: Afebrile. On 10 L nasal cannula. O2 saturations 93%. With significant desaturations with movement. Repeat CT head unchanged from prior with neurosurgery order for repeat in 1 week. Magnesium 1.8. Still very weak. 06/03: Afebrile. Seen bedside on 8 L NC O2 with O2 saturations 92% but with movement desaturates to 86%. His appetite is improved a little bit. Magnesium 1.6. NA 134. K 4. 06/02: Patient seen and examined. Chart reviewed. Discussed with RN. Patient is awake and alert. NAD. Patient is responsive. Patient relates that he is feeling better. Bruise on the right shoulder is still present. He said physical therapy came by and worked with him 2 days ago. He is on 8L 02 via NC with an oxygen saturation at 93% at rest, and drops down to 88-89 when talking. 06/01: Patient is awake with eyes open and alert. NAD. Patient is responsive and asking questions. Pena catheter has been taken out. Patient expresses feeling better and would like to go home. Patient is receiving doxycycline. FiO2 increased to 8L via NC since yesterday afternoon, previously was at 5L. Oxygen saturation at 7:00 this morning was around 87-89% on 8L NC. 05/31: Patient is awake with eyes open and alert. NAD. Patient is feeling a little better with more energy. Currently on 5L oxygen via NC. Bruise on the right shoulder. 05/30: Patient is resting with NAD. Has Pena bedside drainage. Bruise on the right shoulder. Currently on 5L oxygen via NC. 05/29: Patient is awake and making eye contact. Bruise on the right shoulder is still present. Currently receiving doxycycline. Patient is back on 5L oxygen via NC. 05/28: Patient is weak but responsive. Resting, NAD. Currently receiving doxycycline. Patient is on 10L oxygen via NC (humidified). Developed Afib with RVR. Vitals/I&O Vitals/I&O: Vital Signs Date Time Temp Pulse Resp B/P (MAP) Pulse Ox O2 Delivery O2 Flow Rate FiO2 06/09/21 02:37 98.8 81 16 105/58 (74) 95 Nasal Cannula 8.0 98.8 I & O 06/08/21 06/08/21 06/09/21 15:00 23:00 07:00 Intake Total 480 ml 357 ml 300 ml Output Total 1500 ml 650 ml 1500 ml Balance -1020 ml -293 ml -1200 ml Physical Exam General: Alert, Oriented X3, Cooperative, No acute distress Heart: Normal S1, Normal S2 Lungs: Other (no accessory muscle use ) Abdomen: Soft, No tenderness Extremities: No edema Skin: Other (right shoulder ecchymosis, lesion on the center of chest.) Labs Labs: Laboratory Tests Test 06/09/21 04:30 Sodium Level 132 mmol/L (136-145) Potassium Level 3.9 mmol/L (3.5-5.1) Chloride Level 97 mmol/L (98-107) Carbon Dioxide Level 31 mmol/L (21-32) Anion Gap 4 (6-14) Blood Urea Nitrogen 21 mg/dL (8-26) Creatinine 0.6 mg/dL (0.7-1.3) Estimated GFR (Cockcroft-Gault) 135.2 Glucose Level 95 mg/dL (70-99) Calcium Level 8.4 mg/dL (8.5-10.1) Magnesium Level 1.8 mg/dL (1.8-2.4) Assessment and Plan Assessmemt and Plan Problems Medical Problems: (1) Kidney failure, acute Status: Acute (2) Person under investigation for COVID-19 Status: Acute (3) Pneumonia Status: Acute (4) Septic shock Status: Acute (5) Subacute subdural hematoma Status: Acute Comment Review of Relevant I have reviewed the following items farhat (where applicable) has been applied. Justifications for Admission Other Justification REGAN UNGER MD Jun 09, 2021 07:44
[2021-06-09] MEDS: ASPIRIN CHEWABLE 81 MG TABLET. PO SCH (08:43)
[2021-06-09] MEDS: LACTOBACILLUS RHAMNOSUS GG 1 CAPSULE. PO SCH ×2 (08:43→20:48)
[2021-06-09] MEDS: MULTIVITAMIN with MINERAL TABLET. PO SCH (08:43)
[2021-06-09] MEDS: LISINOPRIL 10 MG TABLET PO SCH (08:43)
[2021-06-09] MEDS: predniSONE 20 MG TABLET PO SCH (08:43)
[2021-06-09] MEDS: PHENYTOIN SODIUM EXTENDED 100 MG CAPSULE PO SCH ×2 (08:44→20:48)
[2021-06-09] MEDS: MAGNESIUM OXIDE 400 MG TABLET PO SCH (08:44)
[2021-06-09] MEDS: METOPROLOL TART IMMED RELEASE 50 MG TABLET. PO SCH ×2 (08:44→20:49)
[2021-06-09] MEDS ORDERED: MAGNESIUM SULFATE 2GM 50 ML IV ONE (09:00)
[2021-06-09] MEDS ORDERED: ASA/APAP/CAFFEINE 250/250/65MG TABLET. PO PRN (09:30)
--- NOTE | 2021-06-09 10:11 | RAD ---
INDICATION: Reason: Fever, hypoxia, COVID / Spl. Instructions: / History: COMPARISON: May 26, 2021 FINDINGS: Single view of chest obtained. Dense opacity is again seen at the right lung base. Mild patchy opacity at left lung base again seen. Severe lucency to the lung parenchyma most prominent in the upper lungs again seen. There are some o bliquely oriented lines along the thorax bilaterally which is most likely secondary to skin fold. Alfredito cifications adjacent to the left shoulder could be in the soft tissues or loose bodies. Stent is seen at the right upper quadrant the abdomen. IMPRESSION: * Dense opacity at the right lung base with mild patchy opacity at left lung base again seen and cou ld be from bilateral infiltrate. Follow-up could be obtained to ensure that this appropriately resolv es to exclude a persistent pulmonary mass. Similar prior on the right and similar to slightly decreas ed on the left. * Severe lucency at the lung apices which can be seen with emphysema. Electronically signed by: Huseyin Batista MD (06/09/2021 10:09 AM) [id number]
[2021-06-09 11:00] VITALS: BP 102/55
--- NOTE | 2021-06-09 11:14 | PDOC ---
PULMONARY PROGRESS NOTES DATE: 06/09/21 TIME: 11:12 Subjective Looks better. Oxygen requirement improving. Vitals Vital Signs Date Time Temp Pulse Resp B/P (MAP) Pulse Ox O2 Delivery O2 Flow Rate FiO2 06/09/21 08:44 81 105/58 06/09/21 07:00 97.7 18 90 Nasal Cannula 8.0 97.7 ROS: No Nausea, No Chest Pain, No Abdominal Pain, No Increase Cough Lungs: Other (no accessory muscle use ) Cardiovascular: S1, S2 Neuro Exam: Alert Extremities: No Edema Skin: No Rashes Labs Laboratory Tests Test 06/09/21 04:30 Sodium Level 132 mmol/L (136-145) Potassium Level 3.9 mmol/L (3.5-5.1) Chloride Level 97 mmol/L (98-107) Carbon Dioxide Level 31 mmol/L (21-32) Anion Gap 4 (6-14) Blood Urea Nitrogen 21 mg/dL (8-26) Creatinine 0.6 mg/dL (0.7-1.3) Estimated GFR (Cockcroft-Gault) 135.2 Glucose Level 95 mg/dL (70-99) Calcium Level 8.4 mg/dL (8.5-10.1) Magnesium Level 1.8 mg/dL (1.8-2.4) Laboratory Tests Test 06/09/21 04:30 Sodium Level 132 mmol/L (136-145) Potassium Level 3.9 mmol/L (3.5-5.1) Chloride Level 97 mmol/L (98-107) Carbon Dioxide Level 31 mmol/L (21-32) Anion Gap 4 (6-14) Blood Urea Nitrogen 21 mg/dL (8-26) Creatinine 0.6 mg/dL (0.7-1.3) Estimated GFR (Cockcroft-Gault) 135.2 Glucose Level 95 mg/dL (70-99) Calcium Level 8.4 mg/dL (8.5-10.1) Magnesium Level 1.8 mg/dL (1.8-2.4) Medications Active Scripts Medications Dose Route/Sig Max Daily Dose Days Date Category Lisinopril 10 Mg Tablet 1 Tab PO DAILY 05/27/21 Reported Hydrochlorothiazide Capsule (Hydrochlorothiazide) 12.5 Mg Capsule 25 Mg PO DAILY 05/27/21 Reported Pravastatin Sodium 80 Mg Tablet 1 Tab PO QHS 05/27/21 Reported Phenytoin Sodium Extended 200 Mg Capsule 2 Cap PO BID 30 05/27/21 Reported Tdiabd-Qdmpeikj-Sytq 50-300-40 (Butalb/Acetaminophen/Caffeine) 1 Each Capsule 1 Each PO PRN QID PRN 05/27/21 Reported Augmentin 875-125 Tablet (Amoxicillin/Potassium Clav) 1 Each Tablet 1 Tab PO BID 05/16/17 Rx Impression . IMPRESSION: 1. Acute hypoxemic respiratory failure, multifactorial. 2. COVID-19 viral pneumonia. 3. Subdural hematoma. 4. Recent fall. 5. CT chest revealing evidence of extensive consolidation opacities, mainly in the lower half of the right lung. 6. Possible aspiration pneumonia. 7. Acute exacerbation of chronic obstructive pulmonary disease. 8. History of AAA repair. 9. Acute renal failure. 10. Leukocytosis. Plan . Clinically improving with improvement in oxygen requirement. Continue current support Oral prednisone with taper. off antibiotics. Oxygen supplementation Follow neuro surgery input, for subdural hematoma EVANS RUFFIN MD Jun 09, 2021 11:14
[2021-06-09 15:00] VITALS: BP 105/63
[2021-06-09 19:42] VITALS: BP 149/74
[2021-06-09] MEDS: ATORVASTATIN CALCIUM 20 MG TABLET PO SCH (20:48)
[2021-06-09] MEDS ORDERED: MIRTAZAPINE 7.5 MG TABLET. PO SCH (21:00)
[2021-06-09 22:44] VITALS: BP 119/59
[2021-06-10 03:00] VITALS: BP 123/59
[2021-06-10 06:08] LABS: CALCIUM 8.6 mg/dL (8.5-10.1); CREATININE 0.6 mg/dL (0.7-1.3); GFR 135.2
[2021-06-10 07:00] VITALS: BP 93/51
[2021-06-10] MEDS: predniSONE 20 MG TABLET PO SCH (08:28)
[2021-06-10] MEDS: MAGNESIUM OXIDE 400 MG TABLET PO SCH (08:28)
[2021-06-10] MEDS: METOPROLOL TART IMMED RELEASE 50 MG TABLET. PO SCH (08:30)
[2021-06-10] MEDS: LISINOPRIL 10 MG TABLET PO SCH ×2 (08:30→08:31)
[2021-06-10] MEDS: LACTOBACILLUS RHAMNOSUS GG 1 CAPSULE. PO SCH (08:30)
[2021-06-10] MEDS: ASPIRIN CHEWABLE 81 MG TABLET. PO SCH (08:30)
[2021-06-10] MEDS: MULTIVITAMIN with MINERAL TABLET. PO SCH (08:32)
[2021-06-10] MEDS: PHENYTOIN SODIUM EXTENDED 100 MG CAPSULE PO SCH (08:44)
--- NOTE | 2021-06-10 09:24 | PDOC ---
PULMONARY PROGRESS NOTES DATE: 06/10/21 TIME: 09:24 Subjective Patient feels better, ready to discharge will transfer Vitals Vital Signs Date Time Temp Pulse Resp B/P (MAP) Pulse Ox O2 Delivery O2 Flow Rate FiO2 06/10/21 08:31 85 93/51 06/10/21 07:00 97.7 20 96 Nasal Cannula 8.0 97.7 ROS: No Nausea, No Chest Pain, No Abdominal Pain, No Increase Cough Lungs: Other (no accessory muscle use ) Cardiovascular: S1, S2 Neuro Exam: Alert Extremities: No Edema Skin: No Rashes Labs Laboratory Tests Test 06/09/21 04:30 06/10/21 04:15 Sodium Level 132 mmol/L (136-145) 133 mmol/L (136-145) Potassium Level 3.9 mmol/L (3.5-5.1) 4.0 mmol/L (3.5-5.1) Chloride Level 97 mmol/L (98-107) 98 mmol/L (98-107) Carbon Dioxide Level 31 mmol/L (21-32) 32 mmol/L (21-32) Anion Gap 4 (6-14) 3 (6-14) Blood Urea Nitrogen 21 mg/dL (8-26) 20 mg/dL (8-26) Creatinine 0.6 mg/dL (0.7-1.3) 0.6 mg/dL (0.7-1.3) Estimated GFR (Cockcroft-Gault) 135.2 135.2 Glucose Level 95 mg/dL (70-99) 72 mg/dL (70-99) Calcium Level 8.4 mg/dL (8.5-10.1) 8.6 mg/dL (8.5-10.1) Magnesium Level 1.8 mg/dL (1.8-2.4) Laboratory Tests Test 06/10/21 04:15 Sodium Level 133 mmol/L (136-145) Potassium Level 4.0 mmol/L (3.5-5.1) Chloride Level 98 mmol/L (98-107) Carbon Dioxide Level 32 mmol/L (21-32) Anion Gap 3 (6-14) Blood Urea Nitrogen 20 mg/dL (8-26) Creatinine 0.6 mg/dL (0.7-1.3) Estimated GFR (Cockcroft-Gault) 135.2 Glucose Level 72 mg/dL (70-99) Calcium Level 8.6 mg/dL (8.5-10.1) Medications Active Scripts Medications Dose Route/Sig Max Daily Dose Days Date Category Lisinopril 10 Mg Tablet 1 Tab PO DAILY 05/27/21 Reported Hydrochlorothiazide Capsule (Hydrochlorothiazide) 12.5 Mg Capsule 25 Mg PO DAILY 05/27/21 Reported Pravastatin Sodium 80 Mg Tablet 1 Tab PO QHS 05/27/21 Reported Phenytoin Sodium Extended 200 Mg Capsule 2 Cap PO BID 30 05/27/21 Reported [id number]-[id number] 50-300-40 (Butalb/Acetaminophen/Caffeine) 1 Each Capsule 1 Each PO PRN QID PRN 05/27/21 Reported Augmentin 875-125 Tablet (Amoxicillin/Potassium Clav) 1 Each Tablet 1 Tab PO BID 05/16/17 Rx Impression . IMPRESSION: 1. Acute hypoxemic respiratory failure, multifactorial. 2. COVID-19 viral pneumonia. 3. Subdural hematoma. 4. Recent fall. 5. CT chest revealing evidence of extensive consolidation opacities, mainly in the lower half of the right lung. 6. Possible aspiration pneumonia. 7. Acute exacerbation of chronic obstructive pulmonary disease. 8. History of AAA repair. 9. Acute renal failure. 10. Leukocytosis. Plan . Discussed with social service Okay to transfer Continue oxygen supplementation Follow-up with me in July or August in the office MARGARET LEDEZMA MD Jun 10, 2021 09:24
--- NOTE | 2021-06-10 10:35 | SNU/HH DC ---
DISCHARGE ORDERS DISCHARGE INFORMATION: DISCHARGE DATE: Jun 10, 2021 FINAL DIAGNOSIS Problems Medical Problems: (1) Kidney failure, acute Status: Acute (2) Person under investigation for COVID-19 Status: Acute (3) Pneumonia Status: Acute (4) Septic shock Status: Acute (5) Subacute subdural hematoma Status: Acute CONDITION ON DISCHARGE: Stable CODE STATUS: Code Status: Full SHELTER: SNF STAY <30 DAYS: Yes POST DISCHARGE ORDERS: ACTIVITY ORDERS: Activity as tolerated WEIGHT BEARING STATUS: As tolerated DIET AFTER DISCHARGE: Cardiac CHECKS AFTER DISCHARGE: CHECKS AFTER DISCHARGE: Check blood press - daily, Check your Temp as needed TREATMENT/EQUIPMENT ORDERS: ADAPTIVE EQUIPMENT NEEDED: Walker RESPIRATORY EQUIPMENT NEEDED: Oxygen Physical Therapy For: Evalulation/Treatment Occupational Therapy For: Evaluation/Treatment DISCHARGE MEDICATIONS: Home Meds Reported Medications Lisinopril (LISINOPRIL) 10 Mg Tablet, 1 TAB PO DAILY for htn, #30 TAB 5 Refills 05/27/21 Hydrochlorothiazide (HYDROCHLOROTHIAZIDE CAPSULE ) 12.5 Mg Capsule, 25 MG PO DAILY for DIURETIC, CAP 0 Refills 05/27/21 Pravastatin Sodium (PRAVASTATIN SODIUM) 80 Mg Tablet, 1 TAB PO QHS for , #90 TAB 1 Refill 05/27/21 Phenytoin Sodium Extended (PHENYTOIN SODIUM EXTENDED) 200 Mg Capsule, 2 CAP PO BID for for 30 Days, #120 CAP 0 Refills 05/27/21 Butalb/Acetaminophen/Caffeine ([id number] 50-300-40) 1 Each Capsule, 1 EACH PO PRN QID PRN for HEADACHE, CAP 05/27/21 REGAN GIL MD Jun 10, 2021 10:35
[2021-06-10] MEDS ORDERED: MIRT7.5T8 PO (10:38)
[2021-06-10] MEDS ORDERED: METO50TA6 PO (10:38)
[2021-06-10] MEDS ORDERED: PRED-220 PO (10:40)
--- NOTE | 2021-06-10 10:44 | NUR ---
SS following up with discharge planning. SS reviewed pt chart and discussed with pt RN. Pt is currently requiring oxygen at eight liters nasal canula at rest. COVID19 positive. Pt on Clinimix. PT/OT recommended assisted unit. Pt continues to desaturate with exertion. Pt accepted at [facility], ; fax [phone]. SS phoned and faxed clinical updates this morning. Per [facility], bed will be available today. SS contacted pt's daughter, Ila, and notified. Currently awaiting transport time from [facility]. Packet and ambulance form on the chart. SS will continue to follow for discharge planning. Addendum: 06/10/21 at 1129 by OPHELIA LARIOS Bed available at 1430. Discharge orders received and phoned and faxed to [facility]. Pt will discharge today and go to [facility] via [facility] ambulance. Pt, pt's RN, and pt's daughter notified. Packet and ambulance form on the chart.
[2021-06-10 10:58] VITALS: BP 108/60
[2021-06-10 14:26] VITALS: BP 109/63
--- NOTE | 2021-06-10 15:11 | NUR ---
DISCHARGE REPORT CALLED TO TYRELL AT [facility]. ALL QUESTIONS ANSWERED, PERTINENT INFORMATION PASSED ON AT THIS TIME. RETURN PHONE NUMBER AND NAME GIVEN IF ADDITIONAL QUESTIONS ARISE. PT TRANSPORTED BY [facility]. PT STAND/PIVOT TRANSFERS ONTO COT. O2 AT 8L FOR TRANSPORT, PIV LEFT INTACT FOR USE AT RECEIVING FACILITY.
--- NOTE | 2021-06-10 16:49 | PDOC ---
PROGRESS NOTES Date of Service DATE: 06/10/21 TIME: 16:47 Subjective Subjective Patient seen and evaluated. Objective Objective Vital Signs Date Time Temp Pulse Resp B/P (MAP) Pulse Ox O2 Delivery O2 Flow Rate FiO2 06/10/21 14:26 97.5 83 22 109/63 (78) 99 Nasal Cannula 8.0 97.5 Intake and Output 06/10/21 07:00 Intake Total 834 ml Output Total 1950 ml Balance -1116 ml Intake Oral 834 ml Output Urine Total 1950 ml # Bowel Movements 2 Physical Exam Physical Exam Visual exam as per Covid guidelines. Assessment Assessment Problems Medical Problems: (1) Kidney failure, acute Status: Acute (2) Person under investigation for COVID-19 Status: Acute (3) Pneumonia Status: Acute (4) Septic shock Status: Acute (5) Subacute subdural hematoma Status: Acute Acute respiratory failure secondary; multifactorial with COVID PNA, probable aspiration PNA, and underlying COPD. Continue slow improvement. To half-way care soon. AFIB wtih RVR; new onset in setting of above. converted back to SR and is maintaining OPHELIA; improved Traumatic fall lat week with SDH; repeat CT head stable Hypertension; controlled Hyperlipidemia; LDL 38 Abdominal aortic aneurysm s/p endograft repair Metabolic encephalopathy; improved. Comment Review of Relevant I have reviewed the following items farhat (where applicable) has been applied. Labs Laboratory Tests Test 06/09/21 04:30 06/10/21 04:15 Sodium Level 132 mmol/L (136-145) 133 mmol/L (136-145) Potassium Level 3.9 mmol/L (3.5-5.1) 4.0 mmol/L (3.5-5.1) Chloride Level 97 mmol/L (98-107) 98 mmol/L (98-107) Carbon Dioxide Level 31 mmol/L (21-32) 32 mmol/L (21-32) Anion Gap 4 (6-14) 3 (6-14) Blood Urea Nitrogen 21 mg/dL (8-26) 20 mg/dL (8-26) Creatinine 0.6 mg/dL (0.7-1.3) 0.6 mg/dL (0.7-1.3) Estimated GFR (Cockcroft-Gault) 135.2 135.2 Glucose Level 95 mg/dL (70-99) 72 mg/dL (70-99) Calcium Level 8.4 mg/dL (8.5-10.1) 8.6 mg/dL (8.5-10.1) Magnesium Level 1.8 mg/dL (1.8-2.4) Laboratory Tests Test 06/10/21 04:15 Sodium Level 133 mmol/L (136-145) Potassium Level 4.0 mmol/L (3.5-5.1) Chloride Level 98 mmol/L (98-107) Carbon Dioxide Level 32 mmol/L (21-32) Anion Gap 3 (6-14) Blood Urea Nitrogen 20 mg/dL (8-26) Creatinine 0.6 mg/dL (0.7-1.3) Estimated GFR (Cockcroft-Gault) 135.2 Glucose Level 72 mg/dL (70-99) Calcium Level 8.6 mg/dL (8.5-10.1) Microbiology 05/26/21 Blood Culture - Final, Complete NO GROWTH AFTER 5 DAYS 05/26/21 Gram Stain Evaluation - Final, Complete 05/26/21 Respiratory Culture - Final, Complete 05/26/21 Antimicrobic Susceptibility - Final, Complete Medications Current Medications Sodium Chloride 1,000 ml @ 1,000 mls/hr 1X ONCE IV Last administered on 05/26/21at 18:40; Start 05/26/21 at 18:00; Stop 05/26/21 at 18:59; Status DC Methylprednisolone Sodium Succinate (SOLU-Medrol 125MG VIAL) 80 mg 1X ONCE IV Last administered on 05/26/21at 18:42; Start 05/26/21 at 18:30; Stop 05/26/21 at 18:31; Status DC Albuterol Sulfate (Ventolin Neb Soln) 2.5 mg 1X ONCE NEB Last administered on 05/26/21at 18:30; Start 05/26/21 at 18:30; Stop 05/26/21 at 18:31; Status DC Sodium Chloride 1,000 ml @ 1,000 mls/hr 1X ONCE IV Last administered on 05/26/21at 18:45; Start 05/26/21 at 18:45; Stop 05/26/21 at 19:44; Status DC Piperacillin Sod/ Tazobactam Sod 3.375 gm/Sodium Chloride 50 ml @ 100 mls/hr 1X ONCE IV Last administered on 05/26/21at 19:12; Start 05/26/21 at 18:45; Stop 05/26/21 at 19:14; Status DC Sodium Chloride 1,000 ml @ 100 mls/hr Q10H IV Last administered on 05/27/21at 16:06; Start 05/26/21 at 20:15; Stop 05/27/21 at 20:14; Status DC Acetaminophen (Tylenol) 650 mg PRN Q4HRS PRN PO FEVER > 100.3'F Last administered on 05/27/21at 16:07; Start 05/26/21 at 20:15; Stop 05/27/21 at 20:14; Status DC Methylprednisolone Sodium Succinate (SOLU-Medrol 40MG VIAL) 80 mg Q8HRS ONCE IV Last administered on 05/26/21at 22:40; Start 05/26/21 at 22:00; Stop 05/26/21 at 22:01; Status DC Piperacillin Sod/ Tazobactam Sod 3.375 gm/Sodium Chloride 50 ml @ 100 mls/hr Q6HRS IV ; Start 05/27/21 at 00:00; Stop 05/26/21 at 22:59; Status DC Piperacillin Sod/ Tazobactam Sod 2.25 gm/Sodium Chloride 50 ml @ 100 mls/hr Q8HRS IV Last administered on 05/27/21at 05:47; Start 05/27/21 at 06:00; Stop 05/27/21 at 13:13; Status DC Remdesivir 200 mg/ Sodium Chloride 210 ml @ 210 mls/hr 1X ONCE IV Last administered on 05/27/21at 14:24; Start 05/27/21 at 14:00; Stop 05/27/21 at 14:59; Status DC Remdesivir 100 mg/ Sodium Chloride 230 ml @ 460 mls/hr Q24H IV Last administered on 05/31/21at 14:52; Start 05/28/21 at 14:00; Stop 05/31/21 at 14:29; Status DC Doxycycline Hyclate 100 mg/ Dextrose 100 ml @ 50 mls/hr Q12HR IV Last administered on 06/05/21at 09:08; Start 05/27/21 at 14:00; Stop 06/05/21 at 10:41; Status DC Aspirin (Aspirin Chewable) 81 mg [id number] PO Last administered on 06/10/21at 08:30; Start 05/28/21 at 08:00; Stop 06/10/21 at 15:16; Status DC Guaifenesin/ Codeine Phosphate (Robitussin Ac) 5 ml PRN Q6HRS PRN PO COUGH; Start 05/27/21 at 13:15; Stop 06/06/21 at 15:14; Status DC Methylprednisolone Sodium Succinate (SOLU-Medrol 40MG VIAL) 40 mg BID IV Last administered on 06/02/21at 08:54; Start 05/27/21 at 21:00; Stop 06/02/21 at 09:40; Status DC Multivitamins (Thera M Plus) 1 tab DAILY PO Last administered on 06/10/21at 08:32; Start 05/28/21 at 09:00; Stop 06/10/21 at 15:16; Status DC Ceftriaxone Sodium (Rocephin) 1 gm Q24H IVP Last administered on 06/04/21at 14:42; Start 05/27/21 at 14:00; Stop 06/05/21 at 10:41; Status DC Amoxicillin/ Clavulanate Potassium (Augmentin 875/ 125mg) 1 tab BID PO ; Start 05/27/21 at 21:00; Status UNV Hydrochlorothiazide (Microzide) 25 mg DAILY PO Last administered on 05/30/21at 09:47; Start 05/28/21 at 09:00; Stop 05/30/21 at 11:04; Status DC Lisinopril (Prinivil) 10 mg DAILY PO Last administered on 06/09/21at 08:43; Start 05/28/21 at 09:00; Stop 06/10/21 at 15:16; Status DC Acetaminophen/ Butalbital/ Caffeine (Fioricet) 1 tab PRN Q6HRS PRN PO MIGRAINE HEADACHE Last administered on 06/04/21at 09:03; Start 05/27/21 at 15:00; Stop 06/06/21 at 15:14; Status DC Phenytoin Sodium (Dilantin) 400 mg BID PO Last administered on 06/10/21at 08:44; Start 05/27/21 at 21:00; Stop 06/10/21 at 15:16; Status DC Atorvastatin Calcium (Lipitor) 20 mg QHS PO Last administered on 06/09/21at 20:48; Start 05/27/21 at 21:00; Stop 06/10/21 at 15:16; Status DC Potassium Chloride (Klor-Con) 40 meq 1X ONCE PO Last administered on 05/27/21at 16:06; Start 05/27/21 at 15:15; Stop 05/27/21 at 15:16; Status DC Lactobacillus Rhamnosus (Culturelle) 1 cap BID PO Last administered on 06/10/21at 08:30; Start 05/28/21 at 09:00; Stop 06/10/21 at 15:16; Status DC Labetalol HCl (Normodyne Iv Push) 5 mg 1X ONCE IVP ; Start 05/28/21 at 08:30; Stop 05/28/21 at 08:33; Status DC Morphine Sulfate (Morphine Sulfate) 2 mg PRN Q2HR PRN IVP PAIN Last administered on 05/28/21at 08:38; Start 05/28/21 at 08:30; Stop 06/06/21 at 15:14; Status DC Metoprolol Tartrate (Lopressor Vial) 5 mg 1X ONCE IVP Last administered on 05/28/21at 08:38; Start 05/28/21 at 08:45; Stop 05/28/21 at 08:48; Status DC Metoprolol Tartrate (Lopressor) 25 mg BID PO Last administered on 05/29/21at 09:19; Start 05/28/21 at 09:00; Stop 05/29/21 at 13:56; Status DC Acetaminophen (Tylenol) 650 mg PRN Q6HRS PRN PO MILD PAIN / TEMP > 100.3'F Last administered on 06/08/21at 20:29; Start 05/28/21 at 11:00; Stop 06/09/21 at 09:20; Status DC Potassium Chloride (Klor-Con) 40 meq 1X ONCE PO Last administered on 05/28/21at 11:32; Start 05/28/21 at 11:15; Stop 05/28/21 at 11:16; Status DC Potassium Chloride (Klor-Con) 40 meq 1X ONCE PO Last administered on 05/28/21at 14:59; Start 05/28/21 at 14:15; Stop 05/28/21 at 14:16; Status DC Magnesium Sulfate 50 ml @ 25 mls/hr 1X ONCE IV Last administered on 05/28/21at 11:34; Start 05/28/21 at 12:00; Stop 05/28/21 at 13:59; Status DC Magnesium Sulfate 50 ml @ 25 mls/hr 1X ONCE IV ; Start 05/29/21 at 08:45; Stop 05/29/21 at 10:44; Status UNV Magnesium Sulfate 50 ml @ 25 mls/hr 1X ONCE IV Last administered on 05/29/21at 09:17; Start 05/29/21 at 09:30; Stop 05/29/21 at 11:29; Status DC Metoprolol Tartrate (Lopressor) 50 mg BID PO Last administered on 06/10/21at 08:30; Start 05/29/21 at 21:00; Stop 06/10/21 at 15:16; Status DC Metoprolol Tartrate (Lopressor) 25 mg 1X ONCE PO Last administered on 05/29/21at 14:14; Start 05/29/21 at 14:30; Stop 05/29/21 at 14:31; Status DC Magnesium Sulfate 50 ml @ 25 mls/hr 1X ONCE IV Last administered on 05/30/21at 11:44; Start 05/30/21 at 11:30; Stop 05/30/21 at 13:29; Status DC Potassium Chloride/Water 100 ml @ 100 mls/hr Q1H IV Last administered on 05/30/21at 11:45; Start 05/30/21 at 11:30; Stop 05/30/21 at 14:17; Status DC Magnesium Sulfate 50 ml @ 25 mls/hr 1X ONCE IV ; Start 05/30/21 at 12:15; Stop 05/30/21 at 14:14; Status UNV Magnesium Sulfate 50 ml @ 25 mls/hr 1X ONCE IV ; Start 05/30/21 at 12:15; Stop 05/30/21 at 14:14; Status UNV Magnesium Sulfate 100 ml @ 25 mls/hr 1X ONCE IV ; Start 05/30/21 at 12:30; Stop 05/30/21 at 16:29; Status Cancel Potassium Chloride (Klor-Con) 40 meq 1X ONCE PO Last administered on 05/30/21at 14:56; Start 05/30/21 at 13:45; Stop 05/30/21 at 14:20; Status DC Potassium Chloride (Klor-Con) 20 meq 1X ONCE PO Last administered on 05/30/21at 17:02; Start 05/30/21 at 17:00; Stop 05/30/21 at 17:01; Status DC Potassium Chloride (Klor-Con) 20 meq 1X ONCE PO Last administered on 05/31/21at 11:55; Start 05/31/21 at 11:30; Stop 05/31/21 at 11:31; Status DC Magnesium Sulfate 50 ml @ 25 mls/hr 1X ONCE IV Last administered on 05/31/21at 11:55; Start 05/31/21 at 11:30; Stop 05/31/21 at 13:29; Status DC Magnesium Sulfate 50 ml @ 25 mls/hr 1X ONCE IV ; Start 05/31/21 at 12:45; Stop 05/31/21 at 14:44; Status UNV Magnesium Sulfate 50 ml @ 25 mls/hr PRN DAILY PRN IV for Mag < 1.7 on am labs Last administered on 06/02/21at 11:50; Start 05/31/21 at 17:15; Stop 06/05/21 at 11:14; Status DC Magnesium Oxide (Magnesium Oxide) 400 mg DAILY PO Last administered on 06/10/21at 08:28; Start 06/02/21 at 09:00; Stop 06/10/21 at 15:16; Status DC Magnesium Sulfate 50 ml @ 25 mls/hr 1X ONCE IV Last administered on 06/01/21at 12:07; Start 06/01/21 at 11:00; Stop 06/02/21 at 12:26; Status DC Magnesium Sulfate 50 ml @ 25 mls/hr PRN DAILY PRN IV for mag < 1.7; Start 06/01/21 at 15:00; Status Cancel Prednisone (Prednisone) 40 mg DAILY PO Last administered on 06/10/21at 08:28; Start 06/03/21 at 09:00; Stop 06/10/21 at 15:16; Status DC Magnesium Sulfate 50 ml @ 25 mls/hr 1X ONCE IV ; Start 06/02/21 at 13:00; Stop 06/02/21 at 14:59; Status Cancel Magnesium Sulfate 50 ml @ 25 mls/hr 1X ONCE IV Last administered on 06/03/21at 09:52; Start 06/03/21 at 08:00; Stop 06/03/21 at 09:59; Status DC Magnesium Sulfate 50 ml @ 25 mls/hr 1X ONCE IV Last administered on 06/04/21at 07:25; Start 06/04/21 at 07:30; Stop 06/04/21 at 09:29; Status DC Ketorolac Tromethamine (Toradol 30mg Vial) 15 mg PRN Q6HRS PRN IVP INFLAMMATION Last administered on 06/07/21at 23:39; Start 06/04/21 at 09:00; Stop 06/09/21 at 09:20; Status DC Magnesium Sulfate 100 ml @ 25 mls/hr 1X ONCE IV Last administered on 06/05/21at 13:10; Start 06/05/21 at 12:00; Stop 06/05/21 at 17:31; Status DC Magnesium Sulfate 50 ml @ 25 mls/hr 1X ONCE IV Last administered on 06/07/21at 12:42; Start 06/07/21 at 12:30; Stop 06/07/21 at 14:29; Status DC Amino Acids/ Electrolytes/ Dextrose 1,000 ml @ 80 mls/hr [id number] IV Last administered on 06/09/21at 17:50; Start 06/07/21 at 12:15; Stop 06/10/21 at 15:16; Status DC Magnesium Sulfate 50 ml @ 25 mls/hr 1X ONCE IV Last administered on 06/09/21at 08:45; Start 06/09/21 at 09:00; Stop 06/09/21 at 10:59; Status DC Mirtazapine (Remeron) 7.5 mg QHS PO Last administered on 06/09/21at 20:48; Start 06/09/21 at 21:00; Stop 06/10/21 at 15:16; Status DC Acetaminophen/ Aspirin/Caffeine (Excedrin Migraine) 1 tab PRN Q6HRS PRN PO MIGRAINE HEADACHE Last administered on 06/09/21at 10:20; Start 06/09/21 at 09:30; Stop 06/10/21 at 15:16; Status DC Active Scripts Active Prednisone (Prednisone) 10 Mg Tablet 10 Mg PO DAILY 3 Days Prednisone (Prednisone) 10 Mg Tablet 20 Mg PO DAILY 3 Days Prednisone (Prednisone) 10 Mg Tablet 30 Mg PO DAILY 3 Days Mirtazapine 7.5 Mg Tablet 7.5 Mg PO QHS 30 Days Metoprolol Tartrate 50 Mg Tablet 50 Mg PO BID 30 Days Reported Lisinopril 10 Mg Tablet 1 Tab PO DAILY Pravastatin Sodium 80 Mg Tablet 1 Tab PO QHS Phenytoin Sodium Extended 200 Mg Capsule 2 Cap PO BID 30 Days [id number] 50-300-40 (Butalb/Acetaminophen/Caffeine) 1 Each Capsule 1 Each PO PRN QID PRN Vitals/I & O Vital Sign - Last 24 Hours 06/09/21 06/09/21 06/09/21 06/09/21 19:42 19:45 20:49 22:44 Temp 98.0 98.6 98.0 98.6 Pulse 94 94 85 Resp 16 16 B/P (MAP) 149/74 (99) 149/74 119/59 (79) Pulse Ox 95 96 O2 Delivery Nasal Cannula Nasal Cannula Nasal Cannula O2 Flow Rate 8.0 8.0 8.0 06/10/21 06/10/21 06/10/21 06/10/21 03:00 07:00 08:15 08:30 Temp 98.2 97.7 98.2 97.7 Pulse 86 85 85 Resp 18 20 B/P (MAP) 123/59 (80) 93/51 (65) 93/51 Pulse Ox 99 96 O2 Delivery Nasal Cannula Nasal Cannula Nasal Cannula O2 Flow Rate 8.0 8.0 8.0 06/10/21 06/10/21 06/10/21 08:31 10:58 14:26 Temp 97.8 97.5 97.8 97.5 Pulse 85 79 83 Resp 22 22 B/P (MAP) 93/51 108/60 (76) 109/63 (78) Pulse Ox 98 99 O2 Delivery Nasal Cannula Nasal Cannula O2 Flow Rate 8.0 8.0 Intake and Output 06/09/21 06/09/21 06/10/21 15:00 23:00 07:00 Intake Total 417 ml 417 ml 0 ml Output Total 1200 ml 750 ml Balance 417 ml -783 ml -750 ml Justifications for Admission Other Justification Nutrition Consultation Dietary Evaluation: Recommendations by RD: Dietary education by RD Comments: continue with nutrition care order Expected Outcomes/Goals: to meet >75% est nutr needs- goal ongoing Malnutrition Findings: Food and Nutrition Intake (Sev: <50% est energy req 5days Weight Status: Underweight EL OSPINA MD Jun 10, 2021 16:49
== END 2021-06-10 14:50 | DRG 871 ==
LOC: ER 17:53 → ED HOLD 19:39 → 6 SOUTH 05-27 10:55
PROVIDERS: ADMIT Family Medicine; ATTEND Family Medicine
PROC: XW033E5 Introduction of Remdesivir Anti-infective into Peripheral Vein, Percutaneous Approach, New Technology Group 5 (ICD-10-PCS; principal; 2021-05-27)
DX: A41.89 Other specified sepsis (principal); U07.1 COVID-19; J96.00 Acute respiratory failure, unspecified whether with hypoxia or hypercapnia; G93.41 Metabolic encephalopathy; I62.02 Nontraumatic subacute subdural hemorrhage; J12.82 Pneumonia due to coronavirus disease 2019; J96.01 Acute respiratory failure with hypoxia; N17.0 Acute kidney failure with tubular necrosis; R65.21 Severe sepsis with septic shock; D68.9 Coagulation defect, unspecified; E87.1 Hypo-osmolality and hyponatremia; R64 Cachexia; E78.00 Pure hypercholesterolemia, unspecified; E78.5 Hyperlipidemia, unspecified; E83.42 Hypomagnesemia; E86.0 Dehydration; E87.6 Hypokalemia; G40.909 Epilepsy, unspecified, not intractable, without status epilepticus; G56.02 Carpal tunnel syndrome, left upper limb; I10 Essential (primary) hypertension; I48.91 Unspecified atrial fibrillation; I71.4 Abdominal aortic aneurysm, without rupture; I72.3 Aneurysm of iliac artery; J43.9 Emphysema, unspecified; M19.90 Unspecified osteoarthritis, unspecified site; M41.9 Scoliosis, unspecified; M43.17 Spondylolisthesis, lumbosacral region; M48.02 Spinal stenosis, cervical region; M51.46 Schmorl's nodes, lumbar region; M85.80 Other specified disorders of bone density and structure, unspecified site; N40.0 Benign prostatic hyperplasia without lower urinary tract symptoms; S40.011A Contusion of right shoulder, initial encounter; Z78.9 Other specified health status; W18.39XA Other fall on same level, initial encounter; Z82.49 Family history of ischemic heart disease and other diseases of the circulatory system; Z83.3 Family history of diabetes mellitus; Z86.79 Personal history of other diseases of the circulatory system; Z87.891 Personal history of nicotine dependence; Z79.899 Other long term (current) drug therapy; Y93.89 Activity, other specified; Y92.89 Other specified places as the place of occurrence of the external cause; Y99.8 Other external cause status
CPT/HCPCS: 36415; 36600; 51702; 70450; 71045; 71250; 72125; 73030; 74176; 80048; 80053; 80061; 81001; 82805; 82962; 83605; 83735; 83880; 84100; 84443; 84484; 85007; 85025; 85610; 85730; 87040; 87070; 87077; 87185; 87205; 87426; 93005; 94640; 96361; 96365; 96375; J0696; J1885; J2270; J2543; J2920; J2930; J3475; J3480; J3490; J7030; J7050; J7060; J7512; U0003; U0005; 97116-GP; 97530-GO; 97530-GP; 97535-GO; 99285-25; G0378; J7613